=== PATIENT | male | born 1960 | race Two or more races ===

== ENCOUNTER 2020-07-19 09:08 | Outpatient (REF) | payer MEDICARE, MEDICAID, SELFPAY ==
[2020-07-19 09:59] LABS: MANUAL DIFF FLAG NO
[2020-07-19 10:12] LABS: Basophils Absolute Auto 0.1 X10*3/uL (0.0-0.2); Basophils Percent Auto 0.7 % (0-2); Eosinophils Absolute Auto 0.2 X10*3/uL (0.0-0.4); Eosinophils Percent Auto 2.7 % (0-4); Hematocrit 37.8 % (42-52); Hemoglobin 11.8 g/dl (14.0-18.0); Imm Gran Abs Auto 0.02 X10*3/uL (0.00-0.03); Imm Gran Pct Auto 0.3 % (0.0-0.4); Lymphocytes Absolute Auto 2.7 X10*3/uL (1.2-4.9); Lymphocytes Percent Auto 36.3 % (20-40); Mean Corpuscular HGB Conc 31.2 g/dl (31.0-36.0); Mean Corpuscular Hemoglobin 27.8 pg (27.0-33.0); Mean Corpuscular Volume 89.2 fL (80-98); Mean Platelet Volume 10.2 fL (9.4-12.4); Monocytes Absolute Auto 0.5 X10*3/uL (0.1-1.2); Monocytes Percent Auto 6.5 % (2-11); Neutrophils Absolute Auto 3.9 X10*3/uL (2.0-8.3); Neutrophils Percent Auto 53.5 % (45-73); Platelet Count 243 X10*3/uL (160-400); Red Blood Count 4.24 X10*6/uL (4.60-5.80); Red Cell Distribution Width 12.6 % (11.0-16.0); White Blood Count 7.4 X10*3/uL (4.8-10.8)
[2020-07-19 10:48] LABS: Alanine Aminotransferase 19 U/L (0-40); Albumin Level 4.2 g/dL (3.5-5.0); Alkaline Phosphatase 63 U/L (39-117); Anion Gap 11 (12-20); Aspartate Amino Transferase 17 U/L (5-37); Bilirubin Total 0.6 mg/dL (0.0-1.0); Blood Urea Nitrogen 22 mg/dL (9-16); Calcium 8.6 mg/dL (8.4-10.2); Carbon Dioxide 27 mmol/L (22-29); Chloride 108 mmol/L (96-108); Cholesterol 139 mg/dL; Estimated Glomerular Filt Rate > 60; Glucose Fasting 102 mg/dL (60-99); HDL Cholesterol 49 mg/dL; LDL Cholesterol Calculated 79 mg/dl; Potassium 4.4 mmol/l (3.3-5.1); Sodium 142 mmol/L (135-145); Total Protein 7.2 g/dL (6.5-8.0); Triglycerides 57 mg/dL
[2020-07-19 10:57] LABS: Creatinine Urine 98.23 mg/dL; Microalbum/Creatinine Ratio Ur 21.3 ug/mg cr
== END 2020-07-19 09:09 | disposition home or self-care (01) ==
LOC: HO.LAB 09:08
PROVIDERS: PCP Internal Medicine; Visit Provider Internal Medicine
DX: E78.00 Pure hypercholesterolemia, unspecified (principal); E11.39 Type 2 diabetes mellitus with other diabetic ophthalmic complication; M79.604 Pain in right leg
CPT/HCPCS: 36415; 80053; 80061; 82043; 85025

== ENCOUNTER 2020-08-31 08:41 | Emergency (ER) | payer MEDICARE, MEDICAID, SELFPAY ==
[2020-08-31 09:05] VITALS: BP 132/79; PULSE 96; RESP 16; TEMP 36.9; O2SAT 100; BMI 25.0
[2020-08-31] MEDS: Fluorescein Sodium STRIP 1 STRIP EYE-LEFT (09:59)
[2020-08-31] MEDS: Tetracaine HCl/PF 0.5% Oph Sol 4 ML DROPS 3 DROP EYE-RIGHT (09:59)
--- NOTE | 2020-08-31 10:27 | ED_ITS ---
HPI - Eye Problem General Chief complaint: Eye Problems Stated complaint: ? 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, there is no light sensitivity, there is no recent injury, no feeling of a foreign body Related Data Home Medications Medication Instructions Recorded Confirmed atorvastatin 20 mg tablet 20 mg PO DAILY 07/23/20 07/23/20 brimonidine 0.2 % eye drops 1 drp OPHTHALMIC (EYE) BID 07/23/20 07/23/20 gabapentin 100 mg capsule 100 mg PO DAILY 07/23/20 07/23/20 lisinopril 5 mg tablet 5 mg PO DAILY 07/23/20 07/23/20 omeprazole 20 mg tablet,delayed 20 mg PO QAM 07/23/20 07/23/20 release Previous Rx's Medication Instructions Recorded insulin glargine 100 unit/mL (3 45 unit SUBCUT QPM 30 Days #13.5 ml 06/29/20 mL) subcutaneous pen dulaglutide 0.75 mg/0.5 mL 0.75 mg SUBCUT QWEEK #0.5 ml 07/28/20 subcutaneous pen injector ammonium lactate 12 % lotion 1 applic TOPICAL DAILY 30 Days 08/18/20 #225 g oxycodone 5 mg tablet 5 mg PO TID PRN 30 Days #90 tab 08/18/20 ofloxacin [Ocuflox] See Rx Instructions .ROUTE 08/31/20 .COMPLEX #5 ml Allergies Allergy/AdvReac Type Severity Reaction Status Date / Time metformin Allergy Unknown diarrhea Verified 07/23/20 10:21 Review of Systems Review of Systems: positive for left eye redness itching and discharge no headache no fever no chills no dizziness no eye pain, no rash Yes all other systems are reviewed and are negative PMFSH Past Medical History Source: nursing notes reviewed Medical History Diabetes mellitus Essential hypertension GERD (gastroesophageal reflux disease) Pure hypercholesterolemia Surgical History History of eye surgery History of open reduction and internal fixation (ORIF) procedure Family History Family History (Updated 07/22/20 @ 10:49 by ESTELLA Barba) Father Diabetes Stroke Mother Diabetes Brother Prostate cancer Maternal Uncle Cancer Social History Social History (Updated 07/23/20 @ 10:08 by ESTELLA Rico) Smoking Status: Former smoker Tobacco Type: Cigarette Advance Directives: No Advance Directives Information Provided: Yes Physical Exam Vital Signs: Vital Signs: Last Vital Signs Temp 98.4 F 08/31/20 09:05 Pulse 96 08/31/20 09:05 Resp 16 08/31/20 09:05 BP 132/79 08/31/20 09:05 Pulse Ox 100 08/31/20 09:05 Body Mass Index 25.0 patient is comfortable relaxed cooperative A&O x3 The eye exam his vision is 2100 with correction in the right eye the left eye was unable to see the eye chart, patient says this is his baseline The left eye had some conjunctival redness there was a yellowish discharge crusting on the lower eyelids, pupils equal round reactive to light and extraocular motions were intact Staining did not reveal any dye uptake, no foreign body was seen The neck was supple Respiratory no distress Skin no rash Course Course Course Narrative: patient is treated for conjunctivitis possibly bacterial and will follow with his eye doctor next week if not better Discharge Plan Discharge Clinical Impression: Conjunctivitis Qualifiers: Conjunctivitis type: acute Acute conjunctivitis type: unspecified Laterality: left Qualified Code(s): H10.32 - Unspecified acute conjunctivitis, left eye Patient Disposition: Home, Self-Care Additional Instructions: follow with her eye doctor in 2-3 days if not better Return to the ER any time for worsening eye pain, any worse condition, any concerns Prescriptions: New ofloxacin [Ocuflox] 0.3 % drops See Rx Instructions .ROUTE .COMPLEX Qty: 5 RF: 0 No Action Lantus Solostar U-100 Insulin 100 unit/mL (3 mL) insulin pen 45 unit subcut QPM 30 Days Qty: 13.5 RF: 5 dulaglutide [Trulicity] 0.75 mg/0.5 mL pen injector 0.75 mg subcut QWEEK Qty: 0.5 RF: 3 oxycodone 5 mg tablet 5 mg PO TID PRN (Reason: pain) 30 Days Qty: 90 RF: 0 ammonium lactate 12 % lotion 1 applic topical DAILY 30 Days Qty: 225 RF: 1 brimonidine 0.2 % drops 1 drp ophthalmic (eye) BID RF: 0 gabapentin 100 mg capsule 100 mg PO DAILY RF: 0 lisinopril 5 mg tablet 5 mg PO DAILY RF: 0 atorvastatin 20 mg tablet 20 mg PO DAILY RF: 0 omeprazole 20 mg tablet,delayed release (DR/EC) 20 mg PO QAM RF: 0 Referrals: Gilson Moreno [Physician] - 2 days
== END 2020-08-31 10:31 | disposition home or self-care (01) ==
PROVIDERS: Emergency Provider Internal Medicine; PCP Internal Medicine
DX: H10.32 Unspecified acute conjunctivitis, left eye (principal); H57.12 Ocular pain, left eye; Z79.899 Other long term (current) drug therapy; Z87.891 Personal history of nicotine dependence
CPT/HCPCS: 99283

== ENCOUNTER 2020-10-14 09:19 | Outpatient (REF) | payer MEDICARE, MEDICAID, SELFPAY ==
[2020-10-14 10:39] LABS: Cholesterol 157 mg/dL; HDL Cholesterol 59 mg/dL; LDL Cholesterol Calculated 87 mg/dl; Triglycerides 58 mg/dL
== END 2020-10-14 09:20 | disposition home or self-care (01) ==
LOC: HO.LAB 09:19
PROVIDERS: Visit Provider Internal Medicine
DX: E78.00 Pure hypercholesterolemia, unspecified (principal)
CPT/HCPCS: 36415; 80061

== ENCOUNTER 2021-01-19 07:52 | Outpatient (REF) | payer MEDICARE, MEDICAID, SELFPAY ==
[2021-01-19 08:29] LABS: MANUAL DIFF FLAG NO
[2021-01-19 08:34] LABS: Basophils Absolute Auto 0.1 X10*3/uL (0.0-0.2); Basophils Percent Auto 0.7 % (0-2); Eosinophils Absolute Auto 0.3 X10*3/uL (0.0-0.4); Eosinophils Percent Auto 3.8 % (0-4); Hematocrit 39.3 % (42-52); Hemoglobin 12.3 g/dl (14.0-18.0); Imm Gran Abs Auto 0.03 X10*3/uL (0.00-0.03); Imm Gran Pct Auto 0.4 % (0.0-0.4); Lymphocytes Absolute Auto 2.2 X10*3/uL (1.2-4.9); Lymphocytes Percent Auto 32.6 % (20-40); Mean Corpuscular HGB Conc 31.3 g/dl (31.0-36.0); Mean Corpuscular Hemoglobin 28.4 pg (27.0-33.0); Mean Corpuscular Volume 90.8 fL (80-98); Mean Platelet Volume 9.8 fL (9.4-12.4); Monocytes Absolute Auto 0.5 X10*3/uL (0.1-1.2); Monocytes Percent Auto 6.8 % (2-11); Neutrophils Absolute Auto 3.8 X10*3/uL (2.0-8.3); Neutrophils Percent Auto 55.7 % (45-73); Platelet Count 301 X10*3/uL (160-400); Red Blood Count 4.33 X10*6/uL (4.60-5.80); Red Cell Distribution Width 12.2 % (11.0-16.0); White Blood Count 6.9 X10*3/uL (4.8-10.8)
[2021-01-19 08:59] LABS: Alanine Aminotransferase 12 U/L (0-40); Albumin Level 3.9 g/dL (3.5-5.0); Alkaline Phosphatase 79 U/L (39-117); Anion Gap 12 (12-20); Aspartate Amino Transferase 12 U/L (5-37); Bilirubin Total 0.6 mg/dL (0.0-1.0); Blood Urea Nitrogen 12 mg/dL (9-16); Calcium 8.9 mg/dL (8.4-10.2); Carbon Dioxide 28 mmol/L (22-29); Chloride 107 mmol/L (96-108); Cholesterol 143 mg/dL; Estimated Glomerular Filt Rate > 60; Glucose Fasting 151 mg/dL (60-99); HDL Cholesterol 48 mg/dL; LDL Cholesterol Calculated 84 mg/dl; Potassium 4.1 mmol/L (3.3-5.1); Sodium 143 mmol/L (135-145); Total Protein 7.1 g/dL (6.5-8.0); Triglycerides 57 mg/dL
[2021-01-19 09:15] LABS: Creatinine Urine 196.61 mg/dL; Microalbum/Creatinine Ratio Ur 19.8 ug/mg cr
[2021-01-19 09:16] LABS: Estimated Average Glucose 249 mg/dL; Hemoglobin A1c % 10.3 %
== END 2021-01-19 07:53 | disposition home or self-care (01) ==
LOC: HO.LAB 07:52
PROVIDERS: PCP Internal Medicine; Visit Provider Internal Medicine
DX: E11.9 Type 2 diabetes mellitus without complications (principal); K21.9 Gastro-esophageal reflux disease without esophagitis; E78.5 Hyperlipidemia, unspecified; M79.604 Pain in right leg; Z79.4 Long term (current) use of insulin
CPT/HCPCS: 36415; 80053; 80061; 82043; 83036; 85025

== ENCOUNTER 2021-07-20 07:24 | Outpatient (REF) | payer MEDICARE, MEDICAID, SELFPAY ==
[2021-07-20 07:30] LABS: MANUAL DIFF FLAG NO
[2021-07-20 08:01] LABS: Basophils Absolute Auto 0.1 X10*3/uL (0.0-0.2); Basophils Percent Auto 0.6 % (0-2); Eosinophils Absolute Auto 0.3 X10*3/uL (0.0-0.4); Eosinophils Percent Auto 2.9 % (0-4); Hematocrit 39.5 % (42-52); Hemoglobin 12.9 g/dl (14.0-18.0); Imm Gran Abs Auto 0.03 X10*3/uL (0.00-0.03); Imm Gran Pct Auto 0.3 % (0.0-0.4); Lymphocytes Absolute Auto 3.1 X10*3/uL (1.2-4.9); Lymphocytes Percent Auto 36.4 % (20-40); Mean Corpuscular HGB Conc 32.7 g/dl (31.0-36.0); Mean Corpuscular Hemoglobin 28.7 pg (27.0-33.0); Mean Platelet Volume 9.8 fL (9.4-12.4); Monocytes Absolute Auto 0.5 X10*3/uL (0.1-1.2); Neutrophils Absolute Auto 4.6 X10*3/uL (2.0-8.3); Neutrophils Percent Auto 53.8 % (45-73); Platelet Count 302 X10*3/uL (160-400); Red Blood Count 4.49 X10*6/uL (4.60-5.80); Red Cell Distribution Width 12.4 % (11.0-16.0); White Blood Count 8.6 X10*3/uL (4.8-10.8)
[2021-07-20 08:27] LABS: Alanine Aminotransferase 16 U/L (0-40); Albumin Level 4.3 g/dL (3.5-5.0); Alkaline Phosphatase 78 U/L (39-117); Anion Gap 13 (12-20); Aspartate Amino Transferase 15 U/L (5-37); Bilirubin Total 0.6 mg/dL (0.0-1.0); Blood Urea Nitrogen 15 mg/dL (9-16); Calcium 9.7 mg/dL (8.4-10.2); Carbon Dioxide 32 mmol/L (22-29); Chloride 104 mmol/L (96-108); Cholesterol 174 mg/dL; Estimated Glomerular Filt Rate > 60; Glucose Fasting 117 mg/dL (60-99); HDL Cholesterol 53 mg/dL; LDL Cholesterol Calculated 110 mg/dl; Potassium 4.7 mmol/L (3.3-5.1); Sodium 144 mmol/L (135-145); Total Protein 7.7 g/dL (6.5-8.0); Triglycerides 56 mg/dL
[2021-07-20 09:01] LABS: Creatinine Urine 243.51 mg/dL; Microalbum/Creatinine Ratio Ur 21.3 ug/mg cr
== END 2021-07-20 07:25 | disposition home or self-care (01) ==
LOC: HO.LAB 07:24
PROVIDERS: PCP Internal Medicine; Visit Provider Internal Medicine
DX: E11.9 Type 2 diabetes mellitus without complications (principal); E78.5 Hyperlipidemia, unspecified; D64.9 Anemia, unspecified; Z79.4 Long term (current) use of insulin
CPT/HCPCS: 36415; 80053; 80061; 82043; 85025

== ENCOUNTER → 2021-07-24 09:04 | Outpatient (BNVA) | payer MEDICARE, MEDICAID, SELFPAY | PROVIDERS: PCP Internal Medicine; Referring Provider Internal Medicine; Visit Provider Nurse Practitioner | DX: Z01.818 Encounter for other preprocedural examination (principal); Z83.71 Family history of colonic polyps; Z79.899 Other long term (current) drug therapy | CPT/HCPCS: Q3014 ==

== ENCOUNTER 2021-09-21 07:51 | Outpatient (REF) | payer MEDICARE, MEDICAID, SELFPAY ==
[2021-09-21 08:36] LABS: COVID-19 Test Negative (Negative); IDNOW Serial# 16C4AD1C
== END 2021-09-21 07:52 | disposition home or self-care (01) ==
LOC: HO.LAB 07:51
PROVIDERS: Visit Provider Internal Medicine
DX: Z20.822 Contact with and (suspected) exposure to COVID-19 (principal)
CPT/HCPCS: 36415; 87635; C9803

== ENCOUNTER 2021-09-29 08:14 | Outpatient (REF) | payer MEDICARE, MEDICAID, SELFPAY ==
[2021-09-29 11:17] LABS: Binax Internal Control QC Valid; Binax Lot number: 9864; Binax Now Covid-19 Ag Positive (Negative)
== END 2021-09-29 08:15 | disposition home or self-care (01) ==
LOC: HO.LAB 08:14
PROVIDERS: Visit Provider Internal Medicine
DX: Z20.822 Contact with and (suspected) exposure to COVID-19 (principal)
CPT/HCPCS: 36415; C9803

== ENCOUNTER 2021-10-30 08:07 | Day surgery (SDC) | payer MEDICARE, MEDICAID, SELFPAY ==
[2021-10-23 15:25] VITALS: BMI 26.1
--- NOTE | 2021-10-29 13:05 | HO.ANESPROP2 ---
Documented by User: Sveta Maria NP 10/29/21 13:06 HPI - Anesthesia Eval Consult details Narrative: 61yo M for Colonoscopy PMFSH Active Problems Active Problems: All Active Problems (Updated 10/23/21 @ 15:24 by Adia Scott, KARISHMA) Diabetic retinopathy of both eyes (Acute) Colon cancer screening (Acute) Family history of polyps in the colon (Acute) Screening for prostate cancer (Acute) Chronic radicular pain of lower extremity (Acute) GERD (gastroesophageal reflux disease) (Acute) Pure hypercholesterolemia (Acute) Essential hypertension (Acute) Diabetes mellitus (Acute) Past Medical History Medical History Chronic radicular pain of lower extremity Diabetes mellitus Essential hypertension GERD (gastroesophageal reflux disease) Pure hypercholesterolemia SARS-CoV-2 positive Screening for prostate cancer Family History Family History Father Diabetes Stroke Mother Diabetes Brother Prostate cancer FH: colonic polyps Maternal Uncle Cancer Surgical History Surgical History History of colonoscopy History of eye surgery History of open reduction and internal fixation (ORIF) procedure Social History Social History Housing: Apartment Alcohol intake: former Patient Tobacco Use Status: Former Tobacco user Tobacco use type: Cigarette e-Cigarette/Vaping Use: Never Used Second Hand Smoke Exposure: No Advance Directives on File: No service: No Current occupational status: disabled Meds Allergies Allergy/AdvReac Type Severity Reaction Status Date / Time metformin Allergy Intermediate diarrhea Verified 07/24/21 10:12 Home Medications Medication Instructions Recorded Confirmed Last Taken Type brimonidine 0.2 % eye drops 1 drp OPHTHALMIC (EYE) BID 07/23/20 10/23/21 Unknown History omeprazole 20 mg tablet,delayed 20 mg PO QAM 07/23/20 10/23/21 Unknown History release timolol 0.5 % eye drops 1 drp OPHTHALMIC (EYE) BID 03/23/21 10/23/21 Unknown History Exam Exam Date and Time: October 29, 2021 1305 Height,Weight and Vital Signs: Height 5 ft 8 in Weight 78.018 kg Pertinent Lab Results Pertinent Lab Results: Laboratory Tests 07/20/21 07/20/21 07:28 07:28 WBC 8.6 Hgb 12.9 L Hct 39.5 L Plt Count 302 Sodium 144 Potassium 4.7 Chloride 104 Carbon Dioxide 32 H BUN 15 Creatinine 0.97 Assessment and Plan Assessment Anesthesia Assessment: Chart Reviewed Documented by User: Myrna Holly MD 10/30/21 10:05 PMFSH Past Medical History Medical History Chronic radicular pain of lower extremity Diabetes mellitus Essential hypertension GERD (gastroesophageal reflux disease) Pure hypercholesterolemia SARS-CoV-2 positive Screening for prostate cancer Functional capacity: independent ambulation Family History Family History Father Diabetes Stroke Mother Diabetes Brother Prostate cancer FH: colonic polyps Maternal Uncle Cancer Family history of problems with anesthesia: No Surgical History Surgical History History of colonoscopy History of eye surgery History of open reduction and internal fixation (ORIF) procedure History of Problems with Anesthesia: No Social History Social History Housing: Apartment Alcohol intake: former Patient Tobacco Use Status: Former Tobacco user Tobacco use type: Cigarette e-Cigarette/Vaping Use: Never Used Second Hand Smoke Exposure: No Advance Directives on File: No service: No Current occupational status: disabled Meds Allergies Allergy/AdvReac Type Severity Reaction Status Date / Time metformin Allergy Intermediate diarrhea Verified 07/24/21 10:12 Home Medications Medication Instructions Recorded Confirmed Last Taken Type brimonidine 0.2 % eye drops 1 drp OPHTHALMIC (EYE) BID 07/23/20 10/23/21 Unknown History omeprazole 20 mg tablet,delayed 20 mg PO QAM 07/23/20 10/23/21 Unknown History release timolol 0.5 % eye drops 1 drp OPHTHALMIC (EYE) BID 03/23/21 10/23/21 Unknown History Exam Airway Mallampati Class: II TM Dist: >3cm Neck ROM: Full Heart: RRR Lungs: CTA Assessment and Plan Final Anesthetic Review Family History of Problems with Anesthesia: No History of Problems with Anesthesia: No ASA Class: II Final Preanesthetic Review: No Changes in Pt Med Stat, Meds/Allgs Chart Reviewed, Consent Obtained/Reviewed and Anes Risks/Benef Reviewed Patient Risk: Low Procedure Risk: Low Anesthetic Plan Anesthetic Plan: MAC:
[2021-10-30 08:47] VITALS: BP 149/92; PULSE 102; RESP 20; TEMP 36.2; O2SAT 100
[2021-10-30] MEDS: Lactated Ringers 1,000 ML 100 ML IVCONT (09:10)
[2021-10-30 09:19] LABS: Glucose, Whole Blood 146 mg/dL (60-115)
--- NOTE | 2021-10-30 09:33 | MHC.SHP ---
Pre-Procedural Eval Section A Date of Service: 10/30/21 The patient is an INPATIENT: No The History & Physical has been completed within 30 days and I have reviewed it.: No Section B Chief Complaint: hx of colonic polyps Details of Present Illness: Colon cancer screening, history of colon polyps Relevant Family History (Specify if Yes): Yes Relevant Social History: Tobacco Use (former smoker) Present Medications: see Short Stay Collaborative assessment Medical History: Significant History (Chronic radicular pain of lower extremity Diabetes mellitus Essential hypertension GERD (gastroesophageal reflux disease) Pure hypercholesterolemia Screening for prostate cancer) History of Previous Operations: Relevant previous surgery/procedure and date(s) (History of colonoscopy History of eye surgery History of open reduction and internal fixation (ORIF) procedure) Allergies: Allergies Allergy/AdvReac Type Severity Reaction Status Date / Time metformin Allergy Intermediate diarrhea Verified 07/24/21 10:12 Review of Systems Sugical H&P ROS: Negative: Constitution, Cardiovascular, Respiratory and Gastrointestinal Exam Surgical H&P Exam: Normal: Heart, Normal: Lungs, Normal: Extremities and Normal: Abdomen Plan Diagnosis/Plan: Unchanged I have reviewed the history and physical and performed a pertinent physical examination on my patient. No changes have occurred unless specified.
--- NOTE | 2021-10-30 09:36 | W.PM.OPN ---
Operative Note Operative Note Date of Service: 10/30/21 Narrative: Pre-op diagnosis: Colon cancer screening, family hx of colon polyps in a brother Post-op diagnosis:?other (Colon polyps, diverticulosis, hemorrhoids) Procedure: COLONOSCOPY TILL CECUM WITH BIOPSIES Consent: Indications for the procedure and potential complications of bleeding, perforation, reaction to medications and missed diagnosis were discussed with the patient and informed consent was obtained. Instrument: Olympus PCF H 190 L variable stiffness pediatric colonoscope Monitoring: Vital signs and clinical assessment, intermittent blood pressure monitoring, continuous EKG monitoring, Pulse oximetry and Carbon Dioxide monitoring were done throughout the procedure. Colon withdrawl time was 23 minutes. Procedure: The patient was placed in the left lateral decubitis position and pre-procedure medications were administered. After a digital rectal examination of the ano-rectum, the video colonoscope was inserted into the rectum and advanced through the colon to the cecum. The colonoscope was slowly withdrawn in a retrograde panoramic fashion and the colon mucosa was carefully examined including a retroflexed view of the rectum. Findings and interventions are described below. Procedure Difficulty: Without difficulty Findings: Terminal Ileum: Not evaluated Cecum:? Normal Ascending Colon:? Normal Transverse Colon:? Normal Descending Colon:? Moderate diverticulosis Sigmoid Colon:? Two 3-4 mm sessile polyps removed with a cold biopsy. Moderate diverticulosis Rectum:? Normal Ano-rectum:? Moderate internal hemorrhoids Colon preparation:? Good? Impression and Post Procedure Diagnosis: Colonoscopy Findings: Two small polyps removed Moderate diverticulosis seen in the left colon Moderate hemorrhoids on retroflexed exam. Plan: Await pathology results Patient has an appointment on 11/13/21 in the [facility] with? Maggie Chang NP . Repeat Colonoscopy interval based on path results - in 5 years if polyps are adenomatous and 10 years if polyps are hyperplastic (since patient has had 2 negative colonoscopies). Above findings were reviewed with the patient and colon polyps and diverticulosis handouts were given in the discharge area Surgeon: William Barragan MD Anesthesia:?MAC (Dr Simmons) Was an Inside Sales Supervisor used for this Procedure?:?Yes Inside Sales Supervisor:?Mara Lawson Estimated blood loss (mL):?0 Pathology:?other (A. SIGMOID POLYPS) Condition:?stable Disposition:?PACU
[2021-10-30 10:35] VITALS: BP 90/48; PULSE 86; RESP 16; TEMP 36.3; O2SAT 97
[2021-10-30 10:50] VITALS: BP 113/66; PULSE 85; RESP 18; O2SAT 100
--- NOTE | 2021-10-30 10:57 | HO.POSTANES ---
Post Anesthesia Evaluation Post Anesthesia Evaluation Vital Signs: Vital Signs Temp Pulse Resp BP Pulse Ox 10/30/21 10:50 85 18 113/66 100 10/30/21 10:35 97.4 F 86 16 90/48 L 97 10/30/21 08:47 97.1 F 102 H 20 149/92 H 100 Anesthesia: Monitored Mental Status: Awake Pain Control: Satisfactory Nausea/Vomiting: None Hydration: Adequate Anesthesia-Related Issues: No Anes. Related Issues
[2021-10-30 11:00] VITALS: BP 113/66; PULSE 80; RESP 16; TEMP 36.4; O2SAT 100
== END 2021-10-30 11:29 | disposition home or self-care (01) ==
PROVIDERS: PCP Internal Medicine; Visit Provider Internal Medicine Gastroenterology
PROC: 0DJD8ZZ Inspection of Lower Intestinal Tract, Via Natural or Artificial Opening Endoscopic (ICD-10-PCS; CPT 45378; principal; 2021-10-30 10:00)
DX: Z12.11 Encounter for screening for malignant neoplasm of colon (principal); Z83.71 Family history of colonic polyps; K63.5 Polyp of colon; K57.30 Diverticulosis of large intestine without perforation or abscess without bleeding; K64.8 Other hemorrhoids; K21.9 Gastro-esophageal reflux disease without esophagitis; I10 Essential (primary) hypertension; E78.00 Pure hypercholesterolemia, unspecified; E11.319 Type 2 diabetes mellitus with unspecified diabetic retinopathy without macular edema; Z79.4 Long term (current) use of insulin; Z79.899 Other long term (current) drug therapy; Z88.8 Allergy status to other drugs, medicaments and biological substances; Z87.891 Personal history of nicotine dependence
CPT/HCPCS: 45380; 82947; 88305

== ENCOUNTER → 2021-11-13 10:47 | Outpatient (BNVA) | payer MEDICARE, MEDICAID, SELFPAY | PROVIDERS: PCP Internal Medicine; Referring Provider Internal Medicine; Visit Provider Nurse Practitioner | DX: Z09 Encounter for follow-up examination after completed treatment for conditions other than malignant neoplasm (principal); Z83.71 Family history of colonic polyps | CPT/HCPCS: 99212 ==

== ENCOUNTER 2021-11-27 08:43 | Outpatient (REF) | payer MEDICARE, MEDICAID, SELFPAY ==
[2021-11-27 09:19] LABS: MANUAL DIFF FLAG NO
[2021-11-27 09:54] LABS: Basophils Absolute Auto 0.1 X10*3/uL (0.0-0.2); Basophils Percent Auto 0.6 % (0-2); Eosinophils Absolute Auto 0.1 X10*3/uL (0.0-0.4); Eosinophils Percent Auto 1.2 % (0-4); Hematocrit 39.4 % (42.0-52.0); Hemoglobin 12.2 g/dl (14.0-18.0); Imm Gran Abs Auto 0.02 X10*3/uL (0.00-0.03); Imm Gran Pct Auto 0.2 % (0.0-0.4); Lymphocytes Absolute Auto 2.2 X10*3/uL (1.2-4.9); Lymphocytes Percent Auto 22.7 % (20-40); Mean Corpuscular Hemoglobin 27.5 pg (27.0-33.0); Mean Corpuscular Volume 88.7 fL (80.0-98.0); Mean Platelet Volume 10.1 fL (9.4-12.4); Monocytes Absolute Auto 0.4 X10*3/uL (0.1-1.2); Monocytes Percent Auto 4.2 % (2-11); Neutrophils Absolute Auto 6.9 x10*3/uL (2.0-8.3); Neutrophils Percent Auto 71.1 % (45-73); Platelet Count 306 X10*3/uL (160-400); Red Blood Count 4.44 X10*6/uL (4.60-5.80); Red Cell Distribution Width 12.8 % (11.0-16.0); White Blood Count 9.8 X10*3/uL (4.8-10.8)
[2021-11-27 10:12] LABS: Creatinine Urine 191.28 mg/dL; Microalbum/Creatinine Ratio Ur 21.4 ug/mg cr
[2021-11-27 10:18] LABS: Cholesterol 134 mg/dL; HDL Cholesterol 47 mg/dL; LDL Cholesterol Calculated 79 mg/dl; Triglycerides 41 mg/dL
[2021-12-02 02:37] LABS: Vitamin D 25-OH, D2 <4 ng/mL; Vitamin D 25-OH, D3 15 ng/mL; Vitamin D 25-OH, Total 15 ng/mL (30-100)
== END 2021-11-27 08:44 | disposition home or self-care (01) ==
LOC: HO.LAB 08:43
PROVIDERS: PCP Internal Medicine; Visit Provider Internal Medicine
DX: D64.9 Anemia, unspecified (principal); E11.9 Type 2 diabetes mellitus without complications; E55.9 Vitamin D deficiency, unspecified; E78.5 Hyperlipidemia, unspecified
CPT/HCPCS: 36415; 80061; 82043; 82306; 85025

== ENCOUNTER 2022-04-20 07:45 | Outpatient (REF) | payer MEDICARE, MEDICAID, SELFPAY ==
[2022-04-20 08:02] LABS: MANUAL DIFF FLAG NO
[2022-04-20 08:27] LABS: Basophils Absolute Auto 0.1 X10*3/uL (0.0-0.2); Basophils Percent Auto 0.7 % (0-2); Eosinophils Absolute Auto 0.3 X10*3/uL (0.0-0.4); Eosinophils Percent Auto 3.8 % (0-4); Hematocrit 39.8 % (42.0-52.0); Hemoglobin 12.8 g/dl (14.0-18.0); Imm Gran Abs Auto 0.05 X10*3/uL (0.00-0.03); Imm Gran Pct Auto 0.6 % (0.0-0.4); Lymphocytes Absolute Auto 2.4 X10*3/uL (1.2-4.9); Lymphocytes Percent Auto 27.9 % (20-40); Mean Corpuscular HGB Conc 32.2 g/dl (31.0-36.0); Mean Corpuscular Hemoglobin 28.1 pg (27.0-33.0); Mean Corpuscular Volume 87.3 fL (80.0-98.0); Mean Platelet Volume 9.9 fL (9.4-12.4); Monocytes Absolute Auto 0.6 X10*3/uL (0.1-1.2); Monocytes Percent Auto 6.5 % (2-11); Neutrophils Absolute Auto 5.2 x10*3/uL (2.0-8.3); Neutrophils Percent Auto 60.5 % (45-73); Platelet Count 309 X10*3/uL (160-400); Red Blood Count 4.56 X10*6/uL (4.60-5.80); Red Cell Distribution Width 12.9 % (11.0-16.0); White Blood Count 8.6 X10*3/uL (4.8-10.8)
[2022-04-20 08:33] LABS: Estimated Average Glucose 260 mg/dL; Hemoglobin A1c % 10.7 %
[2022-04-20 08:56] LABS: Alanine Aminotransferase 12 U/L (0-40); Alkaline Phosphatase 80 U/L (39-117); Anion Gap 12 (12-20); Aspartate Amino Transferase 14 U/L (5-37); Bilirubin Total 0.7 mg/dL (0.0-1.0); Blood Urea Nitrogen 16 mg/dL (9-16); Calcium 9.3 mg/dL (8.4-10.2); Carbon Dioxide 30 mmol/L (22-29); Chloride 105 mmol/L (96-108); Cholesterol 137 mg/dL; Estimated Glomerular Filt Rate > 60; Glucose Fasting 137 mg/dL (60-99); HDL Cholesterol 43 mg/dL; LDL Cholesterol Calculated 82 mg/dl; Potassium 5.1 mmol/L (3.3-5.1); Sodium 142 mmol/L (135-145); Total Protein 7.5 g/dL (6.5-8.0); Triglycerides 63 mg/dL
[2022-04-20 08:58] LABS: Alanine Aminotransferase 12 U/L (0-40); Albumin Level 4.1 g/dL (3.5-5.0); Alkaline Phosphatase 82 U/L (39-117); Anion Gap 14 (12-20); Aspartate Amino Transferase 16 U/L (5-37); Bilirubin Total 0.8 mg/dL (0.0-1.0); Blood Urea Nitrogen 16 mg/dL (9-16); Calcium 9.5 mg/dL (8.4-10.2); Carbon Dioxide 28 mmol/L (22-29); Chloride 105 mmol/L (96-108); Estimated Glomerular Filt Rate > 60; Glucose Fasting 142 mg/dL (60-99); Potassium 5.3 mmol/L (3.3-5.1); Sodium 142 mmol/L (135-145); Total Protein 7.7 g/dL (6.5-8.0)
[2022-04-20 09:20] LABS: PSA,Total (Free>4and<10) 19.78 ng/mL (0.00-4.00)
[2022-04-20 09:26] LABS: Microalbum/Creatinine Ratio Ur 21.6 ug/mg cr
[2022-04-20 09:27] LABS: Prostate Specific Antigen Scr 19.39 ng/mL (<0.05-4.0)
== END 2022-04-20 07:46 | disposition home or self-care (01) ==
LOC: HO.LAB 07:45
PROVIDERS: Nurse Practitioner Family; PCP Internal Medicine; Visit Provider Internal Medicine
DX: Z00.00 Encounter for general adult medical examination without abnormal findings (principal); Z12.5 Encounter for screening for malignant neoplasm of prostate; E11.319 Type 2 diabetes mellitus with unspecified diabetic retinopathy without macular edema; E78.00 Pure hypercholesterolemia, unspecified; I10 Essential (primary) hypertension; E78.5 Hyperlipidemia, unspecified
CPT/HCPCS: 36415; 80053; 80061; 82043; 83036; 84153; 85025

== ENCOUNTER 2022-07-23 08:17 | Outpatient (REF) | payer MEDICARE, MEDICAID, SELFPAY ==
[2022-07-23 09:09] LABS: Alanine Aminotransferase 12 U/L (0-40); Albumin Level 4.1 g/dL (3.5-5.0); Alkaline Phosphatase 73 U/L (39-117); Anion Gap 14 (12-20); Aspartate Amino Transferase 15 U/L (5-37); Bilirubin Total 0.5 mg/dL (0.0-1.0); Blood Urea Nitrogen 13 mg/dL (9-16); Calcium 9.4 mg/dL (8.4-10.2); Carbon Dioxide 29 mmol/L (22-29); Chloride 104 mmol/L (96-108); Estimated Glomerular Filt Rate > 60; Glucose Random 174 mg/dL (60-115); Potassium 4.8 mmol/L (3.3-5.1); Sodium 142 mmol/L (135-145); Total Protein 7.4 g/dL (6.5-8.0)
[2022-07-23 09:30] LABS: PSA,Total (Free>4and<10) 18.44 ng/mL (0.00-4.00)
== END 2022-07-23 08:18 | disposition home or self-care (01) ==
LOC: HO.LAB 08:17
PROVIDERS: PCP Internal Medicine; Visit Provider Internal Medicine
DX: Z12.5 Encounter for screening for malignant neoplasm of prostate (principal); R97.20 Elevated prostate specific antigen [PSA]; E87.5 Hyperkalemia
CPT/HCPCS: 36415; 80053; 84153

== ENCOUNTER 2022-11-16 07:49 | Outpatient (REF) | payer MEDICARE, SELFPAY ==
[2022-11-16 09:01] LABS: Alanine Aminotransferase 27 U/L (0-40); Albumin Level 3.8 g/dL (3.5-5.0); Alkaline Phosphatase 74 U/L (39-117); Anion Gap 12 (12-20); Aspartate Amino Transferase 19 U/L (5-37); Bilirubin Total 0.8 mg/dL (0.0-1.0); Blood Urea Nitrogen 13 mg/dL (9-16); Calcium 8.8 mg/dL (8.4-10.2); Carbon Dioxide 31 mmol/L (22-29); Chloride 107 mmol/L (96-108); Cholesterol 147 mg/dL; Estimated Glomerular Filt Rate > 60; Glucose Fasting 92 mg/dL (60-99); HDL Cholesterol 44 mg/dL; LDL Cholesterol Calculated 93 mg/dl; Potassium 4.5 mmol/L (3.3-5.1); Sodium 145 mmol/L (135-145); Total Protein 6.7 g/dL (6.5-8.0); Triglycerides 51 mg/dL
[2022-11-16 09:19] LABS: Vitamin D 25-OH Total 45.8 ng/mL (>30)
[2022-11-16 09:48] LABS: Creatinine Urine 146.77 mg/dL; Microalbum/Creatinine Ratio Ur 18.3 ug/mg cr
== END 2022-11-16 07:50 | disposition home or self-care (01) ==
LOC: HO.LAB 07:49
PROVIDERS: PCP Internal Medicine; Visit Provider Internal Medicine
DX: E11.9 Type 2 diabetes mellitus without complications (principal); E55.9 Vitamin D deficiency, unspecified; E78.5 Hyperlipidemia, unspecified; Z79.4 Long term (current) use of insulin
CPT/HCPCS: 36415; 80053; 80061; 82043; 82306

== ENCOUNTER 2023-04-13 07:12 | Outpatient (REF) | payer MEDICARE, SELFPAY ==
[2023-04-13 08:23] LABS: Alanine Aminotransferase 18 U/L (0-40); Albumin Level 3.9 g/dL (3.5-5.0); Alkaline Phosphatase 68 U/L (39-117); Anion Gap 12 (12-20); Aspartate Amino Transferase 14 U/L (5-37); Bilirubin Total 0.8 mg/dL (0.0-1.0); Blood Urea Nitrogen 14 mg/dL (9-16); Calcium 9.4 mg/dL (8.4-10.2); Carbon Dioxide 29 mmol/L (22-29); Chloride 105 mmol/L (96-108); Cholesterol 137 mg/dL; Estimated Glomerular Filt Rate > 60; Glucose Fasting 94 mg/dL (60-99); HDL Cholesterol 47 mg/dL; LDL Cholesterol Calculated 77 mg/dl; Potassium 4.1 mmol/L (3.3-5.1); Sodium 142 mmol/L (135-145); Total Protein 7.3 g/dL (6.5-8.0); Triglycerides 69 mg/dL
[2023-04-13 08:49] LABS: Creatinine Urine 219.12 mg/dL; Microalbum/Creatinine Ratio Ur 20.9 ug/mg cr
== END 2023-04-13 07:13 | disposition home or self-care (01) ==
LOC: HO.LAB 07:12
PROVIDERS: PCP Internal Medicine; Visit Provider Internal Medicine
DX: E78.5 Hyperlipidemia, unspecified (principal); E11.9 Type 2 diabetes mellitus without complications; Z79.4 Long term (current) use of insulin
CPT/HCPCS: 36415; 80053; 80061; 82043

== ENCOUNTER 2023-04-14 08:22 | Outpatient (AMB) | payer MEDICARE, SELFPAY ==
--- NOTE | 2023-04-14 08:28 | AM.OFFVISMDC ---
Intake Vital Signs 04/14/23 08:29 Height 5 ft 7 in Weight 169 lb BMI 26.5 BP 130/80 Blood Pressure Location Lt brachial Position Sitting Intake Visit Reasons: AWV Intake Note: Patient here for an annual wellness visit Molding Manager Required: No Accompanied by: Spouse Allergies metformin Allergy (Intermediate, Verified 04/14/23 08:42) diarrhea Medication List - Last Reconciled 04/14/23 by Jaja Ventura MD ammonium lactate 12% 1 appl topical DAILY 30 days atorvastatin 80 mg PO BEDTIME 90 days blood sugar diagnostic (FreeStyle Test strips) Use 1 test strip once a day blood-glucose meter (FreeStyle [place] Lite kit) As directed brimonidine 0.2% 1 drp ophthalmic (eye) BID cholecalciferol (vitamin D3) 25 mcg PO DAILY 90 days dulaglutide (Trulicity) 1.5 mg (0.5 mL) subcut QWEEK 90 days flash glucose scanning reader (OxyntixStyle Angeli 14 Day [place]) As directed flash glucose sensor (FreeStyle Angeli 14 Day Sensor kit) As directed insulin glargine (Lantus Solostar U-100 Insulin) 55 units (0.55 mL) subcut QPM 30 days lancets (FreeStyle Lancets) Use 1 lancet once a day lisinopril 5 mg PO DAILY 90 days omeprazole 20 mg PO DAILY 90 days oxycodone 5 mg PO TID PRN 7 days timolol 0.5% 1 drp ophthalmic (eye) BID triamcinolone acetonide 0.025% 1 appl topical BID 14 days HPI HPI Comments History of Present Illness Details This is a 62-year-old male with diabetes mellitus type 2 and prostate cancer that comes for his Medicare wellness exam. A1c still elevated and dietary changes were advised. He just finished treatment for prostate cancer and is follow by Urology. Accompanied by . PPP handed to patient. Colonoscopy was done October 2021. Walks with a cane for gait stability. No chest pain or shortness of breath. Has moderate recurrent major depression with anxiety and I will start him on SSRIs. No suicidal thoughts. [facility] Medical History (Updated 04/14/23 @ 09:20 by Jaja Ventura MD) Chronic radicular pain of lower extremity Diabetes mellitus Diabetic retinopathy of right eye Essential hypertension GERD (gastroesophageal reflux disease) Pure hypercholesterolemia SARS-CoV-2 positive Screening for prostate cancer Surgical History History of colonoscopy History of eye surgery History of open reduction and internal fixation (ORIF) procedure Family History (Updated 04/14/23 @ 08:47 by Jaja Ventura MD) Father Diabetes Stroke Mother Diabetes Parkinsons Brother Prostate cancer FH: colonic polyps Maternal Uncle Cancer Social History Housing: Apartment Alcohol intake: former Patient Tobacco Use Status: Former Tobacco user Tobacco use type: Cigarette e-Cigarette/Vaping Use: Never Used Second Hand Smoke Exposure: No service: No Current occupational status: disabled Cognitive needs: No Hearing needs: No Vision needs: Yes Questionnaire Medicare Wellness Checkup What gender do you identify with?: male During the past 4 weeks, how much have you been bothered by emotional problems such as feeling anxious, depressed, irritable, sad or downhearted, and blue?: extremely During the past 4 weeks, has your physical & emotional health limited your social activities with family, friends, neighbors, or groups?: quite a bit During the past 4 weeks, how much bodily pain have you generally had?: severe pain During the past 4 weeks, was someone available to help you if you needed & wanted help?: yes, as much as I wanted During the past 4 weeks, what was the hardest physical activity you could do for at least 2 minutes?: very light Can you get to places out of walking distance without help? (For eg., can you travel alone on buses, taxis or drive your car?): No Can you go shopping for groceries or clothes without someone's help?: No Can you prepare your own meals?: No Can you do your housework without help?: No Because of any health problems, do you need the help of another person with your personal care needs such as eating, bathing, dressing or getting around the house?: Yes Can you handle your own money without help?: No During the past 4 weeks, how would you rate your health in general?: poor During the past 4 weeks how have things been going for you?: pretty bad Are you having difficulties driving your car?: yes, often Do you always fasten your seat belt when you are in a car?: yes, usually During past 4 weeks, have you been bothered by the following: never: Falling or dizzy when standing up, sometimes: Sexual problems? and Tiredness or fatigue?, often: Trouble eating well? and always: Teeth or denture problems? and Problems using the telephone? Have you fallen 2 or more times in the past year?: No Are you afraid of falling?: Yes Are you a smoker?: no During the past 4 weeks, how many drinks of wine, beer, or other alcoholic beverages did you have?: no alcohol at all Do you exercise for about 20 minutes 3 or more times a week?: no, I usually do not exercise this much Have you been given information to help with the following?: yes: Hazards in your house that might hurt you? and yes: Keeping track of your medications? How often do you have trouble taking medicines the way you have been told to take them?: I always take medicine as prescribed How confident are you that you can control & manage most of your health problems?: not very confident What is your race?: or origin or descent Mini Mental State Exam (MMSE) Orientation What is the (year) (season) (date) (day) (month)?: year, season, date and day Where are we (state) (county) (town or city) (hospital) (floor)?: state, county, town or city, hospital/clinic and floor Registration Name of 3 unrelated objects clearly and slowly, then ask patient to repeat all 3 of them. (1st repeat determines score. Make sure they can repeat all three): object 1, object 2 and object 3 Attention & Calculation (CHOOSE ONE) Spell WORLD backwards (DLROW): 5 letters Recall Ask patient to repeat the 3 items from question #3.: object 1, object 2 and object 3 Language Show patient a wristwatch & ask what it is. Repeat for pencil.: watch and pencil Ask the patient to repeat the phrase 'No ifs, ands, or buts' after you.: correct Ask the patient to 'take a piece of paper with their right hand' 'fold paper in half' 'place paper on floor': take paper in right hand, fold paper in half and place paper on floor Print the sentence 'CLOSE YOUR EYES' on a piece. If patient actually closes eyes then score.: followed written direction Give patient a blank piece of paper & ask to write a sentence. Score if it contains a noun & verb.: sentence contains subject and verb Ask patient to copy figure of intersecting pentagons exactly. Score if all 10 angles & 2 intersects are included.: all 10 angles present & 2 are intersected Score Score: 29 Activity of Daily Living Bathing - sponge bath, tub bath or shower: receives help in bathing only one body part (such as back or leg) Dressing - getting clothes from closets & drawers, including inner/outer garments & fasteners.: receives help getting clothes or getting dressed, or stays undressed Toileting - going to the 'toilet room' for urine/bowel elimination & cleaning self/arranging clothes: receives help going to toilet room, cleaning self or arranging clothes Transfer: moves in & out of bed or chair with help Continence: controls urination/bowel movements completely by self Feeding: feeds self without help Total Score: 1 Information obtained from: patient Using telephone: independent Traveling: dependent Shopping: dependent Preparing meals: dependent Housework: dependent Taking medicine: needs assistance Managing money: dependent PHQ-9 Over the last 2 weeks, how often have you been bothered by any of the following problems? 1. Little interest or pleasure in doing things: nearly every day 2. Feeling down, depressed, or hopeless: nearly every day 3. Trouble falling or staying asleep, or sleeping too much: nearly every day 4. Feeling tired or having little energy: nearly every day 5. Poor appetite or overeating: nearly every day 6. Feeling bad about yourself - or that you are a failure or have let yourself or your family down: several days 7. Trouble concentrating on things, such as reading the newspaper or watching television: nearly every day 8. Moving or speaking so slowly that other people could have noticed. Or the opposite - being so fidgety or restless that you have been moving around a lot more than usual: not at all 9. Thoughts that you would be better off or of hurting yourself in some way: several days Total score: 20 Depression Screening Interpretation: Positive Depression Screening Follow-up: Existing condition and In treatment 51462 - PHQ-9 Billing: Yes Source: Developed by Drs. Roque Virk, Natalie De La Fuente, Severino Nichole and colleagues, with an educational tamiko from [employer]. Thrive Questionnaire Date Thrive assessed: 04/14/23 I am a: Patient What is your living situation today?: I have a steady place to live Within the past 12 months, did the food you bought not last and you didn't have the money to get more?: Never true Within the past 12 months, did you worry whether your food would run out before you got money to buy more?: Never true Do you have trouble paying for medicines?: No Do you have trouble getting transportation to medical appointments?: No Do you have trouble paying your heating and electricity bill?: No Do you have trouble taking care of your child, family member or friend?: No Do you have trouble with day-to-day activities such as bathing, preparing meals, shopping, managing finances, etc.?: Yes Are you currently unemployed and looking for a job?: No Are you interested in more education?: No Please select the resources that you would like help with: None Currently or been in a relationship where the following occur: no concerns reported MARY-7 AMB Questionnaire MARY-7 Date MARY - 7 assessed: 04/14/23 Feeling nervous, anxious, or on edge: 1 = Several days Not being able to stop or control worryin = Not at all Worrying too much about different things: 1 = Several days Trouble relaxin = Not at all Being so restless that it is hard to sit still: 0 = Not at all Becoming easily annoyed or irritable: 1 = Several days Feeling afraid as if something awful might happen: 0 = Not at all Total MARY-7 score (0-4 normal; 5-9 mild; 10-14 moderate; 15-21 severe): 3 Source: Developed by Drs. Roque Virk, Natalie De La Fuente, Severino Nichole and colleagues, with an educational tamiko from [employer]. MARY-7 Assessment Billing MARY-7 Assessment Tool: MARY-7 Assessment 47622 Review of Systems Const All systems reviewed & are unremarkable except as noted in HPI and below Eyes Reports no additional complaints, Denies change in vision and Denies other visual disturbances Card Denies chest pain at rest, Denies chest pain with activity, Denies edema, Denies irregular heart rhythm, Denies claudication, Denies dyspnea, Denies dyspnea on exertion, Denies orthopnea, Denies paroxysmal nocturnal dyspnea and Denies slow heart rate Resp Denies cough, Denies dyspnea and Denies dyspnea on exertion GI Denies abdominal pain, Denies change in bowel habits, Denies excessive flatus, Denies nausea and Denies vomiting Denies urinary hesitancy, Denies urinary incontinence and Denies urinary urgency Musc Denies abnormal gait, Denies atrophy, Denies deformity and Denies limited range of motion Skin/Breast Denies bleeding lesions, Denies changing lesions and Denies rash Neuro Denies abnormal gait and Denies lack of coordination Physical Exam Vital Signs: Last Vital Signs BP 130/80 04/14/23 08:29 BMI result Body Mass Index 26.5 Const Limitations: ambulation with cane Resp Auscultation: clear to auscultation bilaterally Cardio Heart sounds: S1 normal heart sound present and S2 normal heart sound present Neuro Gait exam (Neuro): Assistive device used Romberg Test: Negative Results AMB Hemoglobin A1c AMB Hemoglobin A1c 8.9 % Last Edit by ESTELLA Rico on 04/14/23 08:44 Results Reviewed Results Reviewed: Laboratory Last Values Hgb A1c (Clinic) 8.9 % (4.0-6.0) H 04/14/23 08:26 Assessment & Plan Assessment & Plan (1) Encounter for annual wellness exam in Medicare patient: Comment: UTD Colonoscopy's 1-2 months ago. Repeat in 5 years. Eye exam tomorrow Dr. Moreno Code(s): Z00.00 - Encounter for general adult medical examination without abnormal findings Plan: Repeat in a year (2) Diabetes mellitus: Code(s): E11.9 - Type 2 diabetes mellitus without complications Qualifiers: Diabetes mellitus type: type 2 Diabetes mellitus fci insulin use: with superintendent terminal use Diabetes mellitus complication status: without complication Qualified Code(s): E11.9 - Type 2 diabetes mellitus without complications; Z79.4 - terminologist (current) use of insulin Plan: Continue Trulicity and insulin. A1c goal is equal or less than 7%. (3) Prostate cancer: Code(s): C61 - Malignant neoplasm of prostate Plan: Follow-up with Urology (4) Moderate major depression: Code(s): F32.1 - Major depressive disorder, single episode, moderate Plan: Start SSRI Orders: Orders Comprehensive [place]. Panel Fast 4 Months E11.9 - Type 2 diabetes mellitus without complications IRON PROFILE 4 Months D64.9 - Anemia, unspecified Lipid Panel 4 Months E78.5 - Hyperlipidemia, unspecified Microalbumin, Random (w Creat) 4 Months E11.9 - Type 2 diabetes mellitus without complications Complete Blood Count Auto Diff 4 Months D64.9 - Anemia, unspecified AMB Hemoglobin A1c Today E11.9 - Type 2 diabetes mellitus without complications Quality Reporting (2019) Depression/Bipolar (159/160/161/177) PHQ-9: Total score: 20 Coding Level of Care Code Medicare Subsequent (G0439) Diagnoses Encounter for annual wellness exam in Medicare patient Z00.00 Diabetes mellitus E11.9; Z79.4 Diabetes mellitus type: type 2 Diabetes mellitus fci insulin use: with superintendent terminal use Diabetes mellitus complication status: without complication Prostate cancer C61 Moderate major depression F32.1 Additional Codes MARY-7 Assessment Billing - MARY-7 Assessment Tool: MARY-7 Assessment [id number] ([id number]) Time Spent (min) 38 Advance Care Planning Did not discuss due to Cultural/Spiritual beliefs: Yes
[2023-04-14 08:29] VITALS: BP 130/80; BMI 26.5
== END 2023-04-14 08:59 | disposition home or self-care (01) ==
PROVIDERS: PCP Internal Medicine; Visit Provider Internal Medicine
DX: Z00.00 Encounter for general adult medical examination without abnormal findings (principal); E11.9 Type 2 diabetes mellitus without complications; Z79.4 Long term (current) use of insulin; C61 Malignant neoplasm of prostate; F32.1 Major depressive disorder, single episode, moderate
CPT/HCPCS: 83036; G0439

== ENCOUNTER 2023-07-06 09:53 | Outpatient (AMB) | payer MEDICARE, SELFPAY ==
--- NOTE | 2023-07-06 09:54 | AM.OFFVISNUR ---
Intake Intake Visit Reasons: flu shot Intake Note: Patient here for flu shot Lehr Stripper Required: No Accompanied by: Self / Same As Patient Allergies metformin Allergy (Intermediate, Verified 04/14/23 08:42) diarrhea Office Procedures Flu Questionnaire Does the patient have a severe egg allergy?: No Does the patient have severe life threatening allergies?: No Does the patient have a fever or illness today?: No Has the patient ever had Guillain-Sophia Syndrome?: No Has the patient ever had any past reaction to a flu shot?: No Immunizations flu vacc [id number] 6mos up(PF) 60 mcg(15 mcgx4)/0.5 mL IM syringe Performing Provider: Jaja Ventura MD [facility] Administered by: ESTELLA Rico on 07/06/23 09:55 Dose Route Admin Location Dispensed Lot Number Expiration Date NDC Transformer Coil Winder 0.5 mL IM Left Deltoid 0.5 mL [id number] 03/25/24 [id number] [employer] (V3D)[facility] VIS Given Date VIS Provided VIS Publication Date 07/06/23 Single Vaccine 21 Eligibility Eligibility Date Funding Source Not VFC Eligible 07/06/23 Private Coding Assessment & Plan Assessment & Plan Orders: Orders Influenza [id number] Immunization Today Z23 - Encounter for immunization
== END 2023-07-06 11:02 | disposition home or self-care (01) ==
PROVIDERS: PCP Internal Medicine; Visit Provider Internal Medicine
DX: Z23 Encounter for immunization (principal)
CPT/HCPCS: 90471; 90686

== ENCOUNTER 2023-08-29 07:23 | Outpatient (REF) | payer MEDICARE, SELFPAY ==
[2023-08-29 07:37] LABS: MANUAL DIFF FLAG NO
[2023-08-29 07:44] LABS: Basophils Absolute Auto 0.1 X10*3/uL (0.0-0.2); Basophils Percent Auto 0.9 % (0-2); Eosinophils Absolute Auto 0.3 X10*3/uL (0.0-0.4); Hematocrit 36.6 % (42.0-52.0); Hemoglobin 11.8 g/dl (14.0-18.0); Imm Gran Abs Auto 0.05 X10*3/uL (0.00-0.03); Imm Gran Pct Auto 0.8 % (0.0-0.4); Lymphocytes Absolute Auto 1.2 X10*3/uL (1.2-4.9); Lymphocytes Percent Auto 19.3 % (20-40); Mean Corpuscular HGB Conc 32.2 g/dl (31.0-36.0); Mean Corpuscular Hemoglobin 29.1 pg (27.0-33.0); Mean Corpuscular Volume 90.1 fL (80.0-98.0); Mean Platelet Volume 10.8 fL (9.4-12.4); Monocytes Absolute Auto 0.5 X10*3/uL (0.1-1.2); Monocytes Percent Auto 7.9 % (2-11); Neutrophils Absolute Auto 4.3 x10*3/uL (2.0-8.3); Neutrophils Percent Auto 66.1 % (45-73); Platelet Count 233 X10*3/uL (160-400); Red Blood Count 4.06 X10*6/uL (4.60-5.80); White Blood Count 6.4 X10*3/uL (4.8-10.8)
[2023-08-29 08:17] LABS: Alanine Aminotransferase 24 U/L (0-40); Albumin Level 3.8 g/dL (3.5-5.0); Alkaline Phosphatase 84 U/L (39-117); Anion Gap 12 (12-20); Aspartate Amino Transferase 17 U/L (5-37); Bilirubin Total 0.4 mg/dL (0.0-1.0); Blood Urea Nitrogen 17 mg/dL (9-16); Calcium 9.3 mg/dL (8.4-10.2); Carbon Dioxide 29 mmol/L (22-29); Chloride 106 mmol/L (96-108); Cholesterol 163 mg/dL (<200); Estimated Glomerular Filt Rate > 60; Glucose Fasting 115 mg/dL (60-99); HDL Cholesterol 56 mg/dL (>40); Iron 56 mcg/dL (45-160); LDL Cholesterol Calculated 94 mg/dL (<100); Percent Iron Saturation 27 % (15-50); Potassium 4.8 mmol/L (3.3-5.1); Sodium 142 mmol/L (135-145); Total Iron Binding Capacity 211 mcg/dL (228-428); Total Protein 7.3 g/dL (6.5-8.0); Triglycerides 67 mg/dL (<150); Unsaturated Iron Binding 155 ug/dL
[2023-08-29 09:07] LABS: Creatinine Urine 170.32 mg/dL; Microalbum/Creatinine Ratio Ur 22.8 ug/mg cr (<30)
== END 2023-08-29 07:24 | disposition home or self-care (01) ==
LOC: HO.LAB 07:23
PROVIDERS: PCP Internal Medicine; Visit Provider Internal Medicine
DX: E11.9 Type 2 diabetes mellitus without complications (principal); E78.5 Hyperlipidemia, unspecified; D64.9 Anemia, unspecified
CPT/HCPCS: 36415; 80053; 80061; 82043; 82570; 83540; 85025

== ENCOUNTER 2023-08-30 07:33 | Outpatient (AMB) | payer MEDICARE, SELFPAY ==
--- NOTE | 2023-08-30 07:45 | A.OFFPC_ITS ---
Vital Signs 08/30/23 07:46 Height 5 ft 7 in Weight 165 lb BMI 25.8 BP 110/70 Blood Pressure Location Lt brachial Position Sitting Intake Visit Reasons: 4mth f/u Intake Note: Patient here for a 4 month follow up Actuarial Internship Required: No Accompanied by: Spouse Allergies metformin Allergy (Intermediate, Verified 08/30/23 07:50) diarrhea Medication List - Last Reconciled 08/30/23 by Jaja Ventura MD ammonium lactate 12% 1 appl topical DAILY 30 days atorvastatin 80 mg PO BEDTIME 90 days blood sugar diagnostic (Accu-Chek Guide test strips) Use 1 test strip once a day blood-glucose meter (Accu-Chek Guide Glucose Meter) As directed brimonidine 0.2% 1 drp ophthalmic (eye) BID cholecalciferol (vitamin D3) 25 mcg PO DAILY 90 days dulaglutide (Trulicity) 1.5 mg (0.5 mL) subcut QWEEK 90 days flash glucose scanning reader ([employer]Style Angeli 14 Day [place]) As directed flash glucose sensor (FreeStyle Angeli 14 Day Sensor kit) As directed insulin glargine (Lantus Solostar U-100 Insulin) 55 units (0.55 mL) subcut QPM 30 days lancets (Accu-Chek Fastclix Lancet Drum) Use 1 lancet once a day lisinopril 5 mg PO DAILY 90 days omeprazole 20 mg PO DAILY 90 days oxycodone 5 mg PO TID PRN 7 days sertraline 25 mg PO DAILY 90 days timolol 0.5% 1 drp ophthalmic (eye) BID triamcinolone acetonide 0.025% 1 appl topical BID 14 days Tobacco use date assessed: 11/25/22 Dental Screening Did you have a dental visit in the last 12 months?: Yes Did you have a dental problem in the last 6 months where you did not have access to dental care?: No Was dental information given to patient?: Patient has dentist HPI HPI Comments History of Present Illness Details This is a 63-year-old male with diabetes mellitus type 2 on long-term current use of insulin, pure hypercholesterolemia, moderate major depression and prostate cancer that comes today accompanied by for follow-up on his condi tions. A1c elevated and I will refer him to Endocrinology. I will also increase insulin from 55 units to 58 units. LDL not on goal and I will add Zetia to the regimen. Depression stable with SSRIs. Prostate cancer followed by urology and he sets he takes and on known injection every 6 months for this matter. He said that PSA has decrease. No chest pain or shortness of breath. Walks with a cane for gait stability. [facility] Medical History (Updated 04/14/23 @ 09:20 by Jaja Ventura MD) Diabetic retinopathy of right eye SARS-CoV-2 positive Screening for prostate cancer Chronic radicular pain of lower extremity GERD (gastroesophageal reflux disease) Pure hypercholesterolemia Essential hypertension Diabetes mellitus Surgical History (Updated 08/30/23 @ 07:53 by ESTELLA Rico) History of surgery History of colonoscopy History of eye surgery History of open reduction and internal fixation (ORIF) procedure Family History Father Diabetes Stroke Mother Diabetes Parkinsons Brother Prostate cancer FH: colonic polyps Maternal Uncle Cancer Social History Housing: Apartment Alcohol intake: former Patient Tobacco Use Status: Former Tobacco user Tobacco use type: Cigarette e-Cigarette/Vaping Use: Never Used Second Hand Smoke Exposure: No service: No Current occupational status: disabled Cognitive needs: No Hearing needs: No Vision needs: Yes Questionnaire Thrive Questionnaire Date Thrive assessed: 04/14/23 MARY-7 AMB Questionnaire MARY-7 Date MARY - 7 assessed: 04/14/23 Source: Developed by Drs. Roque Virk, Natalie De La Fuente, Severino Nichole and colleagues, with an educational tamiko from [employer]. Review of Systems Const All systems reviewed & are unremarkable except as noted in HPI and below Eyes Reports no additional complaints, Denies change in vision and Denies other visual disturbances Card Denies chest pain at rest, Denies chest pain with activity, Denies edema, Denies irregular heart rhythm, Denies claudication, Denies dyspnea, Denies dyspnea on exertion, Denies orthopnea, Denies paroxysmal nocturnal dyspnea and Denies slow heart rate Resp Denies cough, Denies dyspnea and Denies dyspnea on exertion GI Denies abdominal pain, Denies change in bowel habits, Denies excessive flatus, Denies nausea and Denies vomiting Denies urinary hesitancy, Denies urinary incontinence and Denies urinary urgency Musc Denies abnormal gait, Denies atrophy, Denies deformity and Denies limited range of motion Skin/Breast Denies bleeding lesions, Denies changing lesions and Denies rash Neuro Denies abnormal gait and Denies lack of coordination Physical exam (Primary Care) Vital Signs: Last Vital Signs BP 110/70 08/30/23 07:46 BMI result Body Mass Index 25.8 Tobacco/Smoking Status: Tobacco use Status Tobacco use date assessed 11/25/22 08/30/23 07:47 Patient Tobacco Use Status Former Tobacco user 08/30/23 07:47 Tobacco use type Cigarette 08/30/23 07:47 e-Cigarette/Vaping Use Never Used 08/30/23 07:47 Thrive Assessment: Date of Thrive Assessment Date Thrive assessed 04/14/23 08/30/23 07:47 Const Limitations: ambulation with cane Eyes General: appearance normal, both eyes and all related structures Eyelids: Yes eyelids normal Conjunctivae: conjunctivae normal Neck Neck: Yes normal visual inspection and Yes supple Resp Effort & Inspection: normal respiratory effort Auscultation: clear to auscultation bilaterally Cardio Jugular venous distension: no JVD Rate: regular rate Rhythm: regular rhythm Heart sounds: S1 normal heart sound present and S2 normal heart sound present Extrem General: Yes full ROM Results AMB Hemoglobin A1c AMB Hemoglobin A1c 10.7 % Last Edit by ESTELLA Rico on 08/30/23 07: 59 Results Reviewed Results Reviewed: Laboratory Last Values Hgb A1c (Clinic) 10.7 % (4.0-6.0) H 08/30/23 07:57 Assessment and Plan Assessment & Plan (1) Moderate major depression: Code(s): F32.1 - Major depressive disorder, single episode, moderate Plan: Continue SSRIs. (2) Prostate cancer: Code(s): C61 - Malignant neoplasm of prostate Plan: Follow-up with Urology. (3) Diabetes mellitus: Code(s): E11.9 - Type 2 diabetes mellitus without complications Qualifiers: Diabetes mellitus complication status: without complication Diabetes mellitus middle or intermediate school principal insulin use: with [place] [facility] use Diabetes mellitus type: type 2 Qualified Code(s): E11.9 - Type 2 diabetes mellitus without complications; Z79.4 - group home (current) use of insulin Plan: Increase insulin. Referred to Endocrinology. A1c goal is equal or less than 7%. (4) Pure hypercholesterolemia: Code(s): E78.00 - Pure hypercholesterolemia, unspecified Plan: Continue statins. Start Zetia. LDL goal is less than 70. Orders: Orders AMB Hemoglobin A1c Today E11.9 - Type 2 diabetes mellitus without complications Comprehensive [place]. Panel Fast 4 Months E11.9 - Type 2 diabetes mellitus without complications, Z79.4 - superintendent [employer] (current) use of insulin Lipid Panel 4 Months E78.5 - Hyperlipidemia, unspecified Microalbumin, Random (w Creat) 4 Months E11.9 - Type 2 diabetes mellitus without complications Vitamin D 25-OH Total 4 Months E55.9 - Vitamin D deficiency, unspecified Referrals Endocrinology Referral E11.9 - Type 2 diabetes mellitus without complications Medications: New ezetimibe 10 mg PO DAILY 90 tabs 1RF 90 days E78.00 - Pure hypercholesterolemia, unspecified Changed From insulin glargine (Lantus Solostar U-100 Insulin) 55 units (0.55 mL) subcut QPM 30 days 16.5 mL 5RF E11.9 - Type 2 diabetes mellitus without complications To insulin glargine (Lantus Solostar U-100 Insulin) 58 units (0.58 mL) subcut QPM 17.4 mL 5RF 30 days E11.9 - Type 2 diabetes mellitus without complications Refilled triamcinolone acetonide 0.025% 1 appl topical BID 15 grams 1RF 14 days Coding Level of Care Code Est Pt Level 4 (31174) Diagnoses Moderate major depression F32.1 Prostate cancer C61 Type 2 diabetes mellitus without complication, with long-term current use of insulin E11.9; Z79.4 Diabetes mellitus complication status: without complication Diabetes mellitus middle or intermediate school principal insulin use: with [place] [facility] use Diabetes mellitus type: type 2 Pure hypercholesterolemia E78.00 Time Spent (min) 23
[2023-08-30 07:46] VITALS: BP 110/70; BMI 25.8
== END 2023-08-30 08:09 | disposition home or self-care (01) ==
PROVIDERS: PCP Internal Medicine; Visit Provider Internal Medicine
DX: E11.9 Type 2 diabetes mellitus without complications (principal); F32.1 Major depressive disorder, single episode, moderate; C61 Malignant neoplasm of prostate; Z79.4 Long term (current) use of insulin; E78.00 Pure hypercholesterolemia, unspecified
CPT/HCPCS: 83036; 99214

== ENCOUNTER 2023-12-07 07:23 | Outpatient (REF) | payer MEDICARE, SELFPAY ==
[2023-12-07 08:25] LABS: Alanine Aminotransferase 36 U/L (0-40); Alkaline Phosphatase 88 U/L (39-117); Anion Gap 13 (12-20); Aspartate Amino Transferase 20 U/L (5-37); Bilirubin Total 0.5 mg/dL (0.0-1.0); Blood Urea Nitrogen 16 mg/dL (9-16); Calcium 9.5 mg/dL (8.4-10.2); Carbon Dioxide 29 mmol/L (22-29); Chloride 105 mmol/L (96-108); Cholesterol 158 mg/dL (<200); Estimated Glomerular Filt Rate > 60; Glucose Fasting 124 mg/dL (60-99); HDL Cholesterol 60 mg/dL (>40); LDL Cholesterol Calculated 87 mg/dL (<100); Potassium 4.2 mmol/L (3.3-5.1); Sodium 143 mmol/L (135-145); Total Protein 7.5 g/dL (6.5-8.0); Triglycerides 59 mg/dL (<150)
[2023-12-07 10:37] LABS: Creatinine Urine 228.61 mg/dL; Microalbum/Creatinine Ratio Ur 14.4 ug/mg cr (<30)
== END 2023-12-07 07:24 | disposition home or self-care (01) ==
LOC: HO.LAB 07:23
PROVIDERS: PCP Internal Medicine; Visit Provider Internal Medicine
DX: E11.9 Type 2 diabetes mellitus without complications (principal); E55.9 Vitamin D deficiency, unspecified; E78.5 Hyperlipidemia, unspecified; Z79.4 Long term (current) use of insulin
CPT/HCPCS: 36415; 80053; 80061; 82043; 82306; 82570

== ENCOUNTER 2023-12-12 12:08 | Outpatient (AMB) | payer MEDICARE, MEDICAID, SELFPAY ==
[2023-12-12 12:19] VITALS: BP 110/74; BMI 26.8
--- NOTE | 2023-12-12 12:19 | A.OFFPC_ITS ---
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 Accompanied by: Spouse Allergies metformin Allergy (Intermediate, Verified 12/12/23 12:35) diarrhea Medication List - Last Reconciled 12/12/23 by Jaja Ventura MD ammonium lactate 12% 1 appl topical DAILY 30 days atorvastatin 80 mg PO BEDTIME 90 days blood sugar diagnostic (Accu-Chek Guide test strips) Use 1 TID blood-glucose meter (Accu-Chek Guide Glucose Meter) As directed brimonidine 0.2% 1 drp ophthalmic (eye) BID cholecalciferol (vitamin D3) 25 mcg PO DAILY 90 days dulaglutide (Trulicity) 1.5 mg (0.5 mL) subcut QWEEK 90 days dulaglutide (Trulicity) 0.75 mg (0.5 mL) subcut QWEEK 30 days ezetimibe 10 mg PO DAILY 90 days insulin glargine (Lantus Solostar U-100 Insulin) 58 units (0.58 mL) subcut QPM 30 days lancets (Accu-Chek Fastclix Lancet Drum) Use 1 lancet once a day lisinopril 5 mg PO DAILY 90 days omeprazole 20 mg PO DAILY 90 days oxycodone 5 mg PO TID PRN 7 days sertraline 25 mg PO DAILY 90 days timolol 0.5% 1 drp ophthalmic (eye) BID triamcinolone acetonide 0.025% 1 appl topical BID 14 days Tobacco use date assessed: 12/12/23 Dental Screening Dental Screen Date: 12/12/23 Did you have a dental visit in the last 12 months?: No Did you have a dental problem in the last 6 months where you did not have access to dental care?: No Was dental information given to patient?: Patient has dentist HPI HPI Comments History of Present Illness Details This is a 63-year-old male with diabetes mellitus type 2, pure hypercholesterolemia, prostate cancer and moderate major depression that comes for his preop evaluation for cataract extraction and intraocular lens implant scheduled for 01/02/2024. A1c is elevated but has improved. I will still increase insulin from 58 units to 62. Blood pressure stable. LDL has improved. Prostate cancer has been stable and this is follow by Urology. Depression has improved with SSRIs. He is accompanied by and walks with a cane for gait stability. He has 5-7 Mets of ADLs. This is a low risk surgery and he has a medium risk patient. [facility] Medical History Diabetic retinopathy of right eye SARS-CoV-2 positive Screening for prostate cancer Chronic radicular pain of lower extremity GERD (gastroesophageal reflux disease) Pure hypercholesterolemia Essential hypertension Diabetes mellitus Surgical History History of surgery History of colonoscopy History of eye surgery History of open reduction and internal fixation (ORIF) procedure Family History Father Diabetes Stroke Mother Diabetes Parkinsons Brother Prostate cancer FH: colonic polyps Maternal Uncle Cancer Social History Housing: Apartment Alcohol intake: former Patient Tobacco Use Status: Former Tobacco user Tobacco use type: Cigarette e-Cigarette/Vaping Use: Never Used Second Hand Smoke Exposure: No service: No Current occupational status: disabled Cognitive needs: No Hearing needs: No Vision needs: Yes Questionnaire PHQ-9 Over the last 2 weeks, how often have you been bothered by any of the following problems? 1. Little interest or pleasure in doing things: several days 2. Feeling down, depressed, or hopeless: several days 3. Trouble falling or staying asleep, or sleeping too much: several days 4. Feeling tired or having little energy: several days 5. Poor appetite or overeating: not at all 6. Feeling bad about yourself - or that you are a failure or have let yourself or your family down: not at all 7. Trouble concentrating on things, such as reading the newspaper or watching television: not at all 8. Moving or speaking so slowly that other people could have noticed. Or the opposite - being so fidgety or restless that you have been moving around a lot more than usual: not at all 9. Thoughts that you would be better off or of hurting yourself in some way: not at all Total score: 4 Depression Screening Interpretation: Positive Depression Screening Follow-up: Existing condition and In treatment Depression Screening Done: Yes 07941 - PHQ-9 Billing: Yes Source: Developed by Drs. Roque Virk, Natalie De La Fuente, Severino Nichole and colleagues, with an educational tamiko from [employer]. Thrive Questionnaire Date Thrive assessed: 12/12/23 I am a: Patient What is your living situation today?: I have a steady place to live Within the past 12 months, did the food you bought not last and you didn't have the money to get more?: Never true Within the past 12 months, did you worry whether your food would run out before you got money to buy more?: Never true Do you have trouble paying for medicines?: No Do you have trouble getting transportation to medical appointments?: No Do you have trouble paying your heating and electricity bill?: No Do you have trouble taking care of your child, family member or friend?: No Do you have trouble with day-to-day activities such as bathing, preparing meals, shopping, managing finances, etc.?: No Are you currently unemployed and looking for a job?: No Are you interested in more education?: No Please select the resources that you would like help with: None Currently or been in a relationship where the following occur: no concerns reported THRIVE Score: 0 AUDIT C Alcohol Use Questionnaire (AUDIT-C) 1. How often do you have a drink containing alcohol?: Never Total Score: 0 MARY-7 AMB Questionnaire MARY-7 Date MARY - 7 assessed: 12/12/23 Feeling nervous, anxious, or on edge: 1 = Several days Not being able to stop or control worryin = Not at all Worrying too much about different things: 0 = Not at all Trouble relaxin = Not at all Being so restless that it is hard to sit still: 0 = Not at all Becoming easily annoyed or irritable: 1 = Several days Feeling afraid as if something awful might happen: 0 = Not at all Total MARY-7 score (0-4 normal; 5-9 mild; 10-14 moderate; 15-21 severe): 2 Source: Developed by Drs. Roque Virk, Natalie De La Fuente, Severino Nichole and colleagues, with an educational tamiko from [employer]. MARY-7 Assessment Billing MARY-7 Assessment Tool: MARY-7 Assessment 31657 Review of Systems Const All systems reviewed & are unremarkable except as noted in HPI and below Eyes Reports no additional complaints, Denies change in vision and Denies other visual disturbances Card Denies chest pain at rest, Denies chest pain with activity, Denies edema, Denies irregular heart rhythm, Denies claudication, Denies dyspnea, Denies dyspnea on exertion, Denies orthopnea, Denies paroxysmal nocturnal dyspnea and Denies slow heart rate Resp Denies cough, Denies dyspnea and Denies dyspnea on exertion GI Denies abdominal pain, Denies change in bowel habits, Denies excessive flatus, Denies nausea and Denies vomiting Denies urinary hesitancy, Denies urinary incontinence and Denies urinary urgency Musc Denies abnormal gait, Denies atrophy, Denies deformity and Denies limited range of motion Skin/Breast Denies bleeding lesions, Denies changing lesions and Denies rash Neuro Denies abnormal gait, Denies behavioral changes and Denies lack of coordination Psych Denies behavioral changes Physical exam (Primary Care) Vital Signs: Last Vital Signs BP 110/74 12/12/23 12:19 BMI result Body Mass Index 26.8 Tobacco/Smoking Status: Tobacco use Status Tobacco use date assessed 12/12/23 12/12/23 12:28 Patient Tobacco Use Status Former Tobacco user 12/12/23 12:28 Tobacco use type Cigarette 12/12/23 12:28 e-Cigarette/Vaping Use Never Used 12/12/23 12:28 PHQ-9: PHQ-9 Score PHQ-9: Total score 4 12/12/23 12:30 Depression Screening Interpretation: Positive Depression Screening Follow-up: Existing condition and In treatment Thrive Assessment: Date of Thrive Assessment Date Thrive assessed 12/12/23 12/12/23 12:28 Currently or been in a relationship where the following occur: no concerns reported Const Orientation/consciousness: patient oriented x3 Neck Neck: Yes normal visual inspection and Yes supple Resp Effort & Inspection: normal respiratory effort Auscultation: clear to auscultation bilaterally Cardio Jugular venous distension: no JVD Rate: regular rate Rhythm: regular rhythm Heart sounds: S1 normal heart sound present and S2 normal heart sound present Neuro General: patient oriented x3 Extrem General: Yes full ROM Results AMB Hemoglobin A1c AMB Hemoglobin A1c 9.3 % Last Edit by ESTELLA Rico on 12/12/23 12:3 0 Results Reviewed Results Reviewed: Laboratory Last Values Hgb A1c (Clinic) 9.3 % (4.0-6.0) H 12/12/23 12:19 Assessment and Plan Assessment & Plan (1) Pre-op evaluation: Code(s): Z01.818 - Encounter for other preprocedural examination Plan: EKG pending for medical clearance. (2) Moderate major depression: Code(s): F32.1 - Major depressive disorder, single episode, moderate Plan: Continue SSRIs. (3) Prostate cancer: Code(s): C61 - Malignant neoplasm of prostate Plan: Follow-up with Urology. (4) Diabetes mellitus: Code(s): E11.9 - Type 2 diabetes mellitus without complications Qualifiers: Diabetes mellitus type: type 2 Diabetes mellitus shelter insulin use: with shelter use Diabetes mellitus complication status: without complication Qualified Code(s): E11.9 - Type 2 diabetes mellitus without complications; Z79.4 - intermediate manager (current) use of insulin Plan: Continue Trulicity. Increase insulin. A1c goal is equal or less than 7%. (5) Pure hypercholesterolemia: Code(s): E78.00 - Pure hypercholesterolemia, unspecified Plan: Continue statins Zetia. Orders: Orders Complete Blood Count Auto Diff Today D64.9 - Anemia, unspecified ECG 12 lead EKG Today Z01.818 - Encounter for other preprocedural examination AMB Hemoglobin A1c Today E11.9 - Type 2 diabetes mellitus without complications Medications: Changed From insulin glargine (Lantus Solostar U-100 Insulin) 58 units (0.58 mL) subcut QPM 30 days 17.4 mL 5RF E11.9 - Type 2 diabetes mellitus without complications To insulin glargine (Lantus Solostar U-100 Insulin) 62 units (0.62 mL) subcut QPM 30 days 18.6 mL 5RF E11.9 - Type 2 diabetes mellitus without complications Discontinued dulaglutide (Trulicity) Discontinued Reason: No Longer Medically Relevant 1.5 mg (0.5 mL) subcut QWEEK 90 days 6.5 mL 1RF E11.9 - Type 2 diabetes mellitus without complications Coding Level of Care Code Est Pt Level 4 (61125) Diagnoses Pre-op evaluation Z01.818 Moderate major depression F32.1 Prostate cancer C61 Type 2 diabetes mellitus without complication, with long-term current use of insulin E11.9; Z79.4 Diabetes mellitus type: type 2 Diabetes mellitus shelter insulin use: with terminal make up operator use Diabetes mellitus complication status: without complication Pure hypercholesterolemia E78.00 Additional Codes MARY-7 Assessment Billing - MARY-7 Assessment Tool: MARY-7 Assessment 79192 ([id number]) Time Spent (min) 24
== END 2023-12-12 12:43 | disposition home or self-care (01) ==
PROVIDERS: PCP Internal Medicine; Visit Provider Internal Medicine
DX: E11.36 Type 2 diabetes mellitus with diabetic cataract (principal); C61 Malignant neoplasm of prostate; Z79.4 Long term (current) use of insulin; Z01.818 Encounter for other preprocedural examination
CPT/HCPCS: 83036; 99214

== ENCOUNTER → 2023-12-13 07:25 | Outpatient (REF) | payer MEDICARE, SELFPAY ==
--- NOTE | 2023-12-13 07:31 | ECG_ITS ---
Test Reason : preop Blood Pressure : / mmHG Vent. Rate : 085 BPM Atrial Rate : 085 BPM P-R Int : 114 ms QRS Dur : 082 ms QT Int : 366 ms P-R-T Axes : 000 038 045 degrees QTc Int : 435 ms Normal sinus rhythm Normal ECG No significant changes when compared with the previous EKG of 13 jan 2016 Referred By: Jaja Ventura Electronically Signed By:ROC HEBERT
[2023-12-13 07:44] LABS: MANUAL DIFF FLAG NO
[2023-12-13 08:04] LABS: Basophils Absolute Auto 0.1 X10*3/uL (0.0-0.2); Basophils Percent Auto 0.9 % (0-2); Eosinophils Absolute Auto 0.3 X10*3/uL (0.0-0.4); Eosinophils Percent Auto 4.1 % (0-4); Hematocrit 34.8 % (42.0-52.0); Hemoglobin 11.2 g/dl (14.0-18.0); Imm Gran Abs Auto 0.02 X10*3/uL (0.00-0.03); Imm Gran Pct Auto 0.3 % (0.0-0.4); Lymphocytes Absolute Auto 1.2 X10*3/uL (1.2-4.9); Lymphocytes Percent Auto 19.2 % (20-40); Mean Corpuscular HGB Conc 32.2 g/dl (31.0-36.0); Mean Corpuscular Hemoglobin 28.5 pg (27.0-33.0); Mean Corpuscular Volume 88.5 fL (80.0-98.0); Mean Platelet Volume 11.4 fL (9.4-12.4); Monocytes Absolute Auto 0.5 X10*3/uL (0.1-1.2); Monocytes Percent Auto 7.2 % (2-11); Neutrophils Absolute Auto 4.4 x10*3/uL (2.0-8.3); Neutrophils Percent Auto 68.3 % (45-73); Platelet Count 197 X10*3/uL (160-400); Red Blood Count 3.93 X10*6/uL (4.60-5.80); Red Cell Distribution Width 13.2 % (11.0-16.0); White Blood Count 6.4 X10*3/uL (4.8-10.8)
== END ==
LOC: HO.CARD 07:25
PROVIDERS: PCP Internal Medicine; Visit Provider Internal Medicine
DX: Z01.818 Encounter for other preprocedural examination (principal); D64.9 Anemia, unspecified
CPT/HCPCS: 36415; 85025; 93005

== ENCOUNTER → 2023-12-13 07:31 | Outpatient (BNV) | payer MEDICARE, SELFPAY | PROVIDERS: PCP Internal Medicine; Visit Provider Internal Medicine | DX: H25.9 Unspecified age-related cataract (principal) | CPT/HCPCS: 93010 ==

== ENCOUNTER 2024-01-02 08:38 | Day surgery (SDC) | payer MEDICARE, MEDICAID, SELFPAY ==
[2023-12-27 10:52] VITALS: BMI 26.8
--- NOTE | 2023-12-29 14:01 | HO.ANESPROP2 ---
Documented by User: Sveta Maria NP 12/29/23 14:01 HPI - Anesthesia Eval Consult details Narrative: 63yo M for Right Cataract Extraction IOL Insertion Optimized per PCP No previous cataract on record Anesthesia Pre-Procedure Meds Is the patient on any of the following meds?: Dulaglutide (Trulicity) PMFSH Active Problems Active Problems: All Active Problems Pre-op evaluation (Acute) Moderate major depression (Acute) Cough (Acute) Prostate cancer (Acute) Hyperkalemia (Acute) Elevated PSA (Acute) Anxiety and depression (Acute) Encounter for annual wellness exam in Medicare patient (Acute) Diabetic retinopathy of right eye (Acute) Diabetic retinopathy of both eyes (Acute) Colon cancer screening (Acute) Family history of polyps in the colon (Acute) Screening for prostate cancer (Acute) Chronic radicular pain of lower extremity (Acute) GERD (gastroesophageal reflux disease) (Acute) Pure hypercholesterolemia (Acute) Essential hypertension (Acute) Diabetes mellitus (Acute) Past Medical History Medical History Diabetic retinopathy of right eye SARS-CoV-2 positive Screening for prostate cancer Chronic radicular pain of lower extremity GERD (gastroesophageal reflux disease) Pure hypercholesterolemia Essential hypertension Diabetes mellitus Family History Family History Father Diabetes Stroke Mother Diabetes Parkinsons Brother Prostate cancer FH: colonic polyps Maternal Uncle Cancer Family history of problems with anesthesia: No Surgical History Surgical History History of surgery History of colonoscopy History of eye surgery History of open reduction and internal fixation (ORIF) procedure History of Problems with Anesthesia: No Social History Social History Housing: Apartment Alcohol intake: former Patient Tobacco Use Status: Former Tobacco user Tobacco use type: Cigarette e-Cigarette/Vaping Use: Never Used Second Hand Smoke Exposure: No Advance Directives: No Advance Directives Information Provided: Yes service: No Current occupational status: disabled Cognitive needs: No Hearing needs: No Vision needs: Yes Meds Allergies Allergy/AdvReac Type Severity Reaction Status Date / Time metformin Allergy Intermediate diarrhea Verified 12/12/23 12:35 Home Medications ?Medication ?Instructions ?Recorded ?Confirmed ?Last Taken ?Type brimonidine 0.2 % eye drops 1 drp ophthalmic (eye) BID 07/23/20 12/12/23 Unknown History timolol 0.5 % eye drops 1 drp ophthalmic (eye) BID 03/23/21 12/12/23 Unknown History Exam Height,Weight and Vital Signs: Height 5 ft 7 in Weight 77.564 kg Assessment and Plan Assessment Anesthesia Assessment: Chart Reviewed Final Anesthetic Review Family History of Problems with Anesthesia: No History of Problems with Anesthesia: No Documented by User: Isabelle Marie MD 01/02/24 10:00 HPI - Anesthesia Eval Anesthesia Pre-Procedure Meds If Yes to any meds - educate patient: Pt education - increased risk of aspiration and Pt education - possibility of cancelled proc at provider's discretion PMFSH Past Medical History Medical History Diabetic retinopathy of right eye SARS-CoV-2 positive Screening for prostate cancer Chronic radicular pain of lower extremity GERD (gastroesophageal reflux disease) Pure hypercholesterolemia Essential hypertension Diabetes mellitus Family History Family History Father Diabetes Stroke Mother Diabetes Parkinsons Brother Prostate cancer FH: colonic polyps Maternal Uncle Cancer Surgical History Surgical History History of surgery History of colonoscopy History of eye surgery History of open reduction and internal fixation (ORIF) procedure Social History Social History Housing: Apartment Alcohol intake: former Patient Tobacco Use Status: Former Tobacco user Tobacco use type: Cigarette e-Cigarette/Vaping Use: Never Used Second Hand Smoke Exposure: No Advance Directives: No Advance Directives Information Provided: Yes service: No Current occupational status: disabled Cognitive needs: No Hearing needs: No Vision needs: Yes Meds Allergies Allergy/AdvReac Type Severity Reaction Status Date / Time metformin Allergy Intermediate diarrhea Verified 12/12/23 12:35 Home Medications ?Medication ?Instructions ?Recorded ?Confirmed ?Last Taken ?Type brimonidine 0.2 % eye drops 1 drp ophthalmic (eye) BID 07/23/20 12/12/23 Unknown History timolol 0.5 % eye drops 1 drp ophthalmic (eye) BID 03/23/21 12/12/23 Unknown History Exam Airway Mallampati Class: II TM Dist: >3cm Neck ROM: Full Heart: rrr Lungs: cta Assessment and Plan Assessment Anesthesia Assessment: Anesthesia Plan Discussed Final Anesthetic Review NPO: Yes ASA Class: III Final Preanesthetic Review: No Changes in Pt Med Stat, Meds/Allgs Chart Reviewed, Consent Obtained/Reviewed and Anes Risks/Benef Reviewed Patient Risk: Intermediate Procedure Risk: Low Anesthetic Plan Anesthetic Plan: MAC: Disposition: Standard PACU
[2024-01-02 11:14] VITALS: BMI 26.7
[2024-01-02 11:15] VITALS: BP 134/65; PULSE 76; RESP 18; TEMP 36.6; O2SAT 99
[2024-01-02] MEDS: Lactated Ringers 500 ML 50 ML IV (11:17)
[2024-01-02] MEDS: Ketorolac Tromethamine 0.5% Op 5 ML DROPS 1 DROP EYE-RIGHT ×3 (11:17→11:27)
[2024-01-02] MEDS: Phenylephrine HCL 2.5% Oph SoL 2 ML BOTTLE 1 DROP EYE-RIGHT ×3 (11:17→11:26)
[2024-01-02] MEDS: Tetracaine HCl/PF 0.5% Oph Sol 4 ML DROPS 1 DROP EYE-RIGHT (11:17)
[2024-01-02] MEDS: Cyclopentolate 1 % Ophth Sol 2 ML DRPBTL 1 DROP EYE-RIGHT ×3 (11:17→11:27)
[2024-01-02] MEDS: Tropicamide 1 % Ophth Sol 3 ML BTL 1 DROP EYE-RIGHT ×3 (11:17→11:27)
[2024-01-02 11:31] LABS: Glucose, Whole Blood 132 mg/dL (60-115)
--- NOTE | 2024-01-02 13:00 | MHC.SHP ---
Pre-Procedural Eval Section A - 24 Hr Update-Section A only Date of Service: 01/02/24 The patient is an INPATIENT: No Changes since office visit: No Cold of Flu in the past 2 weeks, No New Medical Problems, No Changes in Medication and No Patient answered all questions The patient has been examined within 24 hours of the surgical procedure. The History & Physical has been completed within 30 days and I have reviewed it.: Yes Section B - Complete if H&P > 30 days Chief Complaint: Age-related nuclear cataract, right eye Allergies: Allergies Allergy/AdvReac Type Severity Reaction Status Date / Time metformin Allergy Intermediate diarrhea Verified 01/02/24 11:30 Plan Diagnosis/Plan: Unchanged I have reviewed the history and physical and performed a pertinent physical examination on my patient. No changes have occurred unless specified. Time Spent With Patient Time: Total time managing care of this patient today ____ minutes.
--- NOTE | 2024-01-02 13:01 | P.PCNO_ITS ---
Ophthalmology Procedure Procedure Date of Service: 01/02/24 Ophthalmology Viscoelastic: Healon Duet Dual Pack Pro Ophthalmology Lenses: IOL Acrysof MP - [id number] (21.5) Procedure Notes: PREOPERATIVE DIAGNOSIS: Decreased visual acuity right eye secondary to cataract POSTOPERATIVE DIAGNOSIS: Same PROCEDURE: Right cataract extraction with intraocular lens insertion SURGEON: Gilson Moreno M.D. ANESTHESIA: Topical/MAC ESTIMATED BLOOD LOSS: None COMPLICATIONS: None After obtaining informed consent, the patient was brought to the operating room suite and placed in the supine position. After adequate sedation per anesthesia, topical drops of Tetracaine were given to the right eye. The eye was then prepped and draped in the usual sterile fashion. The operating room microscope was then positioned over the operative eye and a lid speculum placed. A paracentesis was created. Viscoelastic was then instilled into the anterior chamber. A three plane incision was then created temporally, utilizing a 2.85 mm keratome. Capsulotomy forceps were then utilized to create a circular tear capsulotomy. Hydrodissection and hydrodelineation were carried out until adequate mobilization of the nucleus occurred. Phacoemulsification was then utilized to remove the dense central nu cleus followed by removal of the cortical material utilizing the automated aspiration irrigation unit. Viscoelastic was instilled into the posterior capsular bag followed by placement of a posterior chamber intraocular lens without difficulty. The residual Viscoelastic was then removed utilizing the automated IA machine. The wound was checked and found to be watertight. The patient tolerated the procedure well and the lid speculum was removed. Intracameral injection of Vigamox 0.1 mL followed by a subtenon injection of Kenalog-40 0.2 mL were administered. The patient will be seen in the a.m.
[2024-01-02 13:40] VITALS: BP 152/80; PULSE 82; RESP 20; TEMP 36.3; O2SAT 97
== END 2024-01-02 13:43 | disposition home or self-care (01) ==
PROVIDERS: PCP Internal Medicine; Visit Provider Ophthalmology
PROC: (CPT 66985; principal; 2024-01-02 14:10)
DX: H25.11 Age-related nuclear cataract, right eye (principal); H54.7 Unspecified visual loss; H40.052 Ocular hypertension, left eye; Z96.1 Presence of intraocular lens; H11.133 Conjunctival pigmentations, bilateral; E11.3553 Type 2 diabetes mellitus with stable proliferative diabetic retinopathy, bilateral; H11.153 Pinguecula, bilateral; Z86.69 Personal history of other diseases of the nervous system and sense organs; I10 Essential (primary) hypertension; E78.00 Pure hypercholesterolemia, unspecified; C61 Malignant neoplasm of prostate; F33.1 Major depressive disorder, recurrent, moderate; Z79.4 Long term (current) use of insulin; Z79.84 Long term (current) use of oral hypoglycemic drugs; Z79.85 Long-term (current) use of injectable non-insulin antidiabetic drugs; Z99.89 Dependence on other enabling machines and devices; Z79.899 Other long term (current) drug therapy; Z88.8 Allergy status to other drugs, medicaments and biological substances; Z98.890 Other specified postprocedural states; Z87.891 Personal history of nicotine dependence
CPT/HCPCS: 66984; 82947; J2250; J3010; J3301; V2630

== ENCOUNTER 2024-04-18 07:36 | Outpatient (REF) | payer MEDICARE, SELFPAY ==
[2024-04-18 09:01] LABS: Alanine Aminotransferase 22 U/L (0-40); Albumin Level 3.8 g/dL (3.5-5.0); Alkaline Phosphatase 92 U/L (39-117); Anion Gap 13 (12-20); Aspartate Amino Transferase 16 U/L (5-37); Bilirubin Total 0.5 mg/dL (0.0-1.0); Blood Urea Nitrogen 19 mg/dL (9-16); Calcium 9.7 mg/dL (8.4-10.2); Carbon Dioxide 28 mmol/L (22-29); Chloride 106 mmol/L (96-108); Cholesterol 149 mg/dL (<200); Estimated Glomerular Filt Rate > 60; Glucose Fasting 142 mg/dL (60-99); HDL Cholesterol 60 mg/dL (>40); LDL Cholesterol Calculated 72 mg/dL (<100); Potassium 4.4 mmol/L (3.3-5.1); Sodium 143 mmol/L (135-145); Total Protein 7.2 g/dL (6.5-8.0); Triglycerides 85 mg/dL (<150)
[2024-04-18 09:04] LABS: Creatinine Urine 299.59 mg/dL; Microalbum/Creatinine Ratio Ur 17.6 ug/mg cr (<30)
[2024-04-18 09:19] LABS: Vitamin D 25-OH Total 41.4 ng/mL (>30)
== END 2024-04-18 07:37 | disposition home or self-care (01) ==
LOC: HO.LAB 07:36
PROVIDERS: PCP Internal Medicine; Visit Provider Internal Medicine
DX: E11.9 Type 2 diabetes mellitus without complications (principal); E78.5 Hyperlipidemia, unspecified; E55.9 Vitamin D deficiency, unspecified; Z79.4 Long term (current) use of insulin
CPT/HCPCS: 36415; 80053; 80061; 82043; 82306; 82570

== ENCOUNTER 2024-04-19 08:15 | Outpatient (AMB) | payer MEDICARE, SELFPAY ==
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
[2024-04-19 08:29] VITALS: BP 118/70; BMI 26.8
== END 2024-04-19 08:57 | disposition home or self-care (01) ==
PROVIDERS: PCP Internal Medicine; Visit Provider Internal Medicine
DX: Z00.00 Encounter for general adult medical examination without abnormal findings (principal); F32.1 Major depressive disorder, single episode, moderate; E11.9 Type 2 diabetes mellitus without complications; Z79.4 Long term (current) use of insulin
CPT/HCPCS: 1123F; 83036; 99213; G0439

== ENCOUNTER → 2024-04-24 09:16 | Outpatient (BNVA) | payer MEDICARE, SELFPAY | PROVIDERS: PCP Internal Medicine; Visit Provider Physician Assistant Medical | DX: E11.3593 Type 2 diabetes mellitus with proliferative diabetic retinopathy without macular edema, bilateral (principal); E11.42 Type 2 diabetes mellitus with diabetic polyneuropathy; I10 Essential (primary) hypertension; E78.00 Pure hypercholesterolemia, unspecified; Z79.4 Long term (current) use of insulin | CPT/HCPCS: 82947; 99202 ==

== ENCOUNTER 2024-04-24 09:23 | Outpatient (AMB) | payer MEDICARE, SELFPAY ==
[2024-04-24 09:19] VITALS: BP 116/68; PULSE 89; BMI 26.7
--- NOTE | 2024-04-24 09:19 | MHC.OFFVIS ---
Vital Signs 04/24/24 09:19 Height 5 ft 7 in Weight 170 lb 10.205 oz BMI 26.7 BP 116/68 Blood Pressure Location Lt brachial Position Sitting Pulse 89 Pulse Source Pulse Oximeter Intake Visit Reasons: Type 2 DM-confirmed Intake Note: New patient presents today to for [facility] office visit. Last Diabetic Eye exam: 04/23/24 Last Podiatry Visit: Doesn't have one Random Glucose: 174 mg/dl HgA1c: 12.2 % 04/19/24 Digital Cartographer Required: Yes Digital Cartographer Language: Restaurant Line Server Services: Digital Cartographer Present Information Interpreted: non-clinical & clinical Accompanied by: Significant Other Allergies metformin Allergy (Intermediate, Verified 04/24/24 09:24) diarrhea HPI Comments Details: This is a 63 year old Kinyarwanda-speaking male presenting with his for a new patient consult for management of Type II Diabetes. He has past medical history of prostate cancer, HLD, hypertension, anxiety with depression and GERD. administrative fellow present for visit. He was diagnosed with diabetes 25 years ago. He has never seen endocrinology. He has a family history of diabetes. Hemoglobin a1c 12.2% 04/19/24 Reviewed glucometer. Wide variability in readings. Current medication regimen: Lantus 62 units in the morning. Trulicity 1.5 mg, increased 5 days ago, but he did not pick it up from the pharmacy yet. Metformin discontinued previously due to diarrhea. Compliance issues: none Diet: I eat a lot of things I'm not supposed to eat. Breakfast-doesn't eat breakfast, has glucerna Lunch-pasta, rice, this is the largest meal. Dinner-small plate of food, fruits Snacks/desserts: sometimes fruit or a snack but nothing after 7 pm. No alcohol. Hypoglycemia symptoms: 2 episodes in 60s within the past month in the morning. [place] shaky. He ate something and rechecked glucose. Hyperglycemia symptoms: polydipsia Eye exam: UTD. [facility] and Dr. Stephenson. Microvascular complications: bilateral neuropathy, retinopathy OU Macrovascular complications: none Hypertension: treated with Lisinopril 5 mg Hyperlipidemia: treated with Atorvastatin 80 mg and Zetia 10 mg LDL at goal <100. ROS: Constitutional: No unexplained weight loss, fever, chills or night sweats. Neurologic: No headache, dizziness, syncope Skin: No rash or wounds. Endocrine: No cold or heat intolerance. see HPI Physical exam: Constitutional: Alert, in no distress. Eyes: Pupils are equal, round and reactive to light. Neck: Supple, Full range of motion. No lymphadenopathy. No palpable thyroid masses. Respiratory: Clear to auscultation. Cardiovascular: S1 S2 regular. No murmurs Neurologic: No focal neurological deficits. Right foot: Warm and well perfused. No clubbing, cyanosis or edema. DP pulse 3+. Decreased vibratory sensation. Intact sensation to monofilament. Left foot: Warm and well perfused. No clubbing, cyanosis or edema. DP pulse 3+. Decreased vibratory sensation. Intact sensation to monofilament. Psychiatric: Normal mood and affect [facility] Medical History (Updated 04/24/24 @ 10:56 by SERVANDO Morrison) Diabetic retinopathy of both eyes Diabetic neuropathy Type 2 diabetes mellitus with ophthalmic complication, with long-term current use of insulin Diabetic retinopathy of right eye SARS-CoV-2 positive Screening for prostate cancer Chronic radicular pain of lower extremity GERD (gastroesophageal reflux disease) Pure hypercholesterolemia Essential hypertension Diabetes mellitus Surgical History History of surgery History of colonoscopy History of eye surgery History of open reduction and internal fixation (ORIF) procedure Family History Father Diabetes Stroke Mother Diabetes Parkinsons Brother Prostate cancer FH: colonic polyps Maternal Uncle Cancer Social History Housing: Apartment Alcohol intake: former Patient Tobacco Use Status: Former Tobacco user Tobacco use type: Cigarette e-Cigarette/Vaping Use: Never Used Second Hand Smoke Exposure: No service: No Current occupational status: disabled Cognitive needs: No Hearing needs: No Vision needs: Yes Physical Exam Vital Signs: Last Vital Signs Pulse 89 04/24/24 09:19 BP 116/68 04/24/24 09:19 BMI result Body Mass Index 26.7 Results Reviewed Results Reviewed: Laboratory Last Values Glucose (Clinic) 174 mg/dL (60-115) H 04/24/24 09:26 Assessment & Plan Assessment & Plan (1) Type 2 diabetes mellitus with ophthalmic complication, with long-term current use of insulin: Code(s): E11.39 - Type 2 diabetes mellitus with other diabetic ophthalmic complication; Z79.4 - care home (current) use of insulin Category: Medical Qualifiers: Diabetes mellitus complication detail: with diabetic retinopathy Diabetic retinopathy severity: with proliferative retinopathy Proliferative retinopathy type: unspecified Diabetes mellitus macular edema: macular edema presence unspecified Laterality: bilateral Qualified Code(s): E11.3593 - Type 2 diabetes mellitus with proliferative diabetic retinopathy without macular edema, bilateral; Z79.4 - joint terminal attack controller (current) use of insulin (2) Diabetic neuropathy: Code(s): E11.40 - Type 2 diabetes mellitus with diabetic neuropathy, unspecified Category: Medical Qualifiers: Diabetes mellitus type: type 2 Diabetes mellitus complication detail: diabetic polyneuropathy Qualified Code(s): E11.42 - Type 2 diabetes mellitus with diabetic polyneuropathy (3) Essential hypertension: Code(s): I10 - Essential (primary) hypertension Category: Medical (4) Pure hypercholesterolemia: Code(s): E78.00 - Pure hypercholesterolemia, unspecified Category: Medical Plan Discussed pathophysiology of Type II Diabetes Mellitus with the patient in detail.? I explained the exterminator termite risks and complications associated with uncontrolled diabetes including nephropathy, neuropathy, peripheral vascular disease, retinopathy, increased risk of heart disease and stroke.? Discussed lifestyle modification with the patient. Recommended 30 minutes of moderately vigorous exercise 5 days per week to promote weight loss. The patient is prescribed a CGM and referred to the sales representative leather goods and air brake rigger. Patient advised to monitor for recurrent episodes of hypoglycemia and consider decreasing Lantus to 60 units if this is the case or consider switching to Tresiba or Toujeo if insurance allows. Trulicity dose increased, but he has not picked it up from the pharmacy. He will do so. We will continue to titrate it as tolerated for improved glycemic control. He did not tolerate metformin. He may be a good candidate for addition of SLGT2 once his blood sugars are under somewhat better control. CGM will provide more data so we can make further adjustments to his medication regimen. If you experience low blood sugar, treat this by eating a chewable fruit candy like skittles or jelly beans (about 8 pieces), 4 ounces (1/2 cup) of fruit juice (not diet), 1 tablespoon of honey or 3 glucose tablets. If your blood sugar is under 50, take double the amount of one of the above. Recheck your blood sugar in 15 minutes. Hypertension and hyperlipidemia are well controlled. Continue current regimens. Discussed with Penny Nguyễn NP. Follow up in 6 weeks for diabetes. Orders: Referrals Site Specialist Nutrition Referral E11.9 - Type 2 diabetes mellitus without complications, Z79.4 - care home (current) use of insulin Diabetes Education Referral E11.9 - Type 2 diabetes mellitus without complications, Z79.4 - joint terminal attack controller (current) use of insulin Medications: New blood-glucose meter,continuous (FreeStyle Angeli 3 [place]) as directed 1 ea 0RF blood-glucose sensor (FreeStyle Angeli 3 Sensor device) As directed 2 ea 11RF Coding Level of Care Code New Pt Level 4 (15484) Complex EM visit Add On G2211 Diagnoses Type 2 diabetes mellitus with proliferative retinopathy of both eyes, with long-term current use of insulin, macular edema presence unspecified, unspecified proliferative retinopathy type E11.3593; Z79.4 Diabetes mellitus complication detail: with diabetic retinopathy Diabetic retinopathy severity: with proliferative retinopathy Proliferative retinopathy type: unspecified Diabetes mellitus macular edema: macular edema presence unspecified Laterality: bilateral Diabetic polyneuropathy associated with type 2 diabetes mellitus E11.42 Diabetes mellitus type: type 2 Diabetes mellitus complication detail: diabetic polyneuropathy Essential hypertension I10 Pure hypercholesterolemia E78.00 Time Spent (min) 45 Comment seeing the patient, updating the chart, coordinating treatment
[2024-04-24 09:30] LABS: Glucose, Whole Blood 174 mg/dL (60-115)
== END 2024-04-24 10:34 | disposition home or self-care (01) ==
PROVIDERS: PCP Internal Medicine; Visit Provider Physician Assistant Medical
DX: E11.3593 Type 2 diabetes mellitus with proliferative diabetic retinopathy without macular edema, bilateral (principal); Z79.4 Long term (current) use of insulin; E11.42 Type 2 diabetes mellitus with diabetic polyneuropathy; I10 Essential (primary) hypertension; E78.00 Pure hypercholesterolemia, unspecified
CPT/HCPCS: 99204; G2211

== ENCOUNTER 2024-05-23 07:52 | Outpatient (AMB) | payer MEDICARE, SELFPAY ==
--- NOTE | 2024-05-23 08:06 | A.OFFVIS_ITS ---
Intake Intake Visit Reasons: T2DM Costumer Assistant Required: Yes Costumer Assistant Language: Database Reporting Consultant Name: Akiko [id number] Information Interpreted: non-clinical & clinical Accompanied by: Spouse Allergies metformin Allergy (Intermediate, Verified 04/24/24 09:24) diarrhea HPI Comprehensive Diabetes Asmnt Most Recent Diabetes Results: Microalb/Creat Ratio 17.6 ug/mg cr (<30) 04/18/24 Cholesterol 149 mg/dL (<200) 04/18/24 HDL Cholesterol 60 mg/dL (>40) 04/18/24 Triglycerides 85 mg/dL (<150) 04/18/24 Creatinine 0.89 mg/dL (0.5-1.4) 04/18/24 Blood Urea Nitrogen 19 mg/dL (9-16) H 04/18/24 Sodium 143 mmol/L (135-145) 04/18/24 Potassium 4.4 mmol/L (3.3-5.1) 04/18/24 Chloride 106 mmol/L (96-108) 04/18/24 Carbon Dioxide 28 mmol/L (22-29) 04/18/24 Calcium 9.7 mg/dL (8.4-10.2) 04/18/24 AST 16 U/L (5-37) 04/18/24 ALT 22 U/L (0-40) 04/18/24 Total Protein 7.2 g/dL (6.5-8.0) 04/18/24 Albumin 3.8 g/dL (3.5-5.0) 04/18/24 COUNT INCLUDES THE [facility] Medical History (Updated 04/24/24 @ 10:56 by SERVANDO Morrison) Diabetic retinopathy of both eyes Diabetic neuropathy Type 2 diabetes mellitus with ophthalmic complication, with long-term current use of insulin Diabetic retinopathy of right eye SARS-CoV-2 positive Screening for prostate cancer Chronic radicular pain of lower extremity GERD (gastroesophageal reflux disease) Pure hypercholesterolemia Essential hypertension Diabetes mellitus Surgical History History of surgery History of colonoscopy History of eye surgery History of open reduction and internal fixation (ORIF) procedure Family History Father Diabetes Stroke Mother Diabetes Parkinsons Brother Prostate cancer FH: colonic polyps Maternal Uncle Cancer Social History Housing: Apartment Alcohol intake: former Patient Tobacco Use Status: Former Tobacco user Tobacco use type: Cigarette e-Cigarette/Vaping Use: Never Used Second Hand Smoke Exposure: No service: No Current occupational status: disabled Cognitive needs: No Hearing needs: No Vision needs: Yes Assessment & Plan Assessment & Plan (1) Type 2 diabetes mellitus with ophthalmic complication, with long-term current use of insulin: Code(s): E11.39 - Type 2 diabetes mellitus with other diabetic ophthalmic complication; Z79.4 - retirement (current) use of insulin Qualifiers: Diabetes mellitus complication detail: with diabetic retinopathy Diabetes mellitus macular edema: macular edema presence unspecified Diabetic retinopathy severity: with proliferative retinopathy Laterality: bilateral Proliferative retinopathy type: unspecified Qualified Code(s): E11.3593 - Type 2 diabetes mellitus with proliferative diabetic retinopathy without macular edema, bilateral; Z79.4 - truck terminal manager (current) use of insulin Plan: Learning objectives: The patient was provided with verbal and written education on the following topics as outlined below. The patient met all learning objectives and was able to verbalize understanding and provide teach back of education topics discussed . The patient was provided with the opportunity to ask questions and all questions were answered. Patient Assessment Assess patient education level/literacy/barriers, when given list of carbohydrates patient reports that he could not read the list because of poor vision Patient questions/concerns, patient reports he was diagnosed with type 2 diabetes at 29 years old. He has seen purchasing and fiscal clerk in the past but reports it was a long time ago. Patient's last A1c in March 2024 12.2% Patient is currently using Trulicity 1.5 mg weekly Lantus 60 units daily Denies missing medication. Patient using freestyle Angeli 3 to test glucose What is Diabetes? Pathophysiology How the body produces and uses insulin Identify type of DM Risk factors Signs of Diabetes Brief overview of Diabetes Management Monitoring blood sugar Following a meal plan Regular exercise Maintaining a healthy weight Taking medication as needed Members of the care team (PCP, RN, MA, RD, CDE, hot stick worker) Blood glucose monitoring When/how often to test Target blood sugar ranges Patient's average glucose for the past 2 weeks 209 mg/dL Patient above target 56% At target 43% Below target 1% Patient having occasional hypoglycemia, reviewed with patient how to treat hypoglycemia with rule of 15s Patient reports he treats hypoglycemia with orange juice Introduction to Nutrition Importance of healthy diet in managing DM Diet is personalized to individual preference Review patient?s regular diet/food preferences Who prepares meals/does food shopping/ Dining out?/ Barriers? How diet effects glucose Eating 3 balanced meals a day with small, healthy snacks between meals Review food groups Carbohydrates: What is a carbohydrate/Which food/food groups are considered carbohydrates Effect of carbohydrates on blood glucose Portion sizes Reading food labels Basic carb counting (if applicable per nursing assessment) Plate method Meal planning Recommendations: Follow plate method, consistent carbs and read nutritional labels. Smart Goal: Educational Materials: The patient was provided with the following written educational materials: Planning Healthy Meals, how to treat hypoglycemia Handouts given in Jamaican Patient Response to instructions: Comprehension of Instructions: Fair Readiness to make changes: Contemplation How confident they feel about making changes: fair Portions of this note were created using voice recognition software, please excuse any words or phrases that may have been misinterpreted. Patient Instructions: Incluir actividad diaria regular. ADA recomienda 30 minutos de ejercicio 5 d?as a la semana. P?rdida de peso, hable con el PCP o el cardi?logo antes de comenzar un nuevo plan. Mida el nivel de az?car en la manolo seg?n las indicaciones; Ayuno y comida m?s kimmie de 2hpp. Observe las tendencias en los resultados. Utilice los resultados y eval?e c?mo los alimentos, la actividad f?raimundo y los medicamentos afectan los resultados de az?car en la manolo. Lleve el gluc?metro o CGM a la pr?xima visita. Conocer los medicamentos para la diabetes, shankar acci?n, los efectos secundarios, la eficacia, la toxicidad, la dosis prescrita, el momento y la frecuencia de administraci?n apropiados, el efecto de las dosis olvidadas y retrasadas y las instrucciones de almacenamiento, viaje y seguridad. T?cnicas de resoluci?n de problemas para el seguimiento de episodios de hipo/hiperglucemia y tratamientos. Reducir los comportamientos de reducci?n de riesgos, dejar de fumar, ex?menes regulares de ojos, pies y dentales. Coding Level of Care Code Est Pt Level 1 (37945) Diagnoses Type 2 diabetes mellitus with proliferative retinopathy of both eyes, with long- term current use of insulin, macular edema presence unspecified, unspecified proliferative retinopathy type E11.3593; Z79.4 Diabetes mellitus complication detail: with diabetic retinopathy Diabetes mellitus macular edema: macular edema presence unspecified Diabetic retinopathy severity: with proliferative retinopathy Laterality: bilateral Proliferative retinopathy type: unspecified
== END 2024-05-23 08:37 | disposition home or self-care (01) ==
PROVIDERS: PCP Internal Medicine; Visit Provider Registered Nurse Diabetes Educator
DX: E11.3593 Type 2 diabetes mellitus with proliferative diabetic retinopathy without macular edema, bilateral (principal); Z79.4 Long term (current) use of insulin

== ENCOUNTER → 2024-05-23 07:52 | Outpatient (BNVA) | payer MEDICARE, SELFPAY | PROVIDERS: PCP Internal Medicine; Visit Provider Registered Nurse Diabetes Educator | DX: E11.3593 Type 2 diabetes mellitus with proliferative diabetic retinopathy without macular edema, bilateral (principal); Z71.89 Other specified counseling; Z79.4 Long term (current) use of insulin | CPT/HCPCS: 99211 ==

== ENCOUNTER 2024-05-24 08:37 | Outpatient (AMB) | payer MEDICARE, SELFPAY ==
--- NOTE | 2024-05-24 08:47 | A.OFFVIS_ITS ---
VS Expanded 05/24/24 08:54 05/24/24 09:28 Height 5 ft 7 in 5 ft 7 in Weight 174 lb 2.643 oz 174 lb BMI 27.3 27.2 Intake Visit Reasons: Type 2 DM/CONFIRMED Allergies metformin Allergy (Intermediate, Verified 04/24/24 09:24) diarrhea Nutrition Presentation Details: Pt presents for MNT for T2DM. Pt was referred by Chad Choi Pt presents with significant other to this appt. Typical meal intake: 10: spaghetti with ham and rice , diet soda 3pm eggroll with lemon juice made with splenda 7 pm : 2 pieces of bread with butter (whole bread) zero Gatorade admits to increased snack throughout the day food frequency fruit: 0-1/d veg: not including but enjoys dairy: 1/day starches > 25 prot: fish 2x/wk , poultry/beef/eggs etoh--- smoking--- physical activity: daily life BS Monitoring Most Recent Diabetes Results: Microalb/Creat Ratio 17.6 ug/mg cr (<30) 04/18/24 Cholesterol 149 mg/dL (<200) 04/18/24 HDL Cholesterol 60 mg/dL (>40) 04/18/24 Triglycerides 85 mg/dL (<150) 04/18/24 Creatinine 0.89 mg/dL (0.5-1.4) 04/18/24 Blood Urea Nitrogen 19 mg/dL (9-16) H 04/18/24 Sodium 143 mmol/L (135-145) 04/18/24 Potassium 4.4 mmol/L (3.3-5.1) 04/18/24 Chloride 106 mmol/L (96-108) 04/18/24 Carbon Dioxide 28 mmol/L (22-29) 04/18/24 Calcium 9.7 mg/dL (8.4-10.2) 04/18/24 AST 16 U/L (5-37) 04/18/24 ALT 22 U/L (0-40) 04/18/24 Total Protein 7.2 g/dL (6.5-8.0) 04/18/24 Albumin 3.8 g/dL (3.5-5.0) 04/18/24 VZO-Kabyftu-Gj.Jeor Equation Height: 5 ft 7 in Weight: 174 lb Resting Metabolic Rate: 1556.97 Calculated Activity Level: Sedentary Calories Needed to Maintain Weight: 1868.36 Diagnosis Nutrition problem #1: food nutri know defi As related to (etiology) #1: diagnosis As evidenced by (sign/symptom) #1: high BMI (12.2% (03/2024)) Monitoring/Goals Nutrition problem monitoring: level of knowledge/skill, total PRO intake, total CHO intake and oral fluids Nutrition goal/outcome: list 3 CHO foods Outcome progress: verbalized understanding [facility] Medical History (Updated 04/24/24 @ 10:56 by SERVANDO Morrison) Diabetic retinopathy of both eyes Diabetic neuropathy Type 2 diabetes mellitus with ophthalmic complication, with long-term current use of insulin Diabetic retinopathy of right eye SARS-CoV-2 positive Screening for prostate cancer Chronic radicular pain of lower extremity GERD (gastroesophageal reflux disease) Pure hypercholesterolemia Essential hypertension Diabetes mellitus Surgical History History of surgery History of colonoscopy History of eye surgery History of open reduction and internal fixation (ORIF) procedure Family History Father Diabetes Stroke Mother Diabetes Parkinsons Brother Prostate cancer FH: colonic polyps Maternal Uncle Cancer Social History Housing: Apartment Alcohol intake: former Patient Tobacco Use Status: Former Tobacco user Tobacco use type: Cigarette e-Cigarette/Vaping Use: Never Used Second Hand Smoke Exposure: No service: No Current occupational status: disabled Cognitive needs: No Hearing needs: No Vision needs: Yes Assessment & Plan Assessment & Plan (1) Type 2 diabetes mellitus with ophthalmic complication, with long-term current use of insulin: Code(s): E11.39 - Type 2 diabetes mellitus with other diabetic ophthalmic complication; Z79.4 - residential (current) use of insulin Category: Medical Qualifiers: Diabetes mellitus complication detail: with diabetic retinopathy Diabetic retinopathy severity: with proliferative retinopathy Proliferative retinopathy type: unspecified Diabetes mellitus macular edema: macular edema presence unspecified Laterality: bilateral Qualified Code(s): E11.3593 - Type 2 diabetes mellitus with proliferative diabetic retinopathy without macular edema, bilateral; Z79.4 - predatory animal exterminator (current) use of insulin Plan: Wt: 79 Kg ( 04/2024 ) Est kcal needs as per MSJ: 1628-2726 (40% carb, 30% protein/fat) Est fluid needs as per 25-30 ml/d: 6733-8499 Est prot per day as per 1 g/kg bw: 79 Recommend fiber intake : 8-10 g per day and gradually increase to 25-28 g per day for women and 35-38 g for men or as tolerated Recommend sodium intake per day : less than 2000 mg Educated patient on: ( R = reviewed V = verbalizes understanding N/R = needs review N/A = not applicable * Food sources of carbohydrate, adequate serving sizes and its role in various health conditions: R * Differences between complex carbohydrates a simple carbohydrates, role of fiber in diet: R V N/R * Lean protein sources of foods: R * Differences between types of fats and role in diet (mono on saturated fat fatty acids, saturated fatty acids, trans fats): R V N/R * Food sources of sodium in salt and healthy modifications for heart health in kidney health: R V R/V * Vitamins and minerals: R V N/R * Healthy plate method concept: R * Physical activity: Benefits a precaution: R V N/R * Hypoglycemia protocol (rule of 15): R V N/R * Dietary prevention of Hyperglycemia: R V R/V Patient Instructions: Follow healthy plate method at lunch Include 1-2 servings of protein in the evening meal see meal plan consisting of 60 g carb per meal and 20 g carb as snack Coding Level of Care Code Nutr Indiv Intake (27000) Diagnoses Type 2 diabetes mellitus with proliferative retinopathy of both eyes, with long- term current use of insulin, macular edema presence unspecified, unspecified proliferative retinopathy type E11.3593; Z79.4 Diabetes mellitus complication detail: with diabetic retinopathy Diabetic retinopathy severity: with proliferative retinopathy Proliferative retinopathy type: unspecified Diabetes mellitus macular edema: macular edema presence unspecified Laterality: bilateral Time Spent (min) 30
[2024-05-24 08:54] VITALS: BMI 27.3
[2024-05-24 09:28] VITALS: BMI 27.2
== END 2024-05-24 09:40 | disposition home or self-care (01) ==
PROVIDERS: PCP Internal Medicine; Visit Provider Dietitian, Registered
DX: E11.3593 Type 2 diabetes mellitus with proliferative diabetic retinopathy without macular edema, bilateral (principal); Z79.4 Long term (current) use of insulin

== ENCOUNTER → 2024-05-24 08:37 | Outpatient (BNVA) | payer MEDICARE, SELFPAY | PROVIDERS: PCP Internal Medicine; Visit Provider Dietitian, Registered | DX: E11.3593 Type 2 diabetes mellitus with proliferative diabetic retinopathy without macular edema, bilateral (principal); E11.39 Type 2 diabetes mellitus with other diabetic ophthalmic complication; E11.40 Type 2 diabetes mellitus with diabetic neuropathy, unspecified; Z79.4 Long term (current) use of insulin; Z71.3 Dietary counseling and surveillance | CPT/HCPCS: 97802 ==

== ENCOUNTER 2024-06-08 11:00 | Outpatient (AMB) | payer MEDICARE, SELFPAY ==
--- NOTE | 2024-06-08 11:03 | A.OFFVIS_ITS ---
Vital Signs 06/08/24 11:07 Height 5 ft 7 in Weight 171 lb 15.369 oz BMI 26.9 BP 114/60 Blood Pressure Location Rt brachial Position Sitting Pulse 85 Intake Visit Reasons: T2DM/CONFIRMED Intake Note: Patient presents today for a follow-up on Type 2 Diabetes Mellitus: Last Diabetic Eye exam: 04/23/24 Last Podiatry Visit: Doesn't have one Most recent HgA1c: 12.2 %, 04/19/24 Random Glucose: 139 mg/dL, Today Money Room Supervisor Required: Yes Money Room Supervisor Language: Education Manager Services: Money Room Supervisor Present Money Room Supervisor Name: ESTELLA Vann/DEION HUGHES Information Interpreted: non-clinical & clinical Accompanied by: Significant Other Allergies metformin Allergy (Intermediate, Verified 04/24/24 09:24) diarrhea HPI Comments Details: This is a 63 year old Luxembourgish-speaking male presenting with his for continued diabetic management. He was last seen by me 04/24/24. He has past medical history of prostate cancer, HLD, hypertension, anxiety with depression and GERD. He was diagnosed with diabetes 25 years ago. He has a family history of diabetes. Hemoglobin a1c 12.2% 04/19/24 CGM report reviewed. GMI 8% Average glucose 194 Glucose variability 31.4% CGM active 100% Very high 18% High 40% Target range 42% Low 0% Very low 0% Blood glucose trend closer to target early evening. Patient has hyperglycemia throughout 24 hours however. Patient experienced hypoglycemia occasionally with BG in the mid 60s. He corrected with orange juice. This occurred early afternoon. He had 1 low BG in the past week. Current medication regimen: Lantus 62 units in the morning. Trulicity 1.5 mg, no side effects on the increased dose. Metformin discontinued previously due to diarrhea. Compliance issues: none He saw the family living educator and incident coordinator and is satisfied with his care. Hypoglycemia symptoms: shaky Hyperglycemia symptoms: none Eye exam: UTD. [facility] and Dr. Stephenson. Microvascular complications: bilateral neuropathy, retinopathy OU Macrovascular complications: none Hypertension: treated with Lisinopril 5 mg Hyperlipidemia: treated with Atorvastatin 80 mg and Zetia 10 mg LDL at goal <100. ROS: Constitutional: No unexplained weight loss, fever, chills or night sweats. Neurologic: No headache, dizziness, syncope Skin: No rash or wounds. Endocrine: No cold or heat intolerance. see HPI Physical exam: Constitutional: Alert, in no distress. Eyes: Pupils are equal, round and reactive to light. Neck: Supple, Full range of motion. No lymphadenopathy. No palpable thyroid masses. Respiratory: Clear to auscultation. Cardiovascular: S1 S2 regular. No murmurs Neurologic: No focal neurological deficits. Extremities: No edema Psychiatric: Normal mood and affect [facility] Medical History (Updated 04/24/24 @ 10:56 by SERVANDO Morrison) Diabetic retinopathy of both eyes Diabetic neuropathy Type 2 diabetes mellitus with ophthalmic complication, with long-term current use of insulin Diabetic retinopathy of right eye SARS-CoV-2 positive Screening for prostate cancer Chronic radicular pain of lower extremity GERD (gastroesophageal reflux disease) Pure hypercholesterolemia Essential hypertension Diabetes mellitus Surgical History History of surgery History of colonoscopy History of eye surgery History of open reduction and internal fixation (ORIF) procedure Family History Father Diabetes Stroke Mother Diabetes Parkinsons Brother Prostate cancer FH: colonic polyps Maternal Uncle Cancer Social History Housing: Apartment Alcohol intake: former Patient Tobacco Use Status: Former Tobacco user Tobacco use type: Cigarette e-Cigarette/Vaping Use: Never Used Second Hand Smoke Exposure: No service: No Current occupational status: disabled Cognitive needs: No Hearing needs: No Vision needs: Yes Physical Exam Vital Signs: Last Vital Signs Pulse 85 06/08/24 11:07 BP 114/60 06/08/24 11:07 BMI result Body Mass Index 26.9 Assessment & Plan Assessment & Plan (1) Type 2 diabetes mellitus with ophthalmic complication, with long-term current use of insulin: Code(s): E11.39 - Type 2 diabetes mellitus with other diabetic ophthalmic complication; Z79.4 - remote computer terminal operator (current) use of insulin Category: Medical Qualifiers: Diabetes mellitus complication detail: with diabetic retinopathy Diabetes mellitus macular edema: macular edema presence unspecified Diabetic retinopathy severity: with proliferative retinopathy Laterality: bilateral Proliferative retinopathy type: unspecified Qualified Code(s): E11.3593 - Type 2 diabetes mellitus with proliferative diabetic retinopathy without macular edema, bilateral; Z79.4 - half-way (current) use of insulin (2) Diabetic neuropathy: Code(s): E11.40 - Type 2 diabetes mellitus with diabetic neuropathy, unspecified Category: Medical Qualifiers: Diabetes mellitus complication detail: diabetic polyneuropathy Diabetes mellitus type: type 2 Qualified Code(s): E11.42 - Type 2 diabetes mellitus with diabetic polyneuropathy (3) Essential hypertension: Code(s): I10 - Essential (primary) hypertension Category: Medical (4) Pure hypercholesterolemia: Code(s): E78.00 - Pure hypercholesterolemia, unspecified Category: Medical Plan Discussed pathophysiology of Type II Diabetes Mellitus with the patient in detail.? I explained the local company intermodal truck driver risks and complications associated with uncontrolled diabetes including nephropathy, neuropathy, peripheral vascular disease, retinopathy, increased risk of heart disease and stroke.? Discussed lifestyle modification with the patient. Continue use of CGM and bring this with you to appointments. Patient still having occasional hypoglycemia so we will switch to Tresiba at equivalent dose 62 units nightly to start which is the preferred insulin in patients prone to hypoglycemia and medically necessary for the patient.. Continues with hyperglycemia so we will increase Trulicity to 3 mg once weekly. He may be a good candidate for addition of SLGT2 as BG improves. If you experience low blood sugar, treat this by eating a chewable fruit candy like skittles or jelly beans (about 8 pieces), 4 ounces (1/2 cup) of fruit juice (not diet), 1 tablespoon of honey or 3 glucose tablets. If your blood sugar is under 50, take double the amount of one of the above. Recheck your blood sugar in 15 minutes. Hypertension and hyperlipidemia are well controlled. Continue current regimens. Follow up at the end of July for diabetes. Check hemoglobin [id number]-[id number] mid June. Orders: Orders Hemoglobin A1c Today E11.3593 - Type 2 diabetes mellitus with proliferative diabetic retinopathy without macular edema, bilateral, Z79.4 - remote computer terminal operator (current) use of insulin Medications: New dulaglutide (Trulicity) 3 mg (0.5 mL) subcut QWEEK 2 mL 3RF insulin degludec (Tresiba FlexTouch U-100 insulin) Replaces Lantus. 62 units (0.62 mL) subcut BEDTIME 15 mL 3RF Discontinued insulin glargine (Lantus Solostar U-100 Insulin) Discontinued Reason: Doctor's Order 62 units (0.62 mL) subcut QPM 30 days 18.6 mL 5RF E11.9 - Type 2 diabetes mellitus without complications dulaglutide (Trulicity) Discontinued Reason: Doctor's Order 1.5 mg (0.5 mL) subcut QWEEK 90 days 6.5 mL 1RF Coding Level of Care Code Est Pt Level 4 (12165) Complex EM visit Add On G2211 Diagnoses Type 2 diabetes mellitus with proliferative retinopathy of both eyes, with long- term current use of insulin, macular edema presence unspecified, unspecified proliferative retinopathy type E11.3593; Z79.4 Diabetes mellitus complication detail: with diabetic retinopathy Diabetes mellitus macular edema: macular edema presence unspecified Diabetic retinopathy severity: with proliferative retinopathy Laterality: bilateral Proliferative retinopathy type: unspecified Diabetic polyneuropathy associated with type 2 diabetes mellitus E11.42 Diabetes mellitus complication detail: diabetic polyneuropathy Diabetes mellitus type: type 2 Essential hypertension I10 Pure hypercholesterolemia E78.00
[2024-06-08 11:07] VITALS: BP 114/60; PULSE 85; BMI 26.9
[2024-06-08 11:15] LABS: Glucose, Whole Blood 139 mg/dL (60-115)
== END 2024-06-08 11:38 | disposition home or self-care (01) ==
PROVIDERS: PCP Internal Medicine; Visit Provider Physician Assistant Medical
DX: E11.3593 Type 2 diabetes mellitus with proliferative diabetic retinopathy without macular edema, bilateral (principal); Z79.4 Long term (current) use of insulin; E11.42 Type 2 diabetes mellitus with diabetic polyneuropathy; I10 Essential (primary) hypertension; E78.00 Pure hypercholesterolemia, unspecified
CPT/HCPCS: 99214; G2211

== ENCOUNTER → 2024-06-08 11:00 | Outpatient (BNVA) | payer MEDICARE, SELFPAY | PROVIDERS: PCP Internal Medicine; Visit Provider Physician Assistant Medical | DX: E11.39 Type 2 diabetes mellitus with other diabetic ophthalmic complication (principal); E11.3593 Type 2 diabetes mellitus with proliferative diabetic retinopathy without macular edema, bilateral; E11.42 Type 2 diabetes mellitus with diabetic polyneuropathy; I10 Essential (primary) hypertension; E78.00 Pure hypercholesterolemia, unspecified; Z79.4 Long term (current) use of insulin | CPT/HCPCS: 82947; 99212 ==

== ENCOUNTER 2024-07-04 09:26 | Outpatient (AMB) | payer MEDICARE, SELFPAY ==
[2024-07-04 09:33] VITALS: BMI 26.9
--- NOTE | 2024-07-04 09:33 | A.OFFVIS_ITS ---
VS Expanded 07/04/24 09:33 Height 5 ft 7 in Weight 171 lb 8.314 oz BMI 26.9 Intake Visit Reasons: T2DM Allergies metformin Allergy (Intermediate, Verified 04/24/24 09:24) diarrhea Nutrition Presentation Details: Pt presents for MNT fo T2DM Pt presents with significant other to this appt. Pt admits to increased intake of sweets at any time of the day BS Monitoring Most Recent Diabetes Results: Microalb/Creat Ratio 17.6 ug/mg cr (<30) 04/18/24 Cholesterol 149 mg/dL (<200) 04/18/24 HDL Cholesterol 60 mg/dL (>40) 04/18/24 Triglycerides 85 mg/dL (<150) 04/18/24 Creatinine 0.89 mg/dL (0.5-1.4) 04/18/24 Blood Urea Nitrogen 19 mg/dL (9-16) H 04/18/24 Sodium 143 mmol/L (135-145) 04/18/24 Potassium 4.4 mmol/L (3.3-5.1) 04/18/24 Chloride 106 mmol/L (96-108) 04/18/24 Carbon Dioxide 28 mmol/L (22-29) 04/18/24 Calcium 9.7 mg/dL (8.4-10.2) 04/18/24 AST 16 U/L (5-37) 04/18/24 ALT 22 U/L (0-40) 04/18/24 Total Protein 7.2 g/dL (6.5-8.0) 04/18/24 Albumin 3.8 g/dL (3.5-5.0) 04/18/24 [facility] Medical History (Updated 04/24/24 @ 10:56 by SERVANDO Morrison) Diabetic retinopathy of both eyes Diabetic neuropathy Type 2 diabetes mellitus with ophthalmic complication, with long-term current use of insulin Diabetic retinopathy of right eye SARS-CoV-2 positive Screening for prostate cancer Chronic radicular pain of lower extremity GERD (gastroesophageal reflux disease) Pure hypercholesterolemia Essential hypertension Diabetes mellitus Surgical History History of surgery History of colonoscopy History of eye surgery History of open reduction and internal fixation (ORIF) procedure Family History Father Diabetes Stroke Mother Diabetes Parkinsons Brother Prostate cancer FH: colonic polyps Maternal Uncle Cancer Social History Housing: Apartment Alcohol intake: former Patient Tobacco Use Status: Former Tobacco user Tobacco use type: Cigarette e-Cigarette/Vaping Use: Never Used Second Hand Smoke Exposure: No service: No Current occupational status: disabled Cognitive needs: No Hearing needs: No Vision needs: Yes Assessment & Plan Assessment & Plan (1) Type 2 diabetes mellitus with ophthalmic complication, with long-term current use of insulin: Code(s): E11.39 - Type 2 diabetes mellitus with other diabetic ophthalmic complication; Z79.4 - group home (current) use of insulin Category: Medical Qualifiers: Diabetes mellitus complication detail: with diabetic retinopathy Diabetic retinopathy severity: with proliferative retinopathy Proliferative retinopathy type: unspecified Diabetes mellitus macular edema: macular edema presence unspecified Laterality: bilateral Qualified Code(s): E11.3593 - Type 2 diabetes mellitus with proliferative diabetic retinopathy without macular edema, bilateral; Z79.4 - vermin exterminator (current) use of insulin Plan: Wt: 79 Kg ( 04/2024 ) Est kcal needs as per MSJ: 5540-1519 (40% carb, 30% protein/fat) Est fluid needs as per 25-30 ml/d: 5460-6915 Est prot per day as per 1 g/kg bw: 79 Recommend fiber intake : 8-10 g per day and gradually increase to 25-28 g per day for women and 35-38 g for men or as tolerated Recommend sodium intake per day : less than 2000 mg Educated patient on: ( R = reviewed V = verbalizes understanding N/R = needs review N/A = not applicable * Food sources of carbohydrate, adequate serving sizes and its role in various health conditions: R * Differences between complex carbohydrates a simple carbohydrates, role of fiber in diet: R V N/R * Lean protein sources of foods: R * Differences between types of fats and role in diet (mono on saturated fat fatty acids, saturated fatty acids, trans fats): R V N/R * Food sources of sodium in salt and healthy modifications for heart health in kidney health: R V R/V * Vitamins and minerals: R V N/R * Healthy plate method concept: R * Physical activity: Benefits a precaution: R V N/R * Hypoglycemia protocol (rule of 15): R V N/R * Dietary prevention of Hyperglycemia: R V - Pt verbalizes increased intake of sweets Patient Instructions: Have water with meals/snacks, choose herb/fruits infused water Work on reducing on frequency of high sugar snacks and choose lower sugar options, apple with peanut butter , a glucerna shake for 2 servings, read food labels and work on reducing sugars/carbs to less than 15 g carb as snack (limit snacks to 3 a day) Coding Level of Care Code Nutr Indiv Subseq (64687) Diagnoses Type 2 diabetes mellitus with proliferative retinopathy of both eyes, with long- term current use of insulin, macular edema presence unspecified, unspecified proliferative retinopathy type E11.3593; Z79.4 Diabetes mellitus complication detail: with diabetic retinopathy Diabetic retinopathy severity: with proliferative retinopathy Proliferative retinopathy type: unspecified Diabetes mellitus macular edema: macular edema presence unspecified Laterality: bilateral Time Spent (min) 25
== END 2024-07-04 10:01 | disposition home or self-care (01) ==
PROVIDERS: PCP Internal Medicine; Visit Provider Dietitian, Registered
DX: E11.3593 Type 2 diabetes mellitus with proliferative diabetic retinopathy without macular edema, bilateral (principal); Z79.4 Long term (current) use of insulin

== ENCOUNTER → 2024-07-04 09:26 | Outpatient (BNVA) | payer MEDICARE, SELFPAY | PROVIDERS: PCP Internal Medicine; Visit Provider Dietitian, Registered | DX: E11.3593 Type 2 diabetes mellitus with proliferative diabetic retinopathy without macular edema, bilateral (principal); E11.39 Type 2 diabetes mellitus with other diabetic ophthalmic complication; Z71.3 Dietary counseling and surveillance; Z79.4 Long term (current) use of insulin | CPT/HCPCS: 97803 ==

== ENCOUNTER 2024-07-19 09:29 | Outpatient (AMB) | payer MEDICARE, SELFPAY ==
--- NOTE | 2024-07-19 10:00 | AM.OFFVISNUR ---
Intake Visit Reasons: Flu shot Allergies metformin Allergy (Intermediate, Verified 04/24/24 09:24) diarrhea Office Procedures Flu Questionnaire Does the patient have a severe egg allergy?: No Does the patient have severe life threatening allergies?: No Does the patient have a fever or illness today?: No Has the patient ever had Guillain-[place] Syndrome?: No Has the patient ever had any past reaction to a flu shot?: No Assessment & Plan Assessment & Plan Orders: Orders Influenza [id number] Immunization Today Z23 - Encounter for immunization Medications: New Fluarix Triv [id number] (PF) (flu vacc [id number] 6mos up(PF)) 0.5 mL IM ONCE 0.5 mL 0RF NS Z23 - Encounter for immunization
== END 2024-07-19 10:01 | disposition home or self-care (01) ==
PROVIDERS: PCP Internal Medicine; Visit Provider Internal Medicine
DX: Z23 Encounter for immunization (principal)

== ENCOUNTER → 2024-07-19 09:29 | Outpatient (BNVA) | payer MEDICARE, SELFPAY | PROVIDERS: PCP Internal Medicine; Visit Provider Internal Medicine | DX: Z23 Encounter for immunization (principal) | CPT/HCPCS: 90471; 90656 ==

== ENCOUNTER 2024-08-15 08:51 | Outpatient (AMB) | payer MEDICARE, SELFPAY ==
[2024-08-15 09:04] VITALS: BMI 27.0
--- NOTE | 2024-08-15 09:04 | A.OFFVIS_ITS ---
VS Expanded 08/15/24 09:04 Height 5 ft 7 in Weight 172 lb 6.424 oz BMI 27.0 Intake Visit Reasons: T2DM Allergies metformin Allergy (Intermediate, Verified 04/24/24 09:24) diarrhea Nutrition Presentation Details: Pt presents for MNT f/u for T2DM Pt reports choosing low sugar beverages and working on including fiber rich foods. Pt states he was lacking glucose sensor for weeks and not monitoring BG, received sensors yesterday BS Monitoring Most Recent Diabetes Results: No Data to Display [facility] Medical History (Updated 04/24/24 @ 10:56 by SERVANDO Morrison) Diabetic retinopathy of both eyes Diabetic neuropathy Type 2 diabetes mellitus with ophthalmic complication, with long-term current use of insulin Diabetic retinopathy of right eye SARS-CoV-2 positive Screening for prostate cancer Chronic radicular pain of lower extremity GERD (gastroesophageal reflux disease) Pure hypercholesterolemia Essential hypertension Diabetes mellitus Surgical History History of surgery History of colonoscopy History of eye surgery History of open reduction and internal fixation (ORIF) procedure Family History Father Diabetes Stroke Mother Diabetes Parkinsons Brother Prostate cancer FH: colonic polyps Maternal Uncle Cancer Social History Housing: Apartment Alcohol intake: former Patient Tobacco Use Status: Former Tobacco user Tobacco use type: Cigarette e-Cigarette/Vaping Use: Never Used Second Hand Smoke Exposure: No service: No Current occupational status: disabled Cognitive needs: No Hearing needs: No Vision needs: Yes Assessment & Plan Assessment & Plan (1) Type 2 diabetes mellitus with ophthalmic complication, with long-term current use of insulin: Code(s): E11.39 - Type 2 diabetes mellitus with other diabetic ophthalmic complication; Z79.4 - termite control technician (current) use of insulin Category: Medical Qualifiers: Diabetes mellitus complication detail: with diabetic retinopathy Diabetic retinopathy severity: with proliferative retinopathy Proliferative retinopathy type: unspecified Diabetes mellitus macular edema: macular edema presence unspecified Laterality: bilateral Qualified Code(s): E11.3593 - Type 2 diabetes mellitus with proliferative diabetic retinopathy without macular edema, bilateral; Z79.4 - termite control technician (current) use of insulin Plan: Wt: 79 Kg ( 04/2024 ), 78 kg ( 08/19) Est kcal needs as per MSJ: 0928-3029 (40% carb, 30% protein/fat) Est fluid needs as per 25-30 ml/d: 9794-1532 Est prot per day as per 1 g/kg bw: 79 Recommend fiber intake : 8-10 g per day and gradually increase to 25-28 g per day for women and 35-38 g for men or as tolerated Recommend sodium intake per day : less than 2000 mg Educated patient on: ( R = reviewed V = verbalizes understanding N/R = needs review N/A = not applicable * Food sources of carbohydrate, adequate serving sizes and its role in various health conditions: R * Differences between complex carbohydrates a simple carbohydrates, role of fiber in diet: R * Lean protein sources of foods: R * Differences between types of fats and role in diet (mono on saturated fat fatty acids, saturated fatty acids, trans fats): R * Food sources of sodium in salt and healthy modifications for heart health in kidney health: R V R/V * Vitamins and minerals: R V N/R * Healthy plate method concept: R * Physical activity: Benefits a precaution: R V N/R * Hypoglycemia protocol (rule of 15): R V N/R * Dietary prevention of Hyperglycemia: R V - Pt verbalizes increased intake of sweets * Chronic complications related to elevated bg: R Patient Instructions: Keep hydrated , drink water, low sugar flavored beverages, tea with no sugar consider taking a daily multivitamin for over 50 include omega 3 fatty acids in your diet (seeds, nuts, fish atleast twice a weeks) Coding Level of Care Code Nutr Indiv Subseq (63865) Diagnoses Type 2 diabetes mellitus with proliferative retinopathy of both eyes, with long- term current use of insulin, macular edema presence unspecified, unspecified proliferative retinopathy type E11.3593; Z79.4 Diabetes mellitus complication detail: with diabetic retinopathy Diabetic retinopathy severity: with proliferative retinopathy Proliferative retinopathy type: unspecified Diabetes mellitus macular edema: macular edema presence unspecified Laterality: bilateral Time Spent (min) 30
== END 2024-08-15 09:32 | disposition home or self-care (01) ==
PROVIDERS: PCP Internal Medicine; Visit Provider Dietitian, Registered
DX: E11.3593 Type 2 diabetes mellitus with proliferative diabetic retinopathy without macular edema, bilateral (principal); Z79.4 Long term (current) use of insulin

== ENCOUNTER → 2024-08-15 08:51 | Outpatient (BNVA) | payer MEDICARE, SELFPAY | PROVIDERS: PCP Internal Medicine; Visit Provider Dietitian, Registered | DX: E11.3593 Type 2 diabetes mellitus with proliferative diabetic retinopathy without macular edema, bilateral (principal); Z79.4 Long term (current) use of insulin; Z71.3 Dietary counseling and surveillance | CPT/HCPCS: 97803 ==

== ENCOUNTER 2024-08-21 07:46 | Outpatient (AMB) | payer MEDICARE, SELFPAY ==
[2024-08-21 09:08] VITALS: BP 118/62; PULSE 95; BMI 26.9
--- NOTE | 2024-08-21 09:08 | A.OFFVIS_ITS ---
Vital Signs 08/21/24 09:08 Height 5 ft 7 in Weight 171 lb 15.369 oz BMI 26.9 BP 118/62 Blood Pressure Location Rt brachial Position Sitting Pulse 95 Pulse Source Pulse Oximeter Intake Visit Reasons: DM/CONF Intake Note: Patient presents today for a follow-up on Type 2 Diabetes Mellitus: Last Diabetic Eye exam: 04/23/24 Last Podiatry Visit: Doesn't have one Most recent HgA1c: 9.6%, 08/21/2024 Random Glucose: 97 mg/dL, Today Parking Regulation Enforcement Officer Required: Yes Parking Regulation Enforcement Officer Language: British Accompanied by: Significant Other Allergies metformin Allergy (Intermediate, Verified 04/24/24 09:24) diarrhea HPI Comments Details: This is a 64 year old British-speaking male presenting with his for continued diabetic management. Video rn care transition used. He has past medical history of prostate cancer, HLD, hypertension, anxiety with depression and GERD. He was diagnosed with diabetes 25 years ago. He has a family history of diabetes. Hemoglobin a1c 12.2% 04/19/24 Today hemoglobin A1c is 9.6% today 08/21/24. Reviewed Angeli 3 download August 07 to August 20: CGM active 48% Average glucose 195 GMI 8% Glucose variability 30.7% Target 46% 0% hypoglycemia High 38% Very high 16% There is a pattern of hyperglycemia throughout the day that worsens between 06:00 and 15:00 and in the middle of the night. Current medication regimen: Tresiba 62 units in the morning. Trulicity 3 mg, no side effects on the increased dose. Metformin discontinued previously due to diarrhea. Lantus discontinued due to hypoglycemia. Compliance issues: none He is followed by the clinical trial educator, and he has seen the surface boss. He continues to follow a diet low in carbohydrates and sugars. Hypoglycemia symptoms: Patient says only having rare hypoglycemic events (once or twice per month at night). Symptoms include shakiness and feeling hungry. Blood glucose high 60s. Corrects with glass of orange juice. Hyperglycemia symptoms: none Eye exam: UTD. [facility] and Dr. Stephenson. Microvascular complications: bilateral neuropathy, retinopathy OU Macrovascular complications: none Hypertension: treated with Lisinopril 5 mg Hyperlipidemia: treated with Atorvastatin 80 mg and Zetia 10 mg LDL at goal <100. ROS: Constitutional: No fevers, chills or unexplained weight loss. Respiratory: No shortness of breath. Cardiovascular: No chest pain or pedal edema. Gastrointestinal: No nausea, vomiting or abdominal pain. Genitourinary: No dysuria, hematuria, urinary frequency. Denies history of genitourinary infections. Skin: No rashes or wounds. Endocrine: No polyuria or polydipsia. Physical exam: Constitutional: Alert, in no distress. Eyes: Pupils are equal, round and reactive to light. Neck: Supple, Full range of motion. No lymphadenopathy. No palpable thyroid masses. Respiratory: Clear to auscultation. Cardiovascular: S1 S2 regular. No murmurs Neurologic: No focal neurological deficits. Extremities: No edema Psychiatric: Normal mood and affect [facility] Medical History Diabetic retinopathy of both eyes Diabetic neuropathy Type 2 diabetes mellitus with ophthalmic complication, with long-term current use of insulin Diabetic retinopathy of right eye SARS-CoV-2 positive Screening for prostate cancer Chronic radicular pain of lower extremity GERD (gastroesophageal reflux disease) Pure hypercholesterolemia Essential hypertension Diabetes mellitus Surgical History History of surgery History of colonoscopy History of eye surgery History of open reduction and internal fixation (ORIF) procedure Family History Father Diabetes Stroke Mother Diabetes Parkinsons Brother Prostate cancer FH: colonic polyps Maternal Uncle Cancer Social History Housing: Apartment Alcohol intake: former Patient Tobacco Use Status: Former Tobacco user Tobacco use type: Cigarette e-Cigarette/Vaping Use: Never Used Second Hand Smoke Exposure: No service: No Current occupational status: disabled Cognitive needs: No Hearing needs: No Vision needs: Yes Physical Exam Vital Signs: Last Vital Signs Pulse 95 08/21/24 09:08 BP 118/62 08/21/24 09:08 BMI result Body Mass Index 26.9 Office Procedures Glucose Monitoring Details 58793 - Glucose monitoring, continuous-physician I&R Procedure code (CPT) selection complete Results AMB Hemoglobin A1c AMB Hemoglobin A1c 9.6 % Last Edit by ESTELLA Vann on 08/21/24 09:33 Results Reviewed Results Reviewed: Laboratory Last Values Glucose (Clinic) 97 mg/dL (60-115) 08/21/24 09:14 Assessment & Plan Assessment & Plan (1) Type 2 diabetes mellitus with ophthalmic complication, with long-term current use of insulin: Code(s): E11.39 - Type 2 diabetes mellitus with other diabetic ophthalmic complication; Z79.4 - superintendent marine oil terminal (current) use of insulin Category: Medical Qualifiers: Diabetes mellitus complication detail: with diabetic retinopathy Diabetic retinopathy severity: with proliferative retinopathy Proliferative retinopathy type: unspecified Diabetes mellitus macular edema: macular edema presence unspecified Laterality: bilateral Qualified Code(s): E11.3593 - Type 2 diabetes mellitus with proliferative diabetic retinopathy without macular edema, bilateral; Z79.4 - penitentiary (current) use of insulin (2) Diabetic neuropathy: Code(s): E11.40 - Type 2 diabetes mellitus with diabetic neuropathy, unspecified Category: Medical Qualifiers: Diabetes mellitus type: type 2 Diabetes mellitus complication detail: diabetic polyneuropathy Qualified Code(s): E11.42 - Type 2 diabetes mellitus with diabetic polyneuropathy (3) Essential hypertension: Code(s): I10 - Essential (primary) hypertension Category: Medical (4) Pure hypercholesterolemia: Code(s): E78.00 - Pure hypercholesterolemia, unspecified Category: Medical Plan Discussed pathophysiology of Type II Diabetes Mellitus with the patient in detail.? I explained the mcc risks and complications associated with uncontrolled diabetes including nephropathy, neuropathy, peripheral vascular disease, retinopathy, increased risk of heart disease and stroke.? Continue lifestyle modifications. Continue use of CGM and bring this with you to appointments. Continue Tresiba 62 units nightly. Continue Trulicity 3 mg once weekly. Reviewed side effects of SGLT2 including genitourinary infections and CLARITZA. Patient agreeable to trial of this medication. Start Jardiance 10 mg every morning. Returned to lab in 10 days after starting medication to check creatinine. We will also check screening BNP per ADA guidelines. Reviewed treatment of hypoglycemia. Hypertension and hyperlipidemia are well controlled. Continue current regimens. Follow up in 3 months for type 2 diabetes. Orders: Orders AMB Hemoglobin A1c Today E11.3593 - Type 2 diabetes mellitus with proliferative diabetic retinopathy without macular edema, bilateral, Z79.4 - superintendent marine oil terminal (current) use of insulin AMB Glucose Monitoring Today E11.9 - Type 2 diabetes mellitus without complications Creatinine Today E11.319 - Type 2 diabetes mellitus with unspecified diabetic retinopathy without macular edema B Type Natriuretic Peptide Today E11.9 - Type 2 diabetes mellitus without complications Medications: New empagliflozin (Jardiance) 10 mg PO QAM 30 tabs 1RF Refilled insulin degludec (Tresiba FlexTouch U-100 insulin) Replaces Lantus. 62 units (0.62 mL) subcut BEDTIME 30 mL 11RF dulaglutide (Trulicity) 3 mg (0.5 mL) subcut QWEEK 2 mL 11RF Coding Level of Care Code Est Pt Level 4 (37767) Diagnoses Type 2 diabetes mellitus with proliferative retinopathy of both eyes, with long- term current use of insulin, macular edema presence unspecified, unspecified proliferative retinopathy type E11.3593; Z79.4 Diabetes mellitus complication detail: with diabetic retinopathy Diabetic retinopathy severity: with proliferative retinopathy Proliferative retinopathy type: unspecified Diabetes mellitus macular edema: macular edema presence unspecified Laterality: bilateral Diabetic polyneuropathy associated with type 2 diabetes mellitus E11.42 Diabetes mellitus type: type 2 Diabetes mellitus complication detail: diabetic polyneuropathy Essential hypertension I10 Pure hypercholesterolemia E78.00 CPT Codes Details - CPT: 42869 - Glucose monitoring, continuous-physician I&R ([id number])
[2024-08-21 09:18] LABS: Glucose, Whole Blood 97 mg/dL (60-115)
== END 2024-08-21 09:51 | disposition home or self-care (01) ==
PROVIDERS: PCP Internal Medicine; Visit Provider Physician Assistant Medical
DX: E11.3593 Type 2 diabetes mellitus with proliferative diabetic retinopathy without macular edema, bilateral (principal); Z79.4 Long term (current) use of insulin; E11.42 Type 2 diabetes mellitus with diabetic polyneuropathy; I10 Essential (primary) hypertension; E78.00 Pure hypercholesterolemia, unspecified

== ENCOUNTER 2024-08-21 07:46 | Outpatient (AMB) | payer MEDICARE, SELFPAY ==
--- NOTE | 2024-08-21 07:57 | A.OFFVIS_ITS ---
Intake Intake Visit Reasons: 60 min-confirmed Allergies metformin Allergy (Intermediate, Verified 04/24/24 09:24) diarrhea HPI Comprehensive Diabetes Asmnt Most Recent Diabetes Results: Microalb/Creat Ratio 17.6 ug/mg cr (<30) 04/18/24 Cholesterol 149 mg/dL (<200) 04/18/24 HDL Cholesterol 60 mg/dL (>40) 04/18/24 Triglycerides 85 mg/dL (<150) 04/18/24 Creatinine 0.89 mg/dL (0.5-1.4) 04/18/24 Blood Urea Nitrogen 19 mg/dL (9-16) H 04/18/24 Sodium 143 mmol/L (135-145) 04/18/24 Potassium 4.4 mmol/L (3.3-5.1) 04/18/24 Chloride 106 mmol/L (96-108) 04/18/24 Carbon Dioxide 28 mmol/L (22-29) 04/18/24 Calcium 9.7 mg/dL (8.4-10.2) 04/18/24 AST 16 U/L (5-37) 04/18/24 ALT 22 U/L (0-40) 04/18/24 Total Protein 7.2 g/dL (6.5-8.0) 04/18/24 Albumin 3.8 g/dL (3.5-5.0) 04/18/24 [facility] Medical History (Updated 04/24/24 @ 10:56 by SERVANDO Morrison) Diabetic retinopathy of both eyes Diabetic neuropathy Type 2 diabetes mellitus with ophthalmic complication, with long-term current use of insulin Diabetic retinopathy of right eye SARS-CoV-2 positive Screening for prostate cancer Chronic radicular pain of lower extremity GERD (gastroesophageal reflux disease) Pure hypercholesterolemia Essential hypertension Diabetes mellitus Surgical History History of surgery History of colonoscopy History of eye surgery History of open reduction and internal fixation (ORIF) procedure Family History Father Diabetes Stroke Mother Diabetes Parkinsons Brother Prostate cancer FH: colonic polyps Maternal Uncle Cancer Social History Housing: Apartment Alcohol intake: former Patient Tobacco Use Status: Former Tobacco user Tobacco use type: Cigarette e-Cigarette/Vaping Use: Never Used Second Hand Smoke Exposure: No service: No Current occupational status: disabled Cognitive needs: No Hearing needs: No Vision needs: Yes Assessment & Plan Assessment & Plan (1) Type 2 diabetes mellitus with ophthalmic complication, with long-term current use of insulin: Code(s): E11.39 - Type 2 diabetes mellitus with other diabetic ophthalmic complication; Z79.4 - longterm (current) use of insulin Qualifiers: Diabetes mellitus complication detail: with diabetic retinopathy Diabetic retinopathy severity: with proliferative retinopathy Proliferative retinopathy type: unspecified Diabetes mellitus macular edema: macular edema presence unspecified Laterality: bilateral Qualified Code(s): E11.3593 - Type 2 diabetes mellitus with proliferative diabetic retinopathy without macular edema, bilateral; Z79.4 - oysterman (current) use of insulin Plan: Learning objectives: The patient was provided with verbal and written education on the following topics as outlined below. Patient questions/concerns Patient uses [employer] Angeli 2 to monitor glucose Average glucose for the past 7 days 195 mg/dL Patient above target 54% Patient at target 46% Patient below target 0% The patient met all learning objectives and was able to verbalize understanding and provide teach back of education topics discussed . The patient was provided with the opportunity to ask questions and all questions were answered. Topics covered in today?s session included: Medications (If applicable) * Name of medication? * Dosing/administration instructions? * Mechanism of action? * Potential side effects? * Potential adverse reaction and appropriate treatment? * Review onset, peak, duration Assess for concerns re: insurance coverage, cost, barriers to compliance Insulin/Injectables (If applicable) * Storage/care of insulin?? * Injection sites? * Site rotation? * Onset, peak, duration * Drawing up insulin? * Injecting insulin/other injectables? * Sharps disposal Continuous blood glucose monitoring (if applicable) Hypoglycemia and Hyperglycemia * Signs and symptoms? * Causes?? * Treatment? * Preventing hypoglycemia? * When to seek medical attention Target Goals: * Blood glucose targets and how you feel when your blood glucose is in and out of your target ranges. * Monitoring and knowing your A1C. * What can make blood glucose go up and down and preventing high and low blood glucose. * Review of blood sugar targets in expected goal range and outside of expected goal range. * Problem solving and preventing hyper/hypoglycemia. * Sick day management of diabetes. * Using blood sugar results in decision making process in managing diabetes. ?Patient was receptive to information provided and participated in the discussion. Asked?appropriate questions and demonstrated good understanding of the topics discussed.? ? Educational Materials: The patient was provided with the following written educational materials: Target Goal handout Smart Goal:? Patient will identify foods in current meal plan that contain carbohydrate Patient Response to instructions: Comprehension of Instructions: fair Readiness to make changes:? Contemplation How confident they feel about making changes: Fair Portions of this note were created using voice recognition software, please excuse any words or phrases that may have been misinterpreted. Coding Level of Care Code Est Pt Level 1 (02138) Diagnoses Type 2 diabetes mellitus with proliferative retinopathy of both eyes, with long- term current use of insulin, macular edema presence unspecified, unspecified proliferative retinopathy type E11.3593; Z79.4 Diabetes mellitus complication detail: with diabetic retinopathy Diabetic retinopathy severity: with proliferative retinopathy Proliferative retinopathy type: unspecified Diabetes mellitus macular edema: macular edema presence unspecified Laterality: bilateral Results AMB Hemoglobin A1c AMB Hemoglobin A1c 9.6 % Last Edit by ESTELLA Vann on 08/21/24 09:33
== END 2024-08-21 09:00 | disposition home or self-care (01) ==
PROVIDERS: PCP Internal Medicine; Visit Provider Registered Nurse Diabetes Educator
DX: E11.3593 Type 2 diabetes mellitus with proliferative diabetic retinopathy without macular edema, bilateral (principal); Z79.4 Long term (current) use of insulin

== ENCOUNTER → 2024-08-21 07:46 | Outpatient (BNVA) | payer MEDICARE, SELFPAY | PROVIDERS: PCP Internal Medicine; Visit Provider Physician Assistant Medical | DX: E11.39 Type 2 diabetes mellitus with other diabetic ophthalmic complication (principal); E11.42 Type 2 diabetes mellitus with diabetic polyneuropathy; E11.3593 Type 2 diabetes mellitus with proliferative diabetic retinopathy without macular edema, bilateral; I10 Essential (primary) hypertension; E78.00 Pure hypercholesterolemia, unspecified; Z79.4 Long term (current) use of insulin | CPT/HCPCS: 82947; 83036; 99211; 99212 ==

== ENCOUNTER 2024-09-05 07:28 | Outpatient (REF) | payer MEDICARE, SELFPAY ==
[2024-09-05 07:48] LABS: MANUAL DIFF FLAG NO
[2024-09-05 08:15] LABS: Basophils Absolute Auto 0.1 X10*3/uL (0.0-0.2); Basophils Percent Auto 0.7 % (0-2); Eosinophils Absolute Auto 0.3 X10*3/uL (0.0-0.4); Eosinophils Percent Auto 4.4 % (0-4); Hematocrit 35.8 % (42.0-52.0); Hemoglobin 11.6 g/dl (14.0-18.0); Imm Gran Abs Auto 0.03 X10*3/uL (0.00-0.03); Imm Gran Pct Auto 0.4 % (0.0-0.4); Lymphocytes Percent Auto 27.9 % (20-40); Mean Corpuscular HGB Conc 32.4 g/dl (31.0-36.0); Mean Corpuscular Hemoglobin 28.2 pg (27.0-33.0); Mean Corpuscular Volume 86.9 fL (80.0-98.0); Mean Platelet Volume 9.9 fL (9.4-12.4); Monocytes Absolute Auto 0.4 X10*3/uL (0.1-1.2); Monocytes Percent Auto 5.6 % (2-11); Neutrophils Absolute Auto 4.5 x10*3/uL (2.0-8.3); Platelet Count 281 X10*3/uL (160-400); Red Blood Count 4.12 X10*6/uL (4.60-5.80); Red Cell Distribution Width 12.9 % (11.0-16.0); White Blood Count 7.3 X10*3/uL (4.8-10.8)
[2024-09-05 08:25] LABS: Estimated Average Glucose 209 mg/dL; Hemoglobin A1C 222.6934 umol/L; Hemoglobin A1c % 8.9 % (<6.0); Total Hemoglobin (HGBA1C) 3002.7901 umol/L
[2024-09-05 08:42] LABS: Creatinine Urine 221.96 mg/dL; Microalbum/Creatinine Ratio Ur 21.6 ug/mg cr (<30)
[2024-09-05 08:43] LABS: Alanine Aminotransferase 34 U/L (0-40); Alkaline Phosphatase 85 U/L (39-117); Anion Gap 14 (12-20); Aspartate Amino Transferase 29 U/L (5-37); Bilirubin Total 0.4 mg/dL (0.0-1.0); Blood Urea Nitrogen 16 mg/dL (9-16); Carbon Dioxide 28 mmol/L (22-29); Chloride 106 mmol/L (96-108); Cholesterol 147 mg/dL (<200); Estimated Glomerular Filt Rate > 60; Glucose Fasting 107 mg/dL (60-99); HDL Cholesterol 51 mg/dL (>40); Iron 39 mcg/dL (45-160); LDL Cholesterol Calculated 81 mg/dL (<100); Percent Iron Saturation 17 % (15-50); Potassium 4.5 mmol/L (3.3-5.1); Sodium 143 mmol/L (135-145); Total Iron Binding Capacity 232 mcg/dL (228-428); Total Protein 7.6 g/dL (6.5-8.0); Triglycerides 79 mg/dL (<150); Unsaturated Iron Binding 193 ug/dL
[2024-09-05 08:45] LABS: B Type Natriuretic Peptide 12 pg/mL (<100)
== END 2024-09-05 07:29 | disposition home or self-care (01) ==
LOC: HO.LAB 07:28
PROVIDERS: Absent Provider Physician Assistant Medical; PCP Internal Medicine; Visit Provider Internal Medicine
DX: E11.3593 Type 2 diabetes mellitus with proliferative diabetic retinopathy without macular edema, bilateral (principal); Z79.4 Long term (current) use of insulin; E11.9 Type 2 diabetes mellitus without complications; E55.9 Vitamin D deficiency, unspecified; E78.5 Hyperlipidemia, unspecified; D64.9 Anemia, unspecified; E11.35 Type 2 diabetes mellitus with proliferative diabetic retinopathy
CPT/HCPCS: 36415; 80053; 80061; 82043; 82306; 82570; 83036; 83540; 83880; 85025

== ENCOUNTER 2024-09-14 09:16 | Outpatient (REF) | payer MEDICARE, SELFPAY ==
--- NOTE | ~2024-09-14 | FL_ITS ---
EXAMINATION: XR FLUOROSCOPY UPPER GI WITH AIR CLINICAL INFORMATION: Reflux COMPARISON: None TECHNIQUE: Fluoroscopic air contrast upper GI examination was performed utilizing standard techniques with thin and thick barium and effervescent granules. Numerous spot images were obtained. FINDINGS: Dual and single contrast images of the esophagus demonstrate a normal caliber and contour. There is felinization of the mid and lower esophageal mucosa. No masses or ulcerations are seen. There is an anterior esophageal web at the level of C5. Esophageal peristalsis is moderately disorganized. A very small type I hiatal hernia is present. No significant gastroesophageal reflux was seen during the course of the examination and on reflux views. Dual contrast and single contrast images of the stomach demonstrated normal contour. There is a mixed density within the stomach that is moves during patient positioning, suggestive of retained food. Evaluation of the gastric mucosa is, therefore, limited. Contrast freely passed into the gastric antrum and duodenal bulb without delay. Single and air-contrast images of the duodenal bulb demonstrate no abnormality. The duodenal sweep has a normal appearance, course, and mucosal fold appearance. FLUOROSCOPY TIME: 5 minutes 7 seconds Number of Spot Images: 8 Number of Cine: 13 DOSE AREA PRODUCT: 3104 uGy-m2 (microgray-meter squared) FL/FL upper GI w air IMPRESSION: 1. 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 2. Felinization of the mid and distal esophageal mucosa. This is a benign finding that is associated with chronic gastric esophageal reflux. While reflux was not seen during this examination, suspect at least moderate gastroesophageal reflux. 3. Moderate esophageal dysmotility. 4. Very small type I hiatal hernia. 5. Mixed density within the stomach that moves during patient positioning. This is suggestive of retained food. Evaluation of the gastric mucosa is ,therefore, limited. This procedure was performed by Leroy Coronado PA-C, and supervised by Dr. Al Electronically signed by: Ricki Al MD 09/14/2024 04:33 PM [facility] [place]
== END 2024-09-14 09:17 | disposition home or self-care (01) ==
LOC: HO.XRAY 09:16
PROVIDERS: PCP Internal Medicine; Visit Provider Internal Medicine
DX: K21.9 Gastro-esophageal reflux disease without esophagitis (principal)
CPT/HCPCS: 74246

== ENCOUNTER → 2024-09-14 09:17 | Outpatient (BNV) | payer MEDICARE, SELFPAY | PROVIDERS: PCP Internal Medicine; Visit Provider Physician Assistant Surgical | DX: K21.9 Gastro-esophageal reflux disease without esophagitis (principal) | CPT/HCPCS: 74246 ==

== ENCOUNTER 2024-09-25 07:59 | Outpatient (AMB) | payer MEDICARE, SELFPAY ==
[2024-09-25 08:02] VITALS: BP 122/80; BMI 26.3
--- NOTE | 2024-09-25 08:02 | A.OFFPC_ITS ---
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: No Accompanied by: Self / Same As Patient Allergies metformin Allergy (Intermediate, Verified 09/25/24 08:16) diarrhea Medication List - Last Reconciled 09/25/24 by Jaja Ventura MD ammonium lactate 12% 1 appl topical DAILY 30 days atorvastatin 80 mg PO BEDTIME 90 days blood sugar diagnostic (Accu-Chek Guide test strips) Use 1 TID blood-glucose meter (Accu-Chek Guide Glucose Meter) As directed blood-glucose meter,continuous (FreeStyle Angeli 3 Donna) as directed blood-glucose sensor (FreeStyle Angeli 3 Plus Sensor device) Apply 1 new sensor every 14 days as directed to monitor blood glucose continuously. blood-glucose sensor (FreeStyle Angeli 3 Plus Sensor device) Apply 1 new sensor every 14 days as directed to monitor blood glucose continuously. brimonidine 0.2% 1 drp ophthalmic (eye) BID cholecalciferol (vitamin D3) 25 mcg PO DAILY 90 days dulaglutide (Trulicity) 3 mg (0.5 mL) subcut QWEEK empagliflozin (Jardiance) 10 mg PO QAM ezetimibe 10 mg PO DAILY 90 days hydrocortisone 1% (Anti-Itch (hydrocortisone)) 1 appl topical TID PRN 30 days insulin degludec (Tresiba FlexTouch U-100 insulin) 62 units (0.62 mL) subcut BEDTIME lancets (Accu-Chek Fastclix Lancet Drum) Use 1 lancet once a day lisinopril 5 mg PO DAILY 90 days [locking raised toilet seat with arms As directed] omeprazole 20 mg PO DAILY 90 days oxycodone 5 mg PO TID PRN 7 days sertraline 25 mg PO DAILY 90 days timolol 0.5% 1 drp ophthalmic (eye) BID triamcinolone acetonide 0.025% 1 appl topical BID 14 days Tobacco use date assessed: 12/12/23 Dental Screening Dental Screen Date: 12/12/23 HPI HPI Comments History of Present Illness Details The patient is a 64-year-old male presenting with management needs for Type 2 Diabetes Mellitus and evaluation of gastrointestinal symptoms. The patient has a documented history of diabetes with current challenges in controlling blood glucose levels, as indicated by a hemoglobin A1c of 8.9%, a reduction from a previous level of 9.6%. Current treatment includes metformin, which was discontinued due to diarrhea, and Trulicity. The patient also uses Jardiance and insulin. He reports issues with hypercholesterolemia, with LDL levels previously above target, currently at 81 mg/dL, but not below the goal of 70 mg/dL. Atorvastatin and ezetimibe have been prescribed for management. Gastrointestinal assessments indicate GERD symptoms, a small hiatal hernia, and esophageal dysmotility presenting as food retention and acid reflux. A previous endoscopy noted these findings, and the patient has undergone a colonoscopy in 2021. Will be referred to Gastroenterology for this matter. Hypertension stable with lisinopril. He walks with a cane for gait stability due to chronic low back pain stable with opiates as needed. Patient aware opiates can cause addiction and sedation. Additionally, the patient reports mild anemia, with hemoglobin levels diminishing. Supplementation has been explored. The renal function tests were normal, and vitamin D levels have reported deficiencies in the past, currently under supplementation. The patient has a BMI of 26.3, indicative of obesity, which is a relevant factor for his diabetes management. [facility] Medical History (Updated 09/25/24 @ 08:25 by Jaja Ventura MD) Diabetic retinopathy of both eyes Diabetic neuropathy Type 2 diabetes mellitus with ophthalmic complication, with long-term current use of insulin Diabetic retinopathy of right eye SARS-CoV-2 positive Screening for prostate cancer Chronic radicular pain of lower extremity GERD (gastroesophageal reflux disease) Pure hypercholesterolemia Essential hypertension Diabetes mellitus Surgical History History of surgery History of colonoscopy History of eye surgery History of open reduction and internal fixation (ORIF) procedure Family History Father Diabetes Stroke Mother Diabetes Parkinsons Brother Prostate cancer FH: colonic polyps Maternal Uncle Cancer Social History Housing: Apartment Alcohol intake: former Patient Tobacco Use Status: Former Tobacco user Tobacco use type: Cigarette e-Cigarette/Vaping Use: Never Used Second Hand Smoke Exposure: No service: No Current occupational status: disabled Cognitive needs: No Hearing needs: No Vision needs: Yes Questionnaire Thrive Questionnaire Date Thrive assessed: 04/19/24 MARY-7 AMB Questionnaire MARY-7 Date MARY - 7 assessed: 04/19/24 Source: Developed by Drs. Roque Virk, Natalie De La Fuente, Severino Nichole and colleagues, with an educational tamiko from [employer]. Review of Systems Const Details: - Gastrointestinal: Reports acid reflux, food retention. - Constitutional: Denies additional symptoms not reported in the history. Physical exam (Primary Care) Vital Signs: Last Vital Signs BP 122/80 09/25/24 08:02 BMI result Body Mass Index 26.3 BMI Assessment/Plan discussion: High BMI High, discussed plan: lifestyle, weight reduction, dietary and physical activity Tobacco/Smoking Status: Tobacco use Status Tobacco use date assessed 12/12/23 09/25/24 08:08 Patient Tobacco Use Status Former Tobacco user 09/25/24 08:08 Tobacco use type Cigarette 09/25/24 08:08 e-Cigarette/Vaping Use Never Used 09/25/24 08:08 Thrive Assessment: Date of Thrive Assessment Date Thrive assessed 04/19/24 09/25/24 08:08 Const Other: General: No confusion, walks with a cane Respiratory: Normal respiratory effort, clear to auscultation bilaterally Cardiovascular: No jugular venous distension, regular rate, regular rhythm, S1 normal heart sound present and S2 normal heart sound present GI: Normal to inspection, Soft to palpation and nontender, normal bowel sounds, small hiatal hernia, retains food, esophageal dysmotility Extremities: Full ROM Psychology: Grossly normal Coding Level of Care Code Est Pt Level 4 (82547) Complex EM visit Add On G2211 Diagnoses Type 2 diabetes mellitus with proliferative retinopathy of both eyes, with long- term current use of insulin, macular edema presence unspecified, unspecified proliferative retinopathy type E11.3593; Z79.4 Diabetes mellitus complication detail: with diabetic retinopathy Diabetic retinopathy severity: with proliferative retinopathy Proliferative retinopathy type: unspecified Diabetes mellitus macular edema: macular edema presence unspecified Laterality: bilateral Chronic GERD K21.9 Abnormal upper gastrointestinal barium series R93.3 Essential hypertension I10 Pure hypercholesterolemia E78.00 Time Spent (min) 23 Assessment & Plan Assessment & Plan (1) Type 2 diabetes mellitus with ophthalmic complication, with long-term current use of insulin: Code(s): E11.39 - Type 2 diabetes mellitus with other diabetic ophthalmic complication; Z79.4 - MCFP (current) use of insulin Category: Medical Qualifiers: Diabetes mellitus complication detail: with diabetic retinopathy Diabetic retinopathy severity: with proliferative retinopathy Proliferative retinopathy type: unspecified Diabetes mellitus macular edema: macular edema presence unspecified Laterality: bilateral Qualified Code(s): E11.3593 - Type 2 diabetes mellitus with proliferative diabetic retinopathy without macular edema, bilateral; Z79.4 - terminal operator (current) use of insulin (2) Chronic GERD: Code(s): K21.9 - Gastro-esophageal reflux disease without esophagitis Category: Medical (3) Abnormal upper gastrointestinal barium series: Code(s): R93.3 - Abnormal findings on diagnostic imaging of other parts of digestive tract Category: Medical (4) Essential hypertension: Code(s): I10 - Essential (primary) hypertension Category: Medical (5) Pure hypercholesterolemia: Code(s): E78.00 - Pure hypercholesterolemia, unspecified Category: Medical Plan - Continue diabetes management with adjustment to current medication regimen. - Maintain current cholesterol management with atorvastatin and ezetimibe. - Address GERD and esophageal motility with referral to gastroenterology for further evaluation. - Continue vitamin D supplementation and evaluate anemia with possible nutritional supplementation. - Encourage weight management and review BMI and dietary intake. - Follow-up in four months to reassess A1c levels and evaluate management plan e fficacy. Patient was informed and verbally consented to the use of an ambient scribe for clinic note documentation during this visit. During the visit, we discussed the current diabetes management plan emphasizing strict medication adherence and potential dietary adjustments. I explained the importance of reaching the LDL target and the role of current medications in managing cholesterol levels. The patient's GERD symptoms and esophageal dysmotility were addressed, with a planned referral to a buckle sorter for further evaluation. Additionally, we reviewed anemia concerns, exploring dietary supplements that could support management. Orders: Orders Comprehensive [place]. Panel Fast 4 Months E11.3593 - Type 2 diabetes mellitus with proliferative diabetic retinopathy without macular edema, bilateral, Z79.4 - terminal operator (current) use of insulin Lipid Panel 4 Months E78.5 - Hyperlipidemia, unspecified Microalbumin, Random (w Creat) 4 Months R80.9 - Proteinuria, unspecified Referrals Gastroenterology Referral R93.3 - Abnormal findings on diagnostic imaging of other parts of digestive tract Patient Instructions: - Continue taking prescribed medications for diabetes and cholesterol. - Follow the referral to the buckle sorter for further evaluation of gastrointestinal issues. - Maintain a consistent vitamin D supplementation routine. - Monitor weight and dietary intake to support diabetes and cholesterol management. - Return for follow-up in four months or sooner if symptoms change.
== END 2024-09-25 08:29 | disposition home or self-care (01) ==
PROVIDERS: PCP Internal Medicine; Visit Provider Internal Medicine
DX: E11.3593 Type 2 diabetes mellitus with proliferative diabetic retinopathy without macular edema, bilateral (principal); Z79.4 Long term (current) use of insulin; K21.9 Gastro-esophageal reflux disease without esophagitis; R93.3 Abnormal findings on diagnostic imaging of other parts of digestive tract; I10 Essential (primary) hypertension; E78.00 Pure hypercholesterolemia, unspecified

== ENCOUNTER → 2024-09-25 07:59 | Outpatient (BNVA) | payer MEDICARE, SELFPAY | PROVIDERS: PCP Internal Medicine; Visit Provider Internal Medicine | DX: E11.3593 Type 2 diabetes mellitus with proliferative diabetic retinopathy without macular edema, bilateral (principal); Z79.4 Long term (current) use of insulin; K21.9 Gastro-esophageal reflux disease without esophagitis; R93.3 Abnormal findings on diagnostic imaging of other parts of digestive tract; E78.00 Pure hypercholesterolemia, unspecified; I10 Essential (primary) hypertension | CPT/HCPCS: 99212 ==

== ENCOUNTER 2024-10-17 08:40 | Outpatient (AMB) | payer MEDICARE, SELFPAY ==
[2024-10-17 08:50] VITALS: BMI 26.8
--- NOTE | 2024-10-17 08:50 | A.OFFVIS_ITS ---
VS Expanded 10/17/24 08:50 Height 5 ft 7 in Weight 171 lb 4.787 oz BMI 26.8 Intake Visit Reasons: T2DM Allergies metformin Allergy (Intermediate, Verified 09/25/24 08:16) diarrhea Nutrition Presentation Details: Pt presents for MNt f/u for T2DM Pt reports working on balancing meals, and choosing lower sugar option of foods as snack BS Monitoring Most Recent Diabetes Results: Microalb/Creat Ratio 21.6 ug/mg cr (<30) 09/05/24 Cholesterol 147 mg/dL (<200) 09/05/24 HDL Cholesterol 51 mg/dL (>40) 09/05/24 Triglycerides 79 mg/dL (<150) 09/05/24 Creatinine 0.87 mg/dL (0.5-1.4) 09/05/24 Blood Urea Nitrogen 16 mg/dL (9-16) 09/05/24 Sodium 143 mmol/L (135-145) 09/05/24 Potassium 4.5 mmol/L (3.3-5.1) 09/05/24 Chloride 106 mmol/L (96-108) 09/05/24 Carbon Dioxide 28 mmol/L (22-29) 09/05/24 Calcium 10.0 mg/dL (8.4-10.2) 09/05/24 AST 29 U/L (5-37) 09/05/24 ALT 34 U/L (0-40) 09/05/24 Total Protein 7.6 g/dL (6.5-8.0) 09/05/24 Albumin 4.0 g/dL (3.5-5.0) 09/05/24 [facility] Medical History Diabetic retinopathy of both eyes Diabetic neuropathy Type 2 diabetes mellitus with ophthalmic complication, with long-term current u se of insulin Diabetic retinopathy of right eye SARS-CoV-2 positive Screening for prostate cancer Chronic radicular pain of lower extremity GERD (gastroesophageal reflux disease) Pure hypercholesterolemia Essential hypertension Diabetes mellitus Surgical History History of surgery History of colonoscopy History of eye surgery History of open reduction and internal fixation (ORIF) procedure Family History Father Diabetes Stroke Mother Diabetes Parkinsons Brother Prostate cancer FH: colonic polyps Maternal Uncle Cancer Social History Housing: Apartment Alcohol intake: former Patient Tobacco Use Status: Former Tobacco user Tobacco use type: Cigarette e-Cigarette/Vaping Use: Never Used Second Hand Smoke Exposure: No service: No Current occupational status: disabled Cognitive needs: No Hearing needs: No Vision needs: Yes Assessment & Plan Assessment & Plan (1) Type 2 diabetes mellitus with ophthalmic complication, with long-term current use of insulin: Code(s): E11.39 - Type 2 diabetes mellitus with other diabetic ophthalmic complication; Z79.4 - intermediate (current) use of insulin Category: Medical Qualifiers: Diabetes mellitus complication detail: with diabetic retinopathy Diabetic retinopathy severity: with proliferative retinopathy Proliferative retinopathy type: unspecified Diabetes mellitus macular edema: macular edema presence unspecified Laterality: bilateral Qualified Code(s): E11.3593 - Type 2 diabetes mellitus with proliferative diabetic retinopathy without macular edema, bilateral; Z79.4 - tank terminal gauger (current) use of insulin Plan: Wt: 79 Kg ( 04/2024 ), 78 kg ( 08/19), 10/20 Est kcal needs as per MSJ: 2260-3788 (40% carb, 30% protein/fat) Est fluid needs as per 25-30 ml/d: 9806-1549 Est prot per day as per 1 g/kg bw: 79 Recommend fiber intake : 8-10 g per day and gradually increase to 25-28 g per day for women and 35-38 g for men or as tolerated Recommend sodium intake per day : less than 2000 mg Educated patient on: ( R = reviewed V = verbalizes understanding N/R = needs review N/A = not applicable * Food sources of carbohydrate, adequate serving sizes and its role in various health conditions: R * Differences between complex carbohydrates a simple carbohydrates, role of fiber in diet: R * Lean protein sources of foods: R * Differences between types of fats and role in diet (mono on saturated fat fatty acids, saturated fatty acids, trans fats): R * Food sources of sodium in salt and healthy modifications for heart health in kidney health: R V R/V * Vitamins and minerals: R * Healthy plate method concept: R * Physical activity: Benefits a precaution: R V N/R * Hypoglycemia protocol (rule of 15): R V N/R * Dietary prevention of Hyperglycemia: R V - Pt verbalizes increased intake of sweets * Chronic complications related to elevated bg: R Patient Instructions: Recommend including iron rich foods in the diet (Spinach, eggs, fortified foods (like low sugar cereals) lean beef and beans in soup along with foods rich in vitamin C) see list of iron rich foods and recipes , use coupons for high protein ensure provided May recommend taking iron supplement, ferrous sulfate 65 mg/d with vitamin C every other day for a month unless otherwise specified by your doctor. Keep hydrated to prevent constipation Coding Level of Care Code Nutr Indiv Subseq (32257) Diagnoses Type 2 diabetes mellitus with proliferative retinopathy of both eyes, with long- term current use of insulin, macular edema presence unspecified, unspecified proliferative retinopathy type E11.3593; Z79.4 Diabetes mellitus complication detail: with diabetic retinopathy Diabetic retinopathy severity: with proliferative retinopathy Proliferative retinopathy type: unspecified Diabetes mellitus macular edema: macular edema presence unspecified Laterality: bilateral Time Spent (min) 30
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
--- OUTSIDE RECORDS SUMMARY | 2024-10-17 08:56 | XMS_ITS | Clinical Summary ---
Author Organization [facility] ity Address [address] [place] [address] Care Team Providers Care Hat Model Name Role Phone Unavailable Primary Care Provider Unavailabl e Social History Tobacco Use Types Packs/Day Years Used Date Smoking Tobacco: Never Assessed Sex and Gender Information Value Date Recorded Sex Assigned at Not on file Gender Identity Not on file Sexual Orientation Not on file Plan of Treatment Health Maintenance Due Date Last Done Comments DTaP,Tdap,and Td Vaccines (1 - Tdap) 1981 Zoster Vaccines (1 of 2) 2012 Cholesterol Screening (Lipid Panel) 10/25/2023 Colorectal Cancer Screening: Colonoscopy 10/25/2023 Depression Screening 10/25/2023 HIV Screening 10/25/2023 Hepatitis C Screening 10/25/2023 Social Influencers of Health Screening 10/25/2023 COVID-19 Vaccine (1 - 2023-2 5 season) 2024 Influenza Vaccine (#1) 2024 RSV Immunization Patients 60 + Years Old (1 - 1-dose 75+ series) 2037 HIB Vaccines Aged Out No longer eligi ble based on patient's age to complete this topic HPV Vaccines Aged Out No longer eligi ble based on patient's age to complete this topic Hepatitis A Vaccines Aged Out No long er eligible based on patient's age to complete this topic Hepatitis B Vaccines Aged Out No long er eligible based on patient's age to complete this topic IPV Vaccines Aged Out No longer eligi ble based on patient's age to complete this topic MMR Vaccines Aged Out No longer eligi ble based on patient's age to complete this topic Meningococcal ACWY Vaccine Aged Out N o longer eligible based on patient's age to complete this topic Pneumococcal Vaccine: Pediat rics (0 to 5 Years) and At-Risk Patients (6 to 64 Years) Aged Out No longer eligible b ased on patient's age to complete this topic RSV Immunization Patients Un basilio 20 months Aged Out No longer eligible b ased on patient's age to complete this topic Varicella Vaccines Aged Out No longer eligible based on patient's age to complete this topic
--- OUTSIDE RECORDS SUMMARY | 2024-10-17 08:57 | XMS_ITS ---
Author Name Angie Hernández NP Address [address] [place] [address] Phone [phone] [facility] Care Team Providers Care Environmental Change Analyst Name Role Phone Angie Hernández Unavailable [phone] [facility] Unavailable Unavailable Unavailable Unavailable KELLY ROBERSON Unavailable [phone] Reason for Referral Not Available Allergies, adverse [...] (do not use for phone, instead use 74784-35) [facility], ([place]) 11/25/2022 Malignant neoplasm of prostateGastro-esophageal reflux disease without esophagitisType 2 diabetes mellitus with other specified complicationHyperlipidemia, unspecifiedPain, unspecifiedOther chronic painEssential (primary) hypertensionOpioid dependence, uncomplicated New patient,40-59min; chronic exacerbation, 2 stable chronic or 1 acute illness add add modifier 95 for video (do not use for phone, instead use 44607-91) [facility], [place] 11[place]25/2022 New patient,40-59min; chronic exacerbation, 2 stable chronic or 1 acute illness add add modifier 95 for video (do not use for phone, instead use 10711-70) [facility], ([place] 11/25/2022 New patient,40-59min; chronic exacerbation, 2 stable chronic or 1 acute illness add add modifier 95 for video (do not use for phone, instead use 12807-42) [facility], [place] 11/25/2022 New patient,40-59min; chronic exacerbation, 2 stable chronic or 1 acute illness add add modifier 95 for video (do not use for phone, instead use 84297-91) [facility], ([place] 11/25/2022 New patient,40-59min; chronic exacerbation, 2 stable chronic or 1 acute illness add add modifier 95 for video (do not use for phone, instead use 60683-65) [facility], ([place] 11/25/2022 New patient,40-59min; chronic exacerbation, 2 stable chronic or 1 acute illness add add modifier 95 for video (do not use for phone, instead use 29618-11) [facility], ([place]) 11/25/2022 RN, CN or CP time with patient by phone; use with 1111F, BP, A1c or other CPTII codes [facility] ([place]) 05/27/2023 Encounter for other specifie d aftercare RN, CN or CP time with patient by phone; use with 1111F, BP, A1c or other CPTII codes [facility] ([place]) 05/27/2023 Estab. patient 20-29min; 1 stable chronic or 2 minor; add add modifier 95 for video, modifier 93 for phone [facility], ([place]) 06/01/2023 Malignant neoplasm of prostateOpioid use, unspecified, uncomplicatedOther chronic painCalculus of ureter Estab. patient 20-29min; 1 stable chronic or 2 minor; add add modifier 95 for video, modifier 93 for phone [facility] ([place]) 06/01/2023 Estab. patient 20-29min; 1 stable chronic or 2 minor; add add modifier 95 for video, modifier 93 for phone [facility] ([place]) 06/01/2023 Estab. patient 30-39min; chronic exacerbation, 2 stable chronic or 1 acute illness add add modifier 95 for video, (do not use for phone, instead use 30252-98) [facility], [place] 04/02/2024 Essential (primary) hypertensionMalignant neoplasm of prostateGastro-esophageal [...] (do not use for phone, instead use 23908-92) [facility] ([place]) 04/02/2024 Estab. patient 30-39min; chronic exacerbation, 2 stable chronic or 1 acute illness add add modifier 95 for video, (do not use for phone, instead use 09553-33) [facility] ([place]) 04/02/2024 Estab. patient 30-39min; chronic exacerbation, 2 stable chronic or 1 acute illness add add modifier 95 for video, (do not use for phone, instead use 40319-60) [facility] ([place]) 04/02/2024 Estab. patient 30-39min; chronic exacerbation, 2 stable chronic or 1 acute illness add add modifier 95 for video, (do not use for phone, instead use 10215-13) [facility] ([place]) 04/02/2024 Estab. patient 30-39min; chronic exacerbation, 2 stable chronic or 1 acute illness add add modifier 95 for video, (do not use for phone, instead use 41656-21) [facility] ([place]) 04/02/2024 Estab. patient 30-39min; chronic exacerbation, 2 stable chronic or 1 acute illness add add modifier 95 for video, (do not use for phone, instead use 96138-89) [facility] ([place]) 04/02/2024 Vital Signs Date of Collection Vitals [...] (do not use for phone, instead use 72209-02) [id number] 2022-11-25 No Data Available No Data Availa [...] 1111F, BP, A1c or other CPTII codes 00920 2023-05-27 No Data Available No Data Avai lable Medications prescribed in hospital were reviewed and reconciled against what they were taking prior to admission during today's visit. (1111F) 1111F 2023-05-27 No Data Available No Data Availa ble Estab. patient 20-29min; 1 stable chronic or 2 minor; add add modifier 95 for video, modifier 93 for phone [id number] 2023-06-01 No Data Available No Data Availa [...] (do not use for phone, instead use 47709-94) [id number] 2024-04-02 No Data Available No Data Availa [...] appears to be in remission. Goes to [facility].StableOxycodoneUPDATE 06/01/2023:Reviewed safety/risks of opioids. Sending Narcan, education on its use.Had procedure to remove stone stone 05/25/2023. Has catheter. Will have catheter removed on 06/02/2023 at FU appt w Uro ([facility]).Reports some lingering dysuria. Ed re [...] appears to be in remission. Goes to [facility].04/02/2024Still having Q6 months injection, still having [...] on 06/02/2023 at FU appt w Uro ([facility]).Reports some lingering dysuria. 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 Goes to [facility].04/02/2024Still having Q6 months injection, still having [...] on 06/02/2023 at FU appt w Uro ([facility]).Reports some lingering dysuria. 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
== END 2024-10-17 09:22 | disposition home or self-care (01) ==
PROVIDERS: PCP Internal Medicine; Visit Provider Dietitian, Registered
DX: E11.3593 Type 2 diabetes mellitus with proliferative diabetic retinopathy without macular edema, bilateral (principal); Z79.4 Long term (current) use of insulin

== ENCOUNTER → 2024-10-17 08:40 | Outpatient (BNVA) | payer MEDICARE, SELFPAY | PROVIDERS: PCP Internal Medicine; Visit Provider Dietitian, Registered | DX: E11.39 Type 2 diabetes mellitus with other diabetic ophthalmic complication (principal); E11.3593 Type 2 diabetes mellitus with proliferative diabetic retinopathy without macular edema, bilateral; Z71.3 Dietary counseling and surveillance; Z79.4 Long term (current) use of insulin | CPT/HCPCS: 97803 ==

== ENCOUNTER 2024-12-07 08:05 | Outpatient (AMB) | payer MEDICARE, SELFPAY ==
--- NOTE | 2024-12-07 08:07 | MHC.OFFVIS ---
Vital Signs 12/07/24 08:10 Height 5 ft 7 in Weight 171 lb 1.259 oz BMI 26.8 BP 110/74 Blood Pressure Location Lt brachial Position Sitting Pulse 95 Pulse Source Pulse Oximeter Pulse Oximetry (%) 98 Oxygen Delivery Method Room Air Intake Visit Reasons: DM Intake Note: Patient present today to follow up on Type 2 Diabetes Mellitus. Last Diabetic Eye exam: April 23, 2024 Last Podiatry Visit: Does not see a Salesperson Wigs Random Glucose: 126 mg/dl HgA1C: 7.1% 12/07/2024 Site Identification Specialist Required: Yes Site Identification Specialist Language: Pulmonary Nurse Practitioner Services: Site Identification Specialist Offered & Declined Information Interpreted: non-clinical & clinical Accompanied by: Spouse Allergies metformin Allergy (Intermediate, Verified 12/07/24 08:11) diarrhea Medication List - Last Reconciled 12/07/24 by SERVANDO Morrison ammonium lactate 12% 1 appl topical DAILY 30 days atorvastatin 80 mg PO BEDTIME 90 days blood sugar diagnostic (Accu-Chek Guide test strips) Use 1 TID blood-glucose meter (Accu-Chek Guide Glucose Meter) As directed blood-glucose meter,continuous (FreeStyle Angeli 3 Keystone) as directed blood-glucose sensor (FreeStyle Angeli 3 Plus Sensor device) Apply 1 new sensor every 14 days as directed to monitor blood glucose continuously. blood-glucose sensor (FreeStyle Angeli 3 Plus Sensor device) Apply 1 new sensor every 14 days as directed to monitor blood glucose continuously. brimonidine 0.2% 1 drp ophthalmic (eye) BID cholecalciferol (vitamin D3) 25 mcg PO DAILY 90 days dextrose (TRUEplus Glucose) 15 grams (32 mL) PO Q15M PRN dulaglutide (Trulicity) 3 mg (0.5 mL) subcut QWEEK empagliflozin (Jardiance) 10 mg PO QAM ezetimibe 10 mg PO DAILY 90 days hydrocortisone 1% (Anti-Itch (hydrocortisone)) 1 appl topical TID PRN 30 days insulin degludec (Tresiba FlexTouch U-100 insulin) 62 units (0.62 mL) subcut BEDTIME lancets (Accu-Chek Fastclix Lancet Drum) Use 1 lancet once a day lisinopril 5 mg PO DAILY 90 days [locking raised toilet seat with arms As directed] omeprazole 20 mg PO DAILY 90 days oxycodone 5 mg PO TID PRN 7 days sertraline 25 mg PO DAILY 90 days timolol 0.5% 1 drp ophthalmic (eye) BID triamcinolone acetonide 0.025% 1 appl topical BID 14 days HPI Comments Details: This is a 64 year old Belarusian-speaking male presenting with his for continued diabetic management. Declined military equipment specialist. He has past medical history of prostate cancer, HLD, hypertension, anxiety with depression and GERD. He was diagnosed with diabetes 25 years ago. He has a family history of diabetes. Hemoglobin a1c 12.2% 04/19/24. 9.6% 08/21/24. Hemoglobin A1c today 12/07/2024 is 7.1 %. Reviewed Angeli 3 download CGM active 96% Average glucose 141 mg/dL GMI 6.7% Glucose variability 30.7% Very high 3% High 14% Target range 82% Low 1% Less than 54 0% He has occasional hypoglycemia overnight and occasional hypoglycemia in the afternoon and early evening. Current medication regimen: Tresiba 62 units in the morning. Trulicity 3 mg. Jardiance 10 mg daily. Past medication: Metformin discontinued previously due to diarrhea. Lantus discontinued due to hypoglycemia. 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 He has been having some more carbohydrates in the form of rice in the afternoon and at dinner sometimes. Hypoglycemia symptoms: Symptoms include shakiness and feeling hungry. Blood glucose high 60s. Corrects with glass of orange juice. His last meal is at 6 or 18:30. He goes to bed around 9 or 22:00. Hyperglycemia symptoms: none Eye exam: UTD. [facility] and Dr. Stephenson. Microvascular complications: bilateral neuropathy, retinopathy OU Macrovascular complications: none Hypertension: treated with Lisinopril 5 mg Hyperlipidemia: treated with Atorvastatin 80 mg and Zetia 10 mg LDL <100. ROS: Constitutional: No fevers, chills or unexplained weight loss. Respiratory: No shortness of breath. Cardiovascular: No chest pain or pedal edema. Gastrointestinal: No nausea, vomiting or abdominal pain. Genitourinary: No dysuria, hematuria, urinary frequency. Denies history of genitourinary infections. Skin: No rashes or wounds. Endocrine: No polyuria or polydipsia. Physical exam: Constitutional: Alert, in no distress. Eyes: Pupils are equal, round and reactive to light. Neck: Supple, Full range of motion. No lymphadenopathy. No palpable thyroid masses. Respiratory: Clear to auscultation. Cardiovascular: S1 S2 regular. No murmurs Right foot: Warm and well perfused. No clubbing, cyanosis or edema. Palpable DP pulse. No open wounds. Decreased vibratory sensation. Intact sensation to monofilament. Left foot: Warm and well perfused. No clubbing, cyanosis or edema. Palpable DP pulse. no open wounds. Decreased vibratory sensation. Intact sensation to monofilament. [facility] Medical History Diabetic retinopathy of both eyes Diabetic neuropathy Type 2 diabetes mellitus with ophthalmic complication, with long-term current use of insulin Diabetic retinopathy of right eye SARS-CoV-2 positive Screening for prostate cancer Chronic radicular pain of lower extremity GERD (gastroesophageal reflux disease) Pure hypercholesterolemia Essential hypertension Diabetes mellitus Surgical History History of surgery History of colonoscopy History of eye surgery History of open reduction and internal fixation (ORIF) procedure Family History Father Diabetes Stroke Mother Diabetes Parkinsons Brother Prostate cancer FH: colonic polyps Maternal Uncle Cancer Social History Housing: Apartment Alcohol intake: former Patient Tobacco Use Status: Former Tobacco user Tobacco use type: Cigarette e-Cigarette/Vaping Use: Never Used Second Hand Smoke Exposure: No service: No Current occupational status: disabled Cognitive needs: No Hearing needs: No Vision needs: Yes Physical Exam Vital Signs: Last Vital Signs Pulse 95 12/07/24 08:10 BP 110/74 12/07/24 08:10 Pulse Ox 98 12/07/24 08:10 Oxygen Delivery Method Room Air 12/07/24 08:10 BMI result Body Mass Index 26.8 Office Procedures Glucose Monitoring Details Details: See [facility] [address] - Glucose monitoring, continuous-physician I&R Procedure code (CPT) selection complete Results AMB Hemoglobin A1c AMB Hemoglobin A1c 7.1 % Last Edit by ESTELLA Rahman on 12/07/24 08:29 Results Reviewed Results Reviewed: Laboratory Last Values Glucose (Clinic) 126 mg/dL (60-115) H 12/07/24 08:16 Hgb A1c (Clinic) 7.1 % (4.0-6.0) H 12/07/24 08:19 Laboratory Tests 04/18/24 04/18/24 04/19/24 07:48 07:50 08:40 Plt Count Creatinine 0.89 Estimated GFR > 60 Hgb A1c (Clinic) 12.2 H AST ALT B-Natriuretic Peptide Triglycerides Cholesterol LDL Cholesterol, Calc HDL Cholesterol Urine Creatinine 299.59 Urine Microalbumin 53.0 Microalb/Creat Ratio 17.6 08/21/24 09/05/24 09/05/24 09:32 07:42 07:46 Plt Count 281 D Creatinine 0.87 Estimated GFR > 60 Hgb A1c (Clinic) 9.6 H AST 29 ALT 34 B-Natriuretic Peptide 12 Triglycerides 79 Cholesterol 147 LDL Cholesterol, Calc 81 HDL Cholesterol 51 Urine Creatinine 221.96 Urine Microalbumin 48.0 Microalb/Creat Ratio 21.6 12/07/24 08:19 Plt Count Creatinine Estimated GFR Hgb A1c (Clinic) 7.1 H AST ALT B-Natriuretic Peptide Triglycerides Cholesterol LDL Cholesterol, Calc HDL Cholesterol Urine Creatinine Urine Microalbumin Microalb/Creat Ratio fib 4 value 1.10-advanced cirrhosis excluded 12/07/2024 Assessment & Plan Assessment & Plan (1) Type 2 diabetes mellitus with ophthalmic complication, with long-term current use of insulin: Code(s): E11.39 - Type 2 diabetes mellitus with other diabetic ophthalmic complication; Z79.4 - long term (current) use of insulin Category: Medical Qualifiers: Diabetes mellitus complication detail: with diabetic retinopathy Diabetic retinopathy severity: with proliferative retinopathy Proliferative retinopathy type: unspecified Diabetes mellitus macular edema: macular edema presence unspecified Laterality: bilateral Qualified Code(s): E11.3593 - Type 2 diabetes mellitus with proliferative diabetic retinopathy without macular edema, bilateral; Z79.4 - group home (current) use of insulin (2) Diabetic neuropathy: Code(s): E11.40 - Type 2 diabetes mellitus with diabetic neuropathy, unspecified Category: Medical Qualifiers: Diabetes mellitus type: type 2 Diabetes mellitus complication detail: diabetic polyneuropathy Qualified Code(s): E11.42 - Type 2 diabetes mellitus with diabetic polyneuropathy (3) Essential hypertension: Code(s): I10 - Essential (primary) hypertension Category: Medical (4) Pure hypercholesterolemia: Code(s): E78.00 - Pure hypercholesterolemia, unspecified Category: Medical Plan In summary this is a 64-year-old male with type 2 diabetes that is essentially controlled per CGM. Hemoglobin A1c is 7.1% which is a little higher than his sensor data. Discussed pathophysiology of Type II Diabetes Mellitus with the patient in detail.? I explained the assisted risks and complications associated with uncontrolled diabetes including nephropathy, neuropathy, peripheral vascular disease, retinopathy, increased risk of heart disease and stroke.? Continue lifestyle modifications. Continue use of CGM and bring this with you to appointments. I provided him with a list of smart snacks from the [place] diabetes association website. Recommended trying to eat a small snack before bedtime to reduce episodes of hypoglycemia overnight. These are not frequent. If they continue we could consider decreasing his dose of Tresiba. I also recommended decreasing his carbohydrate intake in the afternoon to prevent occasional episodes of hyperglycemia. Continue Tresiba 62 units nightly. Continue Trulicity 3 mg once weekly. Continue Jardiance 10 mg every morning. Reviewed treatment of hypoglycemia. Written instructions given in Azerbaijani and Belarusian. Glucose gel packets sent to pharmacy. Hypertension and hyperlipidemia are well controlled. Continue current regimens. Follow up in 1 month to recheck hypoglycemic episodes. Orders: Orders AMB Hemoglobin A1c Today E11.3593 - Type 2 diabetes mellitus with proliferative diabetic retinopathy without macular edema, bilateral, Z79.4 - long term (current) use of insulin AMB Glucose Monitoring Today E11.9 - Type 2 diabetes mellitus without complications Medications: New dextrose (TRUEplus Glucose) until symptoms of low blood sugar are controlled 15 grams (32 mL) PO Q15M PRN 128 mL 3RF hypoglycemia Refilled empagliflozin (Jardiance) 10 mg PO QAM 30 tabs 1RF Patient Instructions: Intenta comer algo ligero antes de acostarte. Reduce los carbohidratos y az?cares en el almuerzo, jaden rojas, pasta y arroz. If you experience low blood sugar, treat this by eating a chewable fruit candy like skittles or jelly beans (about 8 pieces), 4 ounces (1/2 cup) of fruit juice (not diet), 1 tablespoon of honey or 4 glucose tablets or 1 pack of glucose gel. If your blood sugar is under 55, take double the amount of one of the above. Recheck your blood sugar in 15 minutes. Si tiene un nivel bajo de az?car en la manolo, tr?telo comiendo un caramelo masticable de fruta jaden Skittles o Jelly Beans (aproximadamente 8 piezas), 113 ml (1/2 taza) de jugo de fruta (no de dieta), 1 cucharada de miel, 4 tabletas de glucosa o 1 paquete de gel de glucosa. Si shankar nivel de az?car en la manolo es inferior a 55, tome el doble de la cantidad de ondina de los anteriores. Vuelva a medir shankar nivel de az?car en la manolo en 15 minutos. Coding Level of Care Code Est Pt Level 4 (61071) Diagnoses Type 2 diabetes mellitus with proliferative retinopathy of both eyes, with long-term current use of insulin, macular edema presence unspecified, unspecified proliferative retinopathy type E11.3593; Z79.4 Diabetes mellitus complication detail: with diabetic retinopathy Diabetic retinopathy severity: with proliferative retinopathy Proliferative retinopathy type: unspecified Diabetes mellitus macular edema: macular edema presence unspecified Laterality: bilateral Diabetic polyneuropathy associated with type 2 diabetes mellitus E11.42 Diabetes mellitus type: type 2 Diabetes mellitus complication detail: diabetic polyneuropathy Essential hypertension I10 Pure hypercholesterolemia E78.00 CPT Codes Details - CPT: 45828 - Glucose monitoring, continuous-physician I&R ([id number])
--- OUTSIDE RECORDS SUMMARY | 2024-12-07 08:09 | XMS_ITS | Clinical Summary ---
[facility] [address] [place] [address] Care Team Providers Care Capacity Planner Name Role Phone Unavailable Primary Care Provider Unavailabl e Social History Tobacco Use Types Packs/Day Years Used Date Smoking Tobacco: Never Assessed Sex and Gender Information Value Date Recorded Sex Assigned at Not on file Legal Sex Male 4:27 PM EST Gender Identity Not on file Sexual Orientation Not on file Plan of Treatment Health Maintenance Due Date Last Done Comments DTaP,Tdap,and Td Vaccines (1 - Tdap) 1981 Pneumococcal Vaccine: 50+ Ye ars (1 of 1 - PCV) 2012 Zoster Vaccines (1 of 2) 2012 Cholesterol Screening (Lipid Panel) 10/25/2023 Colorectal Cancer Screening: Colonoscopy 10/25/2023 Depression Screening 10/25/2023 HIV Screening 10/25/2023 Hepatitis C Screening 10/25/2023 Social Influencers of Health Screening 10/25/2023 COVID-19 Vaccine ( - 2023-2 5 season) 2024 Influenza Vaccine [...] patient's age to complete this topic Meningococcal B Vacine Aged Out No lo nger eligible based on patient's age to complete [...]
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
[2024-12-07 08:10] VITALS: BP 110/74; PULSE 95; O2SAT 98; BMI 26.8
[2024-12-07 08:20] LABS: Glucose, Whole Blood 126 mg/dL (60-115)
== END 2024-12-07 08:58 | disposition home or self-care (01) ==
LOC: HO.ENCR 08:05
PROVIDERS: PCP Internal Medicine; Visit Provider Physician Assistant Medical
DX: E11.3593 Type 2 diabetes mellitus with proliferative diabetic retinopathy without macular edema, bilateral (principal); Z79.4 Long term (current) use of insulin; E11.42 Type 2 diabetes mellitus with diabetic polyneuropathy; I10 Essential (primary) hypertension; E78.00 Pure hypercholesterolemia, unspecified

== ENCOUNTER → 2024-12-07 08:05 | Outpatient (BNVA) | payer MEDICARE, SELFPAY | PROVIDERS: PCP Internal Medicine; Visit Provider Physician Assistant Medical | DX: E11.39 Type 2 diabetes mellitus with other diabetic ophthalmic complication (principal); E78.5 Hyperlipidemia, unspecified; E11.3593 Type 2 diabetes mellitus with proliferative diabetic retinopathy without macular edema, bilateral; E11.42 Type 2 diabetes mellitus with diabetic polyneuropathy; E78.00 Pure hypercholesterolemia, unspecified; Z79.4 Long term (current) use of insulin; Z83.3 Family history of diabetes mellitus | CPT/HCPCS: 82947; 83036; 99212 ==

== ENCOUNTER 2024-12-13 07:51 | Outpatient (AMB) | payer MEDICARE, SELFPAY ==
--- OUTSIDE RECORDS SUMMARY | 2024-12-13 07:54 | XMS_ITS ---
Author Name Angie Hernández NP Address [address] [place] [address] Phone [phone] [facility] Care Team Providers Care Lead Rider Name Role Phone Angie Hernández Unavailable [phone] Unavailable Unavailable Unavailable Orders, [facility] Unavailable [phone] [facility] Unavailable [phone] KELLY ROBERSON Unavailable [phone] Reason for Referral Not Available Allergies, adverse [...] Active 2022-11-25 N/A [facility] Active 2024-04-02 N/A Decreased appetite, Protein- calorie malnutrition, mild Active 2024-11-05 N/A Encounters Encounters Type Facility Date of Service Diagnosis/Co mplaint New patient,40-59min; chronic exacerbation, 2 stable chronic or 1 acute illness add add modifier 95 for video (do not use for phone, instead use 60282-05) [facility] ([place]) 11/[place]/2022 Malignant neoplasm of prostateGastro-esophageal reflux disease without esophagitisType 2 diabetes mellitus with other specified complicationHyperlipidemia, unspecifiedPain, unspecifiedOther chronic painEssential (primary) hypertensionOpioid dependence, uncomplicated New patient,40-59min; chronic exacerbation, 2 stable chronic or 1 acute illness add add modifier 95 for video (do not use for phone, instead use 26243-94) [facility]/20[place] New patient,40-59min; chronic exacerbation, 2 stable chronic or 1 acute illness add add modifier 95 for video (do not use for phone, instead use 33213-24) [facility] New patient,40-59min; chronic exacerbation, 2 stable chronic or 1 acute illness add add modifier 95 for video (do not use for phone, instead use 15381-16) [facility]20[place] New patient,40-59min; chronic exacerbation, 2 stable chronic or 1 acute illness add add modifier 95 for video (do not use for phone, instead use 42238-10) [facility]/2022 New patient,40-59min; chronic exacerbation, 2 stable chronic or 1 acute illness add add modifier 95 for video (do not use for phone, instead use 54597-47) [facility]/2022 New patient,40-59min; chronic exacerbation, 2 stable chronic or 1 acute illness add add modifier 95 for video (do not use for phone, instead use 10827-85) [facility] 11[place]/2022 RN, CN or CP time with patient by phone; use with 1111F, BP, A1c or other CPTII codes [facility], ([place]) 05/27/2023 Encounter for other specifie d aftercare RN, CN or CP time with patient by phone; use with 1111F, BP, A1c or other CPTII codes [facility]) 05/27/2023 Estab. patient 20-29min; 1 stable chronic or 2 minor; add add modifier 95 for video, modifier 93 for phone [facility] ([place] 06/01/2023 Malignant neoplasm of prostateOpioid use, unspecified, uncomplicatedOther chronic painCalculus of ureter Estab. patient 20-29min; 1 stable chronic or 2 minor; add add modifier 95 for video, modifier 93 for phone [facility] [place] 06/01/2023 Estab. patient 20-29min; 1 stable chronic or 2 minor; add add modifier 95 for video, modifier 93 for phone [facility] 06/01/2023 Estab. patient 30-39min; chronic exacerbation, 2 stable chronic or 1 acute illness add add modifier 95 for video, (do not use for phone, instead use 10393-94) [facility] 04[place]02/2024 Essential (primary) hypertensionMalignant neoplasm of prostateGastro-esophageal [...] (do not use for phone, instead use 62259-26) [facility] 04[place] Estab. patient 30-39min; chronic exacerbation, 2 stable chronic or 1 acute illness add add modifier 95 for video, (do not use for phone, instead use 23397-85) [facility] 04/02/2024 Estab. patient 30-39min; chronic exacerbation, 2 stable chronic or 1 acute illness add add modifier 95 for video, (do not use for phone, instead use 95911-13) [facility] 04[place]02/2024 Estab. patient 30-39min; chronic exacerbation, 2 stable chronic or 1 acute illness add add modifier 95 for video, (do not use for phone, instead use 03872-42) [facility] 04/02/2024 Estab. patient 30-39min; chronic exacerbation, 2 stable chronic or 1 acute illness add add modifier 95 for video, (do not use for phone, instead use 05199-93) [facility] 04[place]02/2024 Estab. patient 30-39min; chronic exacerbation, 2 stable chronic or 1 acute illness add add modifier 95 for video, (do not use for phone, instead use 90849-87) [facility] 04/02/2024 Estab. patient 20-29min; 1 stable chronic or 2 minor; add add modifier 95 for video, modifier 93 for phone [facility] ([place]/2024 Essential (primary) hypertensionMalignant neoplasm of prostateGastro-esophageal [...] 95 for video, modifier 93 for phone [facility] [place]20[place] Estab. patient 20-29min; 1 stable chronic or 2 minor; add add modifier 95 for video, modifier 93 for phone [facility] [place] Estab. patient 20-29min; 1 stable chronic or 2 minor; add add modifier 95 for video, modifier 93 for phone [facility] [place]/05/2024 Estab. patient 20-29min; 1 stable chronic or 2 minor; add add modifier 95 for video, modifier 93 for phone [facility] [place] 11/05/2024 Estab. patient 20-29min; 1 stable chronic or 2 minor; add add modifier 95 for video, modifier 93 for phone [facility] [place] 11/05/2024 Vital Signs Date of Collection Vitals [...] tive Time Current Smoking Status Former smoker 2024-11-25 0 Sex Male History of Procedures Procedures Service Procedure code Service date Servicing provider Phone# New patient,40-59min; chronic exacerbation, 2 stable chronic or 1 acute illness add add modifier 95 for video (do not use for phone, instead use 51444-69) [id number] 2022-11-25 No Data Available No Data Availa ble Medication List Documented (6135F) 1159F 2022-11-25 No Data Available No Data [...] 1111F, BP, A1c or other CPTII codes 96072 2023-05-27 No Data Available No Data Avai lable Medications prescribed in hospital were reviewed and reconciled against what they were taking prior to admission during today's visit. (1111F) 1111F 2023-05-27 No Data Available No Data Availa ble Estab. patient 20-29min; 1 stable chronic or 2 minor; add add modifier 95 for video, modifier 93 for phone [id number] 2023-06-01 No Data Available No Data Availa [...] (do not use for phone, instead use 73328-31) [id number] 2024-04-02 No Data Available No Data Availa [...] 95 for video, modifier 93 for phone [id number] 2024-11-05 No Data Available No Data Availa ble Medication List Documented (1159F) 1159F 2024-11-05 No Data Available No Data Gisslele ilable Medication Review by prescribing provider or [...] Patient Education to avoid future hospitalization: [facility] of [facility] develop.Malignant neoplasm [...] modifier 95Continue to see PCP. Follow-up with [facility] as needed for any acute or [...] appears to be in remission. Goes to [facility].StableOxycodoneUPDATE 06/01/2023:Reviewed safety/risks of opioids. Sending Narcan, education on its use.Had procedure to remove stone stone 05/25/2023. Has catheter. Will have catheter removed on 06/02/2023 at FU appt [facility] ([facility]).Reports some lingering dysuria. Ed re post-procedure [...] appears to be in remission. Goes to [facility].04/02/2024Still having Q6 months injection, still [...] on 06/02/2023 at FU appt w Uro ([facility]).Reports some lingering dysuria. 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 Goes to [facility].04/02/2024Still having Q6 months injection, still [...] on 06/02/2023 at FU appt w Uro ([facility]).Reports some lingering dysuria. 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
--- OUTSIDE RECORDS SUMMARY | 2024-12-13 07:54 | XMS_ITS | Clinical Summary ---
[facility] Address [address] [place] [address] Care Team Providers Care Service Vehicle Operator Name Role Phone Unavailable Primary Care Provider [...]
[2024-12-13 08:32] VITALS: BMI 26.8
--- NOTE | 2024-12-13 08:32 | A.OFFVIS_ITS ---
VS Expanded 12/13/24 08:32 Height 5 ft 7 in Weight 170 lb 13.732 oz BMI 26.8 Intake Visit Reasons: Type II diabetes Allergies metformin Allergy (Intermediate, Verified 12/07/24 08:11) diarrhea Nutrition Presentation Details: Pt presents for MNT f/u for T2DM Pt reports feeling well, reports feeling motivated Having 3 meals a day guided by the healthy plate method Has 1 glucerna shake a day as a midmorning snack Practicing mindful eating eating food frequency fruits 1-2/d Vegetables: 1-2/day fish: 1-2 /wk dairy: 2x/d Beverages: water, juices/lemonades (diluted with water) Physical activity:uses cane to walk, reports etoh/smoking:denies BS Monitoring Most Recent Diabetes Results: No Data to Display [facility] Medical History Diabetic retinopathy of both eyes Diabetic neuropathy Type 2 diabetes mellitus with ophthalmic complication, with long-term current use of insulin Diabetic retinopathy of right eye SARS-CoV-2 positive Screening for prostate cancer Chronic radicular pain of lower extremity GERD (gastroesophageal reflux disease) Pure hypercholesterolemia Essential hypertension Diabetes mellitus Surgical History History of surgery History of colonoscopy History of eye surgery History of open reduction and internal fixation (ORIF) procedure Family History Father Diabetes Stroke Mother Diabetes Parkinsons Brother Prostate cancer FH: colonic polyps Maternal Uncle Cancer Social History Housing: Apartment Alcohol intake: former Patient Tobacco Use Status: Former Tobacco user Tobacco use type: Cigarette e-Cigarette/Vaping Use: Never Used Second Hand Smoke Exposure: No service: No Current occupational status: disabled Cognitive needs: No Hearing needs: No Vision needs: Yes Assessment & Plan Assessment & Plan (1) Type 2 diabetes mellitus with ophthalmic complication, with long-term current use of insulin: Code(s): E11.39 - Type 2 diabetes mellitus with other diabetic ophthalmic complication; Z79.4 - salvage determiner (current) use of insulin Category: Medical Qualifiers: Diabetes mellitus complication detail: with diabetic retinopathy Diabetic retinopathy severity: with proliferative retinopathy Proliferative retinopathy type: unspecified Diabetes mellitus macular edema: macular edema presence unspecified Laterality: bilateral Qualified Code(s): E11.3593 - Type 2 diabetes mellitus with proliferative diabetic retinopathy without macular edema, bilateral; Z79.4 - salvage determiner (current) use of insulin Plan: Wt: 79 Kg ( 04/2024 ), 78 kg ( 08/19), 10/20, 12/18 Est kcal needs as per MSJ: 8247-6048 (40% carb, 30% protein/fat) Est fluid needs as per 25-30 ml/d: 5360-0995 Est prot per day as per 1 g/kg bw: 79 Recommend fiber intake : 8-10 g per day and gradually increase to 25-28 g per day for women and 35-38 g for men or as tolerated Recommend sodium intake per day : less than 2000 mg Educated patient on: ( R = reviewed V = verbalizes understanding N/R = needs review N/A = not applicable * Food sources of carbohydrate, adequate serving sizes and its role in various health conditions: R * Differences between complex carbohydrates a simple carbohydrates, role of fiber in diet: R,V * Lean protein sources of foods: R * Differences between types of fats and role in diet (mono on saturated fat fatty acids, saturated fatty acids, trans fats): R * Food sources of sodium in salt and healthy modifications for heart health in kidney health: R * Vitamins and minerals: R * Healthy plate method concept: R , V * Physical activity: Benefits a precaution: R V * Hypoglycemia protocol (rule of 15): R V -rule of 15, having snack at bedtime to prevent nocturnal hypoglycemia * Dietary prevention of Hyperglycemia: R V - * Chronic complications related to elevated bg: R,V Patient Instructions: Continue following healthy plate method keep hydrated by having water/ fruit/herb infused water , dilute juices with water Have at least 2 servings of fruit a day Always carry glucose tablet with you in case of low blood sugar (treat low blood sugar (blood sugar below 70) with 3 glucose tablets, recheck blood sugar 15 minutes after and repeat treatment if blood sugar continue below 70 mg/dl. Notify your doctor of any episodes of low blood sugar for further review Coding Level of Care Code Nutr Indiv Subseq (17833) Diagnoses Type 2 diabetes mellitus with proliferative retinopathy of both eyes, with long- term current use of insulin, macular edema presence unspecified, unspecified proliferative retinopathy type E11.3593; Z79.4 Diabetes mellitus complication detail: with diabetic retinopathy Diabetic retinopathy severity: with proliferative retinopathy Proliferative retinopathy type: unspecified Diabetes mellitus macular edema: macular edema presence unspecified Laterality: bilateral Time Spent (min) 20
== END 2024-12-13 08:44 | disposition home or self-care (01) ==
LOC: HO.ENCR 07:52
PROVIDERS: PCP Internal Medicine; Visit Provider Dietitian, Registered
DX: E11.3593 Type 2 diabetes mellitus with proliferative diabetic retinopathy without macular edema, bilateral (principal); Z79.4 Long term (current) use of insulin

== ENCOUNTER → 2024-12-13 07:51 | Outpatient (BNVA) | payer MEDICARE, SELFPAY | PROVIDERS: PCP Internal Medicine; Visit Provider Dietitian, Registered | DX: E11.3593 Type 2 diabetes mellitus with proliferative diabetic retinopathy without macular edema, bilateral (principal); Z71.3 Dietary counseling and surveillance | CPT/HCPCS: 97803 ==

== ENCOUNTER 2025-01-23 07:21 | Outpatient (REF) | payer MEDICARE, SELFPAY ==
[2025-01-23 08:39] LABS: Alanine Aminotransferase 29 U/L (0-40); Albumin Level 3.8 g/dL (3.5-5.0); Alkaline Phosphatase 88 U/L (39-117); Anion Gap 13 (12-20); Aspartate Amino Transferase 24 U/L (5-37); Bilirubin Total 0.4 mg/dL (0.0-1.0); Blood Urea Nitrogen 21 mg/dL (9-16); Calcium 9.2 mg/dL (8.4-10.2); Carbon Dioxide 28 mmol/L (22-29); Chloride 107 mmol/L (96-108); Cholesterol 149 mg/dL (<200); Estimated Glomerular Filt Rate > 60; Glucose Fasting 88 mg/dL (60-99); HDL Cholesterol 58 mg/dL (>40); LDL Cholesterol Calculated 81 mg/dL (<100); Potassium 3.9 mmol/L (3.3-5.1); Sodium 144 mmol/L (135-145); Triglycerides 52 mg/dL (<150)
[2025-01-23 09:27] LABS: Creatinine Urine 118.55 mg/dL; Microalbum/Creatinine Ratio Ur 14.3 ug/mg cr (<30)
== END 2025-01-23 07:22 | disposition home or self-care (01) ==
LOC: HO.LAB 07:21
PROVIDERS: PCP Internal Medicine; Visit Provider Internal Medicine
DX: E11.3593 Type 2 diabetes mellitus with proliferative diabetic retinopathy without macular edema, bilateral (principal); Z79.4 Long term (current) use of insulin; R80.9 Proteinuria, unspecified; E78.5 Hyperlipidemia, unspecified
CPT/HCPCS: 36415; 80053; 80061; 82043; 82570

== ENCOUNTER 2025-01-24 07:32 | Outpatient (AMB) | payer MEDICARE, SELFPAY ==
--- OUTSIDE RECORDS SUMMARY | 2025-01-24 07:35 | XMS_ITS | Clinical Summary ---
Author [facility] Address [address] [place] [address] Care Team Providers Care Addictions Therapist Name Role Phone Unavailable Primary Care Provider [...] Influencers of Health Screening 10/25/2023 COVID-19 Vaccine (2023-2 5 season) 2024 Influenza Vaccine (Season Ended) 2025 RSV Immunization Adult Patie nts (1 - 1-dose 75+ series) 2037 HIB [...] age to complete this topic Meningococcal B Vaccine Aged Out No l onger eligible based on patient's age to complete [...]
--- OUTSIDE RECORDS SUMMARY | 2025-01-24 07:35 | XMS_ITS ---
Author Name Angie Hernández NP Address [address] [place] [address] Phone [phone] [facility] Care Team Providers Care Coat Joiner Name Role Phone Angie Hernández Unavailable [phone] Unavailable Unavailable Unavailable Orders, [facility] Unavailable [phone] [facility] Unavailable KELLY ROBERSON Unavailable [phone] Reason for Referral Not Available Allergies, adverse [...] Active 2022-11-25 N/A [facility] other [facility] care Active 2024-04-02 N/A Decreased appetite, Protein- calorie malnutrition, mild Active 2024-11-05 N/A Encounters Encounters Type Facility Date of Service Diagnosis/Co mplaint New patient,40-59min; chronic exacerbation, 2 stable chronic or 1 acute illness add add modifier 95 for video (do not use for phone, instead use 35565-68) [facility] [place] 11[place]20[place] Malignant neoplasm of prostateGastro-esophageal reflux disease without esophagitisType 2 diabetes mellitus with other specified complicationHyperlipidemia, unspecifiedPain, unspecifiedOther chronic painEssential (primary) hypertensionOpioid dependence, uncomplicated New patient,40-59min; chronic exacerbation, 2 stable chronic or 1 acute illness add add modifier 95 for video (do not use for phone, instead use 60538-96) [facility] [place] 11/25/20[place] New patient,40-59min; chronic exacerbation, 2 stable chronic or 1 acute illness add add modifier 95 for video (do not use for phone, instead use 62378-42) [facility] [place] 11/[place]/20[place] New patient,40-59min; chronic exacerbation, 2 stable chronic or 1 acute illness add add modifier 95 for video (do not use for phone, instead use 12536-03) [facility] [place] 11/[place]/20[place] New patient,40-59min; chronic exacerbation, 2 stable chronic or 1 acute illness add add modifier 95 for video (do not use for phone, instead use 58232-74) [facility] [place] 11/[place]/20[place] New patient,40-59min; chronic exacerbation, 2 stable chronic or 1 acute illness add add modifier 95 for video (do not use for phone, instead use 17624-61) [facility] [place] 11/[place]/2022 New patient,40-59min; chronic exacerbation, 2 stable chronic or 1 acute illness add add modifier 95 for video (do not use for phone, instead use 73367-58) [facility] [place] 11[place]/20[place] RN, CN or CP time with patient by phone; use with 1111F, BP, A1c or other CPTII codes [facility] [place] ([place]) 05/27/2023 Encounter for other specifie d aftercare RN, CN or CP time with patient by phone; use with 1111F, BP, A1c or other CPTII codes [facility] [place] ([place] 05/27/2023 Estab. patient 20-29min; 1 stable chronic or 2 minor; add add modifier 95 for video, modifier 93 for phone [facility] [place] 06/01/2023 Malignant neoplasm of prostateOpioid use, unspecified, uncomplicatedOther chronic painCalculus of ureter Estab. patient 20-29min; 1 stable chronic or 2 minor; add add modifier 95 for video, modifier 93 for phone [facility] [place] 06/01/2023 Estab. patient 20-29min; 1 stable chronic or 2 minor; add add modifier 95 for video, modifier 93 for phone [facility] [place] 06/01/2023 Estab. patient 30-39min; chronic exacerbation, 2 stable chronic or 1 acute illness add add modifier 95 for video, (do not use for phone, instead use 63308-07) [facility] [place] 04[place]02/2024 Essential (primary) hypertensionMalignant neoplasm of prostateGastro-esophageal [...] (do not use for phone, instead use 82931-12) [facility] [place] 04[place]02/20[place] Estab. patient 30-39min; chronic exacerbation, 2 stable chronic or 1 acute illness add add modifier 95 for video, (do not use for phone, instead use 77811-26) [facility] [place] 04/02/2024 Estab. patient 30-39min; chronic exacerbation, 2 stable chronic or 1 acute illness add add modifier 95 for video, (do not use for phone, instead use 51957-35) [facility] [place] 04/02/2024 Estab. patient 30-39min; chronic exacerbation, 2 stable chronic or 1 acute illness add add modifier 95 for video, (do not use for phone, instead use 96668-10) [facility] [place] 04[place]02/2024 Estab. patient 30-39min; chronic exacerbation, 2 stable chronic or 1 acute illness add add modifier 95 for video, (do not use for phone, instead use 24242-70) [facility] ([place] 04/02/20[place] Estab. patient 30-39min; chronic exacerbation, 2 stable chronic or 1 acute illness add add modifier 95 for video, (do not use for phone, instead use 85131-60) [facility] [place] 04/02/2024 Estab. patient 20-29min; 1 stable chronic or 2 minor; add add modifier 95 for video, modifier 93 for phone [facility] ([place] 11/05/2024 Essential (primary) hypertensionMalignant neoplasm of prostateGastro-esophageal [...] 95 for video, modifier 93 for phone [facility] [employer], [place] 11/05/2024 Estab. patient 20-29min; 1 stable chronic or 2 minor; add add modifier 95 for video, modifier 93 for phone [facility] 11/05/20[place] Estab. patient 20-29min; 1 stable chronic or 2 minor; add add modifier 95 for video, modifier 93 for phone [facility] 11/05/2024 Estab. patient 20-29min; 1 stable chronic or 2 minor; add add modifier 95 for video, modifier 93 for phone [facility] [employer] 11/05/2024 Estab. patient 20-29min; 1 stable chronic or 2 minor; add add modifier 95 for video, modifier 93 for phone [facility] [employer] [employer] 11/05/2024 Vital Signs Date of Collection Vitals [...] tive Time Current Smoking Status Former smoker 1 Sex Male History of Procedures Procedures Service Procedure code Service date Servicing provider Phone# New patient,40-59min; chronic exacerbation, 2 stable chronic or 1 acute illness add add modifier 95 for video (do not use for phone, instead use 01709-63) 69689 2022-11-25 No Data Available No Data Availa [...] 1111F, BP, A1c or other CPTII codes 67015 2023-05-27 No Data Available No Data Avai lable Medications prescribed in hospital were reviewed and reconciled against what they were taking prior to admission during today's visit. (1111F) 1111F 2023-05-27 No Data Available No Data Availa ble Estab. patient 20-29min; 1 stable chronic or 2 minor; add add modifier 95 for video, modifier 93 for phone [id number] 2023-06-01 No Data Available No Data Availa [...] (do not use for phone, instead use 86582-66) 59414 2024-04-02 No Data Available No Data Availa [...] 95 for video, modifier 93 for phone [id number] 2024-11-05 No Data Available No Data Availa [...] Patient Education to avoid future hospitalization: [facility].Malignant neoplasm prostateChronic [...] modifier 95Continue to see PCP. Follow-up with [facility] as needed for any acute or [...] appears to be in remission. Goes to [facility].StableOxycodoneUPDATE 06/01/2023:Reviewed safety/risks of opioids. Sending Narcan, education on its use.Had procedure to remove stone stone 05/25/2023. Has catheter. Will have catheter removed on 06/02/2023 at FU appt [facility] ([facility]).Reports some lingering dysuria. Ed re post-procedure [...] appears to be in remission. Goes to [facility].04/02/2024Still having Q6 months injection, still [...] on 06/02/2023 at FU appt w Uro ([facility]).Reports some lingering dysuria. 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 Goes to [facility].04/02/2024Still having Q6 months injection, still [...] on 06/02/2023 at FU appt w Uro ([facility]).Reports some lingering dysuria. 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
[2025-01-24 07:56] VITALS: BP 112/70; BMI 26.3
--- NOTE | 2025-01-24 07:56 | A.OFFPC_ITS ---
Vital Signs 01/24/25 07:56 Height 5 ft 7 in Weight 168 lb BMI 26.3 BP 112/70 Blood Pressure Location Lt brachial Position Sitting Intake Visit Reasons: dm Intake Note: Patient here for a follow up DM Pm Technician Required: Yes Pm Technician Language: Developer Architect Name: Jaja Ventura MD Information Interpreted: non-clinical & clinical Accompanied by: Spouse Allergies metformin Allergy (Intermediate, Verified 01/24/25 08:26) diarrhea Medication List - Last Reconciled 01/24/25 by Jaja Ventura MD ammonium lactate 12% 1 appl topical DAILY 30 days atorvastatin 80 mg PO BEDTIME 90 days blood sugar diagnostic (Accu-Chek Guide test strips) Use 1 TID blood-glucose meter (Accu-Chek Guide Glucose Meter) As directed blood-glucose sensor (FreeStyle Angeli 3 Plus Sensor device) Apply 1 new sensor every 14 days as directed to monitor blood glucose continuously. blood-glucose sensor (FreeStyle Angeli 3 Plus Sensor device) Apply 1 new sensor every 14 days as directed to monitor blood glucose continuously. blood-glucose,radio time salesperson,cont (FreeStyle Angeli 3 [place]) as directed brimonidine 0.2% 1 drp ophthalmic (eye) BID cholecalciferol (vitamin D3) 25 mcg PO DAILY 90 days dextrose (TRUEplus Glucose) 15 grams (32 mL) PO Q15M PRN dulaglutide (Trulicity) 3 mg (0.5 mL) subcut QWEEK empagliflozin (Jardiance) 10 mg PO QAM ezetimibe 10 mg PO DAILY 90 days hydrocortisone 1% (Anti-Itch (hydrocortisone)) 1 appl topical TID PRN 30 days insulin degludec (Tresiba FlexTouch U-100 insulin) 62 units (0.62 mL) subcut BEDTIME lancets (Accu-Chek Fastclix Lancet Drum) Use 1 lancet once a day lisinopril 5 mg PO DAILY 90 days [locking raised toilet seat with arms As directed] omeprazole 20 mg PO DAILY 90 days oxycodone 5 mg PO TID PRN 7 days sertraline 25 mg PO DAILY 90 days timolol 0.5% 1 drp ophthalmic (eye) BID triamcinolone acetonide 0.025% 1 appl topical BID 14 days Tobacco use date assessed: 01/24/25 Dental Screening Dental Screen Date: 01/24/25 Did you have a dental visit in the last 12 months?: Yes Did you have a dental problem in the last 6 months where you did not have access to dental care?: No Was dental information given to patient?: Patient has dentist HPI HPI Comments History of Present Illness Details The patient is a 64-year-old male presenting with a follow-up for management of his multiple chronic health conditions. He has Type 2 Diabetes Mellitus with the last recorded Hemoglobin A1c of 7.1, indicating fair control. He is set to consult with his rn er soon. His hyperlipidemia treatment includes atorvastatin, aiming to reach an LDL cholesterol target below 70 mg/dL, with current levels at 81 mg/dL. Also has history of prostate cancer follow by Urology. He experiences chronic pain in his back and legs, contributing to his requirement for a cane to enhance mobility and prevent falls. Pain management includes the utilization of oxycodone when necessary. For essential hypertension, his condition remains stable and under control. His GERD is being addressed with omeprazole for relief from chronic symptoms of reflux. His psychiatric report confirms major depressive disorder with a high PHQ-9 score. Issues with psychiatric consultation have been noted due to insurance limitations, and a plan has been made to double his sertraline dosage to better manage his symptoms. [facility] Medical History (Updated 01/24/25 @ 10:49 by Jaja Ventura MD) Moderate major depression Diabetic retinopathy of both eyes Diabetic neuropathy Type 2 diabetes mellitus with ophthalmic complication, with long-term current use of insulin Diabetic retinopathy of right eye SARS-CoV-2 positive Screening for prostate cancer Chronic radicular pain of lower extremity GERD (gastroesophageal reflux disease) Pure hypercholesterolemia Essential hypertension Diabetes mellitus Surgical History History of surgery History of colonoscopy History of eye surgery History of open reduction and internal fixation (ORIF) procedure Family History Father Diabetes Stroke Mother Diabetes Parkinsons Brother Prostate cancer FH: colonic polyps Maternal Uncle Cancer Social History Housing: Apartment Alcohol intake: former Patient Tobacco Use Status: Former Tobacco user Tobacco use type: Cigarette e-Cigarette/Vaping Use: Never Used Second Hand Smoke Exposure: No service: No Current occupational status: disabled Cognitive needs: No Hearing needs: No Vision needs: Yes Questionnaire PHQ-9 Over the last 2 weeks, how often have you been bothered by any of the following problems? 1. Little interest or pleasure in doing things: nearly every day 2. Feeling down, depressed, or hopeless: nearly every day 3. Trouble falling or staying asleep, or sleeping too much: nearly every day 4. Feeling tired or having little energy: more than half the days 5. Poor appetite or overeating: nearly every day 6. Feeling bad about yourself - or that you are a failure or have let yourself or your family down: more than half the days 7. Trouble concentrating on things, such as reading the newspaper or watching television: nearly every day 8. Moving or speaking so slowly that other people could have noticed. Or the opposite - being so fidgety or restless that you have been moving around a lot more than usual: more than half the days 9. Thoughts that you would be better off or of hurting yourself in some way: several days Total score: 22 Depression Screening Interpretation: Positive Depression Screening Follow-up: Existing condition, In treatment and Follow-up Visit Requested Depression Screening Done: Yes 89993 - PHQ-9 Billing: Yes Source: Developed by Drs. Roque Virk, Natalie De La Fuente, Severino Nichole and colleagues, with an educational tamiko from [employer]. Thrive Questionnaire Date Thrive assessed: 01/24/25 I am a: Patient What is your living situation today?: I have a steady place to live Within the past 12 months, did the food you bought not last and you didn't have the money to get more?: Sometimes True Within the past 12 months, did you worry whether your food would run out before you got money to buy more?: Sometimes True Do you have trouble paying for medicines?: No Do you have trouble getting transportation to medical appointments?: No Do you have trouble paying your heating and electricity bill?: No Do you have trouble taking care of your child, family member or friend?: Yes Do you have trouble with day-to-day activities such as bathing, preparing meals, shopping, managing finances, etc.?: Yes Are you currently unemployed and looking for a job?: No Are you interested in more education?: No Please select the resources that you would like help with: Food Currently or been in a relationship where the following occur: No concerns reported THRIVE Score: 2 AUDIT C Alcohol Use Questionnaire (AUDIT-C) 1. How often do you have a drink containing alcohol?: Never Total Score: 0 Score Reviewed/Action Taken: No MARY-7 AMB Questionnaire MARY-7 Date MARY - 7 assessed: 01/24/25 Feeling nervous, anxious, or on edge: 3 = Nearly every day Not being able to stop or control worryin = Nearly every day Worrying too much about different things: 3 = Nearly every day Trouble relaxin = Nearly every day Being so restless that it is hard to sit still: 3 = Nearly every day Becoming easily annoyed or irritable: 3 = Nearly every day Feeling afraid as if something awful might happen: 3 = Nearly every day Total MARY-7 score (0-4 normal; 5-9 mild; 10-14 moderate; 15-21 severe): 21 Source: Developed by Drs. Roque Virk, Natalie De La Fuente, Severino Nichole and colleagues, with an educational tamiko from [employer]. MARY-7 Assessment Billing MARY-7 Assessment Tool: MARY-7 Assessment 70479 Review of Systems Const All systems reviewed & are unremarkable except as noted in HPI and below Card Denies chest pain at rest, Denies chest pain with activity, Denies edema, Denies irregular heart rhythm, Denies claudication, Denies dyspnea, Denies dyspnea on exertion, Denies orthopnea, Denies paroxysmal nocturnal dyspnea and Denies slow heart rate Resp Denies cough, Denies dyspnea and Denies dyspnea on exertion Physical exam (Primary Care) Vital Signs: Last Vital Signs BP 112/70 01/24/25 07:56 BMI result Body Mass Index 26.3 Tobacco/Smoking Status: Tobacco use Status Tobacco use date assessed 01/24/25 01/24/25 08:02 Patient Tobacco Use Status Former Tobacco user 01/24/25 08:02 Tobacco use type Cigarette 01/24/25 08:02 e-Cigarette/Vaping Use Never Used 01/24/25 08:02 PHQ-9: PHQ-9 Score PHQ-9: Total score 22 01/24/25 08:33 Depression Screening Interpretation: Positive Depression Screening Follow-up: Existing condition, In treatment and Follow-up Visit Requested Thrive Assessment: Date of Thrive Assessment Date Thrive assessed 01/24/25 01/24/25 08:02 Currently or been in a relationship where the following occur: No concerns reported Const Limitations: ambulation with cane Resp Effort & Inspection: normal respiratory effort Auscultation: clear to auscultation bilaterally Cardio Jugular venous distension: no JVD Rate: regular rate Rhythm: regular rhythm Heart sounds: S1 normal heart sound present and S2 normal heart sound present Extrem General: Yes full ROM Coding Level of Care Code Est Pt Level 4 (22976) Complex EM visit Add On G2211 Diagnoses Severe major depression without psychotic features F32.2 Diabetic retinopathy of both eyes E11.319 Type 2 diabetes mellitus with proliferative retinopathy of both eyes, with long- term current use of insulin, macular edema presence unspecified, unspecified proliferative retinopathy type E11.3593; Z79.4 Diabetes mellitus complication detail: with diabetic retinopathy Diabetic retinopathy severity: with proliferative retinopathy Proliferative retinopathy type: unspecified Diabetes mellitus macular edema: macular edema presence unspecified Laterality: bilateral Chronic GERD K21.9 Type 2 diabetes mellitus without complication, with long-term current use of insulin E11.9; Z79.4 Diabetes mellitus type: type 2 Diabetes mellitus superintendent container terminal insulin use: with care home use Diabetes mellitus complication status: without complication Essential hypertension I10 Pure hypercholesterolemia E78.00 Prostate cancer C61 Additional Codes MARY-7 Assessment Billing - MARY-7 Assessment Tool: MARY-7 Assessment [id number] ([id number]) PHQ-9 - 67387 - PHQ-9 Billing: Yes ([id number]) Time Spent (min) 23 Assessment & Plan Assessment & Plan (1) Severe major depression without psychotic features: Code(s): F32.2 - Major depressive disorder, single episode, severe without psychotic features Category: Medical (2) Diabetic retinopathy of both eyes: Code(s): E11.319 - Type 2 diabetes mellitus with unspecified diabetic retinopathy without macular edema Category: Medical (3) Type 2 diabetes mellitus with ophthalmic complication, with long-term current use of insulin: Code(s): E11.39 - Type 2 diabetes mellitus with other diabetic ophthalmic complication; Z79.4 - truck terminal manager (current) use of insulin Category: Medical Qualifiers: Diabetes mellitus complication detail: with diabetic retinopathy Diabetic retinopathy severity: with proliferative retinopathy Proliferative retinopathy type: unspecified Diabetes mellitus macular edema: macular edema presence unspecified Laterality: bilateral Qualified Code(s): E11.3593 - Type 2 diabetes mellitus with proliferative diabetic retinopathy without macular edema, bilateral; Z79.4 - truck terminal manager (current) use of insulin (4) Chronic GERD: Code(s): K21.9 - Gastro-esophageal reflux disease without esophagitis Category: Medical (5) Diabetes mellitus: Code(s): E11.9 - Type 2 diabetes mellitus without complications Category: Medical Qualifiers: Diabetes mellitus type: type 2 Diabetes mellitus care home insulin use: with superintendent container terminal use Diabetes mellitus complication status: without complication Qualified Code(s): E11.9 - Type 2 diabetes mellitus without complications; Z79.4 - truck terminal manager (current) use of insulin (6) Essential hypertension: Code(s): I10 - Essential (primary) hypertension Category: Medical (7) Pure hypercholesterolemia: Code(s): E78.00 - Pure hypercholesterolemia, unspecified Category: Medical (8) Prostate cancer: Code(s): C61 - Malignant neoplasm of prostate Category: Medical Plan The patient's Type 2 Diabetes Mellitus management includes close monitoring with an endocrinology consultation planned. Hyperlipidemia will continue to be managed with atorvastatin aiming for an LDL target below 70 mg/dL. Chronic pain management is through oxycodone as needed, and he will continue using his cane for support. Hypertension remains controlled. For GERD, omeprazole is prescribed. His major depressive disorder needs an increase in sertraline to 50 mg for better management. The patient will seek accessible psychiatric care through his insurance plan. Patient was informed and verbally consented to the use of an ambient scribe for clinic note documentation during this visit. I discussed with the patient various management and treatment strategies for his existing conditions. For diabetes, we agreed on the importance of maintaining controlled glucose levels, and he is scheduled for a visit with his rn er. Cholesterol management goals were reaffirmed, with atorvastatin continuing. His chronic pain requires modalities including pharmaceutical and mechanical support. We emphasized adherence to his medication regime, given his controlled hypertension and GERD management. Psychiatric care challenges were acknowledged, and guidance was provided on procuring covered services within an accessible range, taking steps to increase his sertraline dosage for depression. Follow-up with a psychiatrist was recommended through telehealth services when feasible. Medications: New sertraline 50 mg PO DAILY 90 tabs 1RF 90 days F32.2 - Major depressive disorder, single episode, severe without psychotic features Discontinued sertraline Discontinued Reason: Order 25 mg PO DAILY 90 days 90 tabs 1RF F32.1 - Major depressive disorder, single episode, moderate Patient Instructions: - Continue taking all prescribed medications as directed. - Plan to see rn er for diabetes management. - Use cane for safety when walking. - Contact your insurance for a list of covered psychiatrists. - Take sertraline dose as discussed; expect an increase to 50 mg. - Take omeprazole daily for GERD management. - Contact us if you experience any new symptoms, changes in your condition, or have difficulty accessing care.
== END 2025-01-24 08:38 | disposition home or self-care (01) ==
LOC: HO.HMCH 07:33
PROVIDERS: PCP Internal Medicine; Visit Provider Internal Medicine
DX: F32.2 Major depressive disorder, single episode, severe without psychotic features (principal); E11.319 Type 2 diabetes mellitus with unspecified diabetic retinopathy without macular edema; E11.3593 Type 2 diabetes mellitus with proliferative diabetic retinopathy without macular edema, bilateral; Z79.4 Long term (current) use of insulin; K21.9 Gastro-esophageal reflux disease without esophagitis; I10 Essential (primary) hypertension; E78.00 Pure hypercholesterolemia, unspecified; C61 Malignant neoplasm of prostate

== ENCOUNTER → 2025-01-24 07:32 | Outpatient (BNVA) | payer MEDICARE, SELFPAY | PROVIDERS: PCP Internal Medicine; Visit Provider Internal Medicine | DX: F32.2 Major depressive disorder, single episode, severe without psychotic features (principal); E11.319 Type 2 diabetes mellitus with unspecified diabetic retinopathy without macular edema; E11.3593 Type 2 diabetes mellitus with proliferative diabetic retinopathy without macular edema, bilateral; K21.9 Gastro-esophageal reflux disease without esophagitis; I10 Essential (primary) hypertension; E78.00 Pure hypercholesterolemia, unspecified; C61 Malignant neoplasm of prostate; Z79.4 Long term (current) use of insulin | CPT/HCPCS: 96127; 99212 ==

== ENCOUNTER 2025-02-05 08:33 | Outpatient (AMB) | payer MEDICARE, SELFPAY ==
--- NOTE | 2025-02-05 08:40 | MHC.OFFVIS ---
Vital Signs 02/05/25 08:43 02/05/25 09:09 Height 5 ft 7 in Weight 168 lb 3.403 oz BMI 26.3 BP 94/58 L 114/64 Blood Pressure Location Rt brachial Rt brachial Position Sitting Pulse 87 Pulse Source Pulse Oximeter Intake Visit Reasons: Type II diabetes Intake Note: Patient present today to follow up on Type 2 Diabetes Mellitus. Patient is receiving [place] supplies through: [facility] pharmacy Last Diabetic Eye exam: April 23, 2024 Last Podiatry Visit: Does not see a Medication Specialist Random Glucose: 115 mg/dl HgA1C: 7.1% 12/07/2024 Rug Setter Velvet Required: Yes Rug Setter Velvet Language: Fire Department Marine Engineer Services: Rug Setter Velvet Present Rug Setter Velvet Name: Stefanie [id number] Information Interpreted: non-clinical & clinical Accompanied by: Spouse Allergies metformin Allergy (Intermediate, Verified 02/05/25 08:44) diarrhea HPI Comments Details: This is a 64 year old Syriac-speaking male presenting with his for continued diabetic management. Video automotive parts interpreter used. He has past medical history of prostate cancer, HLD, hypertension, anxiety with depression and GERD. He was diagnosed with diabetes 25 years ago. He has a family history of diabetes. Hemoglobin a1c 12.2% 04/19/24. 9.6% 08/21/24. Hemoglobin A1c 12/07/2024 is 7.1 %. Reviewed Angeli 3 download CGM active 84% Average glucose 151 GMI 6.9% Glucose variability 35.6% Very high 5% High 24% Target range 69% Low 2% Patient has hypoglycemia overnight and in the afternoon and early evening. Current medication regimen: Tresiba 62 units in the morning. Trulicity 3 mg. Jardiance 10 mg daily. Past medication: Metformin discontinued previously due to diarrhea. Lantus discontinued due to hypoglycemia. Compliance issues: none He has been seen by the hospital educator and dietitian. Hypoglycemia symptoms: Symptoms include shakiness and feeling hungry Corrects with glass of orange juice. Hyperglycemia symptoms: none Eye exam: [facility]TD. [facility] and Dr. Stephenson. Microvascular complications: bilateral neuropathy, retinopathy OU Macrovascular complications: none Hypertension: treated with Lisinopril 5 mg Hyperlipidemia: treated with Atorvastatin 80 mg and Zetia 10 mg LDL <100. ROS: Constitutional: No fevers, chills or unexplained weight loss. Respiratory: No shortness of breath. Cardiovascular: No chest pain or pedal edema. Gastrointestinal: No nausea, vomiting or abdominal pain. Genitourinary: No dysuria, hematuria, urinary frequency. Denies history of genitourinary infections. Skin: No rashes or wounds. Endocrine: No polyuria or polydipsia. Physical exam: Constitutional: Alert, in no distress. Eyes: Pupils are equal, round and reactive to light. Neck: Supple, Full range of motion. No lymphadenopathy. No palpable thyroid masses. Respiratory: Clear to auscultation. Cardiovascular: S1 S2 regular. No murmurs [facility] Medical History (Updated 01/24/25 @ 10:49 by Jaja Ventura MD) Moderate major depression Diabetic retinopathy of both eyes Diabetic neuropathy Type 2 diabetes mellitus with ophthalmic complication, with long-term current use of insulin Diabetic retinopathy of right eye SARS-CoV-2 positive Screening for prostate cancer Chronic radicular pain of lower extremity GERD (gastroesophageal reflux disease) Pure hypercholesterolemia Essential hypertension Diabetes mellitus Surgical History History of surgery History of colonoscopy History of eye surgery History of open reduction and internal fixation (ORIF) procedure Family History Father Diabetes Stroke Mother Diabetes Parkinsons Brother Prostate cancer FH: colonic polyps Maternal Uncle Cancer Social History Housing: Apartment Alcohol intake: former Patient Tobacco Use Status: Former Tobacco user Tobacco use type: Cigarette e-Cigarette/Vaping Use: Never Used Second Hand Smoke Exposure: No service: No Current occupational status: disabled Cognitive needs: No Hearing needs: No Vision needs: Yes Physical Exam Vital Signs: Last Vital Signs Pulse 87 02/05/25 08:43 BP 114/64 02/05/25 09:09 BMI result Body Mass Index 26.3 Office Procedures Glucose Monitoring Details Details: see [facility] [address] - Glucose monitoring, continuous-physician I&R Procedure code (CPT) selection complete Results Reviewed Results Reviewed: Laboratory Last Values Glucose (Clinic) 115 mg/dL (60-115) 02/05/25 08:50 Laboratory Tests 09/05/24 12/07/24 01/23/25 07:46 08:19 07:41 Plt Count 281 D Creatinine Estimated GFR Hgb A1c (Clinic) 7.1 H AST ALT Triglycerides Cholesterol LDL Cholesterol, Calc HDL Cholesterol Urine Creatinine 118.55 Urine Microalbumin 17.0 Microalb/Creat Ratio 14.3 01/23/25 07:45 Plt Count Creatinine 0.78 Estimated GFR > 60 Hgb A1c (Clinic) AST 24 ALT 29 Triglycerides 52 Cholesterol 149 LDL Cholesterol, Calc 81 HDL Cholesterol 58 Urine Creatinine Urine Microalbumin Microalb/Creat Ratio Fib 4 value is 0.98 excluding advanced fibrosis. Assessment & Plan Assessment & Plan (1) Type 2 diabetes mellitus with ophthalmic complication, with long-term current use of insulin: Code(s): E11.39 - Type 2 diabetes mellitus with other diabetic ophthalmic complication; Z79.4 - termite control representative (current) use of insulin Category: Medical Qualifiers: Diabetes mellitus complication detail: with diabetic retinopathy Diabetes mellitus macular edema: macular edema presence unspecified Diabetic retinopathy severity: with proliferative retinopathy Laterality: bilateral Proliferative retinopathy type: unspecified Qualified Code(s): E11.3593 - Type 2 diabetes mellitus with proliferative diabetic retinopathy without macular edema, bilateral; Z79.4 - termite control representative (current) use of insulin (2) Diabetic neuropathy: Code(s): E11.40 - Type 2 diabetes mellitus with diabetic neuropathy, unspecified Category: Medical Qualifiers: Diabetes mellitus complication detail: diabetic polyneuropathy Diabetes mellitus type: type 2 Qualified Code(s): E11.42 - Type 2 diabetes mellitus with diabetic polyneuropathy (3) Essential hypertension: Code(s): I10 - Essential (primary) hypertension Category: Medical (4) Pure hypercholesterolemia: Code(s): E78.00 - Pure hypercholesterolemia, unspecified Category: Medical Plan In summary this is a 64-year-old male with type 2 diabetes, controlled per sensor data. Discussed pathophysiology of Type II Diabetes Mellitus with the patient in detail.? I explained the termite control representative risks and complications associated with uncontrolled diabetes including nephropathy, neuropathy, peripheral vascular disease, retinopathy, increased risk of heart disease and stroke.? Continue lifestyle modifications. Continue use of CGM and bring this with you to appointments. Patient has a list of smart snacks from the [place] diabetes association website. Recommended trying to eat a small snack before bedtime to reduce episodes of hypoglycemia overnight and in the afternoon. Decrease Tresiba to 60 units nightly. Continue Trulicity 3 mg once weekly. Continue Jardiance 10 mg every morning. Reviewed treatment of hypoglycemia. He has written instructions. Continue current medications for hypertension and hyperlipidemia. Follow up in 1 month for type 2 diabetes. He will be due for a hemoglobin A1c at that time. Orders: Orders AMB Glucose Monitoring Today E11.9 - Type 2 diabetes mellitus without complications Patient Instructions: Decrease Tresiba 60 units nightly. Continue Trulicity 3 mg once weekly. Continue Jardiance 10 mg every morning. If you experience low blood sugar, treat this by eating a chewable fruit candy like skittles or jelly beans (about 8 pieces), 4 ounces (1/2 cup) of fruit juice (not diet), 1 tablespoon of honey or 4 glucose tablets. If your blood sugar is under 55, take double the amount of one of the above. Recheck your blood sugar in 15 minutes. Disminuya la dosis de Tresiba 60 unidades cada noche. Contin?e con Trulicity 3 mg tiffany vez a la semana. Contin?e con Jardiance 10 mg todas las ma?anas. Si experimenta niveles bajos de az?car en la manolo, tr?telo con un caramelo masticable de fruta jaden Skittles o Jelly Beans (aproximadamente 8 piezas), 113 ml (1/2 taza) de jugo de fruta (no diet?guzman), 1 cucharada de miel o 4 tabletas de glucosa. Si shankar nivel de az?car en la manolo es inferior a 55, tome el doble de la dosis de ondina de los medicamentos mencionados. Vuelva a medir shankar nivel de az?car en la manolo en 15 minutos. Coding Level of Care Code Est Pt Level 4 (58608) Diagnoses Type 2 diabetes mellitus with proliferative retinopathy of both eyes, with long-term current use of insulin, macular edema presence unspecified, unspecified proliferative retinopathy type E11.3593; Z79.4 Diabetes mellitus complication detail: with diabetic retinopathy Diabetes mellitus macular edema: macular edema presence unspecified Diabetic retinopathy severity: with proliferative retinopathy Laterality: bilateral Proliferative retinopathy type: unspecified Diabetic polyneuropathy associated with type 2 diabetes mellitus E11.42 Diabetes mellitus complication detail: diabetic polyneuropathy Diabetes mellitus type: type 2 Essential hypertension I10 Pure hypercholesterolemia E78.00 CPT Codes Details - CPT: 35606 - Glucose monitoring, continuous-physician I&R ([id number])
[2025-02-05 08:43] VITALS: BP 94/58; PULSE 87; BMI 26.3
--- OUTSIDE RECORDS SUMMARY | 2025-02-05 08:51 | XMS_ITS | Clinical Summary ---
Author Organization [facility] ity Address [address] [place] [address] Care Team Providers Care Corporate Executive Chef Name Role Phone Unavailable Primary Care Provider [...] - 2023-2 5 season) 2024 Influenza Vaccine (Season Ended) [...]
--- OUTSIDE RECORDS SUMMARY | 2025-02-05 08:51 | XMS_ITS ---
Author Name Angie Hernández NP Address [address] [place] [address] Phone [phone] [facility] Care Team Providers Care Passport Support Associate Name Role Phone Angie Hernández Unavailable [phone] Unavailable Unavailable Unavailable Orders, [facility] Unavailable [phone] [facility] Unavailable KELLY ROBERSON Unavailable [phone] Reason for Referral Not Available Allergies, adverse [...] Active 2022-11-25 N/A [facility] Active 2024-04-02 N/A Decreased appetite, Protein- calorie malnutrition, mild Active 2024-11-05 N/A Encounters Encounters Type Facility Date of Service Diagnosis/Co mplaint New patient,40-59min; chronic exacerbation, 2 stable chronic or 1 acute illness add add modifier 95 for video (do not use for phone, instead use 67233-55) [facility], ([place]/2022 Malignant neoplasm of prostateGastro-esophageal reflux disease without esophagitisType 2 diabetes mellitus with other specified complicationHyperlipidemia, unspecifiedPain, unspecifiedOther chronic painEssential (primary) hypertensionOpioid dependence, uncomplicated New patient,40-59min; chronic exacerbation, 2 stable chronic or 1 acute illness add add modifier 95 for video (do not use for phone, instead use 25532-92) [facility] ([place] 11/[place]/2022 New patient,40-59min; chronic exacerbation, 2 stable chronic or 1 acute illness add add modifier 95 for video (do not use for phone, instead use 82546-52) [facility]/20[place] New patient,40-59min; chronic exacerbation, 2 stable chronic or 1 acute illness add add modifier 95 for video (do not use for phone, instead use 69092-12) [facility]/2022 New patient,40-59min; chronic exacerbation, 2 stable chronic or 1 acute illness add add modifier 95 for video (do not use for phone, instead use 95641-64) [facility]/2022 New patient,40-59min; chronic exacerbation, 2 stable chronic or 1 acute illness add add modifier 95 for video (do not use for phone, instead use 23530-66) [facility]/2022 New patient,40-59min; chronic exacerbation, 2 stable chronic or 1 acute illness add add modifier 95 for video (do not use for phone, instead use 54509-80) [facility] ([place]/2022 RN, CN or CP time with patient by phone; use with 1111F, BP, A1c or other CPTII codes [facility], ([place]) 05/27/2023 Encounter for other specifie d aftercare RN, CN or CP time with patient by phone; use with 1111F, BP, A1c or other CPTII codes [facility] 05/27/2023 Estab. patient 20-29min; 1 stable chronic or 2 minor; add add modifier 95 for video, modifier [address] [facility] 06/01/2023 Malignant neoplasm of prostateOpioid use, unspecified, uncomplicatedOther chronic painCalculus of ureter Estab. patient 20-29min; 1 stable chronic or 2 minor; add add modifier 95 for video, modifier [address] [facility] 06/01/2023 Estab. patient 20-29min; 1 stable chronic or 2 minor; add add modifier 95 for video, modifier [address] [facility] 06/01/2023 Estab. patient 30-39min; chronic exacerbation, 2 stable chronic or 1 acute illness add add modifier 95 for video, (do not use for phone, instead use 91911-02) [facility] 04/02/2024 Essential (primary) hypertensionMalignant neoplasm of prostateGastro-esophageal [...] (do not use for phone, instead use 60548-30) [facility] 04/02/2024 Estab. patient 30-39min; chronic exacerbation, 2 stable chronic or 1 acute illness add add modifier 95 for video, (do not use for phone, instead use 44168-25) [facility] 04/02/2024 Estab. patient 30-39min; chronic exacerbation, 2 stable chronic or 1 acute illness add add modifier 95 for video, (do not use for phone, instead use 40086-55) [facility] 04/02/2024 Estab. patient 30-39min; chronic exacerbation, 2 stable chronic or 1 acute illness add add modifier 95 for video, (do not use for phone, instead use 17118-55) [facility] 04/02/2024 Estab. patient 30-39min; chronic exacerbation, 2 stable chronic or 1 acute illness add add modifier 95 for video, (do not use for phone, instead use 59249-95) [facility] ([place] 04/02/2024 Estab. patient 30-39min; chronic exacerbation, 2 stable chronic or 1 acute illness add add modifier 95 for video, (do not use for phone, instead use 00934-87) [facility] 04/02/2024 Estab. patient 20-29min; 1 stable chronic or 2 minor; add add modifier 95 for video, modifier 93 for phone [facility] ([place]) 11/05/2024 Essential (primary) hypertensionMalignant neoplasm of prostateGastro-esophageal [...] 95 for video, modifier 93 for phone [employer] [facility], ([place] 11/05/2024 Estab. patient 20-29min; 1 stable chronic or 2 minor; add add modifier 95 for video, modifier 93 for phone [facility] [employer] [facility], ([place] 11/05/2024 Estab. patient 20-29min; 1 stable chronic or 2 minor; add add modifier 95 for video, modifier 93 for phone [facility] [employer] [facility] 11/05/2024 Estab. patient 20-29min; 1 stable chronic or 2 minor; add add modifier 95 for video, modifier 93 for phone [facility] [employer] [facility] ([place] 11/05/2024 Estab. patient 20-29min; 1 stable chronic or 2 minor; add add modifier 95 for video, modifier 93 for phone [facility] [facility], ([place] 11/05/2024 Vital Signs Date of Collection Vitals [...] tive Time Current Smoking Status Former smoker 2025-01-24 3 Sex Male History of Procedures Procedures Service Procedure code Service date Servicing provider Phone# New patient,40-59min; chronic exacerbation, 2 stable chronic or 1 acute illness add add modifier 95 for video (do not use for phone, instead use 14517-02) [id number] 2022-11-25 No Data Available No Data Availa [...] 1111F, BP, A1c or other CPTII codes 00433 2023-05-27 No Data Available No Data Avai lable Medications prescribed in hospital were reviewed and reconciled against what they were taking prior to admission during today's visit. (1111F) 1111F 2023-05-27 No Data Available No Data Availa ble Estab. patient 20-29min; 1 stable chronic or 2 minor; add add modifier 95 for video, modifier 93 for phone [id number] 2023-06-01 No Data Available No Data Availa [...] (do not use for phone, instead use 47977-39) 16083 2024-04-02 No Data Available No Data Availa [...] 95 for video, modifier 93 for phone [id number] 2024-11-05 No Data Available No Data Availa [...] Patient Education to avoid future hospitalization: Call [facility] if symptoms of illness develop.Malignant [...] modifier 95Continue to see PCP. Follow-up with [facility] as needed for any acute or disease [...] appears to be in remission. Goes to [facility].StableOxycodoneUPDATE 06/01/2023:Reviewed safety/risks of opioids. Sending Narcan, education on its use.Had procedure to remove stone stone 05/25/2023. Has catheter. Will have catheter removed on 06/02/2023 at FU appt [facility] ([facility]).Reports some lingering dysuria. Ed re [...] appears to be in remission. Goes to [facility].04/02/2024Still having Q6 months injection, still [...] on 06/02/2023 at FU appt w Uro ([facility]).Reports some lingering dysuria. 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 Goes to [facility].04/02/2024Still having Q6 months injection, still [...] on 06/02/2023 at FU appt w Uro ([facility]).Reports some lingering dysuria. 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
[2025-02-05 08:54] LABS: Glucose, Whole Blood 115 mg/dL (60-115)
[2025-02-05 09:09] VITALS: BP 114/64
== END 2025-02-05 09:20 | disposition home or self-care (01) ==
LOC: HO.ENCR 08:34
PROVIDERS: PCP Internal Medicine; Visit Provider Physician Assistant Medical
DX: E11.3593 Type 2 diabetes mellitus with proliferative diabetic retinopathy without macular edema, bilateral (principal); Z79.4 Long term (current) use of insulin; E11.42 Type 2 diabetes mellitus with diabetic polyneuropathy; I10 Essential (primary) hypertension; E78.00 Pure hypercholesterolemia, unspecified

== ENCOUNTER → 2025-02-05 08:33 | Outpatient (BNVA) | payer MEDICARE, SELFPAY | PROVIDERS: PCP Internal Medicine; Visit Provider Physician Assistant Medical | DX: E11.3593 Type 2 diabetes mellitus with proliferative diabetic retinopathy without macular edema, bilateral (principal); E11.42 Type 2 diabetes mellitus with diabetic polyneuropathy; E78.00 Pure hypercholesterolemia, unspecified; I10 Essential (primary) hypertension; Z79.4 Long term (current) use of insulin | CPT/HCPCS: 82947; 99212 ==

== ENCOUNTER 2025-03-15 07:50 | Outpatient (AMB) | payer MEDICARE, SELFPAY ==
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
--- NOTE | 2025-03-15 07:56 | A.OFFVIS_ITS ---
Vital Signs 03/15/25 08:01 Height 5 ft 7 in Weight 169 lb 8.568 oz BMI 26.6 BP 100/70 Blood Pressure Location Rt brachial Position Sitting Pulse 87 Pulse Source Pulse Oximeter Pulse Oximetry (%) 96 Oxygen Delivery Method Room Air Intake Visit Reasons: Type II diabetes Intake Note: Patient present today to follow up on Type 2 Diabetes Mellitus. Patient is receiving Freestyle Angeli 3 Plus supplies through: [facility] pharmacy Last Diabetic Eye exam: 02/13/2025 [facility] Last Podiatry Visit: Does not see a Research Director Random Glucose: 129 mg/dl HgA1C: 7.8% 03/15/2025 Board Certified Arts Therapist Required: Yes Board Certified Arts Therapist Language: Tutoring Assistant Services: Board Certified Arts Therapist Present Board Certified Arts Therapist Name: Jevon [id number] Information Interpreted: non-clinical & clinical Accompanied by: Spouse Allergies metformin Allergy (Intermediate, Verified 03/15/25 08:02) diarrhea Medication List - Last Reconciled 03/15/25 by SERVANDO Morrison ammonium lactate 12% 1 appl topical DAILY 30 days atorvastatin 80 mg PO BEDTIME 90 days blood sugar diagnostic (Accu-Chek Guide test strips) Use 1 TID blood-glucose meter (Accu-Chek Guide Glucose Meter) As directed blood-glucose sensor (FreeStyle Angeli 3 Plus Sensor device) Apply 1 new sensor every 14 days as directed to monitor blood glucose continuously. blood-glucose sensor (FreeStyle Angeli 3 Plus Sensor device) Apply 1 new sensor every 14 days as directed to monitor blood glucose continuously. blood-glucose,cement and concrete plant worker,cont (FreeStyle Angeli 3 [place]) as directed brimonidine 0.2% 1 drp ophthalmic (eye) BID cholecalciferol (vitamin D3) 25 mcg PO DAILY 90 days dextrose (TRUEplus Glucose) 15 grams (32 mL) PO Q15M PRN dulaglutide (Trulicity) 3 mg (0.5 mL) subcut QWEEK empagliflozin (Jardiance) 10 mg PO QAM ezetimibe 10 mg PO DAILY 90 days hydrocortisone 1% (Anti-Itch (hydrocortisone)) 1 appl topical TID PRN 30 days insulin degludec (Tresiba FlexTouch U-100 insulin) 62 units subcut DAILY lancets (Accu-Chek Fastclix Lancet Drum) Use 1 lancet once a day lisinopril 5 mg PO DAILY 90 days [locking raised toilet seat with arms As directed] omeprazole 20 mg PO DAILY 90 days oxycodone 5 mg PO TID PRN 7 days sertraline 50 mg PO DAILY 90 days timolol 0.5% 1 drp ophthalmic (eye) BID triamcinolone acetonide 0.025% 1 appl topical BID 14 days HPI Comments Details: This is a 64 year old Georgian-speaking male presenting with his for continued diabetic management. Video compensation adjuster used. He has past medical history of prostate cancer, HLD, hypertension, anxiety with depression and GERD. He was diagnosed with diabetes 25 years ago. He has a family history of diabetes. Hemoglobin a1c 12.2% 04/19/24. Hemoglobin A1c 7.8% today 03/15/2025, but this increased from 7.1% in November. He admits to dietary indiscretion since his last visit. Reviewed freestyle Angeli 3 dated March 02 to March 15 CGM active 27% Average glucose 155 Glucose variability 26.8% Very high 1% High 26% Target range 73% 0% hypoglycemia There is postprandial hyperglycemia. Paucity of data due to sensor falling off. It took 1-2 weeks to get a new one. Current medication regimen: Tresiba 62 units in the morning Trulicity 3 mg Jardiance 10 mg daily Past medication: Metformin discontinued previously due to diarrhea. Lantus discontinued due to hypoglycemia. Compliance issues: none He has been seen by the nutrition educator and dietitian. Hypoglycemia symptoms: Symptoms include shakiness and feeling hungry Corrects with glass of orange juice. Denies interval episodes. Hyperglycemia symptoms: none Eye exam: [facility] and Dr. Stephenson. Microvascular complications: bilateral neuropathy, retinopathy OU, receives injection in the right eye every 2 months Macrovascular complications: none Hypertension: treated with Lisinopril 5 mg Hyperlipidemia: treated with Atorvastatin 80 mg and Zetia 10 mg LDL <100. ROS: Constitutional: No fevers, chills or unexplained weight loss. Respiratory: No shortness of breath. Cardiovascular: No chest pain or pedal edema. Gastrointestinal: No nausea, vomiting or abdominal pain. Genitourinary: No dysuria, hematuria, urinary frequency. Denies history of genitourinary infections. Skin: No rashes or wounds. Endocrine: No polyuria or polydipsia. Physical exam: Constitutional: Alert, in no distress. Eyes: Pupils are equal, round and reactive to light. Neck: Supple, Full range of motion. No lymphadenopathy. No palpable thyroid masses. Respiratory: Clear to auscultation. Cardiovascular: S1 S2 regular. No murmurs This is a 64 year old Georgian-speaking male presenting with his for continued diabetic management. Declined compensation adjuster. He has past medical history of prostate cancer, HLD, hypertension, anxiety with depression and GERD. He was diagnosed with diabetes 25 years ago. He has a family history of diabetes. Hemoglobin a1c 12.2% 04/19/24. 9.6% 08/21/24. Hemoglobin A1c today 12/07/2024 is 7.1 %. Reviewed Angeli 3 download CGM active 96% Average glucose 141 mg/dL GMI 6.7% Glucose variability 30.7% Very high 3% High 14% Target range 82% Low 1% Less than 54 0% He has occasional hypoglycemia overnight and occasional hypoglycemia in the afternoon and early evening. Current medication regimen: Tresiba 62 units in the morning. Trulicity 3 mg. Jardiance 10 mg daily. Past medication: Metformin discontinued previously due to diarrhea. Lantus discontinued due to hypoglycemia. Compliance issues: none He has been seen by the nutrition educator postmaster relief. He has been having some more carbohydrates in the form of rice in the afternoon and at dinner sometimes. Hypoglycemia symptoms: Symptoms include shakiness and feeling hungry. Blood glucose high 60s. Corrects with glass of orange juice. His last meal is at 6 or 18:30. He goes to bed around 9 or 22:00. Hyperglycemia symptoms: none Eye exam: [facility] Dr. Stephenosn. Microvascular complications: bilateral neuropathy, retinopathy OU Macrovascular complications: none Hypertension: treated with Lisinopril 5 mg Hyperlipidemia: treated with Atorvastatin 80 mg and Zetia 10 mg LDL <100. ROS: Constitutional: No fevers, chills or unexplained weight loss. Respiratory: No shortness of breath. Cardiovascular: No chest pain or pedal edema. Gastrointestinal: No nausea, vomiting or abdominal pain. Genitourinary: No dysuria, hematuria, urinary frequency. Denies history of genitourinary infections. Skin: No rashes or wounds. Endocrine: No polyuria or polydipsia. Physical exam: Constitutional: Alert, in no distress. Eyes: Pupils are equal, round and reactive to light. Neck: Supple, Full range of motion. No lymphadenopathy. No palpable thyroid masses. Respiratory: Clear to auscultation. Cardiovascular: S1 S2 regular. No murmurs Right foot: Warm and well perfused. No clubbing, cyanosis or edema. Palpable DP pulse. No open wounds. Decreased vibratory sensation. Intact sensation to monofilament. Left foot: Warm and well perfused. No clubbing, cyanosis or edema. Palpable DP pulse. no open wounds. Decreased vibratory sensation. Intact sensation to monofilament. [facility] Medical History (Updated 01/24/25 @ 10:49 by Jaja Ventura MD) Moderate major depression Diabetic retinopathy of both eyes Diabetic neuropathy Type 2 diabetes mellitus with ophthalmic complication, with long-term current use of insulin Diabetic retinopathy of right eye SARS-CoV-2 positive Screening for prostate cancer Chronic radicular pain of lower extremity GERD (gastroesophageal reflux disease) Pure hypercholesterolemia Essential hypertension Diabetes mellitus Surgical History History of surgery History of colonoscopy History of eye surgery History of open reduction and internal fixation (ORIF) procedure Family History Father Diabetes Stroke Mother Diabetes Parkinsons Brother Prostate cancer FH: colonic polyps Maternal Uncle Cancer Social History Housing: Apartment Alcohol intake: former Patient Tobacco Use Status: Former Tobacco user Tobacco use type: Cigarette e-Cigarette/Vaping Use: Never Used Second Hand Smoke Exposure: No service: No Current occupational status: disabled Cognitive needs: No Hearing needs: No Vision needs: Yes Physical Exam Vital Signs: Last Vital Signs Pulse 87 03/15/25 08:01 BP 100/70 03/15/25 08:01 Pulse Ox 96 03/15/25 08:01 Oxygen Delivery Method Room Air 03/15/25 08:01 BMI result Body Mass Index 26.6 Results AMB Hemoglobin A1c AMB Hemoglobin A1c 7.8 % Last Edit by ESTELLA Rahman on 03/15/25 08:18 Results Reviewed Results Reviewed: Laboratory Last Values Glucose (Clinic) 129 mg/dL (60-115) H 03/15/25 08:07 Hgb A1c (Clinic) 7.8 % (4.0-6.0) H 03/15/25 08:10 Laboratory Tests 01/23/25 01/23/25 07:41 07:45 Creatinine 0.78 Estimated GFR > 60 AST 24 ALT 29 Triglycerides 52 Cholesterol 149 LDL Cholesterol, Calc 81 HDL Cholesterol 58 Urine Creatinine 118.55 Urine Microalbumin 17.0 Microalb/Creat Ratio 14.3 Assessment & Plan Assessment & Plan (1) Type 2 diabetes mellitus with ophthalmic complication, with long-term current use of insulin: Code(s): E11.39 - Type 2 diabetes mellitus with other diabetic ophthalmic complication; Z79.4 - intermediate (current) use of insulin Category: Medical Qualifiers: Diabetes mellitus complication detail: with diabetic retinopathy Diabetic retinopathy severity: with proliferative retinopathy Proliferative retinopathy type: unspecified Diabetes mellitus macular edema: macular edema presence unspecified Laterality: bilateral Qualified Code(s): E11.3593 - Type 2 diabetes mellitus with proliferative diabetic retinopathy without macular edema, bilateral; Z79.4 - terminal computer operator (current) use of insulin (2) Diabetic neuropathy: Code(s): E11.40 - Type 2 diabetes mellitus with diabetic neuropathy, unspecified Category: Medical Qualifiers: Diabetes mellitus type: type 2 Diabetes mellitus complication detail: diabetic polyneuropathy Qualified Code(s): E11.42 - Type 2 diabetes mellitus with diabetic polyneuropathy Plan In summary this is a 64-year-old male with suboptimally controlled type 2 diabetes. Discussed pathophysiology of Type II Diabetes Mellitus with the patient in detail.? I explained the manager intermediate risks and complications associated with uncontrolled diabetes including nephropathy, neuropathy, peripheral vascular disease, retinopathy, increased risk of heart disease and stroke.? We discussed increasing the dose of Jardiance, but he would like to try 6 weeks of lifestyle modification to see if he can bring his blood sugar down without increasing medication. Continue use of CGM and bring this with you to appointments. Continue Tresiba to 62 units nightly. Continue Trulicity 3 mg once weekly. Continue Jardiance 10 mg every morning. Reviewed treatment of hypoglycemia. He has written instructions. Continue current medications for hypertension and hyperlipidemia. Follow up in 6 weeks for type 2 diabetes. Orders: Orders AMB Hemoglobin A1c Today E11.3593 - Type 2 diabetes mellitus with proliferative diabetic retinopathy without macular edema, bilateral, Z79.4 - intermediate (current) use of insulin AMB Glucose Monitoring Today E11.9 - Type 2 diabetes mellitus without complications Medications: Changed From Tresiba FlexTouch U-100 (insulin degludec) 60 units (0.6 mL) subcut DAILY 30 mL 5RF NS To insulin degludec (Tresiba FlexTouch U-100 insulin) 62 units subcut DAILY Coding Level of Care Code Est Pt Level 4 (65653) Diagnoses Type 2 diabetes mellitus with proliferative retinopathy of both eyes, with long- term current use of insulin, macular edema presence unspecified, unspecified proliferative retinopathy type E11.3593; Z79.4 Diabetes mellitus complication detail: with diabetic retinopathy Diabetic retinopathy severity: with proliferative retinopathy Proliferative retinopathy type: unspecified Diabetes mellitus macular edema: macular edema presence unspecified Laterality: bilateral Diabetic polyneuropathy associated with type 2 diabetes mellitus E11.42 Diabetes mellitus type: type 2 Diabetes mellitus complication detail: diabetic polyneuropathy
[2025-03-15 08:01] VITALS: BP 100/70; PULSE 87; O2SAT 96; BMI 26.6
[2025-03-15 08:12] LABS: Glucose, Whole Blood 129 mg/dL (60-115)
== END 2025-03-15 08:38 | disposition home or self-care (01) ==
LOC: HO.ENCR 07:51
PROVIDERS: PCP Internal Medicine; Visit Provider Physician Assistant Medical
DX: E11.3593 Type 2 diabetes mellitus with proliferative diabetic retinopathy without macular edema, bilateral (principal); Z79.4 Long term (current) use of insulin; E11.42 Type 2 diabetes mellitus with diabetic polyneuropathy

== ENCOUNTER → 2025-03-15 07:50 | Outpatient (BNVA) | payer MEDICARE, SELFPAY | PROVIDERS: PCP Internal Medicine; Visit Provider Physician Assistant Medical | DX: E11.3593 Type 2 diabetes mellitus with proliferative diabetic retinopathy without macular edema, bilateral (principal); E11.42 Type 2 diabetes mellitus with diabetic polyneuropathy; Z79.4 Long term (current) use of insulin | CPT/HCPCS: 82947; 83036; 99212 ==

== ENCOUNTER 2025-03-21 09:51 | Outpatient (AMB) | payer MEDICARE, SELFPAY ==
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
[2025-03-21 09:57] VITALS: BP 118/72; PULSE 86; O2SAT 98; BMI 26.5
--- OUTSIDE RECORDS SUMMARY | 2025-03-21 11:12 | XMS_ITS ---
Author Name Angie Hernández NP Address [address] [place] [address] Phone [phone] Organization [facility] Care Team Providers Care Engineer Internship Name Role Phone Angie Hernández Unavailable [phone] Unavailable Unavailable Unavailable Orders, [facility] Unavailable [phone] [facility] Unavailable [phone] KELLY ROBERSON Unavailable [phone] Reason for Referral Not Available Allergies, adverse [...] detached his retina, cannot see.In touch with [employer] [facility] (major depressive [...] w/ PCP and oncology specialists Goes to [facility].11/05/24Still having Q6 months injection, still [...] (do not use for phone, instead use 95901-06) [facility] ([place]) 11/25/2022 Malignant neoplasm of prostateGastro-esophageal reflux disease without esophagitisType 2 diabetes mellitus with other specified complicationHyperlipidemia, unspecifiedPain, unspecifiedOther chronic painEssential (primary) hypertensionOpioid dependence, uncomplicated New patient,40-59min; chronic exacerbation, 2 stable chronic or 1 acute illness add add modifier 95 for video (do not use for phone, instead use 65520-52) [facility], ([place]) 11/25/2022 New patient,40-59min; chronic exacerbation, 2 stable chronic or 1 acute illness add add modifier 95 for video (do not use for phone, instead use 81972-94) [facility], ([place]) 11/25/2022 New patient,40-59min; chronic exacerbation, 2 stable chronic or 1 acute illness add add modifier 95 for video (do not use for phone, instead use 84382-00) [facility], ([place]) 11/25/2022 New patient,40-59min; chronic exacerbation, 2 stable chronic or 1 acute illness add add modifier 95 for video (do not use for phone, instead use 31678-15) [facility], ([place] 11/25/2022 New patient,40-59min; chronic exacerbation, 2 stable chronic or 1 acute illness add add modifier 95 for video (do not use for phone, instead use 26090-98) [facility], ([place] 11/25/2022 New patient,40-59min; chronic exacerbation, 2 stable chronic or 1 acute illness add add modifier 95 for video (do not use for phone, instead use 36701-80) [facility], ([place]) 11/25/2022 RN, CN or CP time with patient by phone; use with 1111F, BP, A1c or other CPTII codes [facility], ([place]) 05/27/2023 Encounter for other specifie d aftercare RN, CN or CP time with patient by phone; use with 1111F, BP, A1c or other CPTII codes [facility], ([place]) 05/27/2023 Estab. patient 20-29min; 1 stable chronic or 2 minor; add add modifier 95 for video, modifier 93 for phone [facility] ([place]) 06/01/2023 Malignant neoplasm of prostateOpioid use, unspecified, uncomplicatedOther chronic painCalculus of ureter Estab. patient 20-29min; 1 stable chronic or 2 minor; add add modifier 95 for video, modifier 93 for phone [facility] ([place]) 06/01/2023 Estab. patient 20-29min; 1 stable chronic or 2 minor; add add modifier 95 for video, modifier 93 for phone [facility], ([place] 06/01/2023 Estab. patient 30-39min; chronic exacerbation, 2 stable chronic or 1 acute illness add add modifier 95 for video, (do not use for phone, instead use 66350-31) [facility], ([place] 04/02/2024 Essential (primary) hypertensionMalignant neoplasm of prostateGastro-esophageal [...] (do not use for phone, instead use 50804-20) [facility], ([place] 04/02/2024 Estab. patient 30-39min; chronic exacerbation, 2 stable chronic or 1 acute illness add add modifier 95 for video, (do not use for phone, instead use 60355-05) [facility], ([place] 04/02/2024 Estab. patient 30-39min; chronic exacerbation, 2 stable chronic or 1 acute illness add add modifier 95 for video, (do not use for phone, instead use 51927-64) [facility], ([place] 04/02/2024 Estab. patient 30-39min; chronic exacerbation, 2 stable chronic or 1 acute illness add add modifier 95 for video, (do not use for phone, instead use 31100-34) [facility], ([place] 04/02/2024 Estab. patient 30-39min; chronic exacerbation, 2 stable chronic or 1 acute illness add add modifier 95 for video, (do not use for phone, instead use 23471-64) [facility], ([place] 04/02/2024 Estab. patient 30-39min; chronic exacerbation, 2 stable chronic or 1 acute illness add add modifier 95 for video, (do not use for phone, instead use 72359-50) [facility], ([place] 04/02/2024 Estab. patient 20-29min; 1 stable chronic or 2 minor; add add modifier 95 for video, modifier 93 for phone [facility], ([place] 11/05/2024 Essential (primary) hypertensionMalignant neoplasm of prostateGastro-esophageal [...] 95 for video, modifier 93 for phone [facility], ([place] 11/05/2024 Estab. patient 20-29min; 1 stable chronic or 2 minor; add add modifier 95 for video, modifier 93 for phone [facility], [place] 11/05/2024 Estab. patient 20-29min; 1 stable chronic or 2 minor; add add modifier 95 for video, modifier 93 for phone [facility], ([place] 11/05/2024 Estab. patient 20-29min; 1 stable chronic or 2 minor; add add modifier 95 for video, modifier 93 for phone [facility], ([place] 11/05/2024 Estab. patient 20-29min; 1 stable chronic or 2 minor; add add modifier 95 for video, modifier 93 for [facility], ([place]) 11/05/2024 Vital Signs Date of Collection Vitals [...] Time Current Smoking Status Former smoker 2025-02-25 8 Sex Male History of Procedures Procedures Service Procedure code Service date Servicing provider Phone# New patient,40-59min; chronic exacerbation, 2 stable chronic or 1 acute illness add add modifier 95 for video (do not use for phone, instead use 98326-79) [id number] 2022-11-25 No Data Available No Data Availa [...] 1111F, BP, A1c or other CPTII codes 90068 2023-05-27 No Data Available No Data Avai lable Medications prescribed in hospital were reviewed and reconciled against what they were taking prior to admission during today's visit. (1111F) 1111F 2023-05-27 No Data Available No Data Availa ble Estab. patient 20-29min; 1 stable chronic or 2 minor; add add modifier 95 for video, modifier 93 for phone [id number] 2023-06-01 No Data Available No Data Availa [...] (do not use for phone, instead use 92415-23) [id number] 2024-04-02 No Data Available No Data Availa [...] 95 for video, modifier 93 for phone 53160 2024-11-05 No Data Available No Data Availa [...] appears to be in remission. Goes to [facility].StableOxycodoneUPDATE 06/01/2023:Reviewed safety/risks of opioids. Sending Narcan, education on its use.Had procedure to remove stone stone 05/25/2023. Has catheter. Will have catheter removed on 06/02/2023 at FU appt w Uro ([facility]).Reports some lingering dysuria. Ed re [...] appears to be in remission. Goes to [facility].04/02/2024Still having Q6 months injection, still [...] on 06/02/2023 at FU appt w Uro ([facility]).Reports some lingering dysuria. 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 Goes to [facility].04/02/2024Still having Q6 months injection, still [...] on 06/02/2023 at FU appt w Uro ([facility]).Reports some lingering dysuria. 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 2024-11-05 DME: glucerna, blood pressure machine
== END 2025-03-21 10:49 | disposition home or self-care (01) ==
LOC: HO.HGI 09:51
PROVIDERS: PCP Internal Medicine; Visit Provider Nurse Practitioner
DX: R93.3 Abnormal findings on diagnostic imaging of other parts of digestive tract (principal); R68.81 Early satiety; Q39.4 Esophageal web; E11.3593 Type 2 diabetes mellitus with proliferative diabetic retinopathy without macular edema, bilateral; Z79.4 Long term (current) use of insulin
CPT/HCPCS: 99203

== ENCOUNTER → 2025-03-21 09:51 | Outpatient (BNVA) | payer MEDICARE, SELFPAY | PROVIDERS: PCP Internal Medicine; Visit Provider Nurse Practitioner | DX: Z01.818 Encounter for other preprocedural examination (principal); E11.3593 Type 2 diabetes mellitus with proliferative diabetic retinopathy without macular edema, bilateral; Z79.4 Long term (current) use of insulin; R93.3 Abnormal findings on diagnostic imaging of other parts of digestive tract; R68.81 Early satiety; Q39.4 Esophageal web | CPT/HCPCS: 99202 ==

== ENCOUNTER 2025-04-23 08:40 | Outpatient (REF) | payer MEDICARE, SELFPAY ==
--- OUTSIDE RECORDS SUMMARY | 2025-04-23 08:59 | XMS_ITS ---
Author Name Angie Hernández NP Address [address] [place] [address] Phone [phone] Organization [facility] Care Team Providers Care Culture Room Worker Name Role Phone Angie Hernández Unavailable [phone] Unavailable Unavailable Unavailable Orders, [facility] Unavailable [phone] [facility] Unavailable KELLY ROBERSON Unavailable [phone] Reason for Referral Not Available Allergies, adverse [...] detached his retina, cannot see.In touch with [employer] [facility] (major depressive [...] w/ PCP and oncology specialists Goes to [facility].11/05/24Still having Q6 months injection, [...] (do not use for phone, instead use 82105-41) [facility] ([place]) 11/25/2022 Malignant neoplasm of prostateGastro-esophageal reflux disease without esophagitisType 2 diabetes mellitus with other specified complicationHyperlipidemia, unspecifiedPain, unspecifiedOther chronic painEssential (primary) hypertensionOpioid dependence, uncomplicated New patient,40-59min; chronic exacerbation, 2 stable chronic or 1 acute illness add add modifier 95 for video (do not use for phone, instead use 96448-63) [facility], ([place]) 11/25/2022 New patient,40-59min; chronic exacerbation, 2 stable chronic or 1 acute illness add add modifier 95 for video (do not use for phone, instead use 78095-60) [facility] 11/[place]/20[place] New patient,40-59min; chronic exacerbation, 2 stable chronic or 1 acute illness add add modifier 95 for video (do not use for phone, instead use 58747-06) [facility], ([place] 11/25/2022 New patient,40-59min; chronic exacerbation, 2 stable chronic or 1 acute illness add add modifier 95 for video (do not use for phone, instead use 31384-13) [facility], ([place] 11/25/2022 New patient,40-59min; chronic exacerbation, 2 stable chronic or 1 acute illness add add modifier 95 for video (do not use for phone, instead use 22322-72) [facility], ([place] 11/25/2022 New patient,40-59min; chronic exacerbation, 2 stable chronic or 1 acute illness add add modifier 95 for video (do not use for phone, instead use 00864-92) [facility], ([place] 11/25/2022 RN, CN or CP time with patient by phone; use with 1111F, BP, A1c or other CPTII codes [facility], ([place]) 05/27/2023 Encounter for other specifie d aftercare RN, CN or CP time with patient by phone; use with 1111F, BP, A1c or other CPTII codes [facility], ([place]) 05/27/2023 Estab. patient 20-29min; 1 stable chronic or 2 minor; add add modifier 95 for video, modifier 93 for phone [facility] ([place]) 06/01/2023 Malignant neoplasm of prostateOpioid use, unspecified, uncomplicatedOther chronic painCalculus of ureter Estab. patient 20-29min; 1 stable chronic or 2 minor; add add modifier 95 for video, modifier 93 for phone [facility] ([place]) 06/01/2023 Estab. patient 20-29min; 1 stable chronic or 2 minor; add add modifier 95 for video, modifier 93 for phone [facility], ([place] 06/01/2023 Estab. patient 30-39min; chronic exacerbation, 2 stable chronic or 1 acute illness add add modifier 95 for video, (do not use for phone, instead use 24472-51) [facility], ([place] 04/02/2024 Essential (primary) hypertensionMalignant neoplasm of prostateGastro-esophageal [...] (do not use for phone, instead use 27582-67) [facility] 04/02/2024 Estab. patient 30-39min; chronic exacerbation, 2 stable chronic or 1 acute illness add add modifier 95 for video, (do not use for phone, instead use 07700-53) [facility], [place] 04/02/2024 Estab. patient 30-39min; chronic exacerbation, 2 stable chronic or 1 acute illness add add modifier 95 for video, (do not use for phone, instead use 73919-50) [facility], [place] 04/02/2024 Estab. patient 30-39min; chronic exacerbation, 2 stable chronic or 1 acute illness add add modifier 95 for video, (do not use for phone, instead use 39893-52) [facility], [place] 04/02/2024 Estab. patient 30-39min; chronic exacerbation, 2 stable chronic or 1 acute illness add add modifier 95 for video, (do not use for phone, instead use 11053-76) [facility], [place] 04/02/2024 Estab. patient 30-39min; chronic exacerbation, 2 stable chronic or 1 acute illness add add modifier 95 for video, (do not use for phone, instead use 65096-08) [facility], [place] 04/02/2024 Estab. patient 20-29min; 1 stable chronic or 2 minor; add add modifier 95 for video, modifier 93 for phone [facility], ([place] 11/05/2024 Essential (primary) hypertensionMalignant neoplasm of prostateGastro-esophageal [...] 95 for video, modifier 93 for phone [facility], [place] 11/05/2024 Estab. patient 20-29min; 1 stable chronic or 2 minor; add add modifier 95 for video, modifier 93 for phone [facility], [place] 11/05/2024 Estab. patient 20-29min; 1 stable chronic or 2 minor; add add modifier 95 for video, modifier 93 for phone [facility], [place] 11/05/2024 Estab. patient 20-29min; 1 stable chronic or 2 minor; add add modifier 95 for video, modifier 93 for phone [facility], ([place] 11/05/2024 Estab. patient 20-29min; 1 stable chronic or 2 minor; add add modifier 95 for video, modifier 93 for [facility], ([place]) 11/05/2024 Vital Signs Date of Collection Vitals [...] tive Time Current Smoking Status Former smoker 2025-03-27 11 Sex Male History of Procedures Procedures Service Procedure code Service date Servicing provider Phone# New patient,40-59min; chronic exacerbation, 2 stable chronic or 1 acute illness add add modifier 95 for video (do not use for phone, instead use 11693-67) [id number] 2022-11-25 No Data Available No Data Availa [...] 1111F, BP, A1c or other CPTII codes 95284 2023-05-27 No Data Available No Data Avai lable Medications prescribed in hospital were reviewed and reconciled against what they were taking prior to admission during today's visit. (1111F) 1111F 2023-05-27 No Data Available No Data Availa ble Estab. patient 20-29min; 1 stable chronic or 2 minor; add add modifier 95 for video, modifier 93 for phone [id number] 2023-06-01 No Data Available No Data Availa [...] (do not use for phone, instead use 97210-91) 63045 2024-04-02 No Data Available No Data Availa [...] 95 for video, modifier 93 for phone 75514 2024-11-05 No Data Available No Data Availa [...] appears to be in remission. Goes to [facility].StableOxycodoneUPDATE 06/01/2023:Reviewed safety/risks of opioids. [...] appears to be in remission. Goes to [facility].04/02/2024Still having Q6 months injection, [...] detached his retina, cannot see.In touch with [employer] [facility]SertralineIs almost blind Lives [...] appears to be in remission. 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 2024-11-05 DME: glucerna, blood pressure machine
--- OUTSIDE RECORDS SUMMARY | 2025-04-23 08:59 | XMS_ITS | Clinical Summary ---
[facility] Address [address] [place] [address] Care Team Providers Care Slot Ambassador Name Role Phone Unavailable Primary Care Provider [...] Panel) 10/25/2023 Colorectal Cancer Screening: Colonoscopy 10/25/2023 HIV Screening 10/25/2023 Hepatitis C Screening 10/25/2023 Social Influencers of Health Screening 10/25/2023 COVID-19 Vaccine ( - 2023-2 5 season) 2024 Depression Screening 09/26/2024 Influenza Vaccine (#1) 2025 RSV Immunization Adult Patie nts (1 [...]
[2025-04-23 10:36] LABS: Alanine Aminotransferase 18 U/L (0-40); Albumin Level 4.1 g/dL (3.5-5.0); Alkaline Phosphatase 95 U/L (39-117); Anion Gap 12 (12-20); Aspartate Amino Transferase 18 U/L (5-37); Blood Urea Nitrogen 19 mg/dL (9-16); Calcium 9.0 mg/dL (8.4-10.2); Carbon Dioxide 28 mmol/L (22-29); Chloride 110 mmol/L (96-108); Cholesterol 180 mg/dL (<200); Estimated Glomerular Filt Rate > 60; HDL Cholesterol 65 mg/dL (>40); Potassium 4.7 mmol/L (3.3-5.1); Sodium 145 mmol/L (135-145); Total Protein 7.2 g/dL (6.5-8.0); Triglycerides 93 mg/dL (<150)
[2025-04-23 11:59] LABS: Microalbum/Creatinine Ratio Ur 15.2 ug/mg cr (<30)
== END 2025-04-23 08:41 | disposition home or self-care (01) ==
LOC: HO.LAB 08:40
PROVIDERS: PCP Internal Medicine; Visit Provider Internal Medicine
DX: E11.3593 Type 2 diabetes mellitus with proliferative diabetic retinopathy without macular edema, bilateral (principal); E78.5 Hyperlipidemia, unspecified; R80.9 Proteinuria, unspecified; E55.9 Vitamin D deficiency, unspecified; Z79.4 Long term (current) use of insulin
CPT/HCPCS: 36415; 80053; 80061; 82043; 82306; 82570

== ENCOUNTER → 2025-04-24 07:31 | Outpatient (REF) | payer MEDICARE, SELFPAY ==
--- NOTE | ~2025-04-24 | NM_ITS ---
EXAMINATION: [place] RADIONUCLIDE SOLID FOOD GASTRIC EMPTYING 4-HOUR STUDY CLINICAL INFORMATION: R68.81 - Early satiety COMPARISON: There are no prior studies available for comparison. TECHNIQUE: A standard meal consisting of 4 oz of Egg Beaters brand tagged with 1 mCi Tc-99m Sulfur Colloid, 6 oz water and 2 slices of toast with jelly was administered orally to the patient. Images were obtained using a dual head gamma camera in the anterior and posterior projections over of the stomach immediately post ingestion and at hourly intervals up to 4 hours post ingestion. The anterior and posterior counts at each time interval were averaged using the geometric mean and expressed as percentage of the immediate post ingestion counts. FINDINGS: There is visualization of activity in the stomach immediately post ingestion. As the study progresses, there is clearance of activity from the stomach and visualization of progressively increasing small bowel activity. By the end of the study, there is almost no retention noted in the stomach. Retention in the stomach at each time interval was: 1 hour 73% (normal 37%-90%) 2 hours 40% (normal 30%-60%) 3 hours 20% 4 hours 13% (normal 0%-10%) [place] gastric emptying study IMPRESSION: Minimally delayed gastric emptying at 4 hours. For solid meal, rapid gastric emptying is less than 30% at 60 minutes. Delayed gastric emptying criteria is more than 60% remaining at 120 minutes or more than 10% at 240 minutes. The 4-hour value is the best discriminator of a normal or abnormal result). Gastric emptying study grading per JNMT Consensus Recommendations in 2008 (https://tech.snmjournals.org/content/36/1/44) Grade 1 (mild retention): 11-20% at 4h Grade 2 (moderate retention): 21-35% at 4h Grade 3 (severe retention): 36-50% at 4h Grade 4 (very severe retention): >50% retention at 4h Electronically signed by: Roque Ku MD 04/24/2025 12:34 PM EDT
--- OUTSIDE RECORDS SUMMARY | 2025-04-24 07:33 | XMS_ITS ---
Author Name Angie Hernández NP Address [address] [place] [address] Phone [phone] [facility] Care Team Providers Care Obstetrics Gynecology Physician Name Role Phone Angie Hernández Unavailable [phone] Unavailable Unavailable Unavailable Orders, [facility] Unavailable [phone] [facility] Unavailable KELLY ROBERSON Unavailable [phone] Reason for Referral Not Available Allergies, adverse [...] detached his retina, cannot see.In touch with [facility] (major depressive [...] w/ PCP and oncology specialists Goes to [facility].11/05/24Still having Q6 months injection, still [...] (do not use for phone, instead use [id number]) [facility] ([place]) 11/25/2022 Malignant neoplasm of prostateGastro-esophageal reflux disease without esophagitisType 2 diabetes mellitus with other specified complicationHyperlipidemia, unspecifiedPain, unspecifiedOther chronic painEssential (primary) hypertensionOpioid dependence, uncomplicated New patient,40-59min; chronic exacerbation, 2 stable chronic or 1 acute illness add add modifier 95 for video (do not use for phone, instead use [id number]) [facility], ([place]/20[place] New patient,40-59min; chronic exacerbation, 2 stable chronic or 1 acute illness add add modifier 95 for video (do not use for phone, instead use 43932-68) [facility] 11/25/2022 New patient,40-59min; chronic exacerbation, 2 stable chronic or 1 acute illness add add modifier 95 for video (do not use for phone, instead use [id number]) [facility]/2022 New patient,40-59min; chronic exacerbation, 2 stable chronic or 1 acute illness add add modifier 95 for video (do not use for phone, instead use 26088-57) [facility] 11/25/2022 New patient,40-59min; chronic exacerbation, 2 stable chronic or 1 acute illness add add modifier 95 for video (do not use for phone, instead use 25887-15) [facility] 11/25/2022 New patient,40-59min; chronic exacerbation, 2 stable chronic or 1 acute illness add add modifier 95 for video (do not use for phone, instead use 14901-51) [facility], ([place]) 11/25/2022 RN, CN or CP time with patient by phone; use with 1111F, BP, A1c or other CPTII codes [facility], ([place]) 05/27/2023 Encounter for other specifie d aftercare RN, CN or CP time with patient by phone; use with 1111F, BP, A1c or other CPTII codes [facility], [place] 05/27/2023 Estab. patient 20-29min; 1 stable chronic or 2 minor; add add modifier 95 for video, modifier 93 for phone [facility] ([place]) 06/01/2023 Malignant neoplasm of prostateOpioid use, unspecified, uncomplicatedOther chronic painCalculus of ureter Estab. patient 20-29min; 1 stable chronic or 2 minor; add add modifier 95 for video, modifier 93 for phone [facility] ([place]) 06/01/2023 Estab. patient 20-29min; 1 stable chronic or 2 minor; add add modifier 95 for video, modifier 93 for phone [facility], [place] 06/01/2023 Estab. patient 30-39min; chronic exacerbation, 2 stable chronic or 1 acute illness add add modifier 95 for video, (do not use for phone, instead use 15620-96) [facility], [place] 04/02/2024 Essential (primary) hypertensionMalignant neoplasm of prostateGastro-esophageal [...] (do not use for phone, instead use 85430-08) [facility] 04/02/2024 Estab. patient 30-39min; chronic exacerbation, 2 stable chronic or 1 acute illness add add modifier 95 for video, (do not use for phone, instead use 50440-20) [facility], [place] 04/02/2024 Estab. patient 30-39min; chronic exacerbation, 2 stable chronic or 1 acute illness add add modifier 95 for video, (do not use for phone, instead use 11166-37) [facility] [place] 04/02/2024 Estab. patient 30-39min; chronic exacerbation, 2 stable chronic or 1 acute illness add add modifier 95 for video, (do not use for phone, instead use 60036-09) [facility], [place] 04/02/2024 Estab. patient 30-39min; chronic exacerbation, 2 stable chronic or 1 acute illness add add modifier 95 for video, (do not use for phone, instead use 31308-21) [facility] 04/02/2024 Estab. patient 30-39min; chronic exacerbation, 2 stable chronic or 1 acute illness add add modifier 95 for video, (do not use for phone, instead use 49675-08) [facility] 04/02/2024 Estab. patient 20-29min; 1 stable chronic or 2 minor; add add modifier 95 for video, modifier 93 for phone [facility] [place] 11/05/2024 Essential (primary) hypertensionMalignant neoplasm of prostateGastro-esophageal [...] 95 for video, modifier 93 for phone [facility] [place] 11/05/2024 Estab. patient 20-29min; 1 stable chronic or 2 minor; add add modifier 95 for video, modifier 93 for phone [facility], [place] 11/05/2024 Estab. patient 20-29min; 1 stable chronic or 2 minor; add add modifier 95 for video, modifier 93 for phone [facility], [place] 11/05/2024 Estab. patient 20-29min; 1 stable chronic or 2 minor; add add modifier 95 for video, modifier 93 for phone [facility], [place] 11/05/2024 Estab. patient 20-29min; 1 stable chronic or 2 minor; add add modifier 95 for video, modifier 93 for [facility], ([place]) 11/05/2024 Vital Signs Date of Collection Vitals [...] tive Time Current Smoking Status Former smoker 2025-03-28 0 Sex Male History of Procedures Procedures Service Procedure code Service date Servicing provider Phone# New patient,40-59min; chronic exacerbation, 2 stable chronic or 1 acute illness add add modifier 95 for video (do not use for phone, instead use 29481-45) [id number] 2022-11-25 No Data Available No Data Availa [...] 1111F, BP, A1c or other CPTII codes 21772 2023-05-27 No Data Available No Data Avai lable Medications prescribed in hospital were reviewed and reconciled against what they were taking prior to admission during today's visit. (1111F) 1111F 2023-05-27 No Data Available No Data Availa ble Estab. patient 20-29min; 1 stable chronic or 2 minor; add add modifier 95 for video, modifier 93 for phone [id number] 2023-06-01 No Data Available No Data Availa [...] (do not use for phone, instead use [id number]) [id number] 2024-04-02 No Data Available No Data Availa [...] 95 for video, modifier 93 for phone 14741 2024-11-05 No Data Available No Data Availa [...] appears to be in remission. Goes to [facility].StableOxycodoneUPDATE 06/01/2023:Reviewed safety/risks of opioids. Sending Narcan, education on its use.Had procedure to remove stone stone 05/25/2023. Has catheter. Will have catheter removed on 06/02/2023 at FU appt w Uro ([facility]).Reports some lingering dysuria. Ed re [...] appears to be in remission. Goes to [facility].04/02/2024Still having Q6 months injection, still [...] on 06/02/2023 at FU appt w Uro ([facility]).Reports some lingering dysuria. 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 Goes to [facility].04/02/2024Still having Q6 months injection, still [...] on 06/02/2023 at FU appt w Uro ([facility]).Reports some lingering dysuria. 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 2024-11-05 DME: glucerna, blood pressure machine
--- OUTSIDE RECORDS SUMMARY | 2025-04-24 07:33 | XMS_ITS | Clinical Summary ---
[facility] Address [address] [place] [address] Care Team Providers Care Disability Insurance Hearing Officer Name Role Phone Unavailable Primary Care Provider [...]
== END ==
LOC: HO.NUCMED 07:31
PROVIDERS: PCP Internal Medicine; Visit Provider Nurse Practitioner
DX: R68.81 Early satiety (principal); Q39.4 Esophageal web; E11.3593 Type 2 diabetes mellitus with proliferative diabetic retinopathy without macular edema, bilateral; Z79.4 Long term (current) use of insulin
CPT/HCPCS: 78264; A9541

== ENCOUNTER → 2025-04-24 07:33 | Outpatient (BNV) | payer MEDICARE, SELFPAY | PROVIDERS: PCP Internal Medicine; Visit Provider Radiology Diagnostic Radiology | DX: R68.81 Early satiety (principal) | CPT/HCPCS: 78264 ==

== ENCOUNTER 2025-04-25 08:28 | Outpatient (AMB) | payer MEDICARE, SELFPAY ==
--- NOTE | 2025-04-25 08:36 | AM.OFFVISMDC ---
Intake Vital Signs 04/25/25 08:40 Height 5 ft 7 in Weight 169 lb BMI 26.5 BP 112/70 Blood Pressure Location Lt brachial Position Sitting Intake Visit Reasons: SWV G0439 Crystal Inspector Required: No Accompanied by: Spouse Allergies metformin Allergy (Intermediate, Verified 04/25/25 08:48) diarrhea Medication List - Last Reconciled 04/25/25 by Jaja Vnetura MD ammonium lactate 12% 1 appl topical DAILY 30 days atorvastatin 80 mg PO BEDTIME 90 days blood sugar diagnostic (Accu-Chek Guide test strips) Use 1 TID blood-glucose meter (Accu-Chek Guide Glucose Meter) As directed blood-glucose sensor (FreeStyle Angeli 3 Plus Sensor device) Apply 1 new sensor every 14 days as directed to monitor blood glucose continuously. blood-glucose sensor (FreeStyle Angeli 3 Plus Sensor device) Apply 1 new sensor every 14 days as directed to monitor blood glucose continuously. blood-glucose,adding machine servicer,cont (FreeStyle Angeli 3 [place]) as directed brimonidine 0.2% 1 drp ophthalmic (eye) BID cholecalciferol (vitamin D3) 25 mcg PO DAILY 90 days dextrose (TRUEplus Glucose) 15 grams (32 mL) PO Q15M PRN dulaglutide (Trulicity) 3 mg (0.5 mL) subcut QWEEK empagliflozin (Jardiance) 10 mg PO QAM ezetimibe 10 mg PO DAILY 90 days hydrocortisone 1% (Anti-Itch (hydrocortisone)) 1 appl topical TID PRN 30 days insulin degludec (Tresiba FlexTouch U-100 insulin) 62 units subcut DAILY lancets (Accu-Chek Fastclix Lancet Drum) Use 1 lancet once a day lisinopril 5 mg PO DAILY 90 days [locking raised toilet seat with arms As directed] omeprazole 20 mg PO DAILY 90 days oxycodone 5 mg PO TID PRN 7 days sertraline 50 mg PO DAILY 90 days timolol 0.5% 1 drp ophthalmic (eye) BID triamcinolone acetonide 0.025% 1 appl topical BID 14 days walker As directed HPI HPI Comments History of Present Illness Details The patient is a 64-year-old male presenting for a Medicare annual wellness exam. The patient has a history of minimal gastric emptying delay, identified during a recent study by a barrel rifler, with a 13% delay at 4 hours, slightly above the normal range of 0 to 10%. This condition is currently under evaluation. The patient reports an increase in LDL cholesterol levels despite adherence to atorvastatin 80 mg and ezetimibe 10 mg. The LDL cholesterol has risen to 97 mg/dL. The patient has a history of Type 2 Diabetes Mellitus, managed with Trulicity 3 mg weekly, Jardiance 10 mg, and metformin. Recent A1c was 7.8%, and fasting glucose was 105 mg/dL. The patient also has a history of depression with anxiety, managed with sertraline. Surgical history includes retinal detachment repair, right femur fracture with open reduction internal fixation, and left ankle fracture. The patient experiences pericardial syncope, which is being monitored. Ppp handed to patient. Titus of care reviewed and updated. [facility] Medical History (Updated 04/25/25 @ 10:20 by Jaja Ventura MD) Encounter for annual wellness exam in Medicare patient Encounter for Medicare annual wellness exam Cough Screening for prostate cancer Colon cancer screening Chronic GERD Moderate major depression Diabetic retinopathy of both eyes Diabetic neuropathy Type 2 diabetes mellitus with ophthalmic complication, with long-term current use of insulin Diabetic retinopathy of right eye SARS-CoV-2 positive Chronic radicular pain of lower extremity GERD (gastroesophageal reflux disease) Pure hypercholesterolemia Essential hypertension Diabetes mellitus Surgical History History of surgery History of colonoscopy History of eye surgery History of open reduction and internal fixation (ORIF) procedure Family History Father Diabetes Stroke Mother Diabetes Parkinsons Brother Prostate cancer FH: colonic polyps Maternal Uncle Cancer Social History Housing: Apartment Alcohol intake: former Patient Tobacco Use Status: Former Tobacco user Tobacco use type: Cigarette e-Cigarette/Vaping Use: Never Used Second Hand Smoke Exposure: No service: No Current occupational status: disabled Cognitive needs: No Hearing needs: No Vision needs: Yes Questionnaire Medicare Wellness Checkup What gender do you identify with?: male During the past 4 weeks, how much have you been bothered by emotional problems such as feeling anxious, depressed, irritable, sad or downhearted, and blue?: extremely During the past 4 weeks, has your physical & emotional health limited your social activities with family, friends, neighbors, or groups?: extremely During the past 4 weeks, how much bodily pain have you generally had?: severe pain During the past 4 weeks, was someone available to help you if you needed & wanted help?: yes, as much as I wanted During the past 4 weeks, what was the hardest physical activity you could do for at least 2 minutes?: heavy Can you get to places out of walking distance without help? (For eg., can you travel alone on buses, taxis or drive your car?): No Can you go shopping for groceries or clothes without someone's help?: No Can you prepare your own meals?: No Can you do your housework without help?: No Because of any health problems, do you need the help of another person with your personal care needs such as eating, bathing, dressing or getting around the house?: Yes Can you handle your own money without help?: No During the past 4 weeks, how would you rate your health in general?: poor During the past 4 weeks how have things been going for you?: very bad; could hardly be worse Are you having difficulties driving your car?: yes, often Do you always fasten your seat belt when you are in a car?: yes, usually During past 4 weeks, have you been bothered by the following: never: Falling or dizzy when standing up, often: Trouble eating well?, Problems using the telephone? and Tiredness or fatigue? and always: Sexual problems? and Teeth or denture problems? Have you fallen 2 or more times in the past year?: Yes Are you afraid of falling?: Yes Are you a smoker?: no During the past 4 weeks, how many drinks of wine, beer, or other alcoholic beverages did you have?: no alcohol at all Do you exercise for about 20 minutes 3 or more times a week?: no, I usually do not exercise this much Have you been given information to help with the following?: yes: Hazards in your house that might hurt you? and yes: Keeping track of your medications? How often do you have trouble taking medicines the way you have been told to take them?: I always take medicine as prescribed How confident are you that you can control & manage most of your health problems?: not very confident What is your race?: or origin or descent Mini Mental State Exam (MMSE) Orientation What is the (year) (season) (date) (day) (month)?: year, season, date, day and month Where are we (state) (county) (town or city) (hospital) (floor)?: state, county, town or city, hospital/clinic and floor Registration Name of 3 unrelated objects clearly and slowly, then ask patient to repeat all 3 of them. (1st repeat determines score. Make sure they can repeat all three): object 1, object 2 and object 3 Attention & Calculation (CHOOSE ONE) Spell WORLD backwards (DLROW): 5 letters Recall Ask patient to repeat the 3 items from question #3.: object 1, object 2 and object 3 Language Show patient a wristwatch & ask what it is. Repeat for pencil.: watch and pencil Ask the patient to repeat the phrase 'No ifs, ands, or buts' after you.: correct Ask the patient to 'take a piece of paper with their right hand' 'fold paper in half' 'place paper on floor': take paper in right hand, fold paper in half and place paper on floor Print the sentence 'CLOSE YOUR EYES' on a piece. If patient actually closes eyes then score.: followed written direction Give patient a blank piece of paper & ask to write a sentence. Score if it contains a noun & verb.: sentence contains subject and verb Score Score: 29 Activity of Daily Living Bathing - sponge bath, tub bath or shower: receives help in bathing only one body part (such as back or leg) Dressing - getting clothes from closets & drawers, including inner/outer garments & fasteners.: gets clothes & gets dressed without help, except for help tying shoes Toileting - going to the 'toilet room' for urine/bowel elimination & cleaning self/arranging clothes: receives help going to toilet room, cleaning self or arranging clothes Transfer: moves in & out of bed or chair with help Continence: has occasional 'accidents' Feeding: feeds self without help Total Score: 0 Information obtained from: patient Using telephone: needs assistance Traveling: dependent Shopping: dependent Preparing meals: dependent Housework: dependent Taking medicine: dependent Managing money: dependent PHQ-9 Over the last 2 weeks, how often have you been bothered by any of the following problems? 1. Little interest or pleasure in doing things: nearly every day 2. Feeling down, depressed, or hopeless: nearly every day 3. Trouble falling or staying asleep, or sleeping too much: nearly every day 4. Feeling tired or having little energy: nearly every day 5. Poor appetite or overeating: more than half the days 6. Feeling bad about yourself - or that you are a failure or have let yourself or your family down: nearly every day 7. Trouble concentrating on things, such as reading the newspaper or watching television: more than half the days 8. Moving or speaking so slowly that other people could have noticed. Or the opposite - being so fidgety or restless that you have been moving around a lot more than usual: more than half the days 9. Thoughts that you would be better off or of hurting yourself in some way: more than half the days Total score: 23 Depression Screening Interpretation: Positive (No suicidal thoughts) Depression Screening Follow-up: Existing condition, In treatment and Follow-up Visit Requested Depression Screening Done: Yes 47045 - PHQ-9 Billing: Yes Source: Developed by Drs. Roque Virk, Natalie De La Fuente, Severino Nichole and colleagues, with an educational tamiko from [employer]. AUDIT C Alcohol Use Questionnaire (AUDIT-C) 1. How often do you have a drink containing alcohol?: Never Total Score: 0 MARY-7 AMB Questionnaire MARY-7 Date MARY - 7 assessed: 01/24/25 Feeling nervous, anxious, or on edge: 3 = Nearly every day Not being able to stop or control worryin = Nearly every day Worrying too much about different things: 3 = Nearly every day Trouble relaxin = Nearly every day Being so restless that it is hard to sit still: 3 = Nearly every day Becoming easily annoyed or irritable: 3 = Nearly every day Feeling afraid as if something awful might happen: 3 = Nearly every day Total MARY-7 score (0-4 normal; 5-9 mild; 10-14 moderate; 15-21 severe): 21 Source: Developed by Drs. Roque L. SullyNatalie blanco, Severino Nichole and colleagues, with an educational tamiko from [employer]. MARY-7 Assessment Billing MARY-7 Assessment Tool: MARY-7 Assessment 63491 Thrive Questionnaire Date Thrive assessed: 01/22/25 I am a: Patient What is your living situation today?: I have a steady place to live Within the past 12 months, did the food you bought not last and you didn't have the money to get more?: Sometimes True Within the past 12 months, did you worry whether your food would run out before you got money to buy more?: Sometimes True Do you have trouble paying for medicines?: No Do you have trouble getting transportation to medical appointments?: No Do you have trouble paying your heating and electricity bill?: No Do you have trouble taking care of your child, family member or friend?: Yes Do you have trouble with day-to-day activities such as bathing, preparing meals, shopping, managing finances, etc.?: Yes Are you currently unemployed and looking for a job?: No Are you interested in more education?: No Please select the resources that you would like help with: Food Currently or been in a relationship where the following occur: No concerns reported THRIVE Score: 2 Review of Systems Const All systems reviewed & are unremarkable except as noted in HPI and below Card Denies chest pain at rest, Denies chest pain with activity, Denies edema, Denies irregular heart rhythm, Denies claudication, Denies dyspnea, Denies dyspnea on exertion, Denies orthopnea, Denies paroxysmal nocturnal dyspnea and Denies slow heart rate Resp Denies cough, Denies dyspnea and Denies dyspnea on exertion GI Denies abdominal pain, Denies change in bowel habits, Denies excessive flatus, Denies nausea and Denies vomiting Neuro Denies confusion Psych Denies confusion Physical Exam Vital Signs: Last Vital Signs BP 112/70 04/25/25 08:40 BMI result Body Mass Index 26.5 Const General: No confusion Orientation/consciousness: patient oriented x3 and No confusion Resp Effort & Inspection: normal respiratory effort Auscultation: clear to auscultation bilaterally Cardio Jugular venous distension: no JVD Rate: regular rate Rhythm: regular rhythm Heart sounds: S1 normal heart sound present and S2 normal heart sound present Neuro General: patient oriented x3, no focal motor deficits and No confusion Romberg Test: Negative Extrem General: Yes full ROM Immunizations Tenivac (PF) 5 Lf unit-2 Lf unit/0.5 mL intramuscular syringe Performing Provider: Jaja Ventura MD [facility] [place] Administered by: ESTELLA Rico on 04/25/25 09:13 Dose Route Admin Location Dispensed Lot Number Expiration Date NDC Full Service Vending Driver 0.5 mL IM Left Deltoid 0.5 mL [id number] 12/25/26 [id number] [employer] Total Dispensed Waste 0.5 mL 0 % VIS Given Date VIS Provided VIS Publication Date 04/25/25 Single Vaccine 21 Eligibility Eligibility Date Funding Source Not VFC Eligible 04/25/25 Private Assessment & Plan Assessment & Plan (1) Encounter for annual wellness exam in Medicare patient: Comment: UTD Colonoscopy's 1-2 months ago. Repeat in 5 years. Eye exam tomorrow Dr. Moreno Code(s): Z00.00 - Encounter for general adult medical examination without abnormal findings (2) Severe major depression without psychotic features: Code(s): F32.2 - Major depressive disorder, single episode, severe without psychotic features (3) Diabetes mellitus: Code(s): E11.9 - Type 2 diabetes mellitus without complications Qualifiers: Diabetes mellitus type: type 2 Diabetes mellitus bed bug exterminator insulin use: with jail use Diabetes mellitus complication status: without complication Qualified Code(s): E11.9 - Type 2 diabetes mellitus without complications; Z79.4 - meterman (current) use of insulin Plan The patient will receive the tetanus vaccination today as part of preventative care measures. The minimal gastric emptying delay will continue to be monitored by the barrel rifler, with no immediate changes to the current management plan. For the elevated LDL cholesterol, the patient will continue with the current medication regimen of atorvastatin and ezetimibe, with a follow-up laboratory test scheduled in four months to reassess lipid levels. The management of Type 2 Diabetes Mellitus will continue with the current medications, and the patient will be monitored for glycemic control with regular A1c testing. The patient's depression with anxiety will continue to be managed with sertraline, with ongoing monitoring for mental health stability. Patient was informed and verbally consented to the use of an ambient scribe for clinic note documentation during this visit. Orders: Orders Td Immunization Today Z23 - Encounter for immunization Quality Reporting (2019) Depression/Bipolar (159/160/161/177) PHQ-9: Total score: 23 Coding Level of Care Code Medicare Subsequent (G0439) Diagnoses Encounter for annual wellness exam in Medicare patient Z00.00 Severe major depression without psychotic features F32.2 Type 2 diabetes mellitus without complication, with long-term current use of insulin E11.9; Z79.4 Diabetes mellitus type: type 2 Diabetes mellitus bed bug exterminator insulin use: with jail use Diabetes mellitus complication status: without complication Additional Codes MARY-7 Assessment Billing - MARY-7 Assessment Tool: MARY-7 Assessment 22602 ([id number]) PHQ-9 - 88787 - PHQ-9 Billing: Yes ([id number]) Time Spent (min) 36 Advance Care Planning Advance Care Planning discussion: Exists, not on file Date of discussion: 04/25/25 Who was present: patient, wirfe and me Forms completed: Health Care Proxy
--- OUTSIDE RECORDS SUMMARY | 2025-04-25 08:37 | XMS_ITS ---
Author Name Angie Hernández NP Address [address] [place] [address] Phone [phone] [facility] [place] Care Team Providers Care Crisis Mental Health Therapist Name Role Phone Angie Hernández Unavailable [phone] Unavailable Unavailable Unavailable Orders, [facility] Unavailable [phone] [facility] Unavailable [phone] KELLY ROBERSON Unavailable [phone] Reason for Referral Not Available Allergies, adverse [...] detached his retina, cannot see.In touch with [employer] (major depressive [...] w/ PCP and oncology specialists Goes to [facility].11/05/24Still having Q6 months injection, still having [...] (do not use for phone, instead use [id number]) [facility] ([place]) 11/25/2022 Malignant neoplasm of prostateGastro-esophageal reflux disease without esophagitisType 2 diabetes mellitus with other specified complicationHyperlipidemia, unspecifiedPain, unspecifiedOther chronic painEssential (primary) hypertensionOpioid dependence, uncomplicated New patient,40-59min; chronic exacerbation, 2 stable chronic or 1 acute illness add add modifier 95 for video (do not use for phone, instead use 91877-22) [facility], ([place]) 11/25/2022 New patient,40-59min; chronic exacerbation, 2 stable chronic or 1 acute illness add add modifier 95 for video (do not use for phone, instead use 49370-34) [facility], ([place]) 11/25/2022 New patient,40-59min; chronic exacerbation, 2 stable chronic or 1 acute illness add add modifier 95 for video (do not use for phone, instead use 96943-61) [facility], ([place]) 11/25/2022 New patient,40-59min; chronic exacerbation, 2 stable chronic or 1 acute illness add add modifier 95 for video (do not use for phone, instead use 02658-01) [facility], ([place] 11/25/2022 New patient,40-59min; chronic exacerbation, 2 stable chronic or 1 acute illness add add modifier 95 for video (do not use for phone, instead use 76500-74) [facility], ([place] 11/25/2022 New patient,40-59min; chronic exacerbation, 2 stable chronic or 1 acute illness add add modifier 95 for video (do not use for phone, instead use 32295-07) [facility], ([place]) 11/25/2022 RN, CN or CP time with patient by phone; use with 1111F, BP, A1c or other CPTII codes [facility], ([place]) 05/27/2023 Encounter for other specifie d aftercare RN, CN or CP time with patient by phone; use with 1111F, BP, A1c or other CPTII codes [facility], ([place] 05/27/2023 Estab. patient 20-29min; 1 stable chronic or 2 minor; add add modifier 95 for video, modifier 93 for phone [facility] ([place]) 06/01/2023 Malignant neoplasm of prostateOpioid use, unspecified, uncomplicatedOther chronic painCalculus of ureter Estab. patient 20-29min; 1 stable chronic or 2 minor; add add modifier 95 for video, modifier 93 for phone [facility] ([place]) 06/01/2023 Estab. patient 20-29min; 1 stable chronic or 2 minor; add add modifier 95 for video, modifier 93 for phone [facility], ([place] 06/01/2023 Estab. patient 30-39min; chronic exacerbation, 2 stable chronic or 1 acute illness add add modifier 95 for video, (do not use for phone, instead use 50207-11) [facility], ([place] 04/02/2024 Essential (primary) hypertensionMalignant neoplasm of prostateGastro-esophageal [...] (do not use for phone, instead use 29237-68) [facility], ([place] 04/02/2024 Estab. patient 30-39min; chronic exacerbation, 2 stable chronic or 1 acute illness add add modifier 95 for video, (do not use for phone, instead use 29258-47) [facility], ([place] 04/02/2024 Estab. patient 30-39min; chronic exacerbation, 2 stable chronic or 1 acute illness add add modifier 95 for video, (do not use for phone, instead use 41665-49) [facility], ([place] 04/02/2024 Estab. patient 30-39min; chronic exacerbation, 2 stable chronic or 1 acute illness add add modifier 95 for video, (do not use for phone, instead use 03081-78) [facility], ([place] 04/02/2024 Estab. patient 30-39min; chronic exacerbation, 2 stable chronic or 1 acute illness add add modifier 95 for video, (do not use for phone, instead use 21815-28) [facility], ([place] 04/02/2024 Estab. patient 30-39min; chronic exacerbation, 2 stable chronic or 1 acute illness add add modifier 95 for video, (do not use for phone, instead use 45880-99) [facility], ([place] 04/02/2024 Estab. patient 20-29min; 1 stable chronic or 2 minor; add add modifier 95 for video, modifier 93 for phone [facility], ([place] 11/05/2024 Essential (primary) hypertensionMalignant neoplasm of prostateGastro-esophageal [...] 95 for video, modifier 93 for phone [facility], ([place] 11/05/2024 Estab. patient 20-29min; 1 stable chronic or 2 minor; add add modifier 95 for video, modifier 93 for phone [facility], ([place] 11/05/2024 Estab. patient 20-29min; 1 stable chronic or 2 minor; add add modifier 95 for video, modifier 93 for phone [facility], ([place] 11/05/2024 Estab. patient 20-29min; 1 stable chronic or 2 minor; add add modifier 95 for video, modifier 93 for phone [facility], ([place] 11/05/2024 Estab. patient 20-29min; 1 stable chronic or 2 minor; add add modifier 95 for video, modifier 93 for [facility], ([place]) 11/05/2024 Vital Signs Date of Collection Vitals [...] Time Current Smoking Status Former smoker 2025-03-28 1 Sex Male History of Procedures Procedures Service Procedure code Service date Servicing provider Phone# New patient,40-59min; chronic exacerbation, 2 stable chronic or 1 acute illness add add modifier 95 for video (do not use for phone, instead use 95430-96) [id number] 2022-11-25 No Data Available No Data Availa [...] 1111F, BP, A1c or other CPTII codes 64275 2023-05-27 No Data Available No Data Avai lable Medications prescribed in hospital were reviewed and reconciled against what they were taking prior to admission during today's visit. (1111F) 1111F 2023-05-27 No Data Available No Data Availa ble Estab. patient 20-29min; 1 stable chronic or 2 minor; add add modifier 95 for video, modifier 93 for phone [id number] 2023-06-01 No Data Available No Data Availa [...] (do not use for phone, instead use 50609-50) [id number] 2024-04-02 No Data Available No Data Availa [...] 95 for video, modifier 93 for phone [id number] 2024-11-05 No Data Available No Data Availa [...] appears to be in remission. Goes to [facility].StableOxycodoneUPDATE 06/01/2023:Reviewed safety/risks of opioids. Sending Narcan, education on its use.Had procedure to remove stone stone 05/25/2023. Has catheter. Will have catheter removed on 06/02/2023 at FU appt w Uro ([facility]).Reports some lingering dysuria. Ed re post-procedure [...] appears to be in remission. Goes to [facility].04/02/2024Still having Q6 months injection, still having [...] on 06/02/2023 at FU appt w Uro ([facility]).Reports some lingering dysuria. 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 Goes to [facility].04/02/2024Still having Q6 months injection, still having [...] on 06/02/2023 at FU appt w Uro ([facility]).Reports some lingering dysuria. 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 2024-11-05 DME: glucerna, blood pressure machine
--- OUTSIDE RECORDS SUMMARY | 2025-04-25 08:38 | XMS_ITS | Clinical Summary ---
Author Organization [facility] Address [address] [place] [address] Care Team Providers Care Compressor Operator Adjuster Name Role Phone Unavailable Primary Care Provider [...]
[2025-04-25 08:40] VITALS: BP 112/70; BMI 26.5
== END 2025-04-25 09:12 | disposition home or self-care (01) ==
LOC: HO.HMCH 08:28
PROVIDERS: PCP Internal Medicine; Visit Provider Internal Medicine
DX: Z00.00 Encounter for general adult medical examination without abnormal findings (principal); F32.2 Major depressive disorder, single episode, severe without psychotic features; E11.9 Type 2 diabetes mellitus without complications; Z79.4 Long term (current) use of insulin; Z23 Encounter for immunization

== ENCOUNTER → 2025-04-25 08:28 | Outpatient (BNVA) | payer MEDICARE, SELFPAY | PROVIDERS: PCP Internal Medicine; Visit Provider Internal Medicine | DX: Z00.00 Encounter for general adult medical examination without abnormal findings (principal); Z23 Encounter for immunization; F32.2 Major depressive disorder, single episode, severe without psychotic features; E11.9 Type 2 diabetes mellitus without complications; Z79.4 Long term (current) use of insulin | CPT/HCPCS: 90471; 90714; 96127 ==

== ENCOUNTER 2025-05-17 08:01 | Outpatient (AMB) | payer MEDICARE, SELFPAY ==
--- OUTSIDE RECORDS SUMMARY | 2025-05-17 08:03 | XMS_ITS ---
Author Name Angie Hernández NP Address [address] [place] [address] Phone [phone] [facility] Care Team Providers Care Shaker Screen Operator Name Role Phone Angie Hernández Unavailable [phone] Unavailable Unavailable Unavailable Orders, [facility] Unavailable [phone] [facility] Unavailable KELLY ROBERSON Unavailable [phone] Reason for Referral Not Available Allergies, adverse [...] detached his retina, cannot see.In touch with [employer] (major depressive [...] w/ PCP and oncology specialists Goes to [facility].11/05/24Still having Q6 months injection, still [...] (do not use for phone, instead use 67305-33) [facility] ([place]) 11/25/2022 Malignant neoplasm of prostateGastro-esophageal reflux disease without esophagitisType 2 diabetes mellitus with other specified complicationHyperlipidemia, unspecifiedPain, unspecifiedOther chronic painEssential (primary) hypertensionOpioid dependence, uncomplicated New patient,40-59min; chronic exacerbation, 2 stable chronic or 1 acute illness add add modifier 95 for video (do not use for phone, instead use 34414-56) [facility], ([place]) 11/25/2022 New patient,40-59min; chronic exacerbation, 2 stable chronic or 1 acute illness add add modifier 95 for video (do not use for phone, instead use 03064-50) [facility] ([place]) 11/25/2022 New patient,40-59min; chronic exacerbation, 2 stable chronic or 1 acute illness add add modifier 95 for video (do not use for phone, instead use 26921-27) [facility], ([place] 11/25/2022 New patient,40-59min; chronic exacerbation, 2 stable chronic or 1 acute illness add add modifier 95 for video (do not use for phone, instead use 48606-82) [facility], ([place] 11/25/2022 New patient,40-59min; chronic exacerbation, 2 stable chronic or 1 acute illness add add modifier 95 for video (do not use for phone, instead use 24547-22) [facility] ([place] 11/25/2022 New patient,40-59min; chronic exacerbation, 2 stable chronic or 1 acute illness add add modifier 95 for video (do not use for phone, instead use 97347-76) [facility], ([place]) 11/25/2022 RN, CN or CP time with patient by phone; use with 1111F, BP, A1c or other CPTII codes [facility], ([place]) 05/27/2023 Encounter for other specifie d aftercare RN, CN or CP time with patient by phone; use with 1111F, BP, A1c or other CPTII codes [facility], ([place]) 05/27/2023 Estab. patient 20-29min; 1 stable chronic or 2 minor; add add modifier 95 for video, modifier 93 for phone [facility] ([place] 06/01/2023 Malignant neoplasm of prostateOpioid use, unspecified, uncomplicatedOther chronic painCalculus of ureter Estab. patient 20-29min; 1 stable chronic or 2 minor; add add modifier 95 for video, modifier 93 for phone [facility] ([place] 06/01/2023 Estab. patient 20-29min; 1 stable chronic or 2 minor; add add modifier 95 for video, modifier 93 for phone [facility], ([place] 06/01/2023 Estab. patient 30-39min; chronic exacerbation, 2 stable chronic or 1 acute illness add add modifier 95 for video, (do not use for phone, instead use 97801-98) [facility], ([place] 04/02/2024 Essential (primary) hypertensionMalignant neoplasm of [...] (do not use for phone, instead use 56926-29) [facility] ([place] 04/02/2024 Estab. patient 30-39min; chronic exacerbation, 2 stable chronic or 1 acute illness add add modifier 95 for video, (do not use for phone, instead use 99591-64) [facility], ([place] 04/02/2024 Estab. patient 30-39min; chronic exacerbation, 2 stable chronic or 1 acute illness add add modifier 95 for video, (do not use for phone, instead use 72647-75) [facility], ([place] 04/02/2024 Estab. patient 30-39min; chronic exacerbation, 2 stable chronic or 1 acute illness add add modifier 95 for video, (do not use for phone, instead use 12899-45) [facility], ([place] 04/02/2024 Estab. patient 30-39min; chronic exacerbation, 2 stable chronic or 1 acute illness add add modifier 95 for video, (do not use for phone, instead use 93335-10) [facility] ([place] 04/02/2024 Estab. patient 30-39min; chronic exacerbation, 2 stable chronic or 1 acute illness add add modifier 95 for video, (do not use for phone, instead use 40930-71) [facility], ([place] 04/02/2024 Estab. patient 20-29min; 1 stable chronic or 2 minor; add add modifier 95 for video, modifier 93 for phone [facility], ([place] 11/05/2024 Essential (primary) hypertensionMalignant neoplasm of [...] 95 for video, modifier 93 for phone [facility], ([place] 11/05/2024 Estab. patient 20-29min; 1 stable chronic or 2 minor; add add modifier 95 for video, modifier 93 for phone [facility], ([place] 11/05/2024 Estab. patient 20-29min; 1 stable chronic or 2 minor; add add modifier 95 for video, modifier 93 for phone [facility], ([place] 11/05/2024 Estab. patient 20-29min; 1 stable chronic or 2 minor; add add modifier 95 for video, modifier 93 for phone [facility], ([place] 11/05/2024 Estab. patient 20-29min; 1 stable chronic or 2 minor; add add modifier 95 for video, modifier [address] [facility], ([place]) 11/05/2024 Vital Signs Date of Collection [...] tive Time Current Smoking Status Former smoker 2025-04-27 2 Sex Male History of Procedures Procedures Service Procedure code Service date Servicing provider Phone# New patient,40-59min; chronic exacerbation, 2 stable chronic or 1 acute illness add add modifier 95 for video (do not use for phone, instead use 90592-47) [id number] 2022-11-25 No Data Available No Data Availa [...] 1111F, BP, A1c or other CPTII codes 38872 2023-05-27 No Data Available No Data Avai lable Medications prescribed in hospital were reviewed and reconciled against what they were taking prior to admission during today's visit. (1111F) 1111F 2023-05-27 No Data Available No Data Availa ble Estab. patient 20-29min; 1 stable chronic or 2 minor; add add modifier 95 for video, modifier 93 for phone 36812 2023-06-01 No Data Available No Data Availa [...] (do not use for phone, instead use 65253-64) [id number] 2024-04-02 No Data Available No Data Availa [...] 95 for video, modifier 93 for phone 43164 2024-11-05 No Data Available No Data Availa [...] appears to be in remission. Goes to [facility].StableOxycodoneUPDATE 06/01/2023:Reviewed safety/risks of opioids. Sending [...] appears to be in remission. Goes to [facility].04/02/2024Still having Q6 months injection, still [...] detached his retina, cannot see.In touch with [employer] [facility]ineIs almost blind Lives [...] appears to be in remission. 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 2024-11-05 DME: glucerna, blood pressure machine
--- OUTSIDE RECORDS SUMMARY | 2025-05-17 08:04 | XMS_ITS | Clinical Summary ---
[facility] Organization [facility] Address [address] [place] [address] Care Team Providers Care Volcanologist Name Role Phone Unavailable Primary Care Provider [...]
[2025-05-17 08:12] VITALS: BP 110/76; PULSE 92; O2SAT 96; BMI 26.6
--- NOTE | 2025-05-17 08:12 | MHC.OFFVIS ---
Vital Signs 05/17/25 08:12 Height 5 ft 7 in Weight 169 lb 12.095 oz BMI 26.6 BP 110/76 Blood Pressure Location Lt brachial Position Sitting Pulse 92 Pulse Source Pulse Oximeter Pulse Oximetry (%) 96 Oxygen Delivery Method Room Air Intake Visit Reasons: Type II diabetes Intake Note: Patient present today to follow up on Type 2 Diabetes Mellitus. Patient is receiving Freestyle Angeli 3 Plus supplies through: [facility] pharmacy Last Diabetic Eye exam: 02/13/2025 [facility] Last Podiatry Visit: Does not see a Outdoor Recreation Specialist Random Glucose: 80 mg/dL HgA1C: 7.8% 03/15/2025 Wire Bound Box Machine Operator Required: Yes Wire Bound Box Machine Operator Language: Rehab Department Manager Services: Wire Bound Box Machine Operator Present Wire Bound Box Machine Operator Name: Lars Lopez #[id number] Accompanied by: Self / Same As Patient Allergies metformin Allergy (Intermediate, Verified 05/17/25 08:13) diarrhea Medication List - Last Reconciled 05/17/25 by SERVANDO Morrison ammonium lactate 12% 1 appl topical DAILY 30 days atorvastatin 80 mg PO BEDTIME 90 days blood sugar diagnostic (Accu-Chek Guide test strips) Use 1 TID blood-glucose meter (Accu-Chek Guide Glucose Meter) As directed blood-glucose sensor (FreeStyle Angeli 3 Plus Sensor device) Apply 1 new sensor every 14 days as directed to monitor blood glucose continuously. blood-glucose sensor (FreeStyle Angeli 3 Plus Sensor device) Apply 1 new sensor every 14 days as directed to monitor blood glucose continuously. blood-glucose,valving machine operator,cont (FreeStyle Angeli 3 [place]) as directed brimonidine 0.2% 1 drp ophthalmic (eye) BID cholecalciferol (vitamin D3) 25 mcg PO DAILY 90 days dextrose (TRUEplus Glucose) 15 grams (32 mL) PO Q15M PRN dorzolamide-timolol 22.3-6.8 mg/mL 1 drp ophthalmic-Right BID dulaglutide (Trulicity) 3 mg (0.5 mL) subcut QWEEK empagliflozin (Jardiance) 10 mg PO QAM ezetimibe 10 mg PO DAILY 90 days hydrocortisone 1% (Anti-Itch (hydrocortisone)) 1 appl topical TID PRN 30 days insulin degludec (Tresiba FlexTouch U-100 insulin) 60 units subcut DAILY lancets (Accu-Chek Fastclix Lancet Drum) Use 1 lancet once a day lisinopril 5 mg PO DAILY 90 days [locking raised toilet seat with arms As directed] omeprazole 20 mg PO DAILY 90 days oxycodone 5 mg PO TID PRN 7 days sertraline 50 mg PO DAILY 90 days tamsulosin 0.4 mg PO BEDTIME PRN timolol 0.5% 1 drp ophthalmic (eye) BID triamcinolone acetonide 0.025% 1 appl topical BID 14 days walker As directed HPI Comments Details: This is a 64 year old [place]-speaking male presenting with his for continued diabetic management. Video computer security manager used. He has past medical history of prostate cancer, HLD, hypertension, anxiety with depression and GERD. He was diagnosed with diabetes 25 years ago. He has a family history of diabetes. Hemoglobin a1c 12.2% 04/19/24. Hemoglobin A1c 7.8% 03/15/2025. Reviewed CGM download for the past 14 days CGM active 96% Average glucose 143 G MA 6.7% Very high 3% High 18% Target range 76% Low 3% He has a pattern of hypoglycemia overnight and in the afternoon and evening. The patient reports he has only had 1-2 episodes of symptomatic hypoglycemia within the past month. He treated the episodes when he was symptomatic. He does not confirm low sugars with a fingerstick. Current medication regimen: Tresiba 62 units in the morning Trulicity 3 mg Jardiance 10 mg daily Past medication: Metformin discontinued previously due to diarrhea. Lantus discontinued due to hypoglycemia. Compliance issues: none He has been seen by the lodging facilities attendant and dietitian. Hypoglycemia symptoms: Symptoms include shakiness and feeling hungry Corrects with glass of orange juice. Hyperglycemia symptoms: none Eye exam: UTD. [facility] and Dr. Stephenson. Microvascular complications: bilateral neuropathy, retinopathy OU, receives injection in the right eye every 2 months Macrovascular complications: none Hypertension: treated with Lisinopril 5 mg Hyperlipidemia: treated with Atorvastatin 80 mg and Zetia 10 mg LDL <100. ROS: Constitutional: No fevers, chills or unexplained weight loss. Respiratory: No shortness of breath. Cardiovascular: No chest pain or pedal edema. Gastrointestinal: No nausea, vomiting or abdominal pain. Genitourinary: No dysuria, hematuria, urinary frequency. Denies history of genitourinary infections. Skin: No rashes or wounds. Endocrine: No polyuria or polydipsia. Physical exam: Constitutional: Alert, in no distress. Eyes: Pupils are equal, round and reactive to light. Neck: Supple, Full range of motion. No lymphadenopathy. No palpable thyroid masses. Respiratory: Clear to auscultation. Cardiovascular: S1 S2 regular. No murmurs PFSH Medical History Encounter for annual wellness exam in Medicare patient Encounter for Medicare annual wellness exam Cough Screening for prostate cancer Colon cancer screening Chronic GERD Moderate major depression Diabetic retinopathy of both eyes Diabetic neuropathy Type 2 diabetes mellitus with ophthalmic complication, with long-term current use of insulin Diabetic retinopathy of right eye SARS-CoV-2 positive Chronic radicular pain of lower extremity GERD (gastroesophageal reflux disease) Pure hypercholesterolemia Essential hypertension Diabetes mellitus Surgical History History of surgery History of colonoscopy History of eye surgery History of open reduction and internal fixation (ORIF) procedure Family History Father Diabetes Stroke Mother Diabetes Parkinsons Brother Prostate cancer FH: colonic polyps Maternal Uncle Cancer Social History Housing: Apartment Alcohol intake: former Patient Tobacco Use Status: Former Tobacco user Tobacco use type: Cigarette e-Cigarette/Vaping Use: Never Used Second Hand Smoke Exposure: No service: No Current occupational status: disabled Cognitive needs: No Hearing needs: No Vision needs: Yes Physical Exam Vital Signs: Last Vital Signs Pulse 92 05/17/25 08:12 BP 110/76 05/17/25 08:12 Pulse Ox 96 05/17/25 08:12 Oxygen Delivery Method Room Air 05/17/25 08:12 BMI result Body Mass Index 26.6 Office Procedures Glucose Monitoring Details Details: See [facility] [address] - Glucose monitoring, continuous-physician I&R Procedure code (CPT) selection complete Results Reviewed Results Reviewed: Laboratory Last Values Glucose (Clinic) 80 mg/dL (60-115) 05/17/25 08:19 Laboratory Tests 04/23/25 04/23/25 09:00 09:03 Creatinine 0.79 Estimated GFR > 60 AST 18 ALT 18 Triglycerides 93 Cholesterol 180 LDL Cholesterol, Calc 97 HDL Cholesterol 65 25-OH Vitamin D Total 42.0 Urine Creatinine 143.84 Urine Microalbumin 22.0 Microalb/Creat Ratio 15.2 Assessment & Plan Assessment & Plan (1) Type 2 diabetes mellitus with ophthalmic complication, with long-term current use of insulin: Code(s): E11.39 - Type 2 diabetes mellitus with other diabetic ophthalmic complication; Z79.4 - intermediate teacher (current) use of insulin Category: Medical Qualifiers: Diabetes mellitus complication detail: with diabetic retinopathy Diabetic retinopathy severity: with proliferative retinopathy Proliferative retinopathy type: unspecified Diabetes mellitus macular edema: macular edema presence unspecified Laterality: bilateral Qualified Code(s): E11.3593 - Type 2 diabetes mellitus with proliferative diabetic retinopathy without macular edema, bilateral; Z79.4 - longterm (current) use of insulin (2) Diabetic neuropathy: Code(s): E11.40 - Type 2 diabetes mellitus with diabetic neuropathy, unspecified Category: Medical Qualifiers: Diabetes mellitus type: type 2 Diabetes mellitus complication detail: diabetic polyneuropathy Qualified Code(s): E11.42 - Type 2 diabetes mellitus with diabetic polyneuropathy Plan In summary this is a 64-year-old male with type 2 diabetes. CGM download shows that diabetes is controlled. Discussed pathophysiology of Type II Diabetes Mellitus with the patient in detail.? I explained the shelter risks and complications associated with uncontrolled diabetes including nephropathy, neuropathy, peripheral vascular disease, retinopathy, increased risk of heart disease and stroke.? He will continue lifestyle modifications. Continue use of CGM and bring this with you to appointments. He will confirm low blood sugars with a fingerstick if he is not symptomatic. Decrease Tresiba to 62 units daily. Continue Trulicity 3 mg once weekly. Continue Jardiance 10 mg every morning. Reviewed treatment of hypoglycemia. He has written instructions. Continue current medications for hypertension and hyperlipidemia. Follow up in 3 months for type 2 diabetes. Orders: Orders AMB Glucose Monitoring Today E11.9 - Type 2 diabetes mellitus without complications Patient Instructions: Decrease Tresiba to 60 units daily Continue Trulicity 3 mg Continue Jardiance 10 mg daily If you experience low blood sugar, treat this by eating a chewable fruit candy like skittles or jelly beans (about 8 pieces), 4 ounces (1/2 cup) of fruit juice (not diet), 1 tablespoon of honey or 4 glucose tablets. If your blood sugar is under 50, take double the amount of one of the above. Recheck your blood sugar in 15 minutes. Disminuya la dosis de Tresiba a 60 unidades diarias. Contin?e con Trulicity 3 mg. Contin?e con Jardiance 10 mg diarias. Si experimenta niveles bajos de az?car en la manolo, tr?telo con un caramelo masticable de fruta jaden Skittles o Jelly Beans (aproximadamente 8 piezas), 113 ml (1/2 taza) de jugo de fruta (no light), 1 cucharada de miel o 4 tabletas de glucosa. Si shankar nivel de az?car en la manolo es inferior a 50, tome el doble de la dosis de ondina de los medicamentos mencionados. Vuelva a medir shankar nivel de az?car en la manolo en 15 minutos. Coding Level of Care Code Est Pt Level 4 (49528) Diagnoses Type 2 diabetes mellitus with proliferative retinopathy of both eyes, with long-term current use of insulin, macular edema presence unspecified, unspecified proliferative retinopathy type E11.3593; Z79.4 Diabetes mellitus complication detail: with diabetic retinopathy Diabetic retinopathy severity: with proliferative retinopathy Proliferative retinopathy type: unspecified Diabetes mellitus macular edema: macular edema presence unspecified Laterality: bilateral Diabetic polyneuropathy associated with type 2 diabetes mellitus E11.42 Diabetes mellitus type: type 2 Diabetes mellitus complication detail: diabetic polyneuropathy CPT Codes Details - CPT: 62880 - Glucose monitoring, continuous-physician I&R ([id number])
[2025-05-17 08:22] LABS: Glucose, Whole Blood 80 mg/dL (60-115)
== END 2025-05-17 08:41 | disposition home or self-care (01) ==
LOC: HO.ENCR 08:02
PROVIDERS: PCP Internal Medicine; Visit Provider Physician Assistant Medical
DX: E11.3593 Type 2 diabetes mellitus with proliferative diabetic retinopathy without macular edema, bilateral (principal); Z79.4 Long term (current) use of insulin; E11.42 Type 2 diabetes mellitus with diabetic polyneuropathy

== ENCOUNTER → 2025-05-17 08:01 | Outpatient (BNVA) | payer MEDICARE, SELFPAY | PROVIDERS: PCP Internal Medicine; Visit Provider Physician Assistant Medical | DX: E11.3593 Type 2 diabetes mellitus with proliferative diabetic retinopathy without macular edema, bilateral (principal); E11.42 Type 2 diabetes mellitus with diabetic polyneuropathy; Z79.4 Long term (current) use of insulin | CPT/HCPCS: 82947; 99212 ==

== ENCOUNTER 2025-06-21 08:39 | Outpatient (AMB) | payer MEDICARE, SELFPAY ==
--- NOTE | 2025-06-21 09:01 | MHC.OFFVIS ---
Vital Signs 06/21/25 09:03 Height 5 ft 7 in Weight 167 lb 8.821 oz BMI 26.2 BP 105/62 Blood Pressure Location Lt brachial Position Sitting Pulse 86 Intake Visit Reasons: 3 mo f/u early satiety, esophageal web Intake Note: Cameron presents in the office as a 3 month follow up for Early Satiety and Esophageal Web. CC: States that he has been okay for that past two months! Engineering Systems Analyst Required: Yes Allergies metformin Allergy (Intermediate, Verified 05/17/25 08:13) diarrhea HPI HPI 3 mo f/u early satiety, esophageal web: Details: Assessment & Plan (1) Type 2 diabetes mellitus with ophthalmic complication, with long-term current use of insulin: Code(s): E11.39 - Type 2 diabetes mellitus with other diabetic ophthalmic complication; Z79.4 - terminal makeup operator (current) use of insulin Category: Medical Qualifiers: Diabetes mellitus complication detail: with diabetic retinopathy Diabetes mellitus macular edema: macular edema presence unspecified Diabetic retinopathy severity: with proliferative retinopathy Laterality: bilateral Proliferative retinopathy type: unspecified Qualified Code(s): E11.3593 - Type 2 diabetes mellitus with proliferative diabetic retinopathy without macular edema, bilateral; Z79.4 - shelter (current) use of insulin (2) Early satiety: Code(s): R68.81 - Early satiety Category: Medical (3) Esophageal web: Code(s): Q39.4 - Esophageal web Category: Medical (4) Pre-op evaluation: Code(s): Z01.818 - Encounter for other preprocedural examination Category: Medical (5) Abnormal upper gastrointestinal barium series: Code(s): R93.3 - Abnormal findings on diagnostic imaging of other parts of digestive tract Category: Medical Plan [place] #[id number] He is here today with his who is supportive. Onset about 2 years ago with HB and epigastric pain. He was started on pills but he has not had a recurrence since starting the medication. The BS suggests retained food and an esophageal web. There is also disorganized esophageal motility, but he denies dysphagia. He DOES experience early satiety over the past 2 years. I suggest an EGD and GES. He denies any cardiac or respiratory problems. No prior problems with anesthesia or sedation. No ID problems. THere is no known FHX of stomach or esophageal cancer. Orders: Orders NM gastric emptying study Today E11.3593 - Type 2 diabetes mellitus with proliferative diabetic retinopathy without macular edema, bilateral, Q39.4 - Esophageal web, R68.81 - Early satiety, Z79.4 - terminal makeup operator (current) use of insulin EGD - GI Use Only Today E11.3593 - Type 2 diabetes mellitus with proliferative diabetic retinopathy without macular edema, bilateral, Q39.4 - Esophageal web, R68.81 - Early satiety, Z79.4 - terminal makeup operator (current) use of insulin Gastric emptying study 04/24/2025 INDINGS: There is visualization of activity in the stomach immediately post ingestion. As the study progresses, there is clearance of activity from the stomach and visualization of progressively increasing small bowel activity. By the end of the study, there is almost no retention noted in the stomach. Retention in the stomach at each time interval was: 1 hour 73% (normal 37%-90%) 2 hours 40% (normal 30%-60%) 3 hours 20% 4 hours 13% (normal 0%-10%) NM/NM gastric emptying study IMPRESSION: Minimally delayed gastric emptying at 4 hours. EGD Biopsy TODAY'S VISIT Citizen [place] #Jessica Jose [facility] Medical History Encounter for annual wellness exam in Medicare patient Encounter for Medicare annual wellness exam Cough Screening for prostate cancer Colon cancer screening Chronic GERD Moderate major depression Diabetic retinopathy of both eyes Diabetic neuropathy Type 2 diabetes mellitus with ophthalmic complication, with long-term current use of insulin Diabetic retinopathy of right eye SARS-CoV-2 positive Chronic radicular pain of lower extremity GERD (gastroesophageal reflux disease) Pure hypercholesterolemia Essential hypertension Diabetes mellitus Surgical History History of surgery History of colonoscopy History of eye surgery History of open reduction and internal fixation (ORIF) procedure Family History Father Diabetes Stroke Mother Diabetes Parkinsons Brother Prostate cancer FH: colonic polyps Maternal Uncle Cancer Social History Housing: Apartment Alcohol intake: former Patient Tobacco Use Status: Former Tobacco user Tobacco use type: Cigarette e-Cigarette/Vaping Use: Never Used Second Hand Smoke Exposure: No service: No Current occupational status: disabled Cognitive needs: No Hearing needs: No Vision needs: Yes Review of Systems Const Denies fatigue, Denies fever(s), Denies night sweats, Denies poor appetite and Denies weight loss Eyes Details: glasses Reports requires corrective lenses ENT Reports Normal hearing present, Denies dental pain, Denies dysphagia, Denies hearing loss, Denies mouth pain, Denies odynophagia, Denies throat swelling, Denies tongue swelling and Reports other (Dentition adequate) Card Reports no additional complaints Resp Reports no additional complaints GI Details: Denies abdominal pain, Denies melena, Denies bloating, Denies hematochezia, Denies constipation, Denies GI cramping, Denies dysphagia, Denies excessive flatus, Reports early satiety, Reports heartburn, Denies diarrhea, Denies nausea, Denies odynophagia, Denies vomiting and Denies hematemesis Skin/Breast Denies pruritus, Denies lesions, Denies rash and Denies jaundice Neuro Reports Normal hearing present and Denies Abnormal speech present Endo Denies fatigue Aller/Immun Denies throat swelling and Denies tongue swelling Physical Exam Vital Signs: Last Vital Signs Pulse 86 06/21/25 09:03 BP 105/62 06/21/25 09:03 BMI result Body Mass Index 26.2 Const General: cooperative, no acute distress, well developed and well groomed Nutritional Appearance: average body habitus and well nourished Orientation/consciousness: oriented to person, oriented to place and oriented to time Limitations: language barrier HEENT Head: Yes normocephalic and Yes atraumatic Eyes General: appearance normal, both eyes and all related structures Pupils: Equal, round and reactive pupils present Neck Neck: Yes normal visual inspection and Yes no lymphadenopathy Thyroid: Thyroid normal Resp Effort & Inspection: normal respiratory effort and able to speak in complete sentences Auscultation: clear to auscultation bilaterally Cardio Rate: regular rate Rhythm: regular rhythm Heart sounds: Normal, physiologic split S2 sound present Peripheral pulses: radial pulses present and posterior tibial pulses present GI Inspection: No distended and No Abdominal panniculus present Palpation (GI): Soft to palpation, nontender, no guarding, not rigid and No hepatosplenomegaly present Percussion: Yes normal to percussion Auscultation: normal bowel sounds Rectal Exam - Male: Yes deferred Skin General skin exam: no rashes or lesions noted, turgor normal, skin not dry, no jaundice, No spider nevi and no striae Rashes: no rashes Nails: normal Neuro General: oriented to person, oriented to place and oriented to time Cranial nerves: Yes Equal, round and reactive pupils present and Yes Normal hearing present Speech: No Abnormal speech present Extrem General: Yes normal to inspection, No clubbing, No cyanosis and No edema Psych Appearance: grossly normal and well kempt Mental Status: mental status grossly normal Speech and movement: Normal speech and movement present Affect: normal affect Attitude: cooperative Thought process: Normal thought process present and not confabulating Thought content: Normal thought content present Insight: Fair insight present (Psych) and Limited insight present (Psych) Judgement: Fair judgement present (Psych) and Limited judgement present (Psych) Results Reviewed Results Reviewed: Gastric emptying study 04/24/2025 INDINGS: There is visualization of activity in the stomach immediately post ingestion. As the study progresses, there is clearance of activity from the stomach and visualization of progressively increasing small bowel activity. By the end of the study, there is almost no retention noted in the stomach. Retention in the stomach at each time interval was: 1 hour 73% (normal 37%-90%) 2 hours 40% (normal 30%-60%) 3 hours 20% 4 hours 13% (normal 0%-10%) NM/NM gastric emptying study IMPRESSION: Minimally delayed gastric emptying at 4 hours. Assessment & Plan Assessment & Plan (1) Delayed gastric emptying: Code(s): K30 - Functional dyspepsia Category: Medical (2) GERD (gastroesophageal reflux disease): Code(s): K21.9 - Gastro-esophageal reflux disease without esophagitis Category: Medical Qualifiers: Esophagitis presence: esophagitis presence not specified Qualified Code(s): K21.9 - Gastro-esophageal reflux disease without esophagitis (3) Family history of polyps in the colon: Comment: brother at age 55 Code(s): Z83.71 - Family history of colonic polyps Category: Medical Plan HIS CURRENT REGIMEN CONSISTS of omeprazole 20 mg a day an hour adding Reglan twice a day. Citizen [place] #Jessica Live He is here today with his who is supportive. - The patient is a 64-year-old male presenting with heartburn and early satiety. - Reports significant heartburn and early satiety which led to the ordering of a gastric emptying study. - A mild delay in gastric emptying was identified during the study. - Regularly experiences fullness after consuming meals, with lunch being the largest meal. - Occasionally substitutes breakfast with Glucerna shakes. - Symptoms are consistent with past suspicions of GERD, now paired with evidence of delayed gastric emptying. Given the fact that he is symptomatic we will do a trial of low-dose Reglan before his largest meal at lunch and then we will give him a 2nd dose that he can use at his discretion. Side effects that would necessitate discontinuance of the Reglan were discussed. Return office visit in 3 weeks EGD Biopsy Medications: New metoclopramide HCl (Reglan) 5 mg PO BID 60 tabs 6RF K30 - Functional dyspepsia Coding Level of Care Code Est Pt Level 3 (03901) Diagnoses Delayed gastric emptying K30 Gastroesophageal reflux disease, unspecified whether esophagitis present K21.9 Esophagitis presence: esophagitis presence not specified Family history of polyps in the colon Z83.71
[2025-06-21 09:03] VITALS: BP 105/62; PULSE 86; BMI 26.2
--- OUTSIDE RECORDS SUMMARY | 2025-06-21 09:03 | XMS_ITS ---
Author Name Angie Hernández NP Address [address] [place] [address] Phone [phone] [facility] Care Team Providers Care Herbicide Sprayer Name Role Phone Angie Hernández Unavailable [phone] Unavailable Unavailable Unavailable Orders, [facility] Unavailable [phone] [facility] Unavailable [phone] KELLY ROBERSON Unavailable [phone] Reason for Referral Not Available Allergies, adverse [...] detached his retina, cannot see.In touch with [employer] [facility] (major depressive [...] w/ PCP and oncology specialists Goes to [facility].11/05/24Still having Q6 months injection, still having [...] (do not use for phone, instead use 85038-80) [facility] ([place]) 11/25/2022 Malignant neoplasm of prostateGastro-esophageal reflux disease without esophagitisType 2 diabetes mellitus with other specified complicationHyperlipidemia, unspecifiedPain, unspecifiedOther chronic painEssential (primary) hypertensionOpioid dependence, uncomplicated New patient,40-59min; chronic exacerbation, 2 stable chronic or 1 acute illness add add modifier 95 for video (do not use for phone, instead use 25929-64) [facility] [place] New patient,40-59min; chronic exacerbation, 2 stable chronic or 1 acute illness add add modifier 95 for video (do not use for phone, instead use 38511-85) [facility] [place] New patient,40-59min; chronic exacerbation, 2 stable chronic or 1 acute illness add add modifier 95 for video (do not use for phone, instead use 04491-83) [facility] [place] 11/[place] New patient,40-59min; chronic exacerbation, 2 stable chronic or 1 acute illness add add modifier 95 for video (do not use for phone, instead use 31183-05) [facility] [place] 11/[place]22 New patient,40-59min; chronic exacerbation, 2 stable chronic or 1 acute illness add add modifier 95 for video (do not use for phone, instead use 90510-33) [facility] [place] 11/[place]/2022 New patient,40-59min; chronic exacerbation, 2 stable chronic or 1 acute illness add add modifier 95 for video (do not use for phone, instead use 72584-17) [facility] ([place]) 11/25/2022 RN, CN or CP time with patient by phone; use with 1111F, BP, A1c or other CPTII codes [facility], ([place]) 05/27/2023 Encounter for other specifie d aftercare RN, CN or CP time with patient by phone; use with 1111F, BP, A1c or other CPTII codes [facility], ([place]) 05/27/2023 Estab. patient 20-29min; 1 stable chronic or 2 minor; add add modifier 95 for video, modifier 93 for phone [facility] ([place]) 06/01/2023 Malignant neoplasm of prostateOpioid use, unspecified, uncomplicatedOther chronic painCalculus of ureter Estab. patient 20-29min; 1 stable chronic or 2 minor; add add modifier 95 for video, modifier 93 for phone [facility] ([place]) 06/01/2023 Estab. patient 20-29min; 1 stable chronic or 2 minor; add add modifier 95 for video, modifier 93 for phone [facility] [place] 06/01/2023 Estab. patient 30-39min; chronic exacerbation, 2 stable chronic or 1 acute illness add add modifier 95 for video, (do not use for phone, instead use 45923-33) [facility] [place] 04/02/2024 Essential (primary) hypertensionMalignant neoplasm of prostateGastro-esophageal [...] (do not use for phone, instead use 42754-39) [facility] [place] 04/02/2024 Estab. patient 30-39min; chronic exacerbation, 2 stable chronic or 1 acute illness add add modifier 95 for video, (do not use for phone, instead use 20551-01) [facility] [place] 04/02/2024 Estab. patient 30-39min; chronic exacerbation, 2 stable chronic or 1 acute illness add add modifier 95 for video, (do not use for phone, instead use 11259-55) [facility] [place] 04/02/2024 Estab. patient 30-39min; chronic exacerbation, 2 stable chronic or 1 acute illness add add modifier 95 for video, (do not use for phone, instead use 87211-84) [facility] [place] 04/02/2024 Estab. patient 30-39min; chronic exacerbation, 2 stable chronic or 1 acute illness add add modifier 95 for video, (do not use for phone, instead use 72328-01) [facility] [place] 04/02/2024 Estab. patient 30-39min; chronic exacerbation, 2 stable chronic or 1 acute illness add add modifier 95 for video, (do not use for phone, instead use 70383-75) [facility] [place] 04/02/2024 Estab. patient 20-29min; 1 stable chronic or 2 minor; add add modifier 95 for video, modifier 93 for phone [facility] [place] 11/05/2024 Essential (primary) hypertensionMalignant neoplasm of prostateGastro-esophageal [...] video, modifier 93 for phone [facility] [place] 11/05/2024 Estab. patient 20-29min; 1 stable chronic or 2 minor; add add modifier 95 for video, modifier 93 for phone [facility] [place] 11/05/2024 Estab. patient 20-29min; 1 stable chronic or 2 minor; add add modifier 95 for video, modifier 93 for phone [facility] [place] 11/05/2024 Estab. patient 20-29min; 1 stable chronic or 2 minor; add add modifier 95 for video, modifier 93 for phone [facility] [place] 11/05/2024 Estab. patient 20-29min; 1 stable chronic or 2 minor; add add modifier 95 for video, modifier 93 for [facility] [place] 11/05/2024 Vital Signs Date of Collection Vitals [...] tive Time Current Smoking Status Former smoker 2025-05-28 8 Sex Male History of Procedures Procedures Service Procedure code Service date Servicing provider Phone# New patient,40-59min; chronic exacerbation, 2 stable chronic or 1 acute illness add add modifier 95 for video (do not use for phone, instead use 38570-30) [id number] 2022-11-25 No Data Available No Data Availa [...] 1111F, BP, A1c or other CPTII codes 29956 2023-05-27 No Data Available No Data Avai lable Medications prescribed in hospital were reviewed and reconciled against what they were taking prior to admission during today's visit. (1111F) 1111F 2023-05-27 No Data Available No Data Availa ble Estab. patient 20-29min; 1 stable chronic or 2 minor; add add modifier 95 for video, modifier 93 for phone [id number] 2023-06-01 No Data Available No Data Availa [...] (do not use for phone, instead use 15179-05) [id number] 2024-04-02 No Data Available No Data Availa [...] 95 for video, modifier 93 for phone [id number] 2024-11-05 No Data Available No Data Availa [...] appears to be in remission. Goes to [facility].StableOxycodoneUPDATE 06/01/2023:Reviewed safety/risks of opioids. Sending Narcan, education on its use.Had procedure to remove stone stone 05/25/2023. Has catheter. Will have catheter removed on 06/02/2023 at FU appt w Uro ([facility]).Reports some lingering dysuria. Ed re post-procedure [...] appears to be in remission. Goes to [facility].04/02/2024Still having Q6 months injection, still having [...] on 06/02/2023 at FU appt w Uro ([facility]).Reports some lingering dysuria. 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 Goes to [facility].04/02/2024Still having Q6 months injection, still having [...] on 06/02/2023 at FU appt w Uro ([facility]).Reports some lingering dysuria. 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 2024-11-05 DME: glucerna, blood pressure machine
--- OUTSIDE RECORDS SUMMARY | 2025-06-21 09:04 | XMS_ITS | Clinical Summary ---
Author Organization [facility] Address [address] [place] [address] Care Team Providers Care Elevator Repairer Apprentice Name Role Phone Unavailable Primary Care Provider [...] 10/25/2023 Social Influencers of Health Screening 10/25/2023 Depression Screening 09/26/2024 COVID-19 Vaccine ( - 2023-2 5 season) 2025 Influenza Vaccine (#1) 2025 RSV Immunization Adult [...]
== END 2025-06-21 09:32 | disposition home or self-care (01) ==
LOC: HO.HGI 08:40
PROVIDERS: PCP Internal Medicine; Visit Provider Nurse Practitioner
DX: K30 Functional dyspepsia (principal); K21.9 Gastro-esophageal reflux disease without esophagitis; Z83.719 Family history of colon polyps, unspecified
CPT/HCPCS: 99213

== ENCOUNTER → 2025-06-21 08:39 | Outpatient (BNVA) | payer MEDICARE, SELFPAY | PROVIDERS: PCP Internal Medicine; Visit Provider Nurse Practitioner | DX: K30 Functional dyspepsia (principal); K21.9 Gastro-esophageal reflux disease without esophagitis; Z83.719 Family history of colon polyps, unspecified; E11.3593 Type 2 diabetes mellitus with proliferative diabetic retinopathy without macular edema, bilateral; Z79.4 Long term (current) use of insulin; Z87.891 Personal history of nicotine dependence | CPT/HCPCS: 99212 ==

== ENCOUNTER 2025-07-23 10:25 | Outpatient (AMB) | payer MEDICARE, SELFPAY ==
--- NOTE | 2025-07-23 10:32 | A.OFFVIS_ITS ---
Vital Signs 07/23/25 11:13 07/23/25 11:22 Height 5 ft 7 in Weight 169 lb 12.095 oz BMI 26.6 BP 84/54 L 88/48 L Blood Pressure Location Lt brachial Lt brachial Position Sitting Sitting Pulse 87 Intake Visit Reasons: eval luis alfredo Intake Note: Cameron returns in follow up to evaluate Reglan. CC: Patient states that he has been doing well and denies any new GI symptoms or concerns. Eyelet Punch Operator Required: Yes Eyelet Punch Operator Language: Vincentian Accompanied by: Allergies metformin Allergy (Intermediate, Verified 07/23/25 11:23) diarrhea HPI HPI eval luis alfredo: Details: Assessment & Plan (1) Delayed gastric emptying: Code(s): K30 - Functional dyspepsia Category: Medical (2) GERD (gastroesophageal reflux disease): Code(s): K21.9 - Gastro-esophageal reflux disease without esophagitis Category: Medical Qualifiers: Esophagitis presence: esophagitis presence not specified Qualified Code(s): K21.9 - Gastro-esophageal reflux disease without esophagitis (3) Family history of polyps in the colon: Comment: brother at age 55 Code(s): Z83.71 - Family history of colonic polyps Category: Medical Plan HIS CURRENT REGIMEN CONSISTS of omeprazole 20 mg a day an hour adding Reglan twice a day. Vincentian #Jessica Live He is here today with his who is supportive. - The patient is a 64-year-old male presenting with heartburn and early satiety. - Reports significant heartburn and early satiety which led to the ordering of a gastric emptying study. - A mild delay in gastric emptying was identified during the study. - Regularly experiences fullness after consuming meals, with lunch being the largest meal. - Occasionally substitutes breakfast with Glucerna shakes. - Symptoms are consistent with past suspicions of GERD, now paired with evidence of delayed gastric emptying. Given the fact that he is symptomatic we will do a trial of low-dose Reglan before his largest meal at lunch and then we will give him a 2nd dose that he can use at his discretion. Side effects that would necessitate discontinuance of the Reglan were discussed. Return office visit in 3 weeks Medications: New metoclopramide HCl (Reglan) 5 mg PO BID 60 tabs 6RF K30 - Functional dyspepsia EGD Biopsy Vincentian Lionel Garcia [facility] Medical History Encounter for annual wellness exam in Medicare patient Encounter for Medicare annual wellness exam Cough Screening for prostate cancer Colon cancer screening Chronic GERD Moderate major depression Diabetic retinopathy of both eyes Diabetic neuropathy Type 2 diabetes mellitus with ophthalmic complication, with long-term current use of insulin Diabetic retinopathy of right eye SARS-CoV-2 positive Chronic radicular pain of lower extremity GERD (gastroesophageal reflux disease) Pure hypercholesterolemia Essential hypertension Diabetes mellitus Surgical History History of surgery History of colonoscopy History of eye surgery History of open reduction and internal fixation (ORIF) procedure Family History Father Diabetes Stroke Mother Diabetes Parkinsons Brother Prostate cancer FH: colonic polyps Maternal Uncle Cancer Social History Housing: Apartment Alcohol intake: former Patient Tobacco Use Status: Former Tobacco user Tobacco use type: Cigarette e-Cigarette/Vaping Use: Never Used Second Hand Smoke Exposure: No service: No Current occupational status: disabled Cognitive needs: No Hearing needs: No Vision needs: Yes Review of Systems Const Denies fatigue, Denies fever(s), Denies night sweats, Denies poor appetite and Denies weight loss Eyes Details: glasses Reports requires corrective lenses ENT Reports Normal hearing present, Denies dental pain, Denies dysphagia, Denies hearing loss, Denies mouth pain, Denies odynophagia, Denies throat swelling, Denies tongue swelling and Reports other (Dentition adequate) Card Reports no additional complaints Resp Reports no additional complaints GI Details: Denies abdominal pain, Denies melena, Denies bloating, Denies hematochezia, Denies constipation, Denies GI cramping, Denies dysphagia, Denies excessive flatus, Reports early satiety, Reports heartburn, Denies diarrhea, Denies nausea, Denies odynophagia, Denies vomiting and Denies hematemesis Skin/Breast Denies pruritus, Denies lesions, Denies rash and Denies jaundice Neuro Reports Normal hearing present and Denies Abnormal speech present Endo Denies fatigue Aller/Immun Denies throat swelling and Denies tongue swelling Physical Exam Vital Signs: Last Vital Signs Pulse 87 07/23/25 11:22 BP 88/48 L 07/23/25 11:22 BMI result Body Mass Index 26.6 Const General: cooperative, no acute distress, well developed and well groomed Nutritional Appearance: average body habitus and well nourished Orientation/consciousness: oriented to person, oriented to place and oriented to time Limitations: language barrier and ambulation with cane HEENT Head: Yes normocephalic and Yes atraumatic Teeth and gingiva: edentulous Eyes General: appearance normal, both eyes and all related structures Pupils: Equal, round and reactive pupils present Neck Neck: Yes normal visual inspection and Yes no lymphadenopathy Thyroid: Thyroid normal Resp Effort & Inspection: normal respiratory effort and able to speak in complete sen tences Auscultation: clear to auscultation bilaterally Cardio Rate: regular rate Rhythm: regular rhythm Heart sounds: Normal, physiologic split S2 sound present Peripheral pulses: radial pulses present and posterior tibial pulses present GI Inspection: No distended and No Abdominal panniculus present Palpation (GI): Soft to palpation, nontender, no guarding, not rigid and No hepa tosplenomegaly present Percussion: Yes normal to percussion Auscultation: normal bowel sounds Rectal Exam - Male: Yes deferred Skin General skin exam: no rashes or lesions noted, turgor normal, skin not dry, no jaundice, No spider nevi and no striae Rashes: no rashes Nails: normal Neuro General: oriented to person, oriented to place and oriented to time Cranial nerves: Yes Equal, round and reactive pupils present and Yes Normal hearing present Speech: No Abnormal speech present Extrem General: Yes normal to inspection, No clubbing, No cyanosis and No edema Psych Appearance: grossly normal and well kempt Mental Status: mental status grossly normal Speech and movement: Normal speech and movement present Affect: normal affect Attitude: cooperative Thought process: Normal thought process present and not confabulating Thought content: Normal thought content present Insight: Fair insight present (Psych) Judgement: Fair judgement present (Psych) Assessment & Plan Assessment & Plan (1) GERD (gastroesophageal reflux disease): Code(s): K21.9 - Gastro-esophageal reflux disease without esophagitis Category: Medical Qualifiers: Esophagitis presence: esophagitis presence not specified Qualified Code(s): K21.9 - Gastro-esophageal reflux disease without esophagitis (2) Delayed gastric emptying: Code(s): K30 - Functional dyspepsia Category: Medical Plan Vincentian #Miya Live He is here today with his who is supportive. HIS CURRENT REGIMEN CONSISTS of omeprazole 20 mg a day an hour adding Reglan twice a day. He feels that adding the Reglan has tremendously helped with his GERD. So it is likely that we had trouble controlling it because of his delay in gastric emptying. Now the only problem he is having with eating revolves around the fact that he is edentulous because he will soon be having either dentures or implant surgery. Obviously this is a minor and temporary problem. Return office visit in 6 months and after his EGD. EGD Biopsy Medications: Refilled omeprazole 20 mg PO DAILY 90 caps 1RF 90 days metoclopramide HCl (Reglan) 5 mg PO BID 60 tabs 6RF K30 - Functional dyspepsia Coding Level of Care Code Est Pt Level 3 (71047) Diagnoses Gastroesophageal reflux disease, unspecified whether esophagitis present K21.9 Esophagitis presence: esophagitis presence not specified Delayed gastric emptying K30
[2025-07-23 11:13] VITALS: BP 84/54; BMI 26.6
[2025-07-23 11:22] VITALS: BP 88/48; PULSE 87
--- OUTSIDE RECORDS SUMMARY | 2025-07-23 12:50 | XMS_ITS ---
Author Name Angie Hernández NP Address [address] [place] [address] Phone [phone] [facility] Care Team Providers Care Woodenware Assembler Name Role Phone Angie Hernández Unavailable [phone] Unavailable Unavailable Unavailable Orders, [facility] Unavailable [phone] [facility] Unavailable [phone] KELLY ROBERSON Unavailable [phone] Reason for Referral Not Available Allergies, adverse [...] detached his retina, cannot see.In touch with [employer] [facility] [employer] [facility] (major depressive [...] w/ PCP and oncology specialists Goes to [facility].11/05/24Still having Q6 months injection, still having [...] (do not use for phone, instead use 66654-41) [facility] ([place]) 11/25/2022 Malignant neoplasm of prostateGastro-esophageal reflux disease without esophagitisType 2 diabetes mellitus with other specified complicationHyperlipidemia, unspecifiedPain, unspecifiedOther chronic painEssential (primary) hypertensionOpioid dependence, uncomplicated New patient,40-59min; chronic exacerbation, 2 stable chronic or 1 acute illness add add modifier 95 for video (do not use for phone, instead use 04043-83) [facility] [place] 11[place] New patient,40-59min; chronic exacerbation, 2 stable chronic or 1 acute illness add add modifier 95 for video (do not use for phone, instead use 82667-89) [facility] [place] 11/25/2022 New patient,40-59min; chronic exacerbation, 2 stable chronic or 1 acute illness add add modifier 95 for video (do not use for phone, instead use 70544-54) [facility] [place] 11/25/2022 New patient,40-59min; chronic exacerbation, 2 stable chronic or 1 acute illness add add modifier 95 for video (do not use for phone, instead use 72862-10) [facility] [place] 11/25/2022 New patient,40-59min; chronic exacerbation, 2 stable chronic or 1 acute illness add add modifier 95 for video (do not use for phone, instead use 38122-47) [facility] [place] 11/25/2022 New patient,40-59min; chronic exacerbation, 2 stable chronic or 1 acute illness add add modifier 95 for video (do not use for phone, instead use 84428-01) [facility] [place] 11/25/2022 RN, CN or CP time with patient by phone; use with 1111F, BP, A1c or other CPTII codes [facility], ([place]) 05/27/2023 Encounter for other specifie d aftercare RN, CN or CP time with patient by phone; use with 1111F, BP, A1c or other CPTII codes [facility], [place] 05/27/2023 Estab. patient 20-29min; 1 stable chronic or 2 minor; add add modifier 95 for video, modifier 93 for phone [facility] ([place]) 06/01/2023 Malignant neoplasm of prostateOpioid use, unspecified, uncomplicatedOther chronic painCalculus of ureter Estab. patient 20-29min; 1 stable chronic or 2 minor; add add modifier 95 for video, modifier 93 for phone [facility] ([place]) 06/01/2023 Estab. patient 20-29min; 1 stable chronic or 2 minor; add add modifier 95 for video, modifier 93 for phone [facility], [place] 06/01/2023 Estab. patient 30-39min; chronic exacerbation, 2 stable chronic or 1 acute illness add add modifier 95 for video, (do not use for phone, instead use 40733-02) [facility] [place] 04/02/2024 Essential (primary) hypertensionMalignant neoplasm of prostateGastro-esophageal [...] (do not use for phone, instead use 57491-22) [facility] [place] 04/02/2024 Estab. patient 30-39min; chronic exacerbation, 2 stable chronic or 1 acute illness add add modifier 95 for video, (do not use for phone, instead use 35577-59) [facility] [place] 04/02/2024 Estab. patient 30-39min; chronic exacerbation, 2 stable chronic or 1 acute illness add add modifier 95 for video, (do not use for phone, instead use 52201-88) [facility] [place] 04/02/2024 Estab. patient 30-39min; chronic exacerbation, 2 stable chronic or 1 acute illness add add modifier 95 for video, (do not use for phone, instead use 52875-90) [facility] [place] 04/02/2024 Estab. patient 30-39min; chronic exacerbation, 2 stable chronic or 1 acute illness add add modifier 95 for video, (do not use for phone, instead use 84577-70) [facility] [place] 04/02/2024 Estab. patient 30-39min; chronic exacerbation, 2 stable chronic or 1 acute illness add add modifier 95 for video, (do not use for phone, instead use 17585-32) [facility] [place] 04/02/2024 Estab. patient 20-29min; 1 stable chronic or 2 minor; add add modifier 95 for video, modifier 93 for phone [facility] [place] 11/05/2024 Essential (primary) hypertensionMalignant neoplasm of prostateGastro-esophageal [...] 95 for video, modifier 93 for phone [facility] [place] 11/05/2024 Estab. patient 20-29min; 1 stable chronic or 2 minor; add add modifier 95 for video, modifier 93 for phone [facility] [place] 11/05/2024 Estab. patient 20-29min; 1 stable chronic or 2 minor; add add modifier 95 for video, modifier 93 for phone [facility] [place] 11/05/2024 Estab. patient 20-29min; 1 stable chronic or 2 minor; add add modifier 95 for video, modifier 93 for phone [facility] [place] 11/05/2024 Estab. patient 20-29min; 1 stable chronic or 2 minor; add add modifier 95 for video, modifier [address] [facility], ([place]) 11/05/2024 Vital Signs Date of Collection Vitals [...] tive Time Current Smoking Status Former smoker 2025-06-27 10 Sex Male History of Procedures Procedures Service Procedure code Service date Servicing provider Phone# New patient,40-59min; chronic exacerbation, 2 stable chronic or 1 acute illness add add modifier 95 for video (do not use for phone, instead use 56025-16) [id number] 2022-11-25 No Data Available No Data Availa [...] 1111F, BP, A1c or other CPTII codes 44120 2023-05-27 No Data Available No Data Avai lable Medications prescribed in hospital were reviewed and reconciled against what they were taking prior to admission during today's visit. (1111F) 1111F 2023-05-27 No Data Available No Data Availa ble Estab. patient 20-29min; 1 stable chronic or 2 minor; add add modifier 95 for video, modifier 93 for phone 14348 2023-06-01 No Data Available No Data Availa [...] (do not use for phone, instead use 36738-78) [id number] 2024-04-02 No Data Available No Data Availa [...] 95 for video, modifier 93 for phone 52593 2024-11-05 No Data Available No Data Availa [...] appears to be in remission. Goes to [facility].StableOxycodoneUPDATE 06/01/2023:Reviewed safety/risks of opioids. Sending Narcan, [...] appears to be in remission. Goes to [facility].04/02/2024Still having Q6 months injection, still having [...] detached his retina, cannot see.In touch with [employer] [facility] BlindSertralineIs almost blind Lives [...] appears to be in remission. 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 2024-11-05 DME: glucerna, blood pressure machine
--- OUTSIDE RECORDS SUMMARY | 2025-07-23 12:51 | XMS_ITS | Clinical Summary ---
Author Organization [employer] [facility] ity Address [address] [place] [address] Care Team Providers Care Microsoft Dynamics Consultant Name Role Phone Unavailable Primary Care Provider Unavailabl e Social History Tobacco Use Types Packs/Day Years Used Date Smoking Tobacco: Never Assessed Sex and Gender Information Value Date Recorded Sex Assigned at Not on file Legal Sex Male 4:27 PM EST Gender Identity Not on file Sexual Orientation Not on file Plan of Treatment Health Maintenance Due Date Last Done Comments Colorectal Cancer Screening: Colonoscopy 1962 DTaP,Tdap,and Td Vaccines (1 - Tdap) 1981 Pneumococcal Vaccine: 50+ Ye ars (1 of 1 - PCV) 2012 Zoster Vaccines (1 of 2) 2012 Cholesterol Screening (Lipid Panel) 10/25/2023 HIV Screening 10/25/2023 Hepatitis C Screening 10/25/2023 Social Influencers of Health Screening 10/25/2023 Depression Screening 09/26/2024 COVID-19 Vaccine (1 - 2023-2 5 season) 2025 Influenza Vaccine [...]
== END 2025-07-23 11:37 | disposition home or self-care (01) ==
PROVIDERS: PCP Internal Medicine; Visit Provider Nurse Practitioner
DX: K21.9 Gastro-esophageal reflux disease without esophagitis (principal); K30 Functional dyspepsia
CPT/HCPCS: 99213

== ENCOUNTER → 2025-07-23 10:25 | Outpatient (BNVA) | payer MEDICARE, SELFPAY | PROVIDERS: PCP Internal Medicine; Visit Provider Nurse Practitioner | DX: K21.9 Gastro-esophageal reflux disease without esophagitis (principal); K30 Functional dyspepsia | CPT/HCPCS: 99212 ==

== ENCOUNTER 2025-08-28 07:28 | Outpatient (REF) | payer MEDICARE, SELFPAY ==
--- OUTSIDE RECORDS SUMMARY | 2025-08-28 07:33 | XMS_ITS | Clinical Summary ---
Author Organization [employer] [facility] ity Address [address] [place] [address] Care Team Providers Care Snuff Blender Name Role Phone Unavailable Primary Care Provider [...] Depression Screening 09/26/2024 COVID-19 Vaccine (1 - 2024-2 6 season) 2025 Influenza Vaccine (#1) 2025 RSV [...]
[2025-08-28 09:06] LABS: Alanine Aminotransferase 36 U/L (0-40); Albumin Level 3.9 g/dL (3.5-5.0); Alkaline Phosphatase 91 U/L (39-117); Anion Gap 13 (12-20); Aspartate Amino Transferase 32 U/L (5-37); Blood Urea Nitrogen 13 mg/dL (9-16); Calcium 9.0 mg/dL (8.4-10.2); Carbon Dioxide 21 mmol/L (22-29); Chloride 113 mmol/L (96-108); Cholesterol 160 mg/dL (<200); Estimated Glomerular Filt Rate > 60; HDL Cholesterol 70 mg/dL (>40); Potassium 4.3 mmol/L (3.3-5.1); Sodium 143 mmol/L (135-145); Total Protein 7.1 g/dL (6.5-8.0); Triglycerides 60 mg/dL (<150)
[2025-08-28 09:39] LABS: Microalbum/Creatinine Ratio Ur 12.0 ug/mg cr (<30)
== END 2025-08-28 07:29 | disposition home or self-care (01) ==
LOC: HO.LAB 07:28
PROVIDERS: Physician Assistant Medical; PCP Internal Medicine; Visit Provider Internal Medicine
DX: E11.319 Type 2 diabetes mellitus with unspecified diabetic retinopathy without macular edema (principal); Z28.89 Immunization not carried out for other reason; E78.5 Hyperlipidemia, unspecified; R80.9 Proteinuria, unspecified; F32.2 Major depressive disorder, single episode, severe without psychotic features; I10 Essential (primary) hypertension; E78.00 Pure hypercholesterolemia, unspecified; Z79.4 Long term (current) use of insulin
CPT/HCPCS: 36415; 80053; 80061; 82043; 82570; 83036; 96127; 99212

== ENCOUNTER 2025-08-28 07:57 | Outpatient (AMB) | payer MEDICARE, SELFPAY ==
--- NOTE | 2025-08-28 08:25 | A.OFFPC_ITS ---
Vital Signs 08/28/25 08:28 Height 5 ft 7 in Weight 173 lb 1.006 oz BMI 27.1 BP 100/64 Temp 97.3 F Temp Source Temporal Artery Scan Intake Visit Reasons: dm Operating Room Technologist Required: No Accompanied by: Spouse Allergies metformin Allergy (Intermediate, Verified 08/28/25 08:41) diarrhea Medication List - Last Reconciled 08/28/25 by Jaja Ventura MD ammonium lactate 12% 1 appl topical DAILY 30 days atorvastatin 80 mg PO BEDTIME 90 days blood sugar diagnostic (Accu-Chek Guide test strips) Use 1 TID blood-glucose meter (Accu-Chek Guide Glucose Meter) As directed blood-glucose sensor (FreeStyle Angeli 3 Plus Sensor device) Apply 1 new sensor every 14 days as directed to monitor blood glucose continuously. blood-glucose sensor (FreeStyle Angeli 3 Plus Sensor device) Apply 1 new sensor every 14 days as directed to monitor blood glucose continuously. blood-glucose,drying machine receiver,cont (FreeStyle Angeli 3 Emerson) as directed brimonidine 0.2% 1 drp ophthalmic (eye) BID cholecalciferol (vitamin D3) 25 mcg PO DAILY 90 days clonidine HCl 0.1 mg PO BEDTIME dextrose (TRUEplus Glucose) 15 grams (32 mL) PO Q15M PRN dorzolamide-timolol 22.3-6.8 mg/mL 1 drp ophthalmic-Right BID dulaglutide (Trulicity) 3 mg (0.5 mL) subcut QWEEK empagliflozin (Jardiance) 10 mg PO QAM ezetimibe 10 mg PO DAILY 90 days hydrocortisone 1% (Anti-Itch (hydrocortisone)) 1 appl topical TID PRN 30 days insulin degludec (Tresiba FlexTouch U-100 insulin) 60 units subcut DAILY lancets (Accu-Chek Fastclix Lancet Drum) Use 1 lancet once a day lisinopril 5 mg PO DAILY 90 days [locking raised toilet seat with arms As directed] metoclopramide HCl (Reglan) 5 mg PO BID omeprazole 20 mg PO DAILY 90 days oxycodone 5 mg PO TID PRN 7 days sertraline 100 mg PO DAILY tamsulosin 0.4 mg PO BEDTIME PRN trazodone 100 mg PO BEDTIME PRN triamcinolone acetonide 0.025% 1 appl topical BID 14 days walker As directed Tobacco use date assessed: 08/28/25 Dental Screening Dental Screen Date: 08/28/25 Did you have a dental visit in the last 12 months?: Yes HPI HPI Comments History of Present Illness Details The patient is a 65 year old individual presenting for follow-up for chronic disease management, medication review, and evaluation of a skin concern. The patient has a history of type 2 diabetes mellitus with a recent HbA1c of 7.6%, which is above the goal of 7%. The patient has an allergy to metformin, which causes diarrhea. Current medications for diabetes include Trulicity, Jardiance 10 mg, and insulin 62 units. He follows with endocrinology. Other chronic conditions include hypertension, managed with clonidine and lisinopril 5 mg, and hyperlipidemia, treated with atorvastatin 80 mg and ezetimibe 10 mg. The patient also takes sertraline for depression, trazodone for sleep, tamsulosin, and omeprazole. He walks with a cane for gait stability due to chronic leg pain relieved with opiates. The patient reports an intermittent skin condition on the elbows, identified as acanthosis nigricans, which is associated with diabetes. The condition had previously resolved but recurred after minor trauma to the area. For preventative care, the patient received the influenza vaccine this year at a [facility] pharmacy. [facility] Medical History Encounter for annual wellness exam in Medicare patient Encounter for Medicare annual wellness exam Cough Screening for prostate cancer Colon cancer screening Chronic GERD Moderate major depression Diabetic retinopathy of both eyes Diabetic neuropathy Type 2 diabetes mellitus with ophthalmic complication, with long-term current use of insulin Diabetic retinopathy of right eye SARS-CoV-2 positive Chronic radicular pain of lower extremity GERD (gastroesophageal reflux disease) Pure hypercholesterolemia Essential hypertension Diabetes mellitus Surgical History History of surgery History of colonoscopy History of eye surgery History of open reduction and internal fixation (ORIF) procedure Family History Father Diabetes Stroke Mother Diabetes Parkinsons Brother Prostate cancer FH: colonic polyps Maternal Uncle Cancer Social History (Reviewed 08/28/25 @ 08:49 by MARKUS Murphy Housing: Apartment Alcohol intake: former Patient Tobacco Use Status: Former Tobacco user Tobacco use type: Cigarette e-Cigarette/Vaping Use: Never Used Second Hand Smoke Exposure: No service: No Current occupational status: disabled Cognitive needs: Yes (cane) Hearing needs: No Vision needs: Yes Questionnaire PHQ-9 Over the last 2 weeks, how often have you been bothered by any of the following problems? 1. Little interest or pleasure in doing things: nearly every day 2. Feeling down, depressed, or hopeless: nearly every day 3. Trouble falling or staying asleep, or sleeping too much: nearly every day 4. Feeling tired or having little energy: nearly every day 5. Poor appetite or overeating: more than half the days 6. Feeling bad about yourself - or that you are a failure or have let yourself or your family down: nearly every day 7. Trouble concentrating on things, such as reading the newspaper or watching television: more than half the days 8. Moving or speaking so slowly that other people could have noticed. Or the opposite - being so fidgety or restless that you have been moving around a lot more than usual: more than half the days 9. Thoughts that you would be better off or of hurting yourself in some way: more than half the days Total score: 23 Depression Screening Interpretation: Positive (No suicidal thoughts) Depression Screening Follow-up: Existing condition, In treatment and Follow-up Visit Requested Depression Screening Done: Yes 18766 - PHQ-9 Billing: Yes Source: Developed by Drs. Roque Virk, Natalie De La Fuente, Severino Nichole and colleagues, with an educational tamiko from [employer]. Thrive Questionnaire Date Thrive assessed: 08/28/25 I am a: Patient What is your living situation today?: I have a steady place to live Within the past 12 months, did the food you bought not last and you didn't have the money to get more?: Sometimes True Within the past 12 months, did you worry whether your food would run out before you got money to buy more?: Sometimes True Do you have trouble paying for medicines?: No Do you have trouble getting transportation to medical appointments?: No Do you have trouble paying your heating and electricity bill?: No Do you have trouble taking care of your child, family member or friend?: Yes Do you have trouble with day-to-day activities such as bathing, preparing meals, shopping, managing finances, etc.?: Yes Are you currently unemployed and looking for a job?: No Are you interested in more education?: No Please select the resources that you would like help with: Food Currently or been in a relationship where the following occur: No concerns reported THRIVE Score: 2 AUDIT C Alcohol Use Questionnaire (AUDIT-C) 1. How often do you have a drink containing alcohol?: Never Total Score: 0 Score Reviewed/Action Taken: No MARY-7 AMB Questionnaire MARY-7 Date MARY - 7 assessed: 08/28/25 Feeling nervous, anxious, or on edge: 3 = Nearly every day Not being able to stop or control worryin = Nearly every day Worrying too much about different things: 3 = Nearly every day Trouble relaxin = Nearly every day Being so restless that it is hard to sit still: 3 = Nearly every day Becoming easily annoyed or irritable: 3 = Nearly every day Feeling afraid as if something awful might happen: 3 = Nearly every day Total MARY-7 score (0-4 normal; 5-9 mild; 10-14 moderate; 15-21 severe): 21 Source: Developed by Drs. Roque Virk, Natalie De La Fuente, Severino Nichole and colleagues, with an educational tamiko from [employer]. MARY-7 Assessment Billing MARY-7 Assessment Tool: MARY-7 Assessment 22836 Review of Systems Const All systems reviewed & are unremarkable except as noted in HPI and below Card Denies chest pain at rest, Denies chest pain with activity, Denies edema, Denies irregular heart rhythm, Denies claudication, Denies dyspnea, Denies dyspnea on exertion, Denies orthopnea, Denies paroxysmal nocturnal dyspnea and Denies slow heart rate Resp Denies cough, Denies dyspnea and Denies dyspnea on exertion Physical exam (Primary Care) Vital Signs: Last Vital Signs Temp 97.3 F 08/28/25 08:28 BP 100/64 08/28/25 08:28 BMI result Body Mass Index 27.1 Tobacco/Smoking Status: Tobacco use Status Tobacco use date assessed 08/28/25 08/28/25 08:33 Patient Tobacco Use Status Former Tobacco user 08/28/25 08:33 Tobacco use type Cigarette 08/28/25 08:33 e-Cigarette/Vaping Use Never Used 08/28/25 08:33 PHQ-9: PHQ-9 Score PHQ-9: Total score 23 08/28/25 08:46 Depression Screening Interpretation: Positive (No suicidal thoughts) Depression Screening Follow-up: Existing condition, In treatment and Follow-up Visit Requested Thrive Assessment: Date of Thrive Assessment Date Thrive assessed 08/28/25 08/28/25 08:33 Currently or been in a relationship where the following occur: No concerns reported Resp Effort & Inspection: normal respiratory effort Auscultation: clear to auscultation bilaterally Cardio Jugular venous distension: no JVD Rate: regular rate Rhythm: regular rhythm Heart sounds: S1 normal heart sound present and S2 normal heart sound present Extrem General: Yes full ROM Office Procedures Flu Questionnaire Does the patient have a severe egg allergy?: No Does the patient have severe life threatening allergies?: No Does the patient have a fever or illness today?: No Has the patient ever had Guillain-[place] Syndrome?: No Has the patient ever had any past reaction to a flu shot?: No Results AMB Hemoglobin A1c AMB Hemoglobin A1c 7.6 % Last Edit by Shanda Abdi CMA on 08/28/25 08:4 6 Immunizations Fluarix [id number] (PF) 45 mcg (15 mcg x 3)/0.5 mL IM syringe Performing Provider: Jaja Ventura MD [facility] Documented (not given) by: Shanda Abdi CMA on 08/28/25 08:38 Reason Not Given: Received Previously Results Reviewed Results Reviewed: Laboratory Last Values Hgb A1c (Clinic) 7.6 % (4.0-6.0) H 08/28/25 08:46 Coding Level of Care Code Complex visit Add On G2211 Diagnoses Severe major depression without psychotic features F32.2 Type 2 diabetes mellitus without complication, with long-term current use of insulin E11.9; Z79.4 Diabetes mellitus type: type 2 Diabetes mellitus local company intermodal truck driver insulin use: with local company intermodal truck driver use Diabetes mellitus complication status: without complication Essential hypertension I10 Pure hypercholesterolemia E78.00 Additional Codes MARY-7 Assessment Billing - MARY-7 Assessment Tool: MAYR-7 Assessment 45273 ([id number]) PHQ-9 - 23803 - PHQ-9 Billing: Yes ([id number]) Time Spent (min) 22 Assessment & Plan Assessment & Plan (1) Severe major depression without psychotic features: Code(s): F32.2 - Major depressive disorder, single episode, severe without psychotic features Category: Medical (2) Diabetes mellitus: Code(s): E11.9 - Type 2 diabetes mellitus without complications Category: Medical Qualifiers: Diabetes mellitus type: type 2 Diabetes mellitus usp insulin use: with local company intermodal truck driver use Diabetes mellitus complication status: without complication Qualified Code(s): E11.9 - Type 2 diabetes mellitus without complications; Z79.4 - meterman (current) use of insulin (3) Essential hypertension: Code(s): I10 - Essential (primary) hypertension Category: Medical (4) Pure hypercholesterolemia: Code(s): E78.00 - Pure hypercholesterolemia, unspecified Category: Medical Plan Plan 1. Type 2 Diabetes Mellitus The patient's HbA1c is 7.6%, which is above the goal of 7%. No changes will be made to the current medication regimen, as the patient has an upcoming appointment with endocrinology. 2. Acanthosis Nigricans The patient has acanthosis nigricans on the elbows, which is associated with diabetes. An ekkq-zqe-rmxtlrb glycolic acid product was recommended for treatment. The patient was instructed to apply it to the elbows for 15 minutes and then wash it off. 3. Essential hypertension Continue lisinopril. Blood pressure goal is equal or less than 130/80. 4. Hyperlipidemia Continue statins. LDL goal is less than 70. Orders: Orders AMB Hemoglobin A1c Today Z13.9 - Encounter for screening, unspecified Microalbumin, Random (w Creat) 4 Months R80.9 - Proteinuria, unspecified Vitamin D 25-OH Total 4 Months E55.9 - Vitamin D deficiency, unspecified Influenza [id number] Immunization Today Z23 - Encounter for immunization Lipid Panel 4 Months E78.5 - Hyperlipidemia, unspecified Comprehensive [place]. Panel Fast 4 Months E11.3593 - Type 2 diabetes mellitus with proliferative diabetic retinopathy without macular edema, bilateral, Z79.4 - [facility] (current) use of insulin
[2025-08-28 08:28] VITALS: BP 100/64; TEMP 36.3; BMI 27.1
== END 2025-08-28 08:56 | disposition home or self-care (01) ==
LOC: HO.HMCH 07:58
PROVIDERS: PCP Internal Medicine; Visit Provider Internal Medicine
DX: E11.9 Type 2 diabetes mellitus without complications (principal); F32.2 Major depressive disorder, single episode, severe without psychotic features; Z79.4 Long term (current) use of insulin; I10 Essential (primary) hypertension; E78.00 Pure hypercholesterolemia, unspecified; Z23 Encounter for immunization

== ENCOUNTER 2025-09-03 13:11 | Outpatient (AMB) | payer MEDICARE, SELFPAY ==
--- NOTE | 2025-09-03 13:18 | A.OFFVIS_ITS ---
Vital Signs 09/03/25 13:19 Height 5 ft 7 in Weight 171 lb 11.841 oz BMI 26.9 BP 118/66 Blood Pressure Location Lt brachial Position Sitting Pulse 103 H Pulse Source Pulse Oximeter Pulse Oximetry (%) 98 Oxygen Delivery Method Room Air Intake Visit Reasons: t2dm Intake Note: Patient present today to follow up on Type 2 Diabetes Mellitus. Patient is receiving Freestyle Angeli 3 Plus supplies through: [facility] pharmacy Last Diabetic Eye exam: 07/2025 [facility] Last Podiatry Visit: Does not see a Armament Installer Random Glucose: 102 mg/dL HgA1C: 7.6% 08/28/2025 Relay Technician Required: Yes Relay Technician Language: Stacker Services: Relay Technician Present Relay Technician Name: [id number] Leroy Information Interpreted: non-clinical & clinical Accompanied by: Spouse Allergies metformin Allergy (Intermediate, Verified 09/03/25 13:24) diarrhea Medication List - Last Reconciled 09/03/25 by SERVANDO Morrison ammonium lactate 12% 1 appl topical DAILY 30 days atorvastatin 80 mg PO BEDTIME 90 days blood sugar diagnostic (Accu-Chek Guide test strips) Use 1 TID blood-glucose meter (Accu-Chek Guide Glucose Meter) As directed blood-glucose sensor (FreeStyle Angeli 3 Plus Sensor device) Apply 1 new sensor every 14 days as directed to monitor blood glucose continuously. blood-glucose,photogrammetric stereo compiler,cont (FreeStyle Angeli 3 [place]) as directed brimonidine 0.2% 1 drp ophthalmic (eye) BID cholecalciferol (vitamin D3) 25 mcg PO DAILY 90 days clonidine HCl 0.1 mg PO BEDTIME dextrose (TRUEplus Glucose) 15 grams (32 mL) PO Q15M PRN dorzolamide-timolol 22.3-6.8 mg/mL 1 drp ophthalmic-Right BID dulaglutide (Trulicity) 3 mg (0.5 mL) subcut QWEEK empagliflozin (Jardiance) 25 mg PO QAM ezetimibe 10 mg PO DAILY 90 days hydrocortisone 1% (Anti-Itch (hydrocortisone)) 1 appl topical TID PRN 30 days insulin degludec (Tresiba FlexTouch U-100 insulin) 54 units subcut DAILY lancets (Accu-Chek Fastclix Lancet Drum) Use 1 lancet once a day lisinopril 5 mg PO DAILY 90 days [locking raised toilet seat with arms As directed] metoclopramide HCl (Reglan) 5 mg PO BID omeprazole 20 mg PO DAILY 90 days oxycodone 5 mg PO TID PRN 7 days sertraline 100 mg PO DAILY tamsulosin 0.4 mg PO BEDTIME PRN trazodone 100 mg PO BEDTIME PRN triamcinolone acetonide 0.025% 1 appl topical BID 14 days walker As directed HPI Comments Details: This is a 65 year old [place] Islander-speaking male presenting with his for continued diabetic management. Video conductor and engineer used: [id number] Leroy. He has past medical history of prostate cancer, HLD, hypertension, anxiety with depression and GERD. He was diagnosed with diabetes 25 years ago. He has a family history of diabetes. Hemoglobin A1c 7.6% 08/28/2025. Reviewed Angeli 3 data for the past couple of weeks CGM active 96% G NM 6.9% Glucose variability 34% Very high 6% High 18% Target range 73% Low 3% My interpretation is he has a pattern of hypoglycemia nocturnally and in the late afternoon and early evening with some high blood sugar readings postprandially. This week he had 2 days with low blood sugars because he had a dental procedure and is not eating like he normally does, but typically he only gets them once or twice month. Blood sugar will be in the 60s. He treats with orange juice. Current medication regimen: Tresiba 62 units in the morning Trulicity 3 mg Jardiance 10 mg daily Past medication: Metformin discontinued previously due to diarrhea. Lantus discontinued due to hypoglycemia. Compliance issues: none He has been seen by the in service educator and dietitian. Hypoglycemia symptoms: Symptoms include shakiness and feeling hungry Corrects with glass of orange juice. Hyperglycemia symptoms: none Eye exam: UTD. [facility] and Dr. Stephenson. Microvascular complications: bilateral neuropathy, retinopathy OU, receives injection in the right eye every 2 months Macrovascular complications: none Hypertension: treated with Lisinopril 5 mg Hyperlipidemia: treated with Atorvastatin 80 mg and Zetia 10 mg LDL <100. ROS: Constitutional: No fevers, chills or unexplained weight loss. Respiratory: No shortness of breath. Cardiovascular: No chest pain or pedal edema. Gastrointestinal: No nausea, vomiting or abdominal pain. Genitourinary: No dysuria, hematuria, urinary frequency. Denies history of genitourinary infections. Skin: No rashes or wounds. Endocrine: No polyuria or polydipsia. Physical exam: Constitutional: Alert, in no distress. Eyes: Pupils are equal, round and reactive to light. Neck: Supple, Full range of motion. No lymphadenopathy. No palpable thyroid mas ses. Respiratory: Clear to auscultation. Cardiovascular: S1 S2 regular. No murmurs Feet: Warm and well perfused. Intact DP pulses. No wounds or rashes. [facility] Medical History Encounter for annual wellness exam in Medicare patient Encounter for Medicare annual wellness exam Cough Screening for prostate cancer Colon cancer screening Chronic GERD Moderate major depression Diabetic retinopathy of both eyes Diabetic neuropathy Type 2 diabetes mellitus with ophthalmic complication, with long-term current use of insulin Diabetic retinopathy of right eye SARS-CoV-2 positive Chronic radicular pain of lower extremity GERD (gastroesophageal reflux disease) Pure hypercholesterolemia Essential hypertension Diabetes mellitus Surgical History History of surgery History of colonoscopy History of eye surgery History of open reduction and internal fixation (ORIF) procedure Family History Father Diabetes Stroke Mother Diabetes Parkinsons Brother Prostate cancer FH: colonic polyps Maternal Uncle Cancer Social History Housing: Apartment Alcohol intake: former Patient Tobacco Use Status: Former Tobacco user Tobacco use type: Cigarette e-Cigarette/Vaping Use: Never Used Second Hand Smoke Exposure: No service: No Current occupational status: disabled Cognitive needs: Yes (cane) Hearing needs: No Vision needs: Yes Physical Exam Vital Signs: Last Vital Signs Pulse 103 H 09/03/25 13:19 BP 118/66 09/03/25 13:19 Pulse Ox 98 09/03/25 13:19 Oxygen Delivery Method Room Air 09/03/25 13:19 BMI result Body Mass Index 26.9 Office Procedures Glucose Monitoring Details Details: See [facility] 67258 - Glucose monitoring, continuous-physician I&R Procedure code (CPT) selection complete Results Reviewed Results Reviewed: Laboratory Last Values Glucose (Clinic) 102 mg/dL (60-115) 09/03/25 13:26 Laboratory Tests 08/28/25 08/28/25 07:35 07:44 Creatinine 0.90 Estimated GFR > 60 AST 32 ALT 36 Triglycerides 60 Cholesterol 160 LDL Cholesterol, Calc 78 HDL Cholesterol 70 Urine Creatinine 157.55 Urine Microalbumin 19.0 Microalb/Creat Ratio 12.0 Assessment & Plan Assessment & Plan (1) Type 2 diabetes mellitus with ophthalmic complication, with long-term current use of insulin: Code(s): E11.39 - Type 2 diabetes mellitus with other diabetic ophthalmic complication; Z79.4 - oysterman (current) use of insulin Category: Medical Qualifiers: Diabetes mellitus complication detail: with diabetic retinopathy Diabetic retinopathy severity: with proliferative retinopathy Proliferative retinopathy type: unspecified Diabetes mellitus macular edema: macular edema presence unspecified Laterality: bilateral Qualified Code(s): E11.3593 - Type 2 diabetes mellitus with proliferative diabetic retinopathy without macular edema, bilateral; Z79.4 - longterm (current) use of insulin (2) Diabetic neuropathy: Code(s): E11.40 - Type 2 diabetes mellitus with diabetic neuropathy, unspecified Category: Medical Qualifiers: Diabetes mellitus type: type 2 Diabetes mellitus complication detail: diabetic polyneuropathy Qualified Code(s): E11.42 - Type 2 diabetes mellitus with diabetic polyneuropathy (3) Essential hypertension: Code(s): I10 - Essential (primary) hypertension Category: Medical (4) Pure hypercholesterolemia: Code(s): E78.00 - Pure hypercholesterolemia, unspecified Category: Medical Plan In summary this is a 65-year-old male with type 2 diabetes. Suboptimally con trolled per A1c. Recent CGM data is better. He is interested in reducing how much insulin he needs to take. Trial reduction of Tresiba from 62 units to 54 units daily and increase Jardiance to 25 mg (he will use up his 10 mg tablets by taking 2 a day and then start the new prescription). Continue Trulicity 3 mg weekly. He has some appetite reduction with this so we did not increase the dose. Discussed pathophysiology of Type II Diabetes Mellitus with the patient in detail.? I explained the truck terminal manager risks and complications associated with uncontrolled diabetes including nephropathy, neuropathy, peripheral vascular disease, retinopathy, increased risk of heart disease and stroke.? He will continue lifestyle modifications. Continue use of CGM and bring this with you to appointments. Reviewed treatment of hypoglycemia. He has written instructions. Continue current medications for hypertension and hyperlipidemia. Follow up in 6 weeks to review Diabetes medications. Orders: Orders AMB Glucose Monitoring Today E11.9 - Type 2 diabetes mellitus without complications Medications: New empagliflozin (Jardiance) 25 mg PO QAM 90 tabs 1RF Refilled dulaglutide (Trulicity) 3 mg (0.5 mL) subcut QWEEK 2 mL 5RF Discontinued empagliflozin (Jardiance) Discontinued Reason: Doctor's Order 10 mg PO QAM 90 tabs 0RF Patient Instructions: Increase Jardiance 10 mg to 2 tablets in the morning. When you finish this, you can start the new prescription for 25 mg daily. Continue Trulicity 3 mg weekly. Decrease Tresiba from 62 units to 54 units daily. If you have low blood sugars after making these changes please decrease Tresiba to 50 units daily and call the office. Aumente la dosis de Jardiance de 10 mg a 2 comprimidos por la ma?casper. Susan vez que termine antonio envase, puede comenzar con la nueva receta de 25 mg diarios. Contin?e con Trulicity 3 mg semanalmente. Disminuya la dosis de Tresiba de 62 unidades a 54 unidades diarias. Si experimenta hipoglucemia despu?s de realizar estos cambios, disminuya la dosis de Tresiba a 50 unidades diarias y llame al consultorio. Coding Level of Care Code Est Pt Level 4 (54583) Diagnoses Type 2 diabetes mellitus with proliferative retinopathy of both eyes, with long- term current use of insulin, macular edema presence unspecified, unspecified proliferative retinopathy type E11.3593; Z79.4 Diabetes mellitus complication detail: with diabetic retinopathy Diabetic retinopathy severity: with proliferative retinopathy Proliferative retinopathy type: unspecified Diabetes mellitus macular edema: macular edema presence unspecified Laterality: bilateral Diabetic polyneuropathy associated with type 2 diabetes mellitus E11.42 Diabetes mellitus type: type 2 Diabetes mellitus complication detail: diabetic polyneuropathy Essential hypertension I10 Pure hypercholesterolemia E78.00 CPT Codes Details - CPT: 90517 - Glucose monitoring, continuous-physician I&R ([id number])
[2025-09-03 13:19] VITALS: BP 118/66; PULSE 103; O2SAT 98; BMI 26.9
[2025-09-03 13:30] LABS: Glucose, Whole Blood 102 mg/dL (60-115)
--- OUTSIDE RECORDS SUMMARY | 2025-09-03 17:31 | XMS_ITS ---
Author Name Angie Hernández NP Address [address] [place] [address] Phone [phone] [facility] Care Team Providers Care Manager Water Name Role Phone Angie Hernández Unavailable [phone] Unavailable Unavailable Unavailable Orders, [facility] Unavailable [phone] [facility] Unavailable KELLY ROBERSON Unavailable [phone] Reason for Referral Not Available Allergies, adverse [...] detached his retina, cannot see.In touch with [employer] [facility] (major depressive [...] w/ PCP and oncology specialists Goes to [facility].11/05/24Still having Q6 months injection, still having [...] (do not use for phone, instead use 52231-10) [facility] ([place]) 11/25/2022 Malignant neoplasm of prostateGastro-esophageal reflux disease without esophagitisType 2 diabetes mellitus with other specified complicationHyperlipidemia, unspecifiedPain, unspecifiedOther chronic painEssential (primary) hypertensionOpioid dependence, uncomplicated New patient,40-59min; chronic exacerbation, 2 stable chronic or 1 acute illness add add modifier 95 for video (do not use for phone, instead use 49854-56) [facility] ([place]) 11/25/2022 New patient,40-59min; chronic exacerbation, 2 stable chronic or 1 acute illness add add modifier 95 for video (do not use for phone, instead use 36048-60) [facility] [place]/25/2022 New patient,40-59min; chronic exacerbation, 2 stable chronic or 1 acute illness add add modifier 95 for video (do not use for phone, instead use 46176-84) [facility] [place] 11/25/2022 New patient,40-59min; chronic exacerbation, 2 stable chronic or 1 acute illness add add modifier 95 for video (do not use for phone, instead use 67679-24) [facility] [place] 11/25/2022 New patient,40-59min; chronic exacerbation, 2 stable chronic or 1 acute illness add add modifier 95 for video (do not use for phone, instead use 53815-85) [facility] ([place] 11/25/2022 New patient,40-59min; chronic exacerbation, 2 stable chronic or 1 acute illness add add modifier 95 for video (do not use for phone, instead use 82051-12) [facility], ([place]) 11/25/2022 RN, CN or CP time with patient by phone; use with 1111F, BP, A1c or other CPTII codes [facility], ([place]) 05/27/2023 Encounter for other specifie d aftercare RN, CN or CP time with patient by phone; use with 1111F, BP, A1c or other CPTII codes [facility], ([place]) 05/27/2023 Estab. patient 20-29min; 1 stable chronic or 2 minor; add add modifier 95 for video, modifier 93 for phone [facility] ([place]) 06/01/2023 Malignant neoplasm of prostateOpioid use, unspecified, uncomplicatedOther chronic painCalculus of ureter Estab. patient 20-29min; 1 stable chronic or 2 minor; add add modifier 95 for video, modifier 93 for phone [facility] ([place]) 06/01/2023 Estab. patient 20-29min; 1 stable chronic or 2 minor; add add modifier 95 for video, modifier 93 for phone [facility], ([place] 06/01/2023 Estab. patient 30-39min; chronic exacerbation, 2 stable chronic or 1 acute illness add add modifier 95 for video, (do not use for phone, instead use 71955-33) [facility], ([place]) 04/02/2024 Essential (primary) hypertensionMalignant neoplasm of prostateGastro-esophageal [...] (do not use for phone, instead use 39207-87) [facility] [place] 04/02/2024 Estab. patient 30-39min; chronic exacerbation, 2 stable chronic or 1 acute illness add add modifier 95 for video, (do not use for phone, instead use 05866-22) [facility] ([place] 04/02/2024 Estab. patient 30-39min; chronic exacerbation, 2 stable chronic or 1 acute illness add add modifier 95 for video, (do not use for phone, instead use 49940-04) [facility] ([place]) 04/02/2024 Estab. patient 30-39min; chronic exacerbation, 2 stable chronic or 1 acute illness add add modifier 95 for video, (do not use for phone, instead use 01073-07) [facility] ([place] 04/02/2024 Estab. patient 30-39min; chronic exacerbation, 2 stable chronic or 1 acute illness add add modifier 95 for video, (do not use for phone, instead use 15199-15) [facility] ([place] 04/02/2024 Estab. patient 30-39min; chronic exacerbation, 2 stable chronic or 1 acute illness add add modifier 95 for video, (do not use for phone, instead use 26000-21) [facility] [place] 04/02/2024 Estab. patient 20-29min; 1 stable chronic or 2 minor; add add modifier 95 for video, modifier 93 for phone [facility] ([place] 11/05/2024 Essential (primary) hypertensionMalignant neoplasm of prostateGastro-esophageal [...] 95 for video, modifier 93 for phone [facility] [place] 11/05/2024 Estab. patient 20-29min; 1 stable chronic or 2 minor; add add modifier 95 for video, modifier 93 for phone [facility] [place] 11/05/2024 Estab. patient 20-29min; 1 stable chronic or 2 minor; add add modifier 95 for video, modifier 93 for phone [facility] [place] 11/05/2024 Estab. patient 20-29min; 1 stable chronic or 2 minor; add add modifier 95 for video, modifier 93 for phone [facility] ([place] 11/05/2024 Estab. patient 20-29min; 1 stable chronic or 2 minor; add add modifier 95 for video, modifier 93 for [facility], ([place]) 11/05/2024 Vital Signs Date of Collection Vitals [...] tive Time Current Smoking Status Former smoker 11 Sex Male History of Procedures Procedures Service Procedure code Service date Servicing provider Phone# New patient,40-59min; chronic exacerbation, 2 stable chronic or 1 acute illness add add modifier 95 for video (do not use for phone, instead use 28049-28) [id number] 2022-11-25 No Data Available No Data Availa [...] 1111F, BP, A1c or other CPTII codes 48297 2023-05-27 No Data Available No Data Avai lable Medications prescribed in hospital were reviewed and reconciled against what they were taking prior to admission during today's visit. (1111F) 1111F 2023-05-27 No Data Available No Data Availa ble Estab. patient 20-29min; 1 stable chronic or 2 minor; add add modifier 95 for video, modifier 93 for phone 51895 2023-06-01 No Data Available No Data Availa [...] (do not use for phone, instead use 59715-75) 24837 2024-04-02 No Data Available No Data Availa [...] 95 for video, modifier 93 for phone 56236 2024-11-05 No Data Available No Data Availa [...] appears to be in remission. Goes to [facility].StableOxycodoneUPDATE 06/01/2023:Reviewed safety/risks of opioids. Sending Narcan, education on its use.Had procedure to remove stone stone 05/25/2023. Has catheter. Will have catheter removed on 06/02/2023 at FU appt w Uro ([facility]).Reports some lingering dysuria. Ed re post-procedure [...] appears to be in remission. Goes to [facility].04/02/2024Still having Q6 months injection, still having [...] on 06/02/2023 at FU appt w Uro ([facility]).Reports some lingering dysuria. Ed re post-procedure pain being normal, but has uro FU tomorrow (06/02/2023) and will discuss w doctor.04/02/2024Has resolved.1996-, had an injury that detached his retina, cannot see.In touch with [employer] [facility] almost blind Lives [...] appears to be in remission. Goes to [facility].04/02/2024Still having Q6 months injection, still having [...] on 06/02/2023 at FU appt w Uro ([facility]).Reports some lingering dysuria. Ed re post-procedure pain being normal, but has uro FU tomorrow (06/02/2023) and will discuss w doctor.04/02/2024Has resolved.1996-, had an injury that detached his retina, cannot see.In touch with [employer] [facility] almost [facility] Lives with [...] w/ PCP and oncology specialists Goes to [facility].11/05/24Still having Q6 months injection, still having [...] recent falls, no falls in the past [id number], had an injury that detached his retina, cannot see.In touch with [facility] almost blind Lives with [...] in one month for bp 2024-11-05 CGM freeNeptune Mobile Devicesyl angeli 3 plus sensorophthalmology injections, 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 2024-11-05 DME: glucerna, blood pressure machine
--- OUTSIDE RECORDS SUMMARY | 2025-09-03 17:31 | XMS_ITS | Clinical Summary ---
Author Organization [facility] ity Address [address] [place] [address] Care Team Providers Care Event Marketing Intern Name Role Phone Unavailable Primary Care Provider [...]
== END 2025-09-03 14:11 | disposition home or self-care (01) ==
LOC: HO.ENCR 13:12
PROVIDERS: PCP Internal Medicine; Visit Provider Physician Assistant Medical
DX: E11.3593 Type 2 diabetes mellitus with proliferative diabetic retinopathy without macular edema, bilateral (principal); Z79.4 Long term (current) use of insulin; E11.42 Type 2 diabetes mellitus with diabetic polyneuropathy; I10 Essential (primary) hypertension; E78.00 Pure hypercholesterolemia, unspecified

== ENCOUNTER → 2025-09-03 13:11 | Outpatient (BNVA) | payer MEDICARE, SELFPAY | PROVIDERS: PCP Internal Medicine; Visit Provider Physician Assistant Medical | DX: E11.3593 Type 2 diabetes mellitus with proliferative diabetic retinopathy without macular edema, bilateral (principal); E11.40 Type 2 diabetes mellitus with diabetic neuropathy, unspecified; I10 Essential (primary) hypertension; E78.00 Pure hypercholesterolemia, unspecified; Z79.4 Long term (current) use of insulin | CPT/HCPCS: 82947; 99212 ==